=== PATIENT | male | born 1960 | race Caucasian/White ===

== ENCOUNTER 2016-12-04 15:23 | Inpatient (IN) | payer BC ==
[~2016-12-04] VITALS: Ht 190.5 cm; Wt 95.3 kg
[2016-12-04 16:00] VITALS: BP 120/96
[2016-12-04] MEDS ORDERED: ONDANSETRON PF 4 MG/2 ML VIAL. IV PRN (16:30)
[2016-12-04] MEDS ORDERED: HEPARIN 25,000UTS/500ML PREMIX 500 ML IV PRN (16:30)
[2016-12-04] MEDS ORDERED: HEPARIN for IV BOLUS 10,000 UNIT/10 ML VIAL. IV PRN (16:30)
[2016-12-04] MEDS ORDERED: ACETAMINOPHEN 325 MG TABLET. PO PRN (16:30)
[2016-12-04] MEDS ORDERED: ASPIRIN 81 MG TAB.CHEW PO ONE (16:30)
--- NOTE | 2016-12-04 16:44 | PDOC2 ---
IDRIS BILL WOODENWARE ASSEMBLER 12/04/16 1644: CARDIAC CONSULT DATE OF CONSULT Date of Consult DATE: 12/04/16 TIME: 16:31 REASON FOR CONSULT Reason for Consult: Chest Pain, elevated trop REFERRING PHYSICIAN Referring Physician: Dr. Faustin SOURCE Source: Chart review, Patient HISTORY OF PRESENT ILLNESS HISTORY OF PRESENT ILLNESS This is a 56 yo male who presented to his PCP office yesterday with complaints of right sided chest pain. CXR was obtain, which revealed possible mass. Patient was referred to process server, Dr. Anderson today, who ordered CT of chest. While at office visit, PCP contact patient to notify him of abnormal lab findings. Patient was directly admitted to hospital due to an elevated troponin level and cardiology consult was obtained. Patient reports chest pain began yesterday afternoon. Describes as mild heaviness/tightness. Associated with throat "burning" sensation and diaphoresis. No worsening or relieving factors. Pain seemed to go away after a couple hours without intervention. Denies any associated dizziness, palpitations, orthopnea, SOA, or n/v. No recent [place]. PAST MEDICAL HISTORY Cardiovascular: Hyperlipidemia Pulmonary: No pertinent hx GI: No pertinent hx Heme/Onc: No pertinent hx Hepatobiliary: No pertinent hx Psych: No pertinent hx Rheumatologic: No pertinent hx Infectious disease: No pertinent hx ENT: No pertinent hx Renal/: No pertinent hx Endocrine: No pertinent hx Dermatology: No pertinent hx PAST SURGICAL HISTORY Past Surgical History: Appendectomy, Other (cyst removal) FAMILY HISTORY Family History: Other (non-contributory ) SOCIAL HISTORY Smoke: 1 pack per day ALCOHOL: none Drugs: None Lives: Alone ALLERGIES ALLERGIES: Coded Allergies: No Known Drug Allergies (Unverified , 12/04/16) ROS Review of System 14 point ROS conducted with pertinent positives noted above in HPI. PHYSICAL EXAM General: Alert, Oriented X3, Cooperative, No acute distress HEENT: Mucous membr. moist/pink Lungs: Clear to auscultation, Normal air movement Heart: Regular rate, Normal S1, Normal S2, No murmurs Abdomen: Soft, No tenderness Extremities: No edema, Normal pulses Skin: No breakdown, No significant lesion Neuro: Normal speech, Sensation intact Psych/Mental Status: Mental status NL, Mood NL MUSCULOSKELETAL: Full range of motion without pain ASSESSMENT/PLAN ASSESSMENT/PLAN 1. Chest pain, with typical features troponin 1.4 per reports of PCP labs obtained 12/03 will obtain troponin series. EKG, check lipids- statin if indicated Start ASA, BB, and heparin gtt Given symptoms and elevated troponin level, will proceed with C in am. B/R/ A discuss with patient and is agreeable. 2. Tobaccoism cessation discussed and encouraged. Problems: CIERA MORLEY MD 12/05/16 1618: CARDIAC CONSULT ALLERGIES ALLERGIES: Coded Allergies: No Known Drug Allergies (Unverified , 12/04/16) ASSESSMENT/PLAN ASSESSMENT/PLAN Patient seen and examined 12/04/16. Agree with ASSESSOR's assessment and plan. Patient presently chest pain-free. Plan for cardiac catheterization and possible angioplasty for his non-STEMI. Risks and benefits were explained. Thank you for your consultation. Problems: IDRIS BILL APRN Dec 04, 2016 16:44 CIERA MORLEY MD Dec 05, 2016 16:18
--- NOTE | 2016-12-04 16:47 | PDOC1 ---
History and Physical Date of Admission Date of Admission 12/04/16 Identification/Chief Complaint Chief Complaint chest pain, high troponin Problems: Source Source: Patient History of Present Illness History of Present Illness 56yo M , smoker, was sent by dr. Maddox for high troponin. Pt had rt chest pain yesterday, cough for 3months , worse for 2 weeks, went to see PCP who did CXR found a right side lung Mass. also did troponin , which is high as 1. pt has no chest pain anymore. still cough, mild , and mild sob. no need o2. no fever, chills, N/V, weight loss. Past Medical History Past Medical History none Past Surgical History Past Surgical History: Hernia Repair Family History Family History: No Significant Social History Smoke: 1 pack per day ALCOHOL: social Drugs: None Current Problem List Problem List Problems Medical Problems: (1) Chest pain Status: Acute Current Medications Current Medications Current Medications Medications (Trade) Dose Ordered Sig/Lita Start Time Stop Time Status Last Admin Dose Admin Acetaminophen (Tylenol) 650 mg PRN Q6HRS PRN 12/04/16 16:30 UNV Acetaminophen/ Hydrocodone Bitart (Lortab 5/325) 1 tab PRN Q4HRS PRN 12/04/16 16:30 UNV Aspirin (Children'S Aspirin) 324 mg 1X ONCE 12/04/16 16:30 12/04/16 16:31 UNV Aspirin (Ecotrin) 81 mg DAILYWBKFT 12/05/16 08:00 UNV Heparin Sodium (Porcine) 2,500 unit PRN Q6HRS PRN 12/04/16 16:30 UNV Heparin Sodium/ Dextrose 500 ml @ 0 mls/hr CONT PRN 12/04/16 16:30 UNV Metoprolol Tartrate (Lopressor) 12.5 mg BID 12/04/16 21:00 UNV Ondansetron HCl (Zofran) 4 mg PRN Q6HRS PRN 12/04/16 16:30 UNV ROS Review of System CONSTITUTIONAL: No fever or chills EYES: No recent changes SKIN: No rash or itching CARDIOVASCULAR: No chest pain, syncope, palpitations, or edema RESPIRATORY: No SOB or cough GASTROINTESTINAL: No nausea, vomiting or abdominal pain NEUROLOGICAL: No headaches or weakness ENDOCRINE: No cold or heat intolerance GENITOURINARY: No urgency or frequency of urination MUSCULOSKELETAL: No back pain or joint pain LYMPHATICS: No enlarged lymph nodes PSYCHIATRIC: No anxiety or depression Physical Exam Physical Exam GEN.: No apparent distress. Alert and oriented. HEENT: Head is normocephalic, atraumatic NECK: Supple. LUNGS: bl coarse bs. no wheezing or rales. HEART: RRR, S1, S2 present. Peripheral pulses intact ABDOMEN: Soft, nontender. Positive bowel sounds. EXTREMITIES: Without any cyanosis. NEUROLOGIC: Normal speech, normal tone PSYCHIATRIC: Normal affect, normal mood. SKIN: No ulcerations Vitals Vitals Vital Signs Date Time Temp Pulse Resp B/P Pulse Ox O2 Delivery O2 Flow Rate FiO2 12/04/16 16:00 98.3 73 18 120/96 96 Room Air 98.3 VTE Prophylaxis Ordered VTE Prophylaxis Devices: Yes VTE Pharmacological Prophylaxi: No Assessment/Plan Assessment/Plan 1. high troponin with chest pain yesterday 2. new rt lung Mass 3. tobaccoism plan: 1. card consulted, EKG, CYCLE CE CHECK TSH, LIpid panel 2 Cath tmr 3. heparin drip labs now dr. maddox doesnot want to see pt since he is out of town, has a fu appt next week, no need pulm consult. RAS PINA MD Dec 04, 2016 16:47
--- NOTE | 2016-12-04 16:52 | EKG ---
[facility] [address] [place] [address] Test Date: 2016-12-04 Test Time: 16:44:13 Pat Name: ZURI LOCK Department: Room: 211 1 Gender: M Health Promotion Officer: : 1960 Requested By: IDRIS BILL Order Number: [id number] Reading MD: Measurements Intervals [place] Rate: 75 P: 68 VT: 164 QRS: -22 QRSD: 86 T: 33 QT: 398 QTc: 447 Interpretive Statements SINUS RHYTHM LEFTWARD AXIS QRS(T) CONTOUR ABNORMALITY CONSIDER ANTEROSEPTAL MYOCARDIAL DAMAGE POSSIBLY ABNORMAL ECG RI6.01 No previous ECG available for comparison
[2016-12-04] MEDS ORDERED: ASPIRIN ENTERIC COATED 325 MG TABLET.DR. PO ONE (18:00)
[2016-12-04 19:20] VITALS: BP 143/93
[2016-12-04] MEDS: METOPROLOL TART IMMED RELEASE 25 MG TABLET PO SCH (21:19)
[2016-12-04 23:04] VITALS: BP 140/96
[2016-12-05] VITALS (9 sets, daily range): BP systolic 132–170; BP diastolic 89–108
[2016-12-05 00:03] LABS: BASO # 0.3 x10^3/uL (0.0-0.2); BASO % 3 % (0-3); EOS % 1 % (0-3); HEMATOCRIT 46.3 % (39.0-53.0); HEMOGLOBIN 15.4 g/dL (13.0-17.5); LYMPH # 3.4 x10^3/uL (1.0-4.8); LYMPH % 33 % (24-48); MEAN CORPUSCULAR HEMOGLOBIN 29 pg (25-35); MEAN CORPUSCULAR HGB CONC 33 g/dL (31-37); MEAN CORPUSCULAR VOLUME 86 fL (79-100); MONO % 8 % (0-9); NEUT % 56 % (31-73); PLATELET COUNT 216 x10^3/uL (140-400); RED CELL DISTRIBUTION WIDTH 13.3 % (11.5-14.5); WHITE BLOOD COUNT 10.1 x10^3/uL (4.0-11.0)
[2016-12-05 00:43] LABS: CALCIUM 9.2 mg/dL (8.5-10.1); CREATININE 1.3 mg/dL (0.7-1.3); GFR 57.3; POTASSIUM 3.9 mmol/L (3.5-5.1)
[2016-12-05 06:53] LABS: HEMATOCRIT 48.2 % (39.0-53.0); RED BLOOD COUNT 5.58 x10^6/uL (4.30-5.70); RED CELL DISTRIBUTION WIDTH 13.3 % (11.5-14.5); WHITE BLOOD COUNT 8.6 x10^3/uL (4.0-11.0)
[2016-12-05 07:19] LABS: CHOLESTEROL/HDL RATIO 3.7
[2016-12-05] MEDS ORDERED: ANTI-COAG MONITOR BY PHARMACY. MC PRN (07:45)
[2016-12-05] MEDS ORDERED: ASPIRIN ENTERIC COATED 81 MG TABLET.DR. PO SCH (08:00)
[2016-12-05] MEDS: METOPROLOL TART IMMED RELEASE 25 MG TABLET PO SCH ×2 (08:34→20:53)
[2016-12-05] MEDS ORDERED: VARE0.5T PO (08:47)
[2016-12-05] MEDS ORDERED: SODIUM BICARBONATE VIAL 150 MEQ in IV STERILE WATER 1,000 ML IV ONE (09:00)
[2016-12-05] MEDS ORDERED: IV RINGERS,LACTATED 1000ML 1,000 ML IV SCH (09:00)
[2016-12-05] MEDS ORDERED: IV NORMAL SALINE 1000ML BAG 1,000 ML IV ONE (09:30)
--- NOTE | 2016-12-05 10:45 | PDOC ---
MODERATE SEDATION ASSESSMENT RISKS/ALTERNATIVES Risks/Alternatives Risks and alternatives of this type of sedation and procedure discussed with: RISK/ALTERNATIVES: Patient H & P ON CHART H & P H & P on chart and reviewed for co-morbid conditions and appropriate labs. H&P ON CHART: Yes STATUS PREG STATUS ASSESSED: N/A MEDS/ALLERGIES REVIEWED Meds/Allergies Reviewed Medications and Allergies including time and route of recently administered narcotics and sedatives. MEDS/ALLERGIES REVIEWED: Yes ASA RATING ASA RATING: II AIRWAY ASSESSMENT Airway Assessment Airway patency, oral function limitations, presence of caps, crowns, dentures, partials, and ability to extend neck assessed. AIRWAY ASSESSMENT: Yes MALLAMPATI SCORE MALLAMPATI SCORE: II PRE-SEDATION ASSESSMENT PRE-SEDATION ASSESSMENT: Yes CIERA MORLEY MD Dec 05, 2016 10:45
[2016-12-05] MEDS ORDERED: IODIXANOL 320 MG/ML 100 ML VIAL. ONE ×3 (10:49→12:37)
[2016-12-05] MEDS ORDERED: LIDOCAINE 2% 20 ML VIAL. ONE (10:49)
[2016-12-05] MEDS ORDERED: MIDAZOLAM HCL/PF 5 MG/5 ML VIAL ONE (11:19)
[2016-12-05] MEDS ORDERED: NITROGLYCERIN 200 MCG/2 ML SYRINGE FOR CATH/VASC LAB. ONE ×2 (11:19→14:34)
[2016-12-05] MEDS ORDERED: VERAPAMIL 5 MG/2 ML VIAL. ONE (11:19)
[2016-12-05] MEDS ORDERED: HEPARIN for IV BOLUS 10,000 UNIT/10 ML VIAL. ONE (11:19)
[2016-12-05] MEDS ORDERED: FENTANYL PF 100 MCG/2 ML VIAL. ONE ×2 (11:19→12:48)
[2016-12-05] MEDS ORDERED: IODIXANOL 320 MG/ML 100 ML VIAL. IART ONE (11:30)
[2016-12-05] MEDS ORDERED: MIDAZOLAM HCL/PF 5 MG/5 ML VIAL IV ONE (11:30)
[2016-12-05] MEDS ORDERED: LIDOCAINE 2% 20 ML VIAL. IJ ONE (11:30)
[2016-12-05] MEDS ORDERED: FENTANYL PF 100 MCG/2 ML VIAL. IV ONE (11:30)
[2016-12-05] MEDS ORDERED: BIVALIRUDIN 250 MG VIAL IV ONE ×4 (11:43→13:00)
[2016-12-05] MEDS ORDERED: CONTRAST GIVEN MC PRN (11:45)
[2016-12-05] MEDS ORDERED: NITROGLYCERIN 200 MCG/2 ML SYRINGE FOR CATH/VASC LAB. ICAR ONE (12:02)
[2016-12-05] MEDS ORDERED: ASPIRIN 81 MG TAB.CHEW PO ONE (13:30)
[2016-12-05] MEDS ORDERED: PRASUGREL 10 MG TABLET. PO ONE (13:30)
[2016-12-05] MEDS ORDERED: PRASUGREL 10 MG TABLET. ONE (13:31)
[2016-12-05] MEDS ORDERED: ACETAMINOPHEN 325 MG TABLET. PO PRN (13:45)
[2016-12-05] MEDS ORDERED: NITROGLYCERIN SUBLINGUAL 0.4 MG BOTTLE OF 25. SL PRN (13:45)
[2016-12-05] MEDS ORDERED: hydrALAZINE 20 MG/ML VIAL. IVP PRN (14:15)
--- NOTE | 2016-12-05 14:17 | PDOC ---
PROGRESS NOTES Chief Complaint Chief Complaint NSTEMI htn lipids new rt lung Mass tobaccoism History of Present Illness History of Present Illness cardiac cath today tobacco cessation, chantix cont current f/u with PUlm for lung mass maybe DC in AM Vitals Vitals Vital Signs Date Time Temp Pulse Resp B/P Pulse Ox O2 Delivery O2 Flow Rate FiO2 12/05/16 13:38 75 18 94 Room Air 12/05/16 08:34 156/105 12/05/16 07:59 97.8 97.8 Physical Exam General: Alert, Oriented X3, Cooperative, No acute distress Heart: Regular rate, Normal S1, Normal S2, No murmurs Lungs: Clear Abdomen: Soft, No tenderness Extremities: No clubbing, No edema, Normal pulses Skin: No breakdown, No significant lesion Labs LABS Laboratory Tests Test 12/04/16 23:45 12/05/16 06:35 White Blood Count 10.1x10^3/uL (4.0-11.0) 8.6x10^3/uL (4.0-11.0) Red Blood Count 5.40x10^6/uL (4.30-5.70) 5.58x10^6/uL (4.30-5.70) Hemoglobin 15.4g/dL (13.0-17.5) 16.0g/dL (13.0-17.5) Hematocrit 46.3% (39.0-53.0) 48.2% (39.0-53.0) Mean Corpuscular Volume 86fL (79-100) 86fL (79-100) Mean Corpuscular Hemoglobin 29pg (25-35) 29pg (25-35) Mean Corpuscular Hemoglobin Concent 33g/dL (31-37) 33g/dL (31-37) Red Cell Distribution Width 13.3% (11.5-14.5) 13.3% (11.5-14.5) Platelet Count 216x10^3/uL (140-400) 214x10^3/uL (140-400) Neutrophils (%) (Auto) 56% (31-73) Lymphocytes (%) (Auto) 33% (24-48) Monocytes (%) (Auto) 8% (0-9) Eosinophils (%) (Auto) 1% (0-3) Basophils (%) (Auto) 3% (0-3) Neutrophils # (Auto) 5.6x10^3uL (1.8-7.7) Lymphocytes # (Auto) 3.4x10^3/uL (1.0-4.8) Monocytes # (Auto) 0.8x10^3/uL (0.0-1.1) Eosinophils # (Auto) 0.1x10^3/uL (0.0-0.7) Basophils # (Auto) 0.3x10^3/uL (0.0-0.2) Heparin Anti-Xa Act, Unfractionated < 0.10IU/mL (0.30-0.70) 0.28IU/mL (0.30-0.70) Sodium Level 142mmol/L (136-145) Potassium Level 3.9mmol/L (3.5-5.1) Chloride Level 105mmol/L (98-107) Carbon Dioxide Level 31mmol/L (21-32) Anion Gap 6 (6-14) Blood Urea Nitrogen 17mg/dL (8-26) Creatinine 1.3mg/dL (0.7-1.3) Estimated GFR (Cockcroft-Gault) 57.3 Glucose Level 95mg/dL (70-99) Calcium Level 9.2mg/dL (8.5-10.1) Troponin I Quantitative 2.780ng/mL (0.000-0.055) 2.349ng/mL (0.000-0.055) Thyroid Stimulating Hormone (TSH) 0.967uIU/mL (0.358-3.74) Triglycerides Level 52mg/dL (0-150) Cholesterol Level 205mg/dL (0-200) LDL Cholesterol, Calculated 140mg/dL (0-100) VLDL Cholesterol, Calculated 10mg/dL (0-40) HDL Cholesterol 55mg/dL (40-60) Cholesterol/HDL Ratio 3.7 Review of Systems Review of Systems no n.v.d pain gone Assessment and Plan Assessmemt and Plan reports has quit tobacco worse at [facility] [place] Problems Medical Problems: (1) Chest pain Status: Acute Problems: Comment Review of Relevant I have reviewed the following items tess (where applicable) has been applied. Labs Laboratory Tests Test 12/04/16 23:45 12/05/16 06:35 White Blood Count 10.1x10^3/uL (4.0-11.0) 8.6x10^3/uL (4.0-11.0) Red Blood Count 5.40x10^6/uL (4.30-5.70) 5.58x10^6/uL (4.30-5.70) Hemoglobin 15.4g/dL (13.0-17.5) 16.0g/dL (13.0-17.5) Hematocrit 46.3% (39.0-53.0) 48.2% (39.0-53.0) Mean Corpuscular Volume 86fL (79-100) 86fL (79-100) Mean Corpuscular Hemoglobin 29pg (25-35) 29pg (25-35) Mean Corpuscular Hemoglobin Concent 33g/dL (31-37) 33g/dL (31-37) Red Cell Distribution Width 13.3% (11.5-14.5) 13.3% (11.5-14.5) Platelet Count 216x10^3/uL (140-400) 214x10^3/uL (140-400) Neutrophils (%) (Auto) 56% (31-73) Lymphocytes (%) (Auto) 33% (24-48) Monocytes (%) (Auto) 8% (0-9) Eosinophils (%) (Auto) 1% (0-3) Basophils (%) (Auto) 3% (0-3) Neutrophils # (Auto) 5.6x10^3uL (1.8-7.7) Lymphocytes # (Auto) 3.4x10^3/uL (1.0-4.8) Monocytes # (Auto) 0.8x10^3/uL (0.0-1.1) Eosinophils # (Auto) 0.1x10^3/uL (0.0-0.7) Basophils # (Auto) 0.3x10^3/uL (0.0-0.2) Heparin Anti-Xa Act, Unfractionated < 0.10IU/mL (0.30-0.70) 0.28IU/mL (0.30-0.70) Sodium Level 142mmol/L (136-145) Potassium Level 3.9mmol/L (3.5-5.1) Chloride Level 105mmol/L (98-107) Carbon Dioxide Level 31mmol/L (21-32) Anion Gap 6 (6-14) Blood Urea Nitrogen 17mg/dL (8-26) Creatinine 1.3mg/dL (0.7-1.3) Estimated GFR (Cockcroft-Gault) 57.3 Glucose Level 95mg/dL (70-99) Calcium Level 9.2mg/dL (8.5-10.1) Troponin I Quantitative 2.780ng/mL (0.000-0.055) 2.349ng/mL (0.000-0.055) Thyroid Stimulating Hormone (TSH) 0.967uIU/mL (0.358-3.74) Triglycerides Level 52mg/dL (0-150) Cholesterol Level 205mg/dL (0-200) LDL Cholesterol, Calculated 140mg/dL (0-100) VLDL Cholesterol, Calculated 10mg/dL (0-40) HDL Cholesterol 55mg/dL (40-60) Cholesterol/HDL Ratio 3.7 Laboratory Tests Test 12/04/16 23:45 12/05/16 06:35 White Blood Count 10.1x10^3/uL (4.0-11.0) 8.6x10^3/uL (4.0-11.0) Red Blood Count 5.40x10^6/uL (4.30-5.70) 5.58x10^6/uL (4.30-5.70) Hemoglobin 15.4g/dL (13.0-17.5) 16.0g/dL (13.0-17.5) Hematocrit 46.3% (39.0-53.0) 48.2% (39.0-53.0) Mean Corpuscular Volume 86fL (79-100) 86fL (79-100) Mean Corpuscular Hemoglobin 29pg (25-35) 29pg (25-35) Mean Corpuscular Hemoglobin Concent 33g/dL (31-37) 33g/dL (31-37) Red Cell Distribution Width 13.3% (11.5-14.5) 13.3% (11.5-14.5) Platelet Count 216x10^3/uL (140-400) 214x10^3/uL (140-400) Neutrophils (%) (Auto) 56% (31-73) Lymphocytes (%) (Auto) 33% (24-48) Monocytes (%) (Auto) 8% (0-9) Eosinophils (%) (Auto) 1% (0-3) Basophils (%) (Auto) 3% (0-3) Neutrophils # (Auto) 5.6x10^3uL (1.8-7.7) Lymphocytes # (Auto) 3.4x10^3/uL (1.0-4.8) Monocytes # (Auto) 0.8x10^3/uL (0.0-1.1) Eosinophils # (Auto) 0.1x10^3/uL (0.0-0.7) Basophils # (Auto) 0.3x10^3/uL (0.0-0.2) Heparin Anti-Xa Act, Unfractionated < 0.10IU/mL (0.30-0.70) 0.28IU/mL (0.30-0.70) Sodium Level 142mmol/L (136-145) Potassium Level 3.9mmol/L (3.5-5.1) Chloride Level 105mmol/L (98-107) Carbon Dioxide Level 31mmol/L (21-32) Anion Gap 6 (6-14) Blood Urea Nitrogen 17mg/dL (8-26) Creatinine 1.3mg/dL (0.7-1.3) Estimated GFR (Cockcroft-Gault) 57.3 Glucose Level 95mg/dL (70-99) Calcium Level 9.2mg/dL (8.5-10.1) Troponin I Quantitative 2.780ng/mL (0.000-0.055) 2.349ng/mL (0.000-0.055) Thyroid Stimulating Hormone (TSH) 0.967uIU/mL (0.358-3.74) Triglycerides Level 52mg/dL (0-150) Cholesterol Level 205mg/dL (0-200) LDL Cholesterol, Calculated 140mg/dL (0-100) VLDL Cholesterol, Calculated 10mg/dL (0-40) HDL Cholesterol 55mg/dL (40-60) Cholesterol/HDL Ratio 3.7 Medications Current Medications Heparin Sodium/ Dextrose 500 ml @ 20 mls/hr CONT PRN IV SEE I/O RECORD Last administered on 12/04/16 17:46; Start 12/04/16 at 16:30; Stop 12/05/16 at 13:42; Status DC Heparin Sodium (Porcine) 2,500 unit PRN Q6HRS PRN IV FOR UFH LEVEL LESS THAN 0.2 Last administered on 12/05/16 00:41; Start 12/04/16 at 16:30; Stop 12/05/16 at 13:42; Status DC Aspirin (Children'S Aspirin) 324 mg 1X ONCE PO ; Start 12/04/16 at 16:30; Stop 12/04/16 at 17:16; Status DC Aspirin (Ecotrin) 81 mg DAILYWBKFT PO Last administered on 12/05/16 08:31; Start 12/05/16 at 08:00; Stop 12/05/16 at 13:42; Status DC Metoprolol Tartrate (Lopressor) 12.5 mg BID PO Last administered on 12/05/16 08:34; Start 12/04/16 at 21:00 Ondansetron HCl (Zofran) 4 mg PRN Q6HRS PRN IV NAUSEA/VOMITING; Start 12/04/16 at 16:30 Acetaminophen/ Hydrocodone Bitart (Lortab 5/325) 1 tab PRN Q4HRS PRN PO MILD PAIN, 2ND CHOICE; Start 12/04/16 at 16:30 Acetaminophen (Tylenol) 650 mg PRN Q6HRS PRN PO MILD PAIN / TEMP; Start at 16:30; Stop 12/05/16 at 13:45; Status DC Aspirin (Ecotrin) 325 mg 1X ONCE PO Last administered on 12/04/16 18:07; Start 12/04/16 at 18:00; Stop 12/04/16 at 18:01; Status DC Info (Anti-Coagulation Monitoring By Pharmacy) 1 each PRN DAILY PRN MC SEE COMMENTS Last administered on 12/05/16 07:46; Start 12/05/16 at 07:45; Stop 07/14 at 13:45; Status DC Varenicline 0.5 mg 0.5 mg DAILY PO ; Start 12/05/16 at 09:00 Sodium Bicarbonate 150 meq/Sterile Water 1,150 ml @ 125 mls/hr 1X ONCE IV ; Start 12/05/16 at 09:00; Stop 12/05/16 at 09:00; Status DC Lactated Ringer's 1,000 ml @ 125 mls/hr Q8H IV ; Start 12/05/16 at 09:00; Stop 12/05/16 at 09:01; Status DC Sodium Chloride 1,000 ml @ 150 mls/hr 1X ONCE IV Last administered on 09:05; Start 12/05/16 at 09:30; Stop 12/05/16 at 16:09 Heparin Sodium/ Sodium Chloride 500 ml @ As Directed STK-MED ONCE .ROUTE ; Start 12/05/16 at 10:49; Stop 12/05/16 at 10:50; Status DC Lidocaine HCl 20 ml STK-MED ONCE .ROUTE ; Start 12/05/16 at 10:49; Stop at 10:50; Status DC Iodixanol (Visipaque 320) 100 ml STK-MED ONCE .ROUTE ; Start 12/05/16 at 10:49; Stop 12/05/16 at 10:50; Status DC Nitroglycerin (Nitroglycerin) 200 mcg STK-MED ONCE .ROUTE ; Start 12/05/16 at 11 :19; Stop 12/05/16 at 11:20; Status DC Verapamil HCl (Verapamil) 5 mg STK-MED ONCE .ROUTE ; Start 12/05/16 at 11:19; Stop 12/05/16 at 11:20; Status DC Fentanyl Citrate (Fentanyl 2ml Vial) 100 mcg STK-MED ONCE .ROUTE ; Start at 11:19; Stop 12/05/16 at 11:20; Status DC Midazolam HCl (Versed) 5 mg STK-MED ONCE .ROUTE ; Start 12/05/16 at 11:19; Stop 12/05/16 at 11:20; Status DC Heparin Sodium (Porcine) 10,000 unit STK-MED ONCE .ROUTE ; Start 12/05/16 at 11: 19; Stop 12/05/16 at 11:20; Status DC Heparin Sodium/ Sodium Chloride 1,000 unit 1X ONCE IART Last administered on 13:33; Start 12/05/16 at 11:30; Stop 12/05/16 at 11:33; Status DC Midazolam HCl (Versed) 3 mg 1X ONCE IV Last administered on 12/05/16 13:34; Start 12/05/16 at 11:30; Stop 12/05/16 at 11:33; Status DC Fentanyl Citrate (Fentanyl 2ml Vial) 100 mcg 1X ONCE IV Last administered on 13:35; Start 12/05/16 at 11:30; Stop 12/05/16 at 11:33; Status DC Iodixanol (Visipaque 320) 100 ml 1X ONCE IART Last administered on 12/05/16 13:33; Start 12/05/16 at 11:30; Stop 12/05/16 at 11:33; Status DC Lidocaine HCl 20 ml 1X ONCE IJ Last administered on 12/05/16 13:33; Start 07/14 at 11:30; Stop 12/05/16 at 11:33; Status DC Info (Do NOT chart on this entry -- for MONITORING) 1 each PRN DAILY PRN MC SEE COMMENTS; Start 12/05/16 at 11:45; Stop 12/07/16 at 11:44 Iodixanol (Visipaque 320) 100 ml STK-MED ONCE .ROUTE ; Start 12/05/16 at 11:43; Stop 12/05/16 at 11:44; Status DC Bivalirudin (Angiomax) 250 mg STK-MED ONCE IV ; Start 12/05/16 at 11:43; Stop at 11:44; Status DC Bivalirudin (Angiomax) 250 mg 1X ONCE IV Last administered on 12/05/16 13:35 ; Start 12/05/16 at 12:00; Stop 12/05/16 at 12:01; Status DC Nitroglycerin (Nitroglycerin) 200 mcg 1X ONCE ICAR Last administered on 13:36; Start 12/05/16 at 12:02; Stop 12/05/16 at 12:17; Status DC Iodixanol (Visipaque 320) 100 ml STK-MED ONCE .ROUTE ; Start 12/05/16 at 12:37; Stop 12/05/16 at 12:38; Status DC Bivalirudin (Angiomax) 250 mg STK-MED ONCE IV ; Start 12/05/16 at 12:48; Stop at 12:49; Status DC Fentanyl Citrate (Fentanyl 2ml Vial) 100 mcg STK-MED ONCE .ROUTE ; Start at 12:48; Stop 12/05/16 at 12:49; Status DC Bivalirudin (Angiomax) 250 mg 1X ONCE IV Last administered on 12/05/16 13:35 ; Start 12/05/16 at 13:00; Stop 12/05/16 at 13:02; Status DC Prasugrel (Effient) 60 mg 1X ONCE PO Last administered on 12/05/16 13:37; Start 12/05/16 at 13:30; Stop 12/05/16 at 13:33; Status DC Aspirin (Children'S Aspirin) 81 mg 1X ONCE PO Last administered on 12/05/16 13:37; Start 12/05/16 at 13:30; Stop 12/05/16 at 13:33; Status DC Prasugrel 10 mg 10 mg STK-MED ONCE .ROUTE ; Start 12/05/16 at 13:31; Stop at 13:32; Status DC Sodium Chloride (Iv Sodium Chloride 0.45%) 1,000 ml @ 125 mls/hr Q8H IV ; Start 12/05/16 at 13:38 Aspirin (Ecotrin) 325 mg DAILYWBKFT PO ; Start 12/06/16 at 08:00 Prasugrel (Effient) 10 mg DAILYWBKFT PO ; Start 12/06/16 at 08:00 Atorvastatin Calcium (Lipitor) 40 mg QHS PO ; Start 12/05/16 at 21:00 Acetaminophen (Tylenol) 650 mg PRN Q6HRS PRN PO MILD PAIN / TEMP; Start at 13:45 Nitroglycerin (Nitrostat) 0.4 mg PRN Q5MIN PRN SL CHEST PAIN; Start 12/05/16 at 13:45 Active Scripts Active Reported Chantix (Varenicline Tartrate) 0.5 Mg Tablet 0.5 Mg PO DIRECTED 0.5 MG PO DAILY X3 DAY, 0.5 MG PO BID X4 DAY, 1 MG PO BID UNTIL END OF TREATMENT Vitals/I & O Vital Sign - Last 24 Hours 12/04/16 12/04/16 12/04/16 12/04/16 16:00 16:42 19:20 20:00 Temp 98.3 98.3 98.3 98.3 Pulse 73 77 Resp 16 B/P 120/96 143/93 Pulse Ox 96 96 O2 Delivery Room Air Room Air Room Air Room Air 12/04/16 12/04/16 12/05/16 12/05/16 21:19 23:04 03:41 07:59 Temp 98.2 98.3 97.8 98.2 98.3 97.8 Pulse 83 70 68 Resp 18 18 B/P 140/90 140/96 132/91 Pulse Ox 95 95 95 O2 Delivery Room Air Room Air Room Air 12/05/16 12/05/16 12/05/16 12/05/16 08:00 08:34 13:35 13:38 Pulse 79 75 Resp 18 B/P 156/105 Pulse Ox 98 94 O2 Delivery Room Air Room Air Room Air Intake and Output 12/04/16 12/04/16 12/05/16 15:00 23:00 07:00 Intake Total 420 ml 918 ml Output Total 275 ml 250 ml Balance 145 ml 668 ml NADEGE OAKLEY MD Dec 05, 2016 14:17
[2016-12-05] MEDS: IV 1/2 NORMAL SALINE 1,000 ML IV SCH ×2 (14:27→21:00)
[2016-12-05] MEDS: VARENICLINE 0.5 MG TABLET. PO SCH (14:27)
[2016-12-05] MEDS: HYDROCODONE/APAP 5/325MG TABLET. PO PRN ×2 (14:27→19:40)
--- NOTE | 2016-12-05 14:33 | CARD ---
APPROVED REPORT Procedure(s) performed: 1. Left heart catheterization and selective coronary angiography 2. Successful complex PCI/drug eluting stents placement to chronic total occlusion involving the lef t circumflex artery and also the second obtuse marginal branch. INDICATION The indication(s) include : non-STEMI . PROCEDURE NARRATIVE After explaining the risks, benefits and alternative options, informed consent the patient patient wa s brought to the cardiac Administration Vice President and his right groin was prepped and draped in the usual fashion. 20 mL of 2% lidocaine was infiltrated into the skin and subcutaneous tissues for local anesthesia. Jackelyn rial access was obtained in the right common femoral artery and 6 Armenian sheath was inserted. 6 Frenc h JL4 and 6 Armenian JR4 catheters were used to perform selective angiography of the left and right cor onary arteries. Left ventriculography was not performed due to the high contrast load used during the procedure. The following findings were noted. FINDINGS 1. The left main coronary artery arose from the left sinus of Valsalva, gave rise to the left anteri or descending and left circumflex arteries and did not show any significant stenosis. 2. The left anterior descending artery did not show any significant stenosis. 3. The left circumflex artery showed 100% chronic total occlusion involving the proximal to mid segm ent. There is distal reconstitution of second obtuse marginal branch via collaterals. 4. The right coronary artery was a large and dominant vessel arising from the right sinus of Valsalv a that showed 40% stenosis in the mid to distal segment. INTERVENTION The left main coronary artery was engaged with a 6 Armenian XB 3.5 guide catheter and the stenosis in t he proximal to mid segment of the left circumflex artery extending into the proximal segment of the s econd obtuse marginal branch was crossed with a 0.014 inch [employer] guidewire. This was predila ilya with a 2.5 x 12 mm trek balloon following which this was successfully treated with a 2.75 x 18 mm Xience alpine drug-eluting stent. Follow-up angiography showed thrombus just distal to the stent ext ending into the second obtuse marginal branch. Initial attempt to advance balloon or stent into this lesion was unsuccessful secondary to calcification and tortuosity. The lesion was recrossed with a 0. 014 inch runthrough guidewire with support from Corsair microcatheter which was then exchanged to a 6 Armenian guideliner for backup support. The lesion was dilated again with 3.0 x 12 mm trek balloon fol lowing which this was successfully treated with a 3.0 x 12 mm Xience Alpine drug-eluting stent. Final angiography showed resolution of the stenosis to 0% with ANDRE-3 distal flow. Patient tolerated the p rocedure well. Hemostasis in the right groin was achieved using Angio-Seal. There were no immediate c omplications. Conclusion 1. Severe single-vessel coronary artery disease 2. Successful PCI/drug eluting stents placement to the left circumflex artery and also the second ob tuse marginal branch. Medications Administered 1. Aspirin 325 mg daily 2. Effient 10 mg daily for preferably one year 3. Cardiovascular risk factor modification
[2016-12-05] MEDS ORDERED: NON FORMULARY ITEM INH SCH (21:00)
[2016-12-05] MEDS ORDERED: ATORVASTATIN CALCIUM 40 MG TABLET. PO SCH (21:00)
[2016-12-06 02:30] VITALS: BP 139/99
[2016-12-06] MEDS: IV 1/2 NORMAL SALINE 1,000 ML IV SCH (05:38)
[2016-12-06 05:58] LABS: BASO % 0 % (0-3); EOS % 1 % (0-3); HEMATOCRIT 48.5 % (39.0-53.0); HEMOGLOBIN 16.4 g/dL (13.0-17.5); LYMPH # 2.3 x10^3/uL (1.0-4.8); LYMPH % 24 % (24-48); MEAN CORPUSCULAR HEMOGLOBIN 29 pg (25-35); MEAN CORPUSCULAR HGB CONC 34 g/dL (31-37); MEAN CORPUSCULAR VOLUME 84 fL (79-100); MONO % 8 % (0-9); NEUT % 67 % (31-73); PLATELET COUNT 217 x10^3/uL (140-400); RED BLOOD COUNT 5.75 x10^6/uL (4.30-5.70); RED CELL DISTRIBUTION WIDTH 13.5 % (11.5-14.5); WHITE BLOOD COUNT 9.8 x10^3/uL (4.0-11.0)
[2016-12-06 06:15] LABS: ALBUMIN 3.1 g/dL (3.4-5.0); ALBUMIN/GLOBULIN RATIO 0.9 (1.0-1.7); CALCIUM 8.9 mg/dL (8.5-10.1); CREATININE 1.1 mg/dL (0.7-1.3); GFR 69.5; POTASSIUM 3.8 mmol/L (3.5-5.1); TOTAL BILIRUBIN 0.7 mg/dL (0.2-1.0); TOTAL PROTEIN 6.7 g/dL (6.4-8.2)
[2016-12-06 07:55] VITALS: BP 155/97
[2016-12-06] MEDS ORDERED: ASPIRIN ENTERIC COATED 325 MG TABLET.DR. PO SCH (08:00)
[2016-12-06] MEDS ORDERED: PRASUGREL 10 MG TABLET. PO SCH (08:00)
[2016-12-06] MEDS: VARENICLINE 0.5 MG TABLET. PO SCH (08:58)
[2016-12-06 09:01] VITALS: BP 155/97
[2016-12-06] MEDS: METOPROLOL TART IMMED RELEASE 25 MG TABLET PO SCH (09:01)
[2016-12-06] MEDS ORDERED: PRAS10TA4 PO (09:20)
[2016-12-06] MEDS ORDERED: METO25TA4 PO (09:20)
[2016-12-06] MEDS ORDERED: ASPI325T11 PO (09:20)
[2016-12-06] MEDS ORDERED: ATOR40TA59 PO (09:20)
[2016-12-06] MEDS ORDERED: HYDR-2666 PO (09:21)
--- NOTE | 2016-12-06 09:36 | PDOC ---
CARDIO Progress Notes Date and Time Date of Service 12/06/2016 Time of Evaluation 09 Subjective Subjective: No Chest Pain, No shortness of breath, No Palpitations, No Dizziness Vitals Vitals Vital Signs Date Time Temp Pulse Resp B/P Pulse Ox O2 Delivery O2 Flow Rate FiO2 12/06/16 09:01 86 155/97 12/06/16 07:59 Room Air 12/06/16 07:55 98.5 22 94 98.5 Weight Weight [ ] Input and Output Intake and Output Intake and Output 12/06/16 07:00 Intake Total 2232 ml Output Total 1300 ml Balance 932 ml Intake Oral 120 ml IV Total 2112 ml Output Urine Total 1300 ml Laboratory Labs Laboratory Tests Test 12/06/16 05:00 White Blood Count 9.8x10^3/uL (4.0-11.0) Red Blood Count 5.75x10^6/uL (4.30-5.70) Hemoglobin 16.4g/dL (13.0-17.5) Hematocrit 48.5% (39.0-53.0) Mean Corpuscular Volume 84fL (79-100) Mean Corpuscular Hemoglobin 29pg (25-35) Mean Corpuscular Hemoglobin Concent 34g/dL (31-37) Red Cell Distribution Width 13.5% (11.5-14.5) Platelet Count 217x10^3/uL (140-400) Neutrophils (%) (Auto) 67% (31-73) Lymphocytes (%) (Auto) 24% (24-48) Monocytes (%) (Auto) 8% (0-9) Eosinophils (%) (Auto) 1% (0-3) Basophils (%) (Auto) 0% (0-3) Neutrophils # (Auto) 6.6x10^3uL (1.8-7.7) Lymphocytes # (Auto) 2.3x10^3/uL (1.0-4.8) Monocytes # (Auto) 0.8x10^3/uL (0.0-1.1) Eosinophils # (Auto) 0.1x10^3/uL (0.0-0.7) Basophils # (Auto) 0.0x10^3/uL (0.0-0.2) Sodium Level 143mmol/L (136-145) Potassium Level 3.8mmol/L (3.5-5.1) Chloride Level 107mmol/L (98-107) Carbon Dioxide Level 26mmol/L (21-32) Anion Gap 10 (6-14) Blood Urea Nitrogen 11mg/dL (8-26) Creatinine 1.1mg/dL (0.7-1.3) Estimated GFR (Cockcroft-Gault) 69.5 BUN/Creatinine Ratio 10 (6-20) Glucose Level 90mg/dL (70-99) Calcium Level 8.9mg/dL (8.5-10.1) Total Bilirubin 0.7mg/dL (0.2-1.0) Aspartate Amino Transf (AST/SGOT) 23U/L (15-37) Alanine Aminotransferase (ALT/SGPT) 9U/L (16-63) Alkaline Phosphatase 84U/L (46-116) Total Protein 6.7g/dL (6.4-8.2) Albumin 3.1g/dL (3.4-5.0) Albumin/Globulin Ratio 0.9 (1.0-1.7) Physical Exam HEENT: Neck Supple W Full Motion Chest: Symmetric LUNGS: Clear to Auscultation Heart: S1S2, RRR, no murmurs, other (tele: NSR; no dysrhythmias) Abdomen: Soft N/T Extremities: 2+ Dorsalis Pedis, 2+ Posterior Tibial, Other (right merchandise shopper arteriotomy C/D/I; site soft without ecchymosis, erythema or edema; no bruit auscultated at site) Neurology: alert, oriented, follow commands Assessment Assessment 1. CP/elevated troponin (peaked @ 2.7)/ACS SAT INSTRUCTOR circumflex with PCI/YAMIL to prox/midsegement PCI/YAMIL to OM2 DAPT preferably for 12 months; also BB, and statin therapy has been advised to cancel lung biopsy scheduled for coming - will likely need to defer this for at least 30 days will discuss with primary drug safety scientist and IR about possibility of FNA on aspirin only 2. HLD LDLs = 140 continue high dose statin therapy Agreeable with discharge f/u with Dr. Mendez in about 3 - 4 weeks RL BREAUX APRN Dec 06, 2016 09:36
--- NOTE | 2016-12-06 09:44 | PDOC3 ---
Discharge Summary Visit Information Date of Admission: Dec 04, 2016 Date of Discharge: Dec 06, 2016 Admitting Diagnosis: angina Final Diagnosis NSTEMI to circ htn lipids new rt lung Mass tobaccoism Problems Medical Problems: (1) Chest pain Status: Acute (2) Non-ST elevation (NSTEMI) myocardial infarction Status: Acute Brief Hospital Course Allergies Allergies Coded Allergies Type Severity Reaction Last Updated Verified No Known Drug Allergies 12/04/16 No Vital Signs Vital Signs Date Time Temp Pulse Resp B/P Pulse Ox O2 Delivery O2 Flow Rate FiO2 12/06/16 09:01 86 155/97 12/06/16 07:59 Room Air 12/06/16 07:55 98.5 22 94 98.5 Lab Results Laboratory Tests Test 12/04/16 23:45 12/05/16 06:35 12/06/16 05:00 White Blood Count 10.1x10^3/uL (4.0-11.0) 8.6x10^3/uL (4.0-11.0) 9.8x10^3/uL (4.0-11.0) Red Blood Count 5.40x10^6/uL (4.30-5.70) 5.58x10^6/uL (4.30-5.70) 5.75x10^6/uL (4.30-5.70) Hemoglobin 15.4g/dL (13.0-17.5) 16.0g/dL (13.0-17.5) 16.4g/dL (13.0-17.5) Hematocrit 46.3% (39.0-53.0) 48.2% (39.0-53.0) 48.5% (39.0-53.0) Mean Corpuscular Volume 86fL (79-100) 86fL (79-100) 84fL (79-100) Mean Corpuscular Hemoglobin 29pg (25-35) 29pg (25-35) 29pg (25-35) Mean Corpuscular Hemoglobin Concent 33g/dL (31-37) 33g/dL (31-37) 34g/dL (31-37) Red Cell Distribution Width 13.3% (11.5-14.5) 13.3% (11.5-14.5) 13.5% (11.5-14.5) Platelet Count 216x10^3/uL (140-400) 214x10^3/uL (140-400) 217x10^3/uL (140-400) Neutrophils (%) (Auto) 56% (31-73) 67% (31-73) Lymphocytes (%) (Auto) 33% (24-48) 24% (24-48) Monocytes (%) (Auto) 8% (0-9) 8% (0-9) Eosinophils (%) (Auto) 1% (0-3) 1% (0-3) Basophils (%) (Auto) 3% (0-3) 0% (0-3) Neutrophils # (Auto) 5.6x10^3uL (1.8-7.7) 6.6x10^3uL (1.8-7.7) Lymphocytes # (Auto) 3.4x10^3/uL (1.0-4.8) 2.3x10^3/uL (1.0-4.8) Monocytes # (Auto) 0.8x10^3/uL (0.0-1.1) 0.8x10^3/uL (0.0-1.1) Eosinophils # (Auto) 0.1x10^3/uL (0.0-0.7) 0.1x10^3/uL (0.0-0.7) Basophils # (Auto) 0.3x10^3/uL (0.0-0.2) 0.0x10^3/uL (0.0-0.2) Heparin Anti-Xa Act, Unfractionated < 0.10IU/mL (0.30-0.70) 0.28IU/mL (0.30-0.70) Sodium Level 142mmol/L (136-145) 143mmol/L (136-145) Potassium Level 3.9mmol/L (3.5-5.1) 3.8mmol/L (3.5-5.1) Chloride Level 105mmol/L (98-107) 107mmol/L (98-107) Carbon Dioxide Level 31mmol/L (21-32) 26mmol/L (21-32) Anion Gap 6 (6-14) 10 (6-14) Blood Urea Nitrogen 17mg/dL (8-26) 11mg/dL (8-26) Creatinine 1.3mg/dL (0.7-1.3) 1.1mg/dL (0.7-1.3) Estimated GFR (Cockcroft-Gault) 57.3 69.5 Glucose Level 95mg/dL (70-99) 90mg/dL (70-99) Calcium Level 9.2mg/dL (8.5-10.1) 8.9mg/dL (8.5-10.1) Troponin I Quantitative 2.780ng/mL (0.000-0.055) 2.349ng/mL (0.000-0.055) Thyroid Stimulating Hormone (TSH) 0.967uIU/mL (0.358-3.74) Triglycerides Level 52mg/dL (0-150) Cholesterol Level 205mg/dL (0-200) LDL Cholesterol, Calculated 140mg/dL (0-100) VLDL Cholesterol, Calculated 10mg/dL (0-40) HDL Cholesterol 55mg/dL (40-60) Cholesterol/HDL Ratio 3.7 BUN/Creatinine Ratio 10 (6-20) Total Bilirubin 0.7mg/dL (0.2-1.0) Aspartate Amino Transf (AST/SGOT) 23U/L (15-37) Alanine Aminotransferase (ALT/SGPT) 9U/L (16-63) Alkaline Phosphatase 84U/L (46-116) Total Protein 6.7g/dL (6.4-8.2) Albumin 3.1g/dL (3.4-5.0) Albumin/Globulin Ratio 0.9 (1.0-1.7) Laboratory Tests Test 12/06/16 05:00 White Blood Count 9.8x10^3/uL (4.0-11.0) Red Blood Count 5.75x10^6/uL (4.30-5.70) Hemoglobin 16.4g/dL (13.0-17.5) Hematocrit 48.5% (39.0-53.0) Mean Corpuscular Volume 84fL (79-100) Mean Corpuscular Hemoglobin 29pg (25-35) Mean Corpuscular Hemoglobin Concent 34g/dL (31-37) Red Cell Distribution Width 13.5% (11.5-14.5) Platelet Count 217x10^3/uL (140-400) Neutrophils (%) (Auto) 67% (31-73) Lymphocytes (%) (Auto) 24% (24-48) Monocytes (%) (Auto) 8% (0-9) Eosinophils (%) (Auto) 1% (0-3) Basophils (%) (Auto) 0% (0-3) Neutrophils # (Auto) 6.6x10^3uL (1.8-7.7) Lymphocytes # (Auto) 2.3x10^3/uL (1.0-4.8) Monocytes # (Auto) 0.8x10^3/uL (0.0-1.1) Eosinophils # (Auto) 0.1x10^3/uL (0.0-0.7) Basophils # (Auto) 0.0x10^3/uL (0.0-0.2) Sodium Level 143mmol/L (136-145) Potassium Level 3.8mmol/L (3.5-5.1) Chloride Level 107mmol/L (98-107) Carbon Dioxide Level 26mmol/L (21-32) Anion Gap 10 (6-14) Blood Urea Nitrogen 11mg/dL (8-26) Creatinine 1.1mg/dL (0.7-1.3) Estimated GFR (Cockcroft-Gault) 69.5 BUN/Creatinine Ratio 10 (6-20) Glucose Level 90mg/dL (70-99) Calcium Level 8.9mg/dL (8.5-10.1) Total Bilirubin 0.7mg/dL (0.2-1.0) Aspartate Amino Transf (AST/SGOT) 23U/L (15-37) Alanine Aminotransferase (ALT/SGPT) 9U/L (16-63) Alkaline Phosphatase 84U/L (46-116) Total Protein 6.7g/dL (6.4-8.2) Albumin 3.1g/dL (3.4-5.0) Albumin/Globulin Ratio 0.9 (1.0-1.7) Brief Hospital Course Mr. Meneses is a 56 old admit w/ f right sided chest pain. CXR showed a mass, Dr. Anderson today, who ordered CT of chest. Admit for elevated troponin level and cardiology consult was obtained. chest pain recently only Trop peak 2.7 pain better after stent, Conclusion CATH 1. Severe single-vessel coronary artery disease 2. Successful PCI/drug eluting stents placement to the left circumflex artery and also the second obtuse marginal branch. Discharge Information Condition at Discharge: Improved Follow Up: Weeks Disposition/Orders: D/C to Home Scheduled Aspirin (Aspirin Ec) 325 MG PO DAILYWBKFT Atorvastatin Calcium (Atorvastatin Calcium) 40 MG PO QHS Metoprolol Tartrate (Metoprolol Tartrate) 12.5 MG PO BID Prasugrel Hcl (Effient) 10 MG PO DAILYWBKFT Varenicline Tartrate (Chantix) 0.5 MG PO DIRECTED (Reported) Scheduled PRN Hydrocodone Bit/Acetaminophen (Hydrocodone-Apap 5-325 ) 1 TAB PO PRN Q4HRS PRN PRN MILD PAIN, 2ND CHOICE Patient Instructions Patient Instructions tobacco cessation, chantix cont current f/u with Pulm for lung mass long discussion with patient and CV team, Dual Anti plt therapy. Efient and aspirin pt needs lung biopsy by IR, and he does not want to wait a month if possible, CV team with discuss with IR and PULM, some risk of AR or stent occlusion may be warranted if Mortality risk from Lung mass is deemed high enough that more urgent treatment for that issue would increase life expectancy TIME > 35min NADEGE OAKLEY MD Dec 06, 2016 09:44
--- NOTE | 2016-12-06 10:26 | PDOC ---
CARDIOLOGY PROGRESS NOTE SUBJECTIVE: Pt seen and examined. Note from SENIOR QC TECHNICIAN Javan reviewed. Pt with no complaints. OBJECTIVE: Vital SIgns: Vital Signs Date Time Temp Pulse Resp B/P Pulse Ox O2 Delivery O2 Flow Rate FiO2 12/06/16 09:01 86 155/97 12/06/16 07:59 Room Air 12/06/16 07:55 98.5 22 94 98.5 I & O Intake and Output 12/06/16 07:00 Intake Total 2232 ml Output Total 1300 ml Balance 932 ml Intake Oral 120 ml IV Total 2112 ml Output Urine Total 1300 ml CURRENT MEDICATIONS: Current Medications Medications (Trade) Dose Ordered Sig/Lita Start Time Stop Time Status Last Admin Dose Admin Acetaminophen (Tylenol) 650 mg PRN Q6HRS PRN 12/05/16 13:45 Acetaminophen/ Hydrocodone Bitart (Lortab 5/325) 1 tab PRN Q4HRS PRN 12/04/16 16:30 12/05/16 19:40 1 TAB Aspirin (Children'S Aspirin) 81 mg 1X ONCE 12/05/16 13:30 12/05/16 13:33 DC 12/05/16 13:37 81 MG Aspirin (Ecotrin) 325 mg DAILYWBKFT 12/06/16 08:00 12/06/16 08:59 325 MG Atorvastatin Calcium (Lipitor) 40 mg QHS 12/05/16 21:00 12/05/16 20:53 40 MG Bivalirudin (Angiomax) 250 mg 1X ONCE 12/05/16 13:00 12/05/16 13:02 DC 12/05/16 13:35 250 MG Fentanyl Citrate (Fentanyl 2ml Vial) 100 mcg STK-MED ONCE 12/05/16 12:48 12/05/16 12:49 DC Heparin Sodium (Porcine) 10,000 unit STK-MED ONCE 12/05/16 11:19 12/05/16 11:20 DC Heparin Sodium/ Dextrose 500 ml @ 20 mls/hr CONT PRN 12/04/16 16:30 12/05/16 13:42 DC 12/04/16 17:46 20 MLS/HR Heparin Sodium/ Sodium Chloride 1,000 unit 1X ONCE 12/05/16 11:30 12/05/16 11:33 DC 12/05/16 13:33 1,000 UNIT Hydralazine HCl (Apresoline) 10 mg PRN Q4HRS PRN 12/05/16 14:15 12/05/16 19:41 10 MG Info (Anti-Coagulation Monitoring By Pharmacy) 1 each PRN DAILY PRN 12/05/16 07:45 12/05/16 13:45 DC 12/05/16 07:46 1 EACH Info (Do NOT chart on this entry -- for MONITORING) 1 each PRN DAILY PRN 12/05/16 11:45 12/07/16 11:44 Iodixanol (Visipaque 320) 100 ml STK-MED ONCE 12/05/16 12:37 12/05/16 12:38 DC Lactated Ringer's 1,000 ml @ 125 mls/hr Q8H 12/05/16 09:00 12/05/16 09:01 DC Lidocaine HCl 20 ml 1X ONCE 12/05/16 11:30 12/05/16 11:33 DC 12/05/16 13:33 20 ML Metoprolol Tartrate (Lopressor) 12.5 mg BID 12/04/16 21:00 12/06/16 09:01 12.5 MG Midazolam HCl (Versed) 3 mg 1X ONCE 12/05/16 11:30 12/05/16 11:33 DC 12/05/16 13:34 5 MG Nitroglycerin (Nitroglycerin) 200 mcg STK-MED ONCE 12/05/16 14:34 12/05/16 14:35 DC Nitroglycerin (Nitrostat) 0.4 mg PRN Q5MIN PRN 12/05/16 13:45 Non-Formulary Medication 1 ea BID 12/05/16 21:00 UNV Ondansetron HCl (Zofran) 4 mg PRN Q6HRS PRN 12/04/16 16:30 Prasugrel (Effient) 10 mg DAILYWBKFT 12/06/16 08:00 12/06/16 08:59 10 MG Prasugrel 10 mg 10 mg STK-MED ONCE 12/05/16 13:31 12/05/16 13:32 DC Sodium Bicarbonate 150 meq/Sterile Water 1,150 ml @ 125 mls/hr 1X ONCE 12/05/16 09:00 12/05/16 09:00 DC Sodium Chloride (Iv Sodium Chloride 0.45%) 1,000 ml @ 125 mls/hr Q8H 12/05/16 13:38 12/05/16 21:00 125 MLS/HR Sodium Chloride (Iv Sodium Chloride 0.9% 1000ml Bag) 1,000 ml @ 150 mls/hr 1X ONCE 12/05/16 09:30 12/05/16 16:09 DC 12/05/16 09:05 150 MLS/HR Varenicline 0.5 mg 0.5 mg DAILY 12/05/16 09:00 12/06/16 08:58 0.5 MG Verapamil HCl (Verapamil) 5 mg STK-MED ONCE 12/05/16 11:19 12/05/16 11:20 DC ASSESSMENT: Problems: (1) Non-ST elevation (NSTEMI) myocardial infarction (2) Lung mass (3) Stented coronary artery PLAN: Agree with VERNON Edouard's plan. Also d/w the patient that an Integrilin or Cangrelor bridge prior to lung biopsy is reasonable, and can be performed in 30 days. The patient would hold clopidogrel starting 5 days prior to the biopsy, and be admitted to start the bridge. The IV GTT would be turned off a few hours prior to the procedure, and then clopidogrel could be loaded again after the procedure. Exam Vital Signs Vital Signs Date Time Temp Pulse Resp B/P Pulse Ox O2 Delivery O2 Flow Rate FiO2 12/06/16 09:01 86 155/97 12/06/16 07:59 Room Air 12/06/16 07:55 98.5 22 94 98.5 General Appearance: Alert, Oriented X3 Heart: No murmurs Extremities: No edema, No tenderness/swelling (to cath access site) DONNELL SARGENT DO Dec 06, 2016 10:26
== END 2016-12-06 10:53 | disposition home or self-care (01) | DRG 247 ==
LOC: 2 NORTH 15:29
PROVIDERS: ADMIT Internal Medicine; ATTEND Internal Medicine
PROC: 4A023N7 Measurement of Cardiac Sampling and Pressure, Left Heart, Percutaneous Approach (ICD-10-PCS; principal; 2016-12-05)
PROC: 027135Z Dilation of Coronary Artery, Two Arteries with Two Drug-eluting Intraluminal Devices, Percutaneous Approach (ICD-10-PCS; 2016-12-05)
PROC: B2151ZZ Fluoroscopy of Left Heart using Low Osmolar Contrast (ICD-10-PCS; 2016-12-05)
PROC: B2111ZZ Fluoroscopy of Multiple Coronary Arteries using Low Osmolar Contrast (ICD-10-PCS; 2016-12-05)
DX: I21.4 Non-ST elevation (NSTEMI) myocardial infarction (principal); I25.119 Atherosclerotic heart disease of native coronary artery with unspecified angina pectoris; E78.5 Hyperlipidemia, unspecified; F17.210 Nicotine dependence, cigarettes, uncomplicated; R91.8 Other nonspecific abnormal finding of lung field; I10 Essential (primary) hypertension; Z95.5 Presence of coronary angioplasty implant and graft; Z79.82 Long term (current) use of aspirin; Z90.49 Acquired absence of other specified parts of digestive tract; Z79.899 Other long term (current) drug therapy
CPT/HCPCS: 36415; 80048; 80053; 80061; 84443; 84484; 85027; 85520; 92943; 92944; 93005; 93458; C1725; C1769; C1771; C1874; C1887; C1892; G0269; J0360; J0583; J2250; J3010; J3490; J7030

== ENCOUNTER 2016-12-20 01:10 | Inpatient (IN) | payer BC ==
[~2016-12-20] VITALS: Ht 190.5 cm; Wt 95.7 kg
[~2016-12-20 01:10] MED LIST: ASPI325T11 PO; ATOR40TA59 PO; HYDR-2666 PO; METO25TA4 PO; PRAS10TA4 PO; VARE0.5T PO
[2016-12-20 02:50] LABS: BASO % 0 % (0-3); EOS % 1 % (0-3); HEMATOCRIT 44.6 % (39.0-53.0); HEMOGLOBIN 14.7 g/dL (13.0-17.5); LYMPH % 31 % (24-48); MEAN CORPUSCULAR HEMOGLOBIN 28 pg (25-35); MEAN CORPUSCULAR HGB CONC 33 g/dL (31-37); MEAN CORPUSCULAR VOLUME 86 fL (79-100); MONO % 8 % (0-9); NEUT % 60 % (31-73); PLATELET COUNT 233 x10^3/uL (140-400); RED BLOOD COUNT 5.17 x10^6/uL (4.30-5.70); RED CELL DISTRIBUTION WIDTH 13.2 % (11.5-14.5); WHITE BLOOD COUNT 9.9 x10^3/uL (4.0-11.0)
--- NOTE | 2016-12-20 02:53 | RAD ---
CT head without contrast: Reason for examination: Left-sided facial twitching tonight. Axial images were obtained through the brain. No contrast was administered. Exposure: One or more of the following individualized dose reduction techniques were used for this examination: 1. Automated exposure control. 2. Adjustment of the mA and/or kV according to patient size. 3. Use of iterative reconstruction technique. The ventricular systems are symmetric and not dilated. No midline shift is seen. There is no evidence of intracranial hemorrhage. There does appear to be some encephalomalacia in the right frontal lobe consistent with infarct. No other sites of infarct, mass or edema are seen. No abnormalities are seen in the orbits. The paranasal sinuses and mastoid air cells are clear. No acute abnormalities seen in the skull. Impression: Decreased density suggestion encephalomalacia in the right frontal lobe. No other focal abnormalities evident in the brain. Electronically signed by: Ana Cristina Pineda MD (Dec 20, 2016 02:51:30)
[2016-12-20 03:02] LABS: CREATININE 1.1 mg/dL (0.7-1.3); GFR 69.5; POTASSIUM 3.7 mmol/L (3.5-5.1)
[2016-12-20 03:09] LABS: ALBUMIN 3.3 g/dL (3.4-5.0); ALBUMIN/GLOBULIN RATIO 0.9 (1.0-1.7); TOTAL BILIRUBIN 0.3 mg/dL (0.2-1.0)
[2016-12-20] MEDS ORDERED: IOHEXOL 300 MG/ML 75 ML VIAL IV ONE (03:15)
[2016-12-20] MEDS ORDERED: CONTRAST GIVEN MC PRN (03:15)
--- NOTE | 2016-12-20 04:15 | RAD ---
CT head pre and post contrast: Reason for examination: Abnormal noncontrast head CT. History of lung mass. Evaluate for mass versus infarct. Axial images were obtained through the brain pre and post intravenous administration of 70 cc Omnipaque 300. Reconstruction was performed in coronal plane. Exposure: One or more of the following individualized dose reduction techniques were used for this examination: 1. Automated exposure control. 2. Adjustment of the mA and/or kV according to patient size. 3. Use of iterative reconstruction technique. Ventricular systems are symmetric and not abnormally dilated. No midline shift is seen. There is no evidence of intracranial hemorrhage. There continues to be decreased density in the right frontal lobe which is predominantly in the deep white matter but also with areas of decreased density extending to the peripheral cortex. There is no enhancement in this area and this area may still reflect encephalomalacia from infarct. No definite mass effect is identified. No other focal enhancing lesions are seen within the brain. No abnormalities are seen in the orbits. Impression: Continued presence of a hypodense area involving the right frontal lobe without evidence of abnormal enhancement or definite mass effect. No other focal enhancing lesions are evident elsewhere in the brain. Electronically signed by: Ana Cristina Pineda MD (Dec 20, 2016 04:12:44)
[2016-12-20] MEDS ORDERED: ACETAMINOPHEN 325 MG TABLET. PO PRN ×2 (04:30→19:00)
[2016-12-20] MEDS ORDERED: ONDANSETRON PF 4 MG/2 ML VIAL. IV PRN ×2 (04:30→13:30)
--- NOTE | 2016-12-20 04:32 | PHYS DOC ---
Past Medical History Past Medical History: Hypertension, Other Additional Past Medical Histor: MASS ON LUNG Past Surgical History: Appendectomy, Other Additional Past Surgical Histo: CYST REMOVAL, STENT PLACEMENT Alcohol Use: Rarely Drug Use: Marijuana Adult General Chief Complaint Chief Complaint: OTHER COMPLAINTS [facility] HPI 86-year-old male who had an episode of facial twitching and stating that he had involuntary neck spasms that lasted approximately 25 seconds and then resolved. Upon my initial assessment, the patient states he feels at his normal baseline. Patient did recently have several cardiac stents placed and is on Effient therapy. He also states he is being evaluated for an ongoing lung mass and a set to have an appointment at the oncology center at [facility] on Thursday. She is currently without complaints. Review of Systems Review of Systems Constitutional: Denies fever or chills [] Eyes: Denies change in visual acuity, redness, or eye pain [] HENT: Denies nasal congestion or sore throat [] Respiratory: Denies cough or shortness of breath [] Cardiovascular: No additional information not addressed in HPI [] GI: Denies abdominal pain, nausea, vomiting, bloody stools or diarrhea [] : Denies dysuria or hematuria [] Musculoskeletal: Denies back pain or joint pain [] Integument: Denies rash or skin lesions [] Neurologic: Denies headache, focal weakness or sensory changes [] Endocrine: Denies polyuria or polydipsia [] Current Medications Current Medications Current Medications Medications (Trade) Dose Ordered Sig/Lita Start Time Stop Time Status Last Admin Dose Admin Info (Do NOT chart on this entry -- for MONITORING) 1 each PRN DAILY PRN 12/20/16 03:15 12/22/16 03:14 Iohexol (Omnipaque 300 Mg/ml) 70 ml 1X ONCE 12/20/16 03:15 12/20/16 03:16 DC 12/20/16 03:42 70 ML Allergies Allergies Allergies Coded Allergies Type Severity Reaction Last Updated Verified No Known Drug Allergies 12/04/16 No Physical Exam Physical Exam Constitutional: Well developed, well nourished, no acute distress, non-toxic appearance. [] HENT: Normocephalic, atraumatic, bilateral external ears normal, oropharynx moist, no oral exudates, nose normal. [] Eyes: PERRLA, EOMI, conjunctiva normal, no discharge. [] Neck: Normal range of motion, no tenderness, supple, no stridor. [] Cardiovascular:Heart rate regular rhythm, no murmur [] Lungs & Thorax: Bilateral breath sounds clear to auscultation [] Abdomen: Bowel sounds normal, soft, no tenderness, no masses, no pulsatile masses. [] Skin: Warm, dry, no erythema, no rash. [] Back: No tenderness, no CVA tenderness. [] Extremities: No tenderness, no cyanosis, no clubbing, ROM intact, no edema. [] Neurologic: Alert and oriented X 3, normal motor function, normal sensory function, no focal deficits noted. [] Psychologic: Affect normal, judgement normal, mood normal. [] Current Patient Data Vital Signs Vital Signs Date Time Temp Pulse Resp B/P Pulse Ox O2 Delivery O2 Flow Rate FiO2 12/20/16 01:47 98.0 81 20 98 Room Air 98.0 Lab Values Laboratory Tests Test 12/20/16 01:40 White Blood Count 9.9x10^3/uL (4.0-11.0) Red Blood Count 5.17x10^6/uL (4.30-5.70) Hemoglobin 14.7g/dL (13.0-17.5) Hematocrit 44.6% (39.0-53.0) Mean Corpuscular Volume 86fL (79-100) Mean Corpuscular Hemoglobin 28pg (25-35) Mean Corpuscular Hemoglobin Concent 33g/dL (31-37) Red Cell Distribution Width 13.2% (11.5-14.5) Platelet Count 233x10^3/uL (140-400) Neutrophils (%) (Auto) 60% (31-73) Lymphocytes (%) (Auto) 31% (24-48) Monocytes (%) (Auto) 8% (0-9) Eosinophils (%) (Auto) 1% (0-3) Basophils (%) (Auto) 0% (0-3) Neutrophils # (Auto) 5.9x10^3uL (1.8-7.7) Lymphocytes # (Auto) 3.0x10^3/uL (1.0-4.8) Monocytes # (Auto) 0.8x10^3/uL (0.0-1.1) Eosinophils # (Auto) 0.1x10^3/uL (0.0-0.7) Basophils # (Auto) 0.0x10^3/uL (0.0-0.2) Sodium Level 140mmol/L (136-145) Potassium Level 3.7mmol/L (3.5-5.1) Chloride Level 104mmol/L (98-107) Carbon Dioxide Level 26mmol/L (21-32) Anion Gap 10 (6-14) Blood Urea Nitrogen 18mg/dL (8-26) Creatinine 1.1mg/dL (0.7-1.3) Estimated GFR (Cockcroft-Gault) 69.5 BUN/Creatinine Ratio 16 (6-20) Glucose Level 89mg/dL (70-99) Calcium Level 9.0mg/dL (8.5-10.1) Total Bilirubin 0.3mg/dL (0.2-1.0) Aspartate Amino Transferase (AST) 27U/L (15-37) Alanine Aminotransferase (ALT) 59U/L (16-63) Alkaline Phosphatase 86U/L (46-116) Total Protein 7.0g/dL (6.4-8.2) Albumin 3.3g/dL (3.4-5.0) L Albumin/Globulin Ratio 0.9 (1.0-1.7) L Laboratory Tests 12/20/16 01:40 Laboratory Tests 12/20/16 01:40 EKG EKG [] Radiology/Procedures Radiology/Procedures Head CT without contrast demonstrates: CT head pre and post contrast: Reason for examination: Abnormal noncontrast head CT. History of lung mass. Evaluate for mass versus infarct. Axial images were obtained through the brain pre and post intravenous administration of 70 cc Omnipaque 300. Reconstruction was performed in coronal plane. Exposure: One or more of the following individualized dose reduction techniques were used for this examination: 1. Automated exposure control. 2. Adjustment of the mA and/or kV according to patient size. 3. Use of iterative reconstruction technique. Ventricular systems are symmetric and not abnormally dilated. No midline shift is seen. There is no evidence of intracranial hemorrhage. There continues to be decreased density in the right frontal lobe which is predominantly in the deep white matter but also with areas of decreased density extending to the peripheral cortex. There is no enhancement in this area and this area may still reflect encephalomalacia from infarct. No definite mass effect is identified. No other focal enhancing lesions are seen within the brain. No abnormalities are seen in the orbits. Impression: Continued presence of a hypodense area involving the right frontal lobe without evidence of abnormal enhancement or definite mass effect. No other focal enhancing lesions are evident elsewhere in the brain. Electronically signed by: Ana Cristina Pineda MD (Dec 20, 2016 04:12:44) Course & Med Decision Making Course & Med Decision Making Pertinent Labs and Imaging studies reviewed. (See chart for details) 56-year-old male who is having questionable facial twitching had a gradual head CT with contrast that had like to admit him for further evaluation. An MRI of his head was ordered. I discussed the need to admit the patient for further evaluation of his abnormal head CT with the hospitalist, Dr. Howard, who agreed with his assessment and plan. His laboratory workup was unrevealing. His exam was benign. He was admitted with neurology consult. Dragon Disclaimer Dragon Disclaimer This electronic medical record was generated, in whole or in part, using a voice recognition dictation system. Departure Departure Impression: Primary Impression: Right frontal lobe lesion Disposition: ADMITTED INPATIENT Admitting Physician: Sherrie Howard Condition: STABLE Referrals: NO PCP (PCP) NYA HUMPHRIES DO Dec 20, 2016 04:32
[2016-12-20] MEDS ORDERED: ASPIRIN 325 MG TABLET PO ONE (05:00)
[2016-12-20 05:30] VITALS: BP 155/99
[2016-12-20 07:43] VITALS: BP 163/92
[2016-12-20] MEDS ORDERED: CLOPIDOGREL BISULFATE 75 MG TABLET PO SCH (09:00)
[2016-12-20 11:19] VITALS: BP 138/90
[2016-12-20] MEDS ORDERED: GADOBUTROL 10 MMOL/10 ML VIAL IV ONE (12:30)
--- NOTE | 2016-12-20 12:43 | RAD ---
Indication signs and symptoms of a TIA. Possible infarct. Grayscale color Doppler and spectral imaging was performed. Examination was targeted to the carotid bifurcations. On the right there is intimal thickening and some mild plaque. The color Doppler images do not suggest significant turbulence. Common carotid waveform and velocities are normal. The internal carotid waveform and velocities are also normal. The external carotid has a normal appearance. The vertebral is patent and demonstrates normal directional flow. On the left there is also some intimal thickening. There is no significant plaquing. The color Doppler images do not suggest significant turbulence. The common carotid waveform and velocities are normal. The left internal carotid is tortuous. Only the proximal and midportion of the vessel were seen. Velocities and waveforms associated with these portions appeared normal. The external carotid has a normal appearance. The vertebral is patent. IMPRESSION: Minimal thickening bilaterally and some plaquing at the right carotid bifurcation. The most distal left internal carotid was not visualized. Definite evidence of hemodynamically significant stenosis at either carotid bifurcation was not seen. Stenosis 0-50%. Note: Stenosis calculations for CT, MR and conventional angiography are based upon determination of the distal ICA diameter in accordance with the NASCET methodology. Stenosis calculations for doppler studies are derived from validated velocity criteria which are known to correlate with NASCET methodology of determining stenosis.
--- NOTE | 2016-12-20 13:02 | RAD ---
Indication abnormal CT head imaging sequences which were obtained include axial DWI and ADC maps. Sagittal T1, axial T1,T2, FLAIR and gradient echo sequences were also obtained. 9 mm of gadolinium was administered and postcontrast images were obtained in all 3 planes. Preliminary results were communicated to Jatin, the nurse caring for the patient on the floor, at the time of dictation. No prior MRI imaging is available. On the ADC and DWI maps no recent or acute infarct is suggested. On the gradient echo sequence no parenchymal hemorrhage is seen. On the FLAIR sequence there are occasional areas of increased signal intensity in the white matter likely reflecting microvascular disease. Overall the ventricles and sulci are within normal limits given the patient's age. Occasional polyps or cysts are noted in the left maxillary sinus. In the right parietal lobe there is an enhancing intra-axial lesion measuring approximately 1.8 cm in greatest dimension. There is moderate surrounding edema. The mass and edema measure, in a target, approximately 4.7 cm. An additional parenchymal finding is not seen. IMPRESSION: 1.8 cm intra-axial enhancing mass in the right parietal lobe. Major consideration with center around neoplastic disease. Primary consideration would be a primary glioma. Metastatic disease is not excluded but is felt less likely given the solitary nature of the SOLUTION MIXER finding
--- NOTE | 2016-12-20 13:24 | PDOC1 ---
History and Physical Date of Admission Date of Admission 12/20/16 Identification/Chief Complaint Chief Complaint face twisting Problems: Source Source: Chart review, Patient History of Present Illness History of Present Illness 56yo M, who was found a lung MASS waiting for evaluation, recent NSTEMI with 2 stents 2 weeks ago, comes for left facial twisting and could not control his neck last night. now he feels ok. he also has some left lower ext numbness when sitting. no N/V, headache, chest pain. sob. CT showed right 1 lesion. Past Medical History Cardiovascular: Hyperlipidemia Pulmonary: No pertinent hx GI: No pertinent hx Heme/Onc: No pertinent hx Hepatobiliary: No pertinent hx Psych: No pertinent hx Rheumatologic: No pertinent hx Infectious disease: No pertinent hx Renal/: No pertinent hx Endocrine: No pertinent hx Past Surgical History Past Surgical History: Hernia Repair Family History Family History: No Significant Social History Smoke: No ALCOHOL: social Drugs: Marijuana Current Problem List Problem List Problems Medical Problems: (1) Right frontal lobe lesion Status: Acute Current Medications Current Medications Current Medications Medications (Trade) Dose Ordered Sig/Lita Start Time Stop Time Status Last Admin Dose Admin Acetaminophen (Tylenol) 650 mg PRN Q4HRS PRN 12/20/16 04:30 12/21/16 04:29 Aspirin (Carlene Aspirin) 325 mg 1X ONCE 12/20/16 05:00 12/20/16 05:01 DC 12/20/16 05:17 325 MG Clopidogrel Bisulfate (Plavix) 75 mg DAILYWBKFT 12/20/16 09:00 12/20/16 09:24 75 MG Gadobutrol (Gadavist) 9 mmol 1X ONCE 12/20/16 12:30 12/20/16 12:31 DC 12/20/16 12:32 9 MMOL Info (Do NOT chart on this entry -- for MONITORING) 1 each PRN DAILY PRN 12/20/16 03:15 12/22/16 03:14 Iohexol (Omnipaque 300 Mg/ml) 70 ml 1X ONCE 12/20/16 03:15 12/20/16 03:16 DC 12/20/16 03:42 70 ML Ondansetron HCl (Zofran) 4 mg PRN Q8HRS PRN 12/20/16 04:30 12/21/16 04:29 Allergies Allergies Allergies Coded Allergies Type Severity Reaction Last Updated Verified No Known Drug Allergies 12/04/16 No ROS Review of System CONSTITUTIONAL: No fever or chills EYES: No recent changes SKIN: No rash or itching CARDIOVASCULAR: No chest pain, syncope, palpitations, or edema RESPIRATORY: No SOB or cough GASTROINTESTINAL: No nausea, vomiting or abdominal pain NEUROLOGICAL: No headaches or weakness ENDOCRINE: No cold or heat intolerance GENITOURINARY: No urgency or frequency of urination MUSCULOSKELETAL: No back pain or joint pain LYMPHATICS: No enlarged lymph nodes PSYCHIATRIC: No anxiety or depression Physical Exam Physical Exam GEN.: No apparent distress. Alert and oriented. HEENT: Head is normocephalic, atraumatic NECK: Supple. LUNGS: Clear to auscultation. HEART: RRR, S1, S2 present. Peripheral pulses intact ABDOMEN: Soft, nontender. Positive bowel sounds. EXTREMITIES: Without any cyanosis. NEUROLOGIC: Normal speech, normal tone PSYCHIATRIC: Normal affect, normal mood. SKIN: No ulcerations Vitals Vitals Vital Signs Date Time Temp Pulse Resp B/P Pulse Ox O2 Delivery O2 Flow Rate FiO2 12/20/16 11:19 97.9 79 20 138/90 95 Room Air 97.9 Labs Labs Laboratory Tests Test 12/20/16 01:40 White Blood Count 9.9x10^3/uL (4.0-11.0) Red Blood Count 5.17x10^6/uL (4.30-5.70) Hemoglobin 14.7g/dL (13.0-17.5) Hematocrit 44.6% (39.0-53.0) Mean Corpuscular Volume 86fL (79-100) Mean Corpuscular Hemoglobin 28pg (25-35) Mean Corpuscular Hemoglobin Concent 33g/dL (31-37) Red Cell Distribution Width 13.2% (11.5-14.5) Platelet Count 233x10^3/uL (140-400) Neutrophils (%) (Auto) 60% (31-73) Lymphocytes (%) (Auto) 31% (24-48) Monocytes (%) (Auto) 8% (0-9) Eosinophils (%) (Auto) 1% (0-3) Basophils (%) (Auto) 0% (0-3) Neutrophils # (Auto) 5.9x10^3uL (1.8-7.7) Lymphocytes # (Auto) 3.0x10^3/uL (1.0-4.8) Monocytes # (Auto) 0.8x10^3/uL (0.0-1.1) Eosinophils # (Auto) 0.1x10^3/uL (0.0-0.7) Basophils # (Auto) 0.0x10^3/uL (0.0-0.2) Sodium Level 140mmol/L (136-145) Potassium Level 3.7mmol/L (3.5-5.1) Chloride Level 104mmol/L (98-107) Carbon Dioxide Level 26mmol/L (21-32) Anion Gap 10 (6-14) Blood Urea Nitrogen 18mg/dL (8-26) Creatinine 1.1mg/dL (0.7-1.3) Estimated GFR (Cockcroft-Gault) 69.5 BUN/Creatinine Ratio 16 (6-20) Glucose Level 89mg/dL (70-99) Calcium Level 9.0mg/dL (8.5-10.1) Total Bilirubin 0.3mg/dL (0.2-1.0) Aspartate Amino Transf (AST/SGOT) 27U/L (15-37) Alanine Aminotransferase (ALT/SGPT) 59U/L (16-63) Alkaline Phosphatase 86U/L (46-116) Total Protein 7.0g/dL (6.4-8.2) Albumin 3.3g/dL (3.4-5.0) Albumin/Globulin Ratio 0.9 (1.0-1.7) Laboratory Tests Test 12/20/16 01:40 White Blood Count 9.9x10^3/uL (4.0-11.0) Red Blood Count 5.17x10^6/uL (4.30-5.70) Hemoglobin 14.7g/dL (13.0-17.5) Hematocrit 44.6% (39.0-53.0) Mean Corpuscular Volume 86fL (79-100) Mean Corpuscular Hemoglobin 28pg (25-35) Mean Corpuscular Hemoglobin Concent 33g/dL (31-37) Red Cell Distribution Width 13.2% (11.5-14.5) Platelet Count 233x10^3/uL (140-400) Neutrophils (%) (Auto) 60% (31-73) Lymphocytes (%) (Auto) 31% (24-48) Monocytes (%) (Auto) 8% (0-9) Eosinophils (%) (Auto) 1% (0-3) Basophils (%) (Auto) 0% (0-3) Neutrophils # (Auto) 5.9x10^3uL (1.8-7.7) Lymphocytes # (Auto) 3.0x10^3/uL (1.0-4.8) Monocytes # (Auto) 0.8x10^3/uL (0.0-1.1) Eosinophils # (Auto) 0.1x10^3/uL (0.0-0.7) Basophils # (Auto) 0.0x10^3/uL (0.0-0.2) Sodium Level 140mmol/L (136-145) Potassium Level 3.7mmol/L (3.5-5.1) Chloride Level 104mmol/L (98-107) Carbon Dioxide Level 26mmol/L (21-32) Anion Gap 10 (6-14) Blood Urea Nitrogen 18mg/dL (8-26) Creatinine 1.1mg/dL (0.7-1.3) Estimated GFR (Cockcroft-Gault) 69.5 BUN/Creatinine Ratio 16 (6-20) Glucose Level 89mg/dL (70-99) Calcium Level 9.0mg/dL (8.5-10.1) Total Bilirubin 0.3mg/dL (0.2-1.0) Aspartate Amino Transf (AST/SGOT) 27U/L (15-37) Alanine Aminotransferase (ALT/SGPT) 59U/L (16-63) Alkaline Phosphatase 86U/L (46-116) Total Protein 7.0g/dL (6.4-8.2) Albumin 3.3g/dL (3.4-5.0) Albumin/Globulin Ratio 0.9 (1.0-1.7) VTE Prophylaxis Ordered VTE Prophylaxis Devices: Yes VTE Pharmacological Prophylaxi: No Assessment/Plan Assessment/Plan 1. facial twisting , 2/2 partial seizure 2/2 brain tumor likely 2. 1 right parietal lesion 2/2 mets likely 3. lung mass, likely malignancy, pending evaluation as outpt 4. recent NSTEMi post pci plan: 1. neuro consult 2. MRI brain done US neg 3. cont home meds pt will need CT ABD, CHEST, but requires to leave today. has an onco appt on Thursday. RAS PINA MD Dec 20, 2016 13:24
[2016-12-20] MEDS: ASPIRIN ENTERIC COATED 325 MG TABLET.DR. PO SCH (14:00)
[2016-12-20] MEDS: PANTOPRAZOLE 40 MG TABLET. PO SCH (14:00)
[2016-12-20] MEDS: PRASUGREL 10 MG TABLET. PO SCH (14:00)
[2016-12-20] MEDS: VARENICLINE 0.5 MG TABLET. PO SCH ×2 (14:39→20:17)
[2016-12-20] MEDS: METOPROLOL TART IMMED RELEASE 25 MG TABLET PO SCH ×2 (14:40→20:18)
[2016-12-20 14:41] VITALS: BP 141/90
--- NOTE | 2016-12-20 18:05 | PDOC2 ---
CONSULT Date of Consult Date of Consult DATE: 12/20/16 TIME: 18:04 Reason for Consult Reason for Consult: Brain tumor. History of Present Illness Reason for Visit: This patient is 56-year-old man who was found to have a lung mass and is being evaluated, history of an STEMI status post stent. Information obtained from patient and patient's family at bedside. They report he had an episode last night when his left face was having some side to side head movement lasted twitching for a few seconds. Patient does not have any generalized seizures, confusion, tingling numbness, weakness, fever, chest pain, shortness of breath. Patient did not have any loss of bladder or bowel incontinence. Patient did not have any new episodes. Patient denies any history of previous seizure episodes. Past Medical History Cardiovascular: Hyperlipidemia Pulmonary: No pertinent hx GI: No pertinent hx Heme/Onc: No pertinent hx Hepatobiliary: No pertinent hx Psych: No pertinent hx Rheumatologic: No pertinent hx Infectious disease: No pertinent hx Renal/: No pertinent hx Endocrine: No pertinent hx Past Surgical History Past Surgical History: Hernia Repair Family History Family History: No Significant Social History No ALCOHOL: social Drugs: Marijuana Lives: Alone Current Problem List Problem List Problems Medical Problems: (1) Right frontal lobe lesion Status: Acute Current Medications Current Medications Current Medications Iohexol (Omnipaque 300 Mg/ml) 70 ml 1X ONCE IV Last administered on 12/20/16 03:42; Start 12/20/16 at 03:15; Stop 12/20/16 at 03:16; Status DC Info (Do NOT chart on this entry -- for MONITORING) 1 each PRN DAILY PRN MC SEE COMMENTS; Start 12/20/16 at 03:15; Stop 12/22/16 at 03:14 Ondansetron HCl (Zofran) 4 mg PRN Q8HRS PRN IV NAUSEA/VOMITING; Start 12/20/16 at 04:30; Stop 12/20/16 at 13:26; Status DC Acetaminophen (Tylenol) 650 mg PRN Q4HRS PRN PO FEVER; Start 12/20/16 at 04:30 ; Stop 12/21/16 at 04:29 Aspirin (Carlene Aspirin) 325 mg 1X ONCE PO Last administered on 12/20/16 05:17 ; Start 12/20/16 at 05:00; Stop 12/20/16 at 05:01; Status DC Clopidogrel Bisulfate (Plavix) 75 mg DAILYWBKFT PO Last administered on 09:24; Start 12/20/16 at 09:00; Stop 12/20/16 at 13:22; Status DC Gadobutrol (Gadavist) 9 mmol 1X ONCE IV Last administered on 12/20/16 12:32; Start 12/20/16 at 12:30; Stop 12/20/16 at 12:31; Status DC Aspirin (Ecotrin) 325 mg DAILYWBKFT PO ; Start 12/20/16 at 14:00 Atorvastatin Calcium (Lipitor) 40 mg QHS PO ; Start 12/20/16 at 21:00 Acetaminophen/ Hydrocodone Bitart (Lortab 5/325) 1 tab PRN Q4HRS PRN PO MILD PAIN, 2ND CHOICE; Start 12/20/16 at 13:30 Metoprolol Tartrate (Lopressor) 12.5 mg BID PO Last administered on 12/20/16 14:40; Start 12/20/16 at 14:00 Prasugrel (Effient) 10 mg DAILYWBKFT PO ; Start 12/20/16 at 14:00 Varenicline (Chantix) 1 mg BID PO Last administered on 12/20/16 14:39; Start 12/20/16 at 14:00 Ondansetron HCl (Zofran) 4 mg PRN Q6HRS PRN IV NAUSEA/VOMITING; Start 12/20/16 at 13:30 Dexamethasone Sodium Phosphate (Decadron) 4 mg Q6HRS IV ; Start 12/20/16 at 18: 00 Pantoprazole Sodium (Protonix) 40 mg DAILYAC PO ; Start 12/20/16 at 14:00 Active Scripts Active Hydrocodone-Apap 5-325 (Hydrocodone Bit/Acetaminophen) 1 Each Tablet 1 Tab PO PRN Q4HRS PRN Effient (Prasugrel Hcl) 10 Mg Tablet 10 Mg PO DAILYWBKFT Metoprolol Tartrate 25 Mg Tablet 12.5 Mg PO BID Atorvastatin Calcium 40 Mg Tablet 40 Mg PO QHS Aspirin Ec (Aspirin) 325 Mg Tablet.dr 325 Mg PO DAILYWBKFT Reported Chantix (Varenicline Tartrate) 0.5 Mg Tablet 1 Mg PO BID 0.5 MG PO DAILY X3 DAY, 0.5 MG PO BID X4 DAY, 1 MG PO BID UNTIL END OF TREATMENT Allergies Allergies: Coded Allergies: No Known Drug Allergies (Unverified , 12/04/16) Physical Exam Physical Exam REVIEW OF SYSTEMS: not [id number] review of systems. PHYSICAL EXAMINATION: General appearance is in acute distress. HEENT: Normocephalic and nontraumatic. Eyes, nose, ears, and throat are unremarkable. Neck is supple. No lymphadenopathy. No crepitus. Cardiovascular: S1, S2, regular rate and rhythm. Pulmonary: Clear to auscultation bilaterally. Abdomen: Bowel sounds are positive. Abdomen is soft, nontender, and nondistended. NEUROLOGICAL EXAMINATION: Alert Oriented to time, place and person. PERRL. EOMI. CN: no focal findings. Muscle tone: within normal. Muscle strength: 5 DTR: 2 Plantar reflex: Flexor response bilaterally Gait: not examined in bed. Sensory exam: no abnormal findings. No obvious cerebellar signs elicited. Vitals VITALS Vital Signs Date Time Temp Pulse Resp B/P Pulse Ox O2 Delivery O2 Flow Rate FiO2 12/20/16 14:41 97.7 87 20 141/90 97 Room Air 97.7 Labs Labs Laboratory Tests Test 12/20/16 01:40 White Blood Count 9.9x10^3/uL (4.0-11.0) Red Blood Count 5.17x10^6/uL (4.30-5.70) Hemoglobin 14.7g/dL (13.0-17.5) Hematocrit 44.6% (39.0-53.0) Mean Corpuscular Volume 86fL (79-100) Mean Corpuscular Hemoglobin 28pg (25-35) Mean Corpuscular Hemoglobin Concent 33g/dL (31-37) Red Cell Distribution Width 13.2% (11.5-14.5) Platelet Count 233x10^3/uL (140-400) Neutrophils (%) (Auto) 60% (31-73) Lymphocytes (%) (Auto) 31% (24-48) Monocytes (%) (Auto) 8% (0-9) Eosinophils (%) (Auto) 1% (0-3) Basophils (%) (Auto) 0% (0-3) Neutrophils # (Auto) 5.9x10^3uL (1.8-7.7) Lymphocytes # (Auto) 3.0x10^3/uL (1.0-4.8) Monocytes # (Auto) 0.8x10^3/uL (0.0-1.1) Eosinophils # (Auto) 0.1x10^3/uL (0.0-0.7) Basophils # (Auto) 0.0x10^3/uL (0.0-0.2) Sodium Level 140mmol/L (136-145) Potassium Level 3.7mmol/L (3.5-5.1) Chloride Level 104mmol/L (98-107) Carbon Dioxide Level 26mmol/L (21-32) Anion Gap 10 (6-14) Blood Urea Nitrogen 18mg/dL (8-26) Creatinine 1.1mg/dL (0.7-1.3) Estimated GFR (Cockcroft-Gault) 69.5 BUN/Creatinine Ratio 16 (6-20) Glucose Level 89mg/dL (70-99) Calcium Level 9.0mg/dL (8.5-10.1) Total Bilirubin 0.3mg/dL (0.2-1.0) Aspartate Amino Transf (AST/SGOT) 27U/L (15-37) Alanine Aminotransferase (ALT/SGPT) 59U/L (16-63) Alkaline Phosphatase 86U/L (46-116) Total Protein 7.0g/dL (6.4-8.2) Albumin 3.3g/dL (3.4-5.0) Albumin/Globulin Ratio 0.9 (1.0-1.7) Laboratory Tests Test 12/20/16 01:40 White Blood Count 9.9x10^3/uL (4.0-11.0) Red Blood Count 5.17x10^6/uL (4.30-5.70) Hemoglobin 14.7g/dL (13.0-17.5) Hematocrit 44.6% (39.0-53.0) Mean Corpuscular Volume 86fL (79-100) Mean Corpuscular Hemoglobin 28pg (25-35) Mean Corpuscular Hemoglobin Concent 33g/dL (31-37) Red Cell Distribution Width 13.2% (11.5-14.5) Platelet Count 233x10^3/uL (140-400) Neutrophils (%) (Auto) 60% (31-73) Lymphocytes (%) (Auto) 31% (24-48) Monocytes (%) (Auto) 8% (0-9) Eosinophils (%) (Auto) 1% (0-3) Basophils (%) (Auto) 0% (0-3) Neutrophils # (Auto) 5.9x10^3uL (1.8-7.7) Lymphocytes # (Auto) 3.0x10^3/uL (1.0-4.8) Monocytes # (Auto) 0.8x10^3/uL (0.0-1.1) Eosinophils # (Auto) 0.1x10^3/uL (0.0-0.7) Basophils # (Auto) 0.0x10^3/uL (0.0-0.2) Sodium Level 140mmol/L (136-145) Potassium Level 3.7mmol/L (3.5-5.1) Chloride Level 104mmol/L (98-107) Carbon Dioxide Level 26mmol/L (21-32) Anion Gap 10 (6-14) Blood Urea Nitrogen 18mg/dL (8-26) Creatinine 1.1mg/dL (0.7-1.3) Estimated GFR (Cockcroft-Gault) 69.5 BUN/Creatinine Ratio 16 (6-20) Glucose Level 89mg/dL (70-99) Calcium Level 9.0mg/dL (8.5-10.1) Total Bilirubin 0.3mg/dL (0.2-1.0) Aspartate Amino Transf (AST/SGOT) 27U/L (15-37) Alanine Aminotransferase (ALT/SGPT) 59U/L (16-63) Alkaline Phosphatase 86U/L (46-116) Total Protein 7.0g/dL (6.4-8.2) Albumin 3.3g/dL (3.4-5.0) Albumin/Globulin Ratio 0.9 (1.0-1.7) Assessment/Plan Assessment/Plan This patient is 56-year-old man who was found to have a lung mass and is being evaluated, history of an STEMI status post stent. Information obtained from patient and patient's family at bedside. They report he had an episode last night when his left face was having some side to side head movement lasted twitching for a few seconds. Patient does not have any generalized seizures, confusion, tingling numbness, weakness, fever, chest pain, shortness of breath. Patient did not have any loss of bladder or bowel incontinence. Patient did not have any new episodes. Patient denies any history of previous seizure episodes. He had an MRI brain which showed a 1.8 cm mass in his right parietal lobe. Facial twitching. Questionable for seizure activity. Will hold off seizure medication. Patient was discussed in detail if patient has episodes concerning for seizure activity patient will be started on seizure medicine EEG can be done to further evaluate. No clinical seizure activity noted. Seizure precautions Check for CT abdomen chest, pelvis Neurosurgery consult heme/onc Continue medical management Discussed with patient in detail. Patient does not want to stay in the hospital for further workup he reports he will come back tomorrow to the hospital RHONDA MAYBERRY MD Dec 20, 2016 18:05
[2016-12-20] MEDS: DEXAMETHASONE SOD PHOS 4 MG/ML VIAL IV SCH ×2 (18:08→23:56)
[2016-12-20 19:00] VITALS: BP 183/127
[2016-12-20] MEDS ORDERED: ALPRAZOLAM 0.25 MG TABLET PO PRN ×2 (19:00→19:15)
[2016-12-20] MEDS: LORAZEPAM 2 MG/ML VIAL IV PRN (19:41)
[2016-12-20] MEDS: ATORVASTATIN CALCIUM 40 MG TABLET. PO SCH (20:17)
[2016-12-20 23:00] VITALS: BP 128/83
[2016-12-21 03:39] VITALS: BP 143/94
[2016-12-21] MEDS: DEXAMETHASONE SOD PHOS 4 MG/ML VIAL IV SCH ×4 (06:07→23:24)
[2016-12-21 07:25] VITALS: BP 135/94
[2016-12-21] MEDS: PANTOPRAZOLE 40 MG TABLET. PO SCH ×2 (07:30→22:11)
[2016-12-21] MEDS: VARENICLINE 0.5 MG TABLET. PO SCH ×2 (08:35→21:00)
[2016-12-21] MEDS: PRASUGREL 10 MG TABLET. PO SCH (08:36)
[2016-12-21] MEDS: ASPIRIN ENTERIC COATED 325 MG TABLET.DR. PO SCH (08:36)
[2016-12-21] MEDS: METOPROLOL TART IMMED RELEASE 25 MG TABLET PO SCH ×2 (08:37→21:10)
[2016-12-21 10:50] VITALS: BP 141/86
--- NOTE | 2016-12-21 11:15 | PDOC2 ---
CONSULT Date of Consult Date of Consult DATE: 12/21/16 TIME: 11:03 Reason for Consult Reason for Consult: lung mass, abnl MRI brain Referring Physician Referring Physician: hospitalist Identification/Chief Complaint Chief Complaint had left facial twitch - c/w parial seizure History of Present Illness Reason for Visit: 56 y/o aa male with recent CP - went to PCP( Scooter) and had eval including CXR which showed RUL mass - CT done at [facility] 12/04/16 showed 6.3 cm mass ad was also small subpleural nodules LLL only 2.5 mm and was 2.8 cm abnl in liver with diff of met or vascular lesion. Was in pulm office for eval when called that troponin were abnl and was advised to come to [facility] and was admitted earlier in month and had cath - had drug eluting stents in l circ and OM on 12/05/16 Was going to wait to do bx, but day of current admit developed eyes moving back and forth and twitch of left fact and neck. Lasted 30 sec and advised to come to ER. CT showed right frontoparietal abnl and MRI has shown solitary 1.8 cm right parietal lesion with edema. Currently on steroids and eval by neuro - holding on antiepileptics. Past Medical History Past Medical History reports had been healthy prior, no meds prior Cardiovascular: Hyperlipidemia Pulmonary: No pertinent hx GI: No pertinent hx Heme/Onc: No pertinent hx Hepatobiliary: No pertinent hx Psych: No pertinent hx Rheumatologic: No pertinent hx Infectious disease: No pertinent hx Renal/: No pertinent hx Endocrine: No pertinent hx Past Surgical History Past Surgical History: Hernia Repair Family History Family History: No Significant, Other (father had lung cancer - age 59 was a smoker) Social History Quit (was .5 to 1 ppd for 20 years, but stopped within last mo) ALCOHOL: social Drugs: Marijuana Lives: Alone Current Problem List Problem List Problems Medical Problems: (1) Right frontal lobe lesion Status: Acute Current Medications Current Medications Current Medications Iohexol (Omnipaque 300 Mg/ml) 70 ml 1X ONCE IV Last administered on 12/20/16t 03:42; Start 12/20/16 at 03:15; Stop 12/20/16 at 03:16; Status DC Info (Do NOT chart on this entry -- for MONITORING) 1 each PRN DAILY PRN MC SEE COMMENTS; Start 12/20/16 at 03:15; Stop 12/22/16 at 03:14 Ondansetron HCl (Zofran) 4 mg PRN Q8HRS PRN IV NAUSEA/VOMITING; Start 12/20/16 at 04:30; Stop 12/20/16 at 13:26; Status DC Acetaminophen (Tylenol) 650 mg PRN Q4HRS PRN PO FEVER; Start 12/20/16 at 04:30 ; Stop 12/21/16 at 04:30; Status DC Aspirin (Carlene Aspirin) 325 mg 1X ONCE PO Last administered on 12/20/16 05:17 ; Start 12/20/16 at 05:00; Stop 12/20/16 at 05:01; Status DC Clopidogrel Bisulfate (Plavix) 75 mg DAILYWBKFT PO Last administered on 09:24; Start 12/20/16 at 09:00; Stop 12/20/16 at 13:22; Status DC Gadobutrol (Gadavist) 9 mmol 1X ONCE IV Last administered on 12/20/16 12:32; Start 12/20/16 at 12:30; Stop 12/20/16 at 12:31; Status DC Aspirin (Ecotrin) 325 mg DAILYWBKFT PO Last administered on 12/21/16 08:36; Start 12/20/16 at 14:00 Atorvastatin Calcium (Lipitor) 40 mg QHS PO ; Start 12/20/16 at 21:00 Acetaminophen/ Hydrocodone Bitart (Lortab 5/325) 1 tab PRN Q4HRS PRN PO MILD PAIN, 2ND CHOICE; Start 12/20/16 at 13:30 Metoprolol Tartrate (Lopressor) 12.5 mg BID PO Last administered on 12/21/16 08:37; Start 12/20/16 at 14:00 Prasugrel (Effient) 10 mg DAILYWBKFT PO Last administered on 12/21/16 08:36; Start 12/20/16 at 14:00 Varenicline (Chantix) 1 mg BID PO Last administered on 12/20/16 14:39; Start 12/20/16 at 14:00 Ondansetron HCl (Zofran) 4 mg PRN Q6HRS PRN IV NAUSEA/VOMITING; Start 12/20/16 at 13:30 Dexamethasone Sodium Phosphate (Decadron) 4 mg Q6HRS IV Last administered on 06:07; Start 12/20/16 at 18:00 Pantoprazole Sodium (Protonix) 40 mg DAILYAC PO ; Start 12/20/16 at 14:00 Acetaminophen (Tylenol) 650 mg PRN Q6HRS PRN PO MILD PAIN / TEMP; Start at 19:00 Alprazolam (Xanax) 0.25 mg PRN Q8HRS PRN PO ANXIETY / AGITATION; Start at 19:00; Status Cancel Lorazepam (Ativan) 2 mg PRN Q4HRS PRN IV ANXIETY / AGITATION Last administered on 12/20/16 19:41; Start 12/20/16 at 19:00 Alprazolam (Xanax) 0.25 mg TID PRN PRN PO ANXIETY / AGITATION; Start 12/20/16 at 19:15 Active Scripts Active Hydrocodone-Apap 5-325 (Hydrocodone Bit/Acetaminophen) 1 Each Tablet 1 Tab PO PRN Q4HRS PRN Effient (Prasugrel Hcl) 10 Mg Tablet 10 Mg PO DAILYWBKFT Metoprolol Tartrate 25 Mg Tablet 12.5 Mg PO BID Atorvastatin Calcium 40 Mg Tablet 40 Mg PO QHS Aspirin Ec (Aspirin) 325 Mg Tablet.dr 325 Mg PO DAILYWBKPOOJA Reported Chantix (Varenicline Tartrate) 0.5 Mg Tablet 1 Mg PO BID 0.5 MG PO DAILY X3 DAY, 0.5 MG PO BID X4 DAY, 1 MG PO BID UNTIL END OF TREATMENT Allergies Allergies: Coded Allergies: No Known Drug Allergies (Unverified , 12/04/16) ROS Review of System no pulm sx recently. Did have some cough when would wake up was on lipitor but he stopped as caused cramps in hands Neurological: Yes Other (no further twitching, only mild whitaker before) Physical Exam General: Alert, Oriented X3, Cooperative HEENT: Atraumatic, PERRLA, EOMI, Mucous membr. moist/pink Lungs: Clear to auscultation Heart: Regular rate, Normal S1, Normal S2 Abdomen: Normal bowel sounds, Soft, No tenderness, No hepatosplenomegaly, No masses Extremities: No clubbing, No cyanosis, No edema, Normal pulses Skin: No rashes Neuro: Normal speech, Strength at 5/5 X4 ext, Normal tone, Sensation intact, Cranial nerves 3-12 NL Psych/Mental Status: Mental status NL, Mood NL MUSCULOSKELETAL: No joint tenderness, No deformity, No swelling Vitals VITALS Vital Signs Date Time Temp Pulse Resp B/P Pulse Ox O2 Delivery O2 Flow Rate FiO2 12/21/16 08:37 91 135/94 12/21/16 08:00 Room Air 12/21/16 07:25 97.9 20 94 97.9 Labs Labs Laboratory Tests Test 12/20/16 01:40 White Blood Count 9.9x10^3/uL (4.0-11.0) Red Blood Count 5.17x10^6/uL (4.30-5.70) Hemoglobin 14.7g/dL (13.0-17.5) Hematocrit 44.6% (39.0-53.0) Mean Corpuscular Volume 86fL (79-100) Mean Corpuscular Hemoglobin 28pg (25-35) Mean Corpuscular Hemoglobin Concent 33g/dL (31-37) Red Cell Distribution Width 13.2% (11.5-14.5) Platelet Count 233x10^3/uL (140-400) Neutrophils (%) (Auto) 60% (31-73) Lymphocytes (%) (Auto) 31% (24-48) Monocytes (%) (Auto) 8% (0-9) Eosinophils (%) (Auto) 1% (0-3) Basophils (%) (Auto) 0% (0-3) Neutrophils # (Auto) 5.9x10^3uL (1.8-7.7) Lymphocytes # (Auto) 3.0x10^3/uL (1.0-4.8) Monocytes # (Auto) 0.8x10^3/uL (0.0-1.1) Eosinophils # (Auto) 0.1x10^3/uL (0.0-0.7) Basophils # (Auto) 0.0x10^3/uL (0.0-0.2) Sodium Level 140mmol/L (136-145) Potassium Level 3.7mmol/L (3.5-5.1) Chloride Level 104mmol/L (98-107) Carbon Dioxide Level 26mmol/L (21-32) Anion Gap 10 (6-14) Blood Urea Nitrogen 18mg/dL (8-26) Creatinine 1.1mg/dL (0.7-1.3) Estimated GFR (Cockcroft-Gault) 69.5 BUN/Creatinine Ratio 16 (6-20) Glucose Level 89mg/dL (70-99) Calcium Level 9.0mg/dL (8.5-10.1) Total Bilirubin 0.3mg/dL (0.2-1.0) Aspartate Amino Transf (AST/SGOT) 27U/L (15-37) Alanine Aminotransferase (ALT/SGPT) 59U/L (16-63) Alkaline Phosphatase 86U/L (46-116) Total Protein 7.0g/dL (6.4-8.2) Albumin 3.3g/dL (3.4-5.0) Albumin/Globulin Ratio 0.9 (1.0-1.7) Images Images reviewed images of MRI and CT Assessment/Plan Assessment/Plan 1. RUL mass by recent CT, also solitary INTERIOR BLOCK WIRER lesion appears c/w bronchogenic ca do not have tissue which will be critical. First would repeat CT - chest abd and pelvis - if small cell which is in ddx, could be change in the last 2.5 weeks, and full staging to assess other sites of disease is important as it may have implications for how casino porter lesion is approached - ie resection or not I think cardiology needs to be involved to determine mgmt of anti plt agents - would prefer not to wait any longer than necessary to obtain tissue and will need a plan if his casino porter lesion is considered operable - nsg consult pending. agree with steroids and will defer anti epileptics to neuro - looks like they are observing for now. will let dr melvin know of events BARRY GREENE MD Dec 21, 2016 11:15
[2016-12-21] MEDS ORDERED: ANTI-COAG MONITOR BY PHARMACY. MC PRN (11:30)
--- NOTE | 2016-12-21 12:15 | PDOC2 ---
CARDIOLOGY CONSULT NOTE CHEIF COMPLAINT: Possible seizure, eyes moving everywhere Problems: HPI: Patient is a 56 y.o male who had an NSTEMI 2 weeks ago and underwent stenting of the OM and LCx with a drug eluting stent. He was found at that time to have had a lung mass and was advised to have it followed up on an outpt basis. Due to his drug eluting stent, he was discharged on asa, prasugrel. In this setting, he was at home two days ago and his family noticed irregular eye movements and being "out of it". Presented to [facility] where he was found to have a new brain lesion suspicious for metastatic lung ca. Cardiology asked to comment on his anti-platelet mgmt. I talked to the patient today extensively and discussed with him the risks/ benefits of anti-platelet therapy in his situation. He denies any chest pain. PMHX: As noted above. SOCHX: No alcohol, tobacco or illicits at this time. FAMHX: No early CAD or SCD CURRENT MEDS: Current Medications Medications (Trade) Dose Ordered Sig/Lita Start Time Stop Time Status Last Admin Dose Admin Acetaminophen (Tylenol) 650 mg PRN Q6HRS PRN 12/20/16 19:00 Acetaminophen/ Hydrocodone Bitart (Lortab 5/325) 1 tab PRN Q4HRS PRN 12/20/16 13:30 Alprazolam (Xanax) 0.25 mg TID PRN PRN 12/20/16 19:15 Aspirin (Carlene Aspirin) 325 mg 1X ONCE 12/20/16 05:00 12/20/16 05:01 DC 12/20/16 05:17 325 MG Aspirin (Ecotrin) 325 mg DAILYWBKFT 12/20/16 14:00 12/21/16 08:36 325 MG Atorvastatin Calcium (Lipitor) 40 mg QHS 12/20/16 21:00 Clopidogrel Bisulfate (Plavix) 75 mg DAILYWBKFT 12/20/16 09:00 12/20/16 13:22 DC 12/20/16 09:24 75 MG Dexamethasone Sodium Phosphate (Decadron) 4 mg Q6HRS 12/20/16 18:00 12/21/16 06:07 4 MG Enoxaparin Sodium (Lovenox 80mg Syringe) 80 mg Q12HR 12/21/16 21:00 Gadobutrol (Gadavist) 9 mmol 1X ONCE 12/20/16 12:30 12/20/16 12:31 DC 12/20/16 12:32 9 MMOL Info (Anti-Coagulation Monitoring By Pharmacy) 1 each PRN DAILY PRN 12/21/16 11:30 Info (Do NOT chart on this entry -- for MONITORING) 1 each PRN DAILY PRN 12/20/16 03:15 12/22/16 03:14 Iohexol (Omnipaque 300 Mg/ml) 70 ml 1X ONCE 12/20/16 03:15 12/20/16 03:16 DC 12/20/16 03:42 70 ML Lorazepam (Ativan) 2 mg PRN Q4HRS PRN 12/20/16 19:00 12/20/16 19:41 2 MG Metoprolol Tartrate (Lopressor) 12.5 mg BID 12/20/16 14:00 12/21/16 08:37 12.5 MG Ondansetron HCl (Zofran) 4 mg PRN Q6HRS PRN 12/20/16 13:30 Pantoprazole Sodium (Protonix) 40 mg DAILYAC 12/20/16 14:00 Prasugrel (Effient) 10 mg DAILYWBKFT 12/20/16 14:00 12/21/16 11:12 DC 12/21/16 08:36 10 MG Varenicline (Chantix) 1 mg BID 12/20/16 14:00 12/20/16 14:39 1 MG ALLERGIES: Allergies Coded Allergies Type Severity Reaction Last Updated Verified No Known Drug Allergies 12/04/16 No ROS: Negative for 07/11 systems reviewed unless otherwise noted above in HPI. PHYSICAL EXAM: Vital Signs: Vital Signs Date Time Temp Pulse Resp B/P Pulse Ox O2 Delivery O2 Flow Rate FiO2 12/21/16 10:50 98.1 96 22 141/86 94 Room Air 98.1 I & O Intake and Output 12/21/16 07:00 Intake Total 1000 ml Balance 1000 ml Intake Oral 1000 ml # Voids 8 Physical Exam: Gen: A/O x3. NAD, anxious given diagnosis CVS: RRR, no m/r/g PULM: CTAB ABD: Soft, NT/ND +BS EXT: No edema. NEURO:No focal deficits. MSK no trauma PSYCH: anxious, crying. DIAGNOSTIC TESTING: MRI with positive right parietal brain lesion Lab hgb, plts, cr wnl ASSESSMENT: 1. NSTEMI s/p YAMIL to the LCx and OM1 on 12/05/2016. 2. Possible metastatic lung CA with brain lesion PLAN: 1. Will stop Prasugrel 2. Prasugrel will have an antiplatelet affect for at least 4-5 days, making any neurosurgery high risk in the next few days. Would favor that if surgical plans are needed, wait till 12/25/2016 3. He does have a high risk of stent thrombosis compared to baseline but newer generation YAMIL have much lower risk of stent thrombosis, especially after 2 weeks of DAPT. . Given his current situation, patient wishes to have expedited w /u of cancer and understands the risks of stent thrombosis. Will stop prasugrel. Could bridge him with Integrillin or Cangrelor starting tomorrow after review of angiogram with primary implanting interventionalist. 4. No clear role for lovenox from a cardiac stand point, will defer to primary team. Thanks for consult. Will follow closely. LARS BRICENO MD Dec 21, 2016 12:15
--- NOTE | 2016-12-21 12:31 | PDOC ---
PROGRESS NOTES Chief Complaint Chief Complaint 1. facial twisting , 2/2 partial seizure 2/2 brain met likely 2. 1 right parietal lesion 2/2 mets likely 3.recently diagnosed RUL lung mass, likely malignancy, pending evaluation as outpt 4. recent NSTEMi post pci plan: 1. neuro consulted, onco, neurosx, card, pulm consult 2. MRI brain done US neg 3. cont home meds add steroid for brain met with edema chest , abd, pelvis CT Pt told me that production control scheduler told him that he need to be on AC when hold effient given recent NSTEMI, but card consulted and no need to AC bridging. pt wanted to leave yesterday, agree to stay now, wants to get bx ERON, HOWEVER, today is the 1st time seeing onco. dc tmr if no intervention will be done here. no anti seizure med as per neuro. History of Present Illness History of Present Illness feels ok feels sad with the cancer news Vitals Vitals Vital Signs Date Time Temp Pulse Resp B/P Pulse Ox O2 Delivery O2 Flow Rate FiO2 12/21/16 10:50 98.1 96 22 141/86 94 Room Air 98.1 Physical Exam General: Alert, Oriented X3, Cooperative Heart: Regular rate, Normal S1, Normal S2 Lungs: Clear Abdomen: Normal bowel sounds, Soft, No tenderness, No hepatosplenomegaly, No masses Extremities: No clubbing, No cyanosis, No edema, Normal pulses Skin: No rashes Review of Systems Review of Systems no fever, chills, sob or chest pain Assessment and Plan Assessmemt and Plan Problems Medical Problems: (1) Right frontal lobe lesion Status: Acute Problems: Comment Review of Relevant I have reviewed the following items tess (where applicable) has been applied. Labs Laboratory Tests Test 12/20/16 01:40 White Blood Count 9.9x10^3/uL (4.0-11.0) Red Blood Count 5.17x10^6/uL (4.30-5.70) Hemoglobin 14.7g/dL (13.0-17.5) Hematocrit 44.6% (39.0-53.0) Mean Corpuscular Volume 86fL (79-100) Mean Corpuscular Hemoglobin 28pg (25-35) Mean Corpuscular Hemoglobin Concent 33g/dL (31-37) Red Cell Distribution Width 13.2% (11.5-14.5) Platelet Count 233x10^3/uL (140-400) Neutrophils (%) (Auto) 60% (31-73) Lymphocytes (%) (Auto) 31% (24-48) Monocytes (%) (Auto) 8% (0-9) Eosinophils (%) (Auto) 1% (0-3) Basophils (%) (Auto) 0% (0-3) Neutrophils # (Auto) 5.9x10^3uL (1.8-7.7) Lymphocytes # (Auto) 3.0x10^3/uL (1.0-4.8) Monocytes # (Auto) 0.8x10^3/uL (0.0-1.1) Eosinophils # (Auto) 0.1x10^3/uL (0.0-0.7) Basophils # (Auto) 0.0x10^3/uL (0.0-0.2) Sodium Level 140mmol/L (136-145) Potassium Level 3.7mmol/L (3.5-5.1) Chloride Level 104mmol/L (98-107) Carbon Dioxide Level 26mmol/L (21-32) Anion Gap 10 (6-14) Blood Urea Nitrogen 18mg/dL (8-26) Creatinine 1.1mg/dL (0.7-1.3) Estimated GFR (Cockcroft-Gault) 69.5 BUN/Creatinine Ratio 16 (6-20) Glucose Level 89mg/dL (70-99) Calcium Level 9.0mg/dL (8.5-10.1) Total Bilirubin 0.3mg/dL (0.2-1.0) Aspartate Amino Transf (AST/SGOT) 27U/L (15-37) Alanine Aminotransferase (ALT/SGPT) 59U/L (16-63) Alkaline Phosphatase 86U/L (46-116) Total Protein 7.0g/dL (6.4-8.2) Albumin 3.3g/dL (3.4-5.0) Albumin/Globulin Ratio 0.9 (1.0-1.7) Medications Current Medications Iohexol (Omnipaque 300 Mg/ml) 70 ml 1X ONCE IV Last administered on 12/20/16t 03:42; Start 12/20/16 at 03:15; Stop 12/20/16 at 03:16; Status DC Info (Do NOT chart on this entry -- for MONITORING) 1 each PRN DAILY PRN MC SEE COMMENTS; Start 12/20/16 at 03:15; Stop 12/22/16 at 03:14 Ondansetron HCl (Zofran) 4 mg PRN Q8HRS PRN IV NAUSEA/VOMITING; Start 12/20/16 at 04:30; Stop 12/20/16 at 13:26; Status DC Acetaminophen (Tylenol) 650 mg PRN Q4HRS PRN PO FEVER; Start 12/20/16 at 04:30 ; Stop 12/21/16 at 04:30; Status DC Aspirin (Carlene Aspirin) 325 mg 1X ONCE PO Last administered on 12/20/16 05:17 ; Start 12/20/16 at 05:00; Stop 12/20/16 at 05:01; Status DC Clopidogrel Bisulfate (Plavix) 75 mg DAILYWBKFT PO Last administered on 09:24; Start 12/20/16 at 09:00; Stop 12/20/16 at 13:22; Status DC Gadobutrol (Gadavist) 9 mmol 1X ONCE IV Last administered on 12/20/16 12:32; Start 12/20/16 at 12:30; Stop 12/20/16 at 12:31; Status DC Aspirin (Ecotrin) 325 mg DAILYWBKFT PO Last administered on 12/21/16 08:36; Start 12/20/16 at 14:00 Atorvastatin Calcium (Lipitor) 40 mg QHS PO ; Start 12/20/16 at 21:00 Acetaminophen/ Hydrocodone Bitart (Lortab 5/325) 1 tab PRN Q4HRS PRN PO MILD PAIN, 2ND CHOICE; Start 12/20/16 at 13:30 Metoprolol Tartrate (Lopressor) 12.5 mg BID PO Last administered on 12/21/16 08:37; Start 12/20/16 at 14:00 Prasugrel (Effient) 10 mg DAILYWBKFT PO Last administered on 12/21/16 08:36; Start 12/20/16 at 14:00; Stop 12/21/16 at 11:12; Status DC Varenicline (Chantix) 1 mg BID PO Last administered on 12/20/16 14:39; Start 12/20/16 at 14:00 Ondansetron HCl (Zofran) 4 mg PRN Q6HRS PRN IV NAUSEA/VOMITING; Start 12/20/16 at 13:30 Dexamethasone Sodium Phosphate (Decadron) 4 mg Q6HRS IV Last administered on 06:07; Start 12/20/16 at 18:00 Pantoprazole Sodium (Protonix) 40 mg DAILYAC PO ; Start 12/20/16 at 14:00 Acetaminophen (Tylenol) 650 mg PRN Q6HRS PRN PO MILD PAIN / TEMP; Start at 19:00 Alprazolam (Xanax) 0.25 mg PRN Q8HRS PRN PO ANXIETY / AGITATION; Start at 19:00; Status Cancel Lorazepam (Ativan) 2 mg PRN Q4HRS PRN IV ANXIETY / AGITATION Last administered on 12/20/16 19:41; Start 12/20/16 at 19:00 Alprazolam (Xanax) 0.25 mg TID PRN PRN PO ANXIETY / AGITATION; Start 12/20/16 at 19:15 Enoxaparin Sodium (Lovenox 80mg Syringe) 80 mg Q12HR SQ ; Start 12/21/16 at 21: 00 Info (Anti-Coagulation Monitoring By Pharmacy) 1 each PRN DAILY PRN MC SEE COMMENTS; Start 12/21/16 at 11:30 Active Scripts Active Hydrocodone-Apap 5-325 (Hydrocodone Bit/Acetaminophen) 1 Each Tablet 1 Tab PO PRN Q4HRS PRN Effient (Prasugrel Hcl) 10 Mg Tablet 10 Mg PO DAILYWBKFT Metoprolol Tartrate 25 Mg Tablet 12.5 Mg PO BID Atorvastatin Calcium 40 Mg Tablet 40 Mg PO QHS Aspirin Ec (Aspirin) 325 Mg Tablet. 325 Mg PO DAILYWBKFT Reported Chantix (Varenicline Tartrate) 0.5 Mg Tablet 1 Mg PO BID 0.5 MG PO DAILY X3 DAY, 0.5 MG PO BID X4 DAY, 1 MG PO BID UNTIL END OF TREATMENT Vitals/I & O Vital Sign - Last 24 Hours 3/2512/20/16 12/20/16 12/20/16 14:40 14:41 19:00 20:00 Temp 97.7 98.9 97.7 98.9 Pulse 79 87 95 Resp 20 18 B/P 138/90 141/90 183/127 Pulse Ox 97 96 O2 Delivery Room Air Room Air 12/20/16 12/20/16 12/21/16 12/21/16 20:18 23:00 03:39 07:25 Temp 98.6 98.4 97.9 98.6 98.4 97.9 Pulse 95 87 83 91 Resp 18 18 20 B/P 183/127 128/83 143/94 135/94 Pulse Ox 97 95 94 O2 Delivery Room Air Room Air 12/21/16 12/21/16 12/21/16 08:00 08:37 10:50 Temp 98.1 98.1 Pulse 91 96 Resp 22 B/P 135/94 141/86 Pulse Ox 94 O2 Delivery Room Air Room Air Intake and Output 12/20/16 12/20/16 12/21/16 15:00 23:00 07:00 Intake Total 500 ml 500 ml Balance 500 ml 500 ml RAS PINA MD Dec 21, 2016 12:31
--- NOTE | 2016-12-21 12:40 | PDOC ---
Provider Note Provider Note [id number] lung mass brain mass exsmoker cough ? sz ct guided bx when ok w cardiology, IF neurosurgery wont proceed w brain surgery , will do ct of chest. discussed w cardiology, pt and rn. JONATHAN RODRÍGUEZ MD Dec 21, 2016 12:40
[2016-12-21] MEDS ORDERED: IOHEXOL 240 MG/ML 50ML VIAL. PO ONE (13:15)
[2016-12-21] MEDS ORDERED: CONTRAST GIVEN MC PRN (13:15)
[2016-12-21] MEDS ORDERED: IOHEXOL 300 MG/ML 75 ML VIAL IV ONE (13:15)
--- NOTE | 2016-12-21 13:16 | CONS ---
DATE OF CONSULTATION: 12/21/2016 I was asked to see this 56-year-old gentleman for a lung mass. HISTORY OF PRESENT ILLNESS: He has history of [id number] smoking, stopped smoking about 2 weeks ago. He was seen in Dr. Anderson's office on 12/04/2016 for evaluation of lung mass. He was called that his troponin has been elevated, so he was admitted and had a cardiac catheterization and stent placement. He has not had followup with Dr. Anderson, but the patient states that he recommended a CT-guided biopsy of lung mass. Since he had been on antiplatelet agent, the biopsy has not been done. Two days ago, he had twitching and possible seizure, and his MRI was done which did show 1.8-cm enhancing mass in the right parietal lobe. He has not had PFTs. He denies shortness of breath. He has had cough. He has a few episodes of hemoptysis a few weeks ago. He has had chest wall pain on the right side. PAST MEDICAL HISTORY: Lung mass as mentioned above, coronary artery disease, status post stent placement. ALLERGIES: No known drug allergies. MEDICATIONS: Currently, he is on Lovenox, Lipitor, Xanax, Ativan, Decadron, Protonix, Chantix, metoprolol, aspirin, and Zofran. SOCIAL HISTORY: History of [id number] smoking, stopped smoking 2 weeks ago. FAMILY HISTORY: Positive for hypertension. REVIEW OF SYSTEMS: As mentioned as above. Other systems are otherwise negative. PHYSICAL EXAMINATION: GENERAL: He is not in distress. VITAL SIGNS: His O2 saturation is 94%, respiratory rate 22, heart rate 96, blood pressure 140/80, and temperature 98.1. HEENT: Normocephalic, atraumatic. Pupils are equal, round, and reactive to light. Throat is clear. Nose is clear. NECK: There is no JVD, lymphadenopathy, or thyromegaly. CARDIOVASCULAR: Regular rate and rhythm. PMI is nondisplaced. CHEST: Inspection is normal. LUNGS: Diminished breath sounds. There is no wheezing. ABDOMEN: Soft. Bowel sounds are good. There is no mass. EXTREMITIES: There is no lower extremity edema. LYMPHATICS: There is no lymphadenopathy. NEUROLOGIC: Alert and oriented x 3. SKIN: Warm. I reviewed the following lab data: MRI as mentioned as above. Sodium 140, potassium 3.7, chloride 104, CO2 of 26, glucose 89, BUN 18, creatinine 1.1, total bilirubin 0.3, AST 27, ALT 59, and alkaline phosphatase 86. WBC 9.1, hemoglobin 14.7, and platelets 233. IMPRESSION: 1. Lung mass with brain mass, probably bronchogenic carcinoma with metastasis to the brain versus others. 2. Cough. 3. Ex-smoker, questionable chronic obstructive pulmonary disease. 4. Possible seizure. 5. Coronary artery disease, status post stents. PLAN AND RECOMMENDATION: 1. Cardiology stopped Prasugrel that has antiplatelet effect for 4 to 5 days. Cardiology is recommending bridging with Integrilin or Cangrelor. There is no clear role for Lovenox. 2. He would require a CT-guided biopsy of the chest if Neurosurgery will not proceed with brain biopsy. 3. At some point, he would require pulmonary function tests. 4. Titrate FiO2 to keep O2 saturation more than 92%. 5. Start bronchodilator. 6. Anti-seizure medication per Neurology. 7. I have discussed the findings and recommendations with the patient and RN. I have answered all of the patient's questions. Thank you very much for allowing me to participate in the care of this very nice gentleman. JONATHAN RODRÍGUEZ M.D. : ZIYAD/anastasiya JOB#: [id number] / [id number]
--- NOTE | 2016-12-21 13:43 | CARD ---
APPROVED REPORT EXAM: Two-dimensional and M-mode echocardiogram with Doppler and color Doppler. Other Information Quality : Good INDICATION Question Myocardial Infarction 2D DIMENSIONS RVDd3.6 (2.9-3.5cm)Left Atrium(2D)3.7 (1.6-4.0cm) IVSd1.1 (0.7-1.1cm)Aortic Root(2D)3.4 (2.0-3.7cm) LVDd5.1 (3.9-5.9cm)LVOT Diameter2.4 (1.8-2.4cm) PWd1.3 (0.7-1.1cm)LVDs3.9 (2.5-4.0cm) FS (%) 25.0 %SV57.8 ml LVEF(%)50.0 (>50%) Aortic Valve AoV Peak Jhonathan.143.7cm/sAoV VTI19.1cm AO Peak GR.8.3mmHgLVOT VTI 14.41cm AO Mean GR.5mmHgAVA (VTI)3.30cm2 Mitral Valve MV E Jvbabvph19.7cm/sMV DECEL [id number] MV A Gexzhjyv10.3cm/sE/A Ratio0.6 TDI Lateral E' P. V7.98cm/sMedial E' P. V6.11cm/s E/Lateral E'6.4E/Medial E'8.3 Tricuspid Valve TR P. Rmhamgof167sg/sRAP [id number] TR Peak Gr.59tnFqBWOT06ddRe Pulmonary Vein S1 Ebyoznie81.3cm/sS2 Noqxivfr37.80cm/s D2 Mnvlaymd19.8cm/s LEFT VENTRICLE The left ventricle is normal size. There is mild concentric left ventricular hypertrophy. Left ventri lisa systolic function is low normal. The Ejection Fraction is 50-55%. The basal to mid anterolateral wall is mild to moderately hypokinetic. Transmitral Doppler flow pattern is Grade I-abnormal relaxati on pattern. RIGHT VENTRICLE The right ventricle is normal size. The right ventricular systolic function is normal. ATRIA The left atrium size is normal. The right atrium is mildly dilated. The interatrial septum is intact with no evidence for an atrial septal defect or patent foramen ovale as noted on 2-D or Doppler imagi ng. AORTIC VALVE The aortic valve is calcified but opens well. Doppler and Color Flow revealed no significant aortic r egurgitation. There is no significant aortic valvular stenosis. MITRAL VALVE The mitral valve is normal in structure and function. There is no evidence of mitral valve prolapse. There is no mitral valve stenosis. Doppler and Color Flow revealed no mitral valve regurgitation note d. TRICUSPID VALVE The tricuspid valve is normal in structure and function. Doppler and Color Flow revealed trace tricus pid regurgitation. There is mild pulmonary hypertension. The PA pressure was estimated at 45 mmHg. Th ere is no tricuspid valve stenosis. PULMONIC VALVE Doppler and Color Flow revealed trace pulmonic valvular regurgitation. There is no pulmonic valvular stenosis. GREAT VESSELS The aortic root is normal in size. The ascending aorta is not well seen. The IVC is normal in size an d collapses >50% with inspiration. PERICARDIAL EFFUSION There is no evidence of significant pericardial effusion. Critical Notification Critical Value: No <Conclusion> Left ventricle systolic function is low normal. The Ejection Fraction is 50-55%. The basal to mid anterolateral wall is mild to moderately hypokinetic. Doppler and Color Flow revealed trace tricuspid regurgitation. There is mild pulmonary hypertension. The PA pressure was estimated at 45 mmHg.
[2016-12-21 15:30] VITALS: BP 150/94
[2016-12-21] MEDS: IPRATRPIUM/ALBUTEROL 0.5/2.5MG 3 ML NEBU. NEB SCH ×2 (15:50→20:10)
--- NOTE | 2016-12-21 16:47 | RAD ---
Indication stage presumed lung cancer. Multiphase imaging was performed. Initially non-IV imaging through the chest and abdomen was performed. This was followed by arterial phase imaging through the liver as well as portal venous phase imaging through the abdomen. Delayed images through the abdomen and pelvis were also obtained. The contrast images were obtained following the administration of approximately 75 cc of Omnipaque 300. Oral contrast was present on all the images obtained. CT chest: Findings There is a parenchymal mass in the right upper lobe measuring approximately 6.2 cm most compatible with a primary neoplastic process. There is coronary artery calcification. Significant hilar or mediastinal adenopathy is not seen. There are extensive underlying emphysematous changes. An additional dominant parenchymal mass is not seen and there is no suggested metastatic disease in the chest CT abdomen and pelvis: The initial noncontrast images through the liver appear unremarkable. A small low-density masses seen in the left lobe of the liver compatible with a cyst. Definite evidence of metastatic disease or significant pathology associated with the liver is not seen. The gallbladder appears grossly normal. The spleen appears unremarkable. No pancreatic pathology is seen. The adrenal glands are unremarkable. There is a parapelvic cyst associated with the right kidney and a small cortical cyst associated with the left. Significant central or retroperitoneal adenopathy is not seen. Occasional small periaortic lymph nodes are seen but again definite significant retroperitoneal adenopathy is not seen. There is a 4 cm infrarenal abdominal aortic aneurysm. There is mild dilatation of both common iliac arteries. An acute or significant finding in the pelvis is not seen. Definite evidence of metastatic disease is not seen. There is a small sclerotic focus seen associated with the left iliac bone and involving the right sacrum. These probably reflect bone islands. Bone scan could be performed if there is the suspicion of skeletal metastatic disease. Degenerative changes are noted in the lumbar spine IMPRESSION: 6.2 cm parenchymal mass in the right upper lobe most compatible with primary neoplastic disease. No evidence of metastatic disease in the chest, abdomen or pelvis. Renal cysts. 4 cm infrarenal abdominal aortic aneurysm. Underlying emphysematous changes. Probable small bone islands in the pelvis PQRS Compliance Statement: One or more of the following individualized dose reduction techniques were utilized for this examination: 1. Automated exposure control 2. Adjustment of the mA and/or kV according to patient size 3. Use of iterative reconstruction technique
--- NOTE | 2016-12-21 18:39 | PDOC ---
PROGRESS NOTES Assessment Problems Medical Problems: (1) Right frontal lobe lesion Status: Acute Problems: Plan This patient is 56-year-old man who was found to have a lung mass and is being evaluated, history of an STEMI status post stent. Information obtained from patient and patient's family at bedside. They report he had an episode last night when his left face was having some side to side head movement lasted twitching for a few seconds. Patient does not have any generalized seizures, confusion, tingling numbness, weakness, fever, chest pain, shortness of breath. Patient did not have any loss of bladder or bowel incontinence. Patient did not have any new episodes. Patient denies any history of previous seizure episodes. He had an MRI brain which showed a 1.8 cm mass in his right parietal lobe. Facial twitching. Questionable for seizure activity. No new clinical seizure activity Will hold off seizure medication. Patient was discussed in detail if patient has episodes concerning for seizure activity patient will be started on seizure medicine EEG can be done to further evaluate. No clinical seizure activity noted. Seizure precautions Check for CT abdomen chest, pelvis Neurosurgery consult heme/onc Continue medical management Discussed with patient in detail. Subjective no clinical seizure activity Objective Vital Signs Date Time Temp Pulse Resp B/P Pulse Ox O2 Delivery O2 Flow Rate FiO2 12/21/16 15:54 97 Room Air 12/21/16 15:30 97.9 91 18 150/94 97.9 Intake and Output 12/21/16 07:00 Intake Total 1000 ml Balance 1000 ml Intake Oral 1000 ml # Voids 8 PHYSICAL EXAM PHYSICAL EXAMINATION: General appearance is in acute distress. HEENT: Normocephalic and nontraumatic. Eyes, nose, ears, and throat are unremarkable. Neck is supple. No lymphadenopathy. No crepitus. Cardiovascular: S1, S2, regular rate and rhythm. Pulmonary: Clear to auscultation bilaterally. Abdomen: Bowel sounds are positive. Abdomen is soft, nontender, and nondistended. NEUROLOGICAL EXAMINATION: Alert Oriented to time, place and person. PERRL. EOMI. CN: no focal findings. Muscle tone: within normal. Muscle strength: 5 DTR: 2 Plantar reflex: Flexor response bilaterally Gait: not examined in bed. Sensory exam: no abnormal findings. No obvious cerebellar signs elicited. Review of Relevant I have reviewed the following items tess (where applicable) has been applied. Labs Laboratory Tests Test 12/20/16 01:40 White Blood Count 9.9x10^3/uL (4.0-11.0) Red Blood Count 5.17x10^6/uL (4.30-5.70) Hemoglobin 14.7g/dL (13.0-17.5) Hematocrit 44.6% (39.0-53.0) Mean Corpuscular Volume 86fL (79-100) Mean Corpuscular Hemoglobin 28pg (25-35) Mean Corpuscular Hemoglobin Concent 33g/dL (31-37) Red Cell Distribution Width 13.2% (11.5-14.5) Platelet Count 233x10^3/uL (140-400) Neutrophils (%) (Auto) 60% (31-73) Lymphocytes (%) (Auto) 31% (24-48) Monocytes (%) (Auto) 8% (0-9) Eosinophils (%) (Auto) 1% (0-3) Basophils (%) (Auto) 0% (0-3) Neutrophils # (Auto) 5.9x10^3uL (1.8-7.7) Lymphocytes # (Auto) 3.0x10^3/uL (1.0-4.8) Monocytes # (Auto) 0.8x10^3/uL (0.0-1.1) Eosinophils # (Auto) 0.1x10^3/uL (0.0-0.7) Basophils # (Auto) 0.0x10^3/uL (0.0-0.2) Sodium Level 140mmol/L (136-145) Potassium Level 3.7mmol/L (3.5-5.1) Chloride Level 104mmol/L (98-107) Carbon Dioxide Level 26mmol/L (21-32) Anion Gap 10 (6-14) Blood Urea Nitrogen 18mg/dL (8-26) Creatinine 1.1mg/dL (0.7-1.3) Estimated GFR (Cockcroft-Gault) 69.5 BUN/Creatinine Ratio 16 (6-20) Glucose Level 89mg/dL (70-99) Calcium Level 9.0mg/dL (8.5-10.1) Total Bilirubin 0.3mg/dL (0.2-1.0) Aspartate Amino Transf (AST/SGOT) 27U/L (15-37) Alanine Aminotransferase (ALT/SGPT) 59U/L (16-63) Alkaline Phosphatase 86U/L (46-116) Total Protein 7.0g/dL (6.4-8.2) Albumin 3.3g/dL (3.4-5.0) Albumin/Globulin Ratio 0.9 (1.0-1.7) Medications Current Medications Iohexol (Omnipaque 300 Mg/ml) 70 ml 1X ONCE IV Last administered on 12/20/16 03:42; Start 12/20/16 at 03:15; Stop 12/20/16 at 03:16; Status DC Info (Do NOT chart on this entry -- for MONITORING) 1 each PRN DAILY PRN MC SEE COMMENTS; Start 12/20/16 at 03:15; Stop 12/21/16 at 16:47; Status DC Ondansetron HCl (Zofran) 4 mg PRN Q8HRS PRN IV NAUSEA/VOMITING; Start 12/20/16 at 04:30; Stop 12/20/16 at 13:26; Status DC Acetaminophen (Tylenol) 650 mg PRN Q4HRS PRN PO FEVER; Start 12/20/16 at 04:30 ; Stop 12/21/16 at 04:30; Status DC Aspirin (Carlene Aspirin) 325 mg 1X ONCE PO Last administered on 12/20/16 05:17 ; Start 12/20/16 at 05:00; Stop 12/20/16 at 05:01; Status DC Clopidogrel Bisulfate (Plavix) 75 mg DAILYWBKFT PO Last administered on 09:24; Start 12/20/16 at 09:00; Stop 12/20/16 at 13:22; Status DC Gadobutrol (Gadavist) 9 mmol 1X ONCE IV Last administered on 12/20/16 12:32; Start 12/20/16 at 12:30; Stop 12/20/16 at 12:31; Status DC Aspirin (Ecotrin) 325 mg DAILYWBKFT PO Last administered on 12/21/16 08:36; Start 12/20/16 at 14:00 Atorvastatin Calcium (Lipitor) 40 mg QHS PO ; Start 12/20/16 at 21:00 Acetaminophen/ Hydrocodone Bitart (Lortab 5/325) 1 tab PRN Q4HRS PRN PO MILD PAIN, 2ND CHOICE; Start 12/20/16 at 13:30 Metoprolol Tartrate (Lopressor) 12.5 mg BID PO Last administered on 12/21/16 08:37; Start 12/20/16 at 14:00 Prasugrel (Effient) 10 mg DAILYWBKFT PO Last administered on 12/21/16 08:36; Start 12/20/16 at 14:00; Stop 12/21/16 at 11:12; Status DC Varenicline (Chantix) 1 mg BID PO Last administered on 12/20/16 14:39; Start 12/20/16 at 14:00 Ondansetron HCl (Zofran) 4 mg PRN Q6HRS PRN IV NAUSEA/VOMITING; Start 12/20/16 at 13:30 Dexamethasone Sodium Phosphate (Decadron) 4 mg Q6HRS IV Last administered on 17:54; Start 12/20/16 at 18:00 Pantoprazole Sodium (Protonix) 40 mg DAILYAC PO ; Start 12/20/16 at 14:00 Acetaminophen (Tylenol) 650 mg PRN Q6HRS PRN PO MILD PAIN / TEMP; Start at 19:00 Alprazolam (Xanax) 0.25 mg PRN Q8HRS PRN PO ANXIETY / AGITATION; Start at 19:00; Status Cancel Lorazepam (Ativan) 2 mg PRN Q4HRS PRN IV ANXIETY / AGITATION Last administered on 12/20/16 19:41; Start 12/20/16 at 19:00 Alprazolam (Xanax) 0.25 mg TID PRN PRN PO ANXIETY / AGITATION; Start 12/20/16 at 19:15 Enoxaparin Sodium (Lovenox 80mg Syringe) 80 mg Q12HR SQ ; Start 12/21/16 at 21: 00; Stop 12/21/16 at 21:00; Status DC Info (Anti-Coagulation Monitoring By Pharmacy) 1 each PRN DAILY PRN MC SEE COMMENTS; Start 12/21/16 at 11:30 Enoxaparin Sodium (Lovenox 40mg Syringe) 40 mg Q24H SQ ; Start 12/22/16 at 10:00 Albuterol/ Ipratropium (Duoneb) 3 ml RTQID NEB Last administered on 12/21/16t 15:50; Start 12/21/16 at 16:00 Iohexol (Omnipaque 300 Mg/ml) 75 ml 1X ONCE IV ; Start 12/21/16 at 13:15; Stop 12/21/16 at 13:16; Status DC Iohexol (Omnipaque 240 Mg/ml) 50 ml 1X ONCE PO ; Start 12/21/16 at 13:15; Stop 12/21/16 at 13:16; Status DC Info (Do NOT chart on this entry -- for MONITORING) 1 each PRN DAILY PRN MC SEE COMMENTS; Start 12/21/16 at 13:15; Stop 12/23/16 at 13:14 Active Scripts Active Hydrocodone-Apap 5-325 (Hydrocodone Bit/Acetaminophen) 1 Each Tablet 1 Tab PO PRN Q4HRS PRN Effient (Prasugrel Hcl) 10 Mg Tablet 10 Mg PO DAILYWBKFT Metoprolol Tartrate 25 Mg Tablet 12.5 Mg PO BID Atorvastatin Calcium 40 Mg Tablet 40 Mg PO QHS Aspirin Ec (Aspirin) 325 Mg Tablet.dr 325 Mg PO DAILYWBK Reported Chantix (Varenicline Tartrate) 0.5 Mg Tablet 1 Mg PO BID 0.5 MG PO DAILY X3 DAY, 0.5 MG PO BID X4 DAY, 1 MG PO BID UNTIL END OF TREATMENT Vitals/I & O Vital Sign - Last 24 Hours 12/20/16 12/20/16 12/20/16 12/20/16 19:00 20:00 20:18 23:00 Temp 98.9 98.6 98.9 98.6 Pulse 95 95 87 Resp 18 18 B/P 183/127 183/127 128/83 Pulse Ox 96 97 O2 Delivery Room Air 12/21/16 12/21/16 12/21/16 12/21/16 03:39 07:25 08:00 08:37 Temp 98.4 97.9 98.4 97.9 Pulse 83 91 91 Resp 18 20 B/P 143/94 135/94 135/94 Pulse Ox 95 94 O2 Delivery Room Air Room Air Room Air 3/26/17 3/26/17 3/26/17 10:50 15:30 15:54 Temp 98.1 97.9 98.1 97.9 Pulse 96 91 Resp 22 18 B/P 141/86 150/94 Pulse Ox 94 97 97 O2 Delivery Room Air Room Air Room Air Intake and Output 12/20/16 12/20/16 12/21/16 15:00 23:00 07:00 Intake Total 500 ml 500 ml Balance 500 ml 500 ml RHONDA MAYBERRY MD Dec 21, 2016 18:38
[2016-12-21 19:20] VITALS: BP 144/105
--- NOTE | 2016-12-21 20:33 | CONS ---
DATE OF CONSULTATION: 12/21/2016 REASON FOR CONSULTATION: Brain mass history. 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 He said he also noticed on occasion some aching in his legs and some numbness intermittently in the left lateral thigh. He had episodes of chest pain. He had evaluation including a chest x-ray in which a right upper lobe mass was seen. He was referred to Pulmonary Medicine, and also he was found to have a high troponin. He was in [facility]. He was stented, placed on Plavix. He then developed some left facial twitching, had a CT scan of the head performed in which a right parietal mass was seen and he was admitted for further evaluation and treatment. Currently, he feels well, complaining of mild right-sided chest pain intermittently. No headache. No other episodes which could be considered as seizures. PAST MEDICAL HISTORY: He reports that he was very healthy prior to this. He does have a history of hyperlipidemia. PAST SURGICAL HISTORY: Hernia repair. PERSONAL HISTORY: He was a smoker, but quit smoking in the last month. He is a social drinker. He lives alone. CURRENT MEDICATIONS: Up to this hospitalization include Plavix; otherwise were noncontributory. ALLERGIES: There are no known allergies to drugs. REVIEW OF SYSTEMS: Twelve points was performed, and other than outlined above was negative. PHYSICAL EXAMINATION: GENERAL: He is pleasant, alert and cooperative, seated at the bedside. HEENT: His pupils were equal and reactive, with normal extraocular motor function. Facial motor and facial sensory examination was normal. His lower cranial nerves were intact. NEUROLOGIC: On motor testing, his strength is 5/5 in upper and lower extremities bilaterally. On sensory examination, he was intact to light touch in the upper and lower extremities bilaterally, with 1+ reflexes, without pathologic reflexes. There was full range of motion of his upper and lower extremities bilaterally. IMAGING: I reviewed CT and MRI scans of the brain. On those studies, there is a solitary brain mass in the right anterior parietal region, which does abut the cortical surface and appears to me most likely to be ____ metastatic lesion. 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 Its location is suboptimal in that it is on or adjacent to the motor strip on the right side. However, the lesion does abut the surface and that technically I do not think it would entail excessive risk to remove this lesion if that is warranted based on the remainder of his workup. I did discuss this with the patient. I appreciate you asking me to see him. NEELA ABEBE MD DR: SENAIT/anastasiya JOB#: [id number] / [id number]
[2016-12-21] MEDS: ATORVASTATIN CALCIUM 40 MG TABLET. PO SCH (21:00)
[2016-12-21] MEDS ORDERED: ENOXAPARIN ** NOTE DOSE ** SYRINGE SQ SCH (21:00)
[2016-12-21 23:20] VITALS: BP 137/96
[2016-12-22 02:43] VITALS: BP 139/90
[2016-12-22 04:13] LABS: BASO % 0 % (0-3); EOS % 0 % (0-3); HEMATOCRIT 48.1 % (39.0-53.0); HEMOGLOBIN 16.1 g/dL (13.0-17.5); LYMPH # 1.6 x10^3/uL (1.0-4.8); LYMPH % 7 % (24-48); MEAN CORPUSCULAR HEMOGLOBIN 29 pg (25-35); MEAN CORPUSCULAR HGB CONC 33 g/dL (31-37); MEAN CORPUSCULAR VOLUME 86 fL (79-100); MONO % 2 % (0-9); NEUT % 90 % (31-73); PLATELET COUNT 259 x10^3/uL (140-400); RED BLOOD COUNT 5.62 x10^6/uL (4.30-5.70); RED CELL DISTRIBUTION WIDTH 13.5 % (11.5-14.5); WHITE BLOOD COUNT 21.2 x10^3/uL (4.0-11.0)
[2016-12-22 04:50] LABS: CALCIUM 9.5 mg/dL (8.5-10.1); CREATININE 1.1 mg/dL (0.7-1.3); GFR 69.5
[2016-12-22] MEDS: PANTOPRAZOLE 40 MG TABLET. PO SCH (06:31)
[2016-12-22] MEDS: DEXAMETHASONE SOD PHOS 4 MG/ML VIAL IV SCH ×2 (06:31→12:00)
[2016-12-22 06:53] LABS: PLT ESTIMATE ADEQUATE (ADEQUATE)
[2016-12-22] MEDS: IPRATRPIUM/ALBUTEROL 0.5/2.5MG 3 ML NEBU. NEB SCH ×4 (07:22→19:49)
[2016-12-22 07:36] VITALS: BP 142/91
[2016-12-22] MEDS: VARENICLINE 0.5 MG TABLET. PO SCH ×2 (09:00→21:00)
[2016-12-22] MEDS: ASPIRIN ENTERIC COATED 325 MG TABLET.DR. PO SCH (09:26)
[2016-12-22] MEDS: METOPROLOL TART IMMED RELEASE 25 MG TABLET PO SCH ×2 (09:26→21:09)
--- NOTE | 2016-12-22 09:41 | PDOC ---
PROGRESS NOTES Subjective Subjective c/c - RUL mass Objective Objective Vital Signs Date Time Temp Pulse Resp B/P Pulse Ox O2 Delivery O2 Flow Rate FiO2 12/22/16 09:26 91 142/91 12/22/16 07:36 97.5 18 92 Room Air 97.5 Intake and Output 12/22/16 07:00 Intake Total 3160 ml Balance 3160 ml Intake Oral 3160 ml # Voids 10 Physical Exam Heart: Normal S1, Normal S2 General: Alert, Oriented X3 Lungs: Clear to auscultation Psych/Mental Status: Mental status NL Assessment Assessment Problems Medical Problems: (1) Right frontal lobe lesion Status: Acute A/P: 1. RUL mass by CT, also solitary CAREER SERVICES DIRECTOR lesion appears c/w bronchogenic ca CT - chest abd and pelvis 12/22/15: 6.2 cm parenchymal mass in the right upper lobe most compatible with primary neoplastic disease. No evidence of metastatic disease in the chest, abdomen or pelvis. Plan CT guided bx when cleared by cardiology. - if small cell , then no resection. I would plan chemo.XRT - if NSCLC, then resection of both the primary and solitary met can be considered. 2. CAD s/p stents - Appreciate cardiology mgmt of anti plt agent. Prasurgrel was discontinued by cardiology 12/21/16. 3. Brain met - agree with steroids and will defer anti epileptics to neuro - looks like they are observing for now. 4. Plan bone scan. Comment Review of Relevant I have reviewed the following items tess (where applicable) has been applied. Labs Laboratory Tests Test 12/22/16 03:05 White Blood Count 21.2x10^3/uL (4.0-11.0) Red Blood Count 5.62x10^6/uL (4.30-5.70) Hemoglobin 16.1g/dL (13.0-17.5) Hematocrit 48.1% (39.0-53.0) Mean Corpuscular Volume 86fL (79-100) Mean Corpuscular Hemoglobin 29pg (25-35) Mean Corpuscular Hemoglobin Concent 33g/dL (31-37) Red Cell Distribution Width 13.5% (11.5-14.5) Platelet Count 259x10^3/uL (140-400) Neutrophils (%) (Auto) 90% (31-73) Lymphocytes (%) (Auto) 7% (24-48) Monocytes (%) (Auto) 2% (0-9) Eosinophils (%) (Auto) 0% (0-3) Basophils (%) (Auto) 0% (0-3) Neutrophils # (Auto) 19.2x10^3uL (1.8-7.7) Lymphocytes # (Auto) 1.6x10^3/uL (1.0-4.8) Monocytes # (Auto) 0.4x10^3/uL (0.0-1.1) Eosinophils # (Auto) 0.0x10^3/uL (0.0-0.7) Basophils # (Auto) 0.0x10^3/uL (0.0-0.2) Segmented Neutrophils % 90% (35-66) Band Neutrophils % 2% (0-9) Lymphocytes % 8% (24-48) Platelet Estimate Adequate (ADEQUATE) Sodium Level 142mmol/L (136-145) Potassium Level 4.0mmol/L (3.5-5.1) Chloride Level 105mmol/L (98-107) Carbon Dioxide Level 26mmol/L (21-32) Anion Gap 11 (6-14) Blood Urea Nitrogen 19mg/dL (8-26) Creatinine 1.1mg/dL (0.7-1.3) Estimated GFR (Cockcroft-Gault) 69.5 Glucose Level 134mg/dL (70-99) Calcium Level 9.5mg/dL (8.5-10.1) Laboratory Tests Test 12/22/16 03:05 White Blood Count 21.2x10^3/uL (4.0-11.0) Red Blood Count 5.62x10^6/uL (4.30-5.70) Hemoglobin 16.1g/dL (13.0-17.5) Hematocrit 48.1% (39.0-53.0) Mean Corpuscular Volume 86fL (79-100) Mean Corpuscular Hemoglobin 29pg (25-35) Mean Corpuscular Hemoglobin Concent 33g/dL (31-37) Red Cell Distribution Width 13.5% (11.5-14.5) Platelet Count 259x10^3/uL (140-400) Neutrophils (%) (Auto) 90% (31-73) Lymphocytes (%) (Auto) 7% (24-48) Monocytes (%) (Auto) 2% (0-9) Eosinophils (%) (Auto) 0% (0-3) Basophils (%) (Auto) 0% (0-3) Neutrophils # (Auto) 19.2x10^3uL (1.8-7.7) Lymphocytes # (Auto) 1.6x10^3/uL (1.0-4.8) Monocytes # (Auto) 0.4x10^3/uL (0.0-1.1) Eosinophils # (Auto) 0.0x10^3/uL (0.0-0.7) Basophils # (Auto) 0.0x10^3/uL (0.0-0.2) Segmented Neutrophils % 90% (35-66) Band Neutrophils % 2% (0-9) Lymphocytes % 8% (24-48) Platelet Estimate Adequate (ADEQUATE) Sodium Level 142mmol/L (136-145) Potassium Level 4.0mmol/L (3.5-5.1) Chloride Level 105mmol/L (98-107) Carbon Dioxide Level 26mmol/L (21-32) Anion Gap 11 (6-14) Blood Urea Nitrogen 19mg/dL (8-26) Creatinine 1.1mg/dL (0.7-1.3) Estimated GFR (Cockcroft-Gault) 69.5 Glucose Level 134mg/dL (70-99) Calcium Level 9.5mg/dL (8.5-10.1) Medications Current Medications Iohexol (Omnipaque 300 Mg/ml) 70 ml 1X ONCE IV Last administered on 12/20/16t 03:42; Start 12/20/16 at 03:15; Stop 12/20/16 at 03:16; Status DC Info (Do NOT chart on this entry -- for MONITORING) 1 each PRN DAILY PRN MC SEE COMMENTS; Start 12/20/16 at 03:15; Stop 12/21/16 at 16:47; Status DC Ondansetron HCl (Zofran) 4 mg PRN Q8HRS PRN IV NAUSEA/VOMITING; Start 12/20/16 at 04:30; Stop 12/20/16 at 13:26; Status DC Acetaminophen (Tylenol) 650 mg PRN Q4HRS PRN PO FEVER; Start 12/20/16 at 04:30 ; Stop 12/21/16 at 04:30; Status DC Aspirin (Carlene Aspirin) 325 mg 1X ONCE PO Last administered on 12/20/16 05:17 ; Start 12/20/16 at 05:00; Stop 12/20/16 at 05:01; Status DC Clopidogrel Bisulfate (Plavix) 75 mg DAILYWBKFT PO Last administered on 09:24; Start 12/20/16 at 09:00; Stop 12/20/16 at 13:22; Status DC Gadobutrol (Gadavist) 9 mmol 1X ONCE IV Last administered on 12/20/16 12:32; Start 12/20/16 at 12:30; Stop 12/20/16 at 12:31; Status DC Aspirin (Ecotrin) 325 mg DAILYWBKFT PO Last administered on 12/22/16 09:26; Start 12/20/16 at 14:00 Atorvastatin Calcium (Lipitor) 40 mg QHS PO ; Start 12/20/16 at 21:00 Acetaminophen/ Hydrocodone Bitart (Lortab 5/325) 1 tab PRN Q4HRS PRN PO MILD PAIN, 2ND CHOICE; Start 12/20/16 at 13:30 Metoprolol Tartrate (Lopressor) 12.5 mg BID PO Last administered on 12/22/16 09:26; Start 12/20/16 at 14:00 Prasugrel (Effient) 10 mg DAILYWBKFT PO Last administered on 12/21/16 08:36; Start 12/20/16 at 14:00; Stop 12/21/16 at 11:12; Status DC Varenicline (Chantix) 1 mg BID PO Last administered on 12/20/16 14:39; Start 12/20/16 at 14:00 Ondansetron HCl (Zofran) 4 mg PRN Q6HRS PRN IV NAUSEA/VOMITING; Start 12/20/16 at 13:30 Dexamethasone Sodium Phosphate (Decadron) 4 mg Q6HRS IV Last administered on 06:31; Start 12/20/16 at 18:00 Pantoprazole Sodium (Protonix) 40 mg DAILYAC PO Last administered on 12/22/16 06:31; Start 12/20/16 at 14:00 Acetaminophen (Tylenol) 650 mg PRN Q6HRS PRN PO MILD PAIN / TEMP; Start at 19:00 Alprazolam (Xanax) 0.25 mg PRN Q8HRS PRN PO ANXIETY / AGITATION; Start at 19:00; Status Cancel Lorazepam (Ativan) 2 mg PRN Q4HRS PRN IV ANXIETY / AGITATION Last administered on 12/20/16 19:41; Start 12/20/16 at 19:00 Alprazolam (Xanax) 0.25 mg TID PRN PRN PO ANXIETY / AGITATION; Start 12/20/16 at 19:15 Enoxaparin Sodium (Lovenox 80mg Syringe) 80 mg Q12HR SQ ; Start 12/21/16 at 21: 00; Stop 12/21/16 at 21:00; Status DC Info (Anti-Coagulation Monitoring By Pharmacy) 1 each PRN DAILY PRN MC SEE COMMENTS; Start 12/21/16 at 11:30 Enoxaparin Sodium (Lovenox 40mg Syringe) 40 mg Q24H SQ ; Start 12/22/16 at 10:00 ; Stop 12/22/16 at 10:00; Status DC Albuterol/ Ipratropium (Duoneb) 3 ml RTQID NEB Last administered on 12/22/16 07:22; Start 12/21/16 at 16:00 Iohexol (Omnipaque 300 Mg/ml) 75 ml 1X ONCE IV ; Start 12/21/16 at 13:15; Stop 12/21/16 at 13:16; Status DC Iohexol (Omnipaque 240 Mg/ml) 50 ml 1X ONCE PO ; Start 12/21/16 at 13:15; Stop 12/21/16 at 13:16; Status DC Info (Do NOT chart on this entry -- for MONITORING) 1 each PRN DAILY PRN MC SEE COMMENTS; Start 12/21/16 at 13:15; Stop 12/23/16 at 13:14 Active Scripts Active Hydrocodone-Apap 5-325 (Hydrocodone Bit/Acetaminophen) 1 Each Tablet 1 Tab PO PRN Q4HRS PRN Effient (Prasugrel Hcl) 10 Mg Tablet 10 Mg PO DAILYWBKFT Metoprolol Tartrate 25 Mg Tablet 12.5 Mg PO BID Atorvastatin Calcium 40 Mg Tablet 40 Mg PO QHS Aspirin Ec (Aspirin) 325 Mg Tablet. 325 Mg PO DAILYWBK Reported Chantix (Varenicline Tartrate) 0.5 Mg Tablet 1 Mg PO BID 0.5 MG PO DAILY X3 DAY, 0.5 MG PO BID X4 DAY, 1 MG PO BID UNTIL END OF TREATMENT Vitals/I & O Vital Sign - Last 24 Hours 12/21/16 12/21/16 12/21/16 12/21/16 10:50 15:30 15:54 19:20 Temp 98.1 97.9 98.7 98.1 97.9 98.7 Pulse 96 91 100 Resp 22 18 22 B/P 141/86 150/94 144/105 Pulse Ox 94 97 97 93 O2 Delivery Room Air Room Air Room Air Room Air 12/21/16 12/21/16 12/21/16 12/21/16 20:00 20:10 21:10 23:20 Temp 98.6 98.6 Pulse 100 84 Resp 20 B/P 144/105 137/96 Pulse Ox 97 93 O2 Delivery Room Air Room Air Room Air 12/22/16 12/22/16 12/22/16 12/22/16 02:43 07:23 07:36 09:26 Temp 98.3 97.5 98.3 97.5 Pulse 82 91 91 Resp 18 18 B/P 139/90 142/91 142/91 Pulse Ox 93 97 92 O2 Delivery Room Air Room Air Room Air Intake and Output 12/21/16 12/21/16 12/22/16 15:00 23:00 07:00 Intake Total 420 ml 940 ml 1800 ml Balance 420 ml 940 ml 1800 ml SUSY COTTO MD Dec 22, 2016 09:41
[2016-12-22] MEDS ORDERED: ENOXAPARIN 40 MG/0.4 ML SYRINGE. SQ SCH (10:00)
[2016-12-22 11:06] VITALS: BP 165/95
--- NOTE | 2016-12-22 11:54 | PDOC ---
PULMONARY PROGRESS NOTES Subjective no soa Vitals Vital Signs Date Time Temp Pulse Resp B/P Pulse Ox O2 Delivery O2 Flow Rate FiO2 12/22/16 11:20 Room Air 12/22/16 11:06 98.1 95 18 165/95 95 98.1 General: Alert, No acute distress Lungs: Clear Cardiovascular: S1 Abdomen: Soft Neuro Exam: Alert Extremities: No Edema Skin: Warm Labs Laboratory Tests Test 12/22/16 03:05 White Blood Count 21.2x10^3/uL (4.0-11.0) Red Blood Count 5.62x10^6/uL (4.30-5.70) Hemoglobin 16.1g/dL (13.0-17.5) Hematocrit 48.1% (39.0-53.0) Mean Corpuscular Volume 86fL (79-100) Mean Corpuscular Hemoglobin 29pg (25-35) Mean Corpuscular Hemoglobin Concent 33g/dL (31-37) Red Cell Distribution Width 13.5% (11.5-14.5) Platelet Count 259x10^3/uL (140-400) Neutrophils (%) (Auto) 90% (31-73) Lymphocytes (%) (Auto) 7% (24-48) Monocytes (%) (Auto) 2% (0-9) Eosinophils (%) (Auto) 0% (0-3) Basophils (%) (Auto) 0% (0-3) Neutrophils # (Auto) 19.2x10^3uL (1.8-7.7) Lymphocytes # (Auto) 1.6x10^3/uL (1.0-4.8) Monocytes # (Auto) 0.4x10^3/uL (0.0-1.1) Eosinophils # (Auto) 0.0x10^3/uL (0.0-0.7) Basophils # (Auto) 0.0x10^3/uL (0.0-0.2) Segmented Neutrophils % 90% (35-66) Band Neutrophils % 2% (0-9) Lymphocytes % 8% (24-48) Platelet Estimate Adequate (ADEQUATE) Sodium Level 142mmol/L (136-145) Potassium Level 4.0mmol/L (3.5-5.1) Chloride Level 105mmol/L (98-107) Carbon Dioxide Level 26mmol/L (21-32) Anion Gap 11 (6-14) Blood Urea Nitrogen 19mg/dL (8-26) Creatinine 1.1mg/dL (0.7-1.3) Estimated GFR (Cockcroft-Gault) 69.5 Glucose Level 134mg/dL (70-99) Calcium Level 9.5mg/dL (8.5-10.1) Laboratory Tests Test 12/22/16 03:05 White Blood Count 21.2x10^3/uL (4.0-11.0) Red Blood Count 5.62x10^6/uL (4.30-5.70) Hemoglobin 16.1g/dL (13.0-17.5) Hematocrit 48.1% (39.0-53.0) Mean Corpuscular Volume 86fL (79-100) Mean Corpuscular Hemoglobin 29pg (25-35) Mean Corpuscular Hemoglobin Concent 33g/dL (31-37) Red Cell Distribution Width 13.5% (11.5-14.5) Platelet Count 259x10^3/uL (140-400) Neutrophils (%) (Auto) 90% (31-73) Lymphocytes (%) (Auto) 7% (24-48) Monocytes (%) (Auto) 2% (0-9) Eosinophils (%) (Auto) 0% (0-3) Basophils (%) (Auto) 0% (0-3) Neutrophils # (Auto) 19.2x10^3uL (1.8-7.7) Lymphocytes # (Auto) 1.6x10^3/uL (1.0-4.8) Monocytes # (Auto) 0.4x10^3/uL (0.0-1.1) Eosinophils # (Auto) 0.0x10^3/uL (0.0-0.7) Basophils # (Auto) 0.0x10^3/uL (0.0-0.2) Segmented Neutrophils % 90% (35-66) Band Neutrophils % 2% (0-9) Lymphocytes % 8% (24-48) Platelet Estimate Adequate (ADEQUATE) Sodium Level 142mmol/L (136-145) Potassium Level 4.0mmol/L (3.5-5.1) Chloride Level 105mmol/L (98-107) Carbon Dioxide Level 26mmol/L (21-32) Anion Gap 11 (6-14) Blood Urea Nitrogen 19mg/dL (8-26) Creatinine 1.1mg/dL (0.7-1.3) Estimated GFR (Cockcroft-Gault) 69.5 Glucose Level 134mg/dL (70-99) Calcium Level 9.5mg/dL (8.5-10.1) Medications Active Scripts Medications Dose Route/Sig Days Date Category Dose Instructions Hydrocodone-Apap 5-325 (Hydrocodone Bit/Acetaminophen) 1 Each Tablet 1 Tab PO PRN Q4HRS PRN 12/06/16 Rx Effient (Prasugrel Hcl) 10 Mg Tablet 10 Mg PO DAILYWBKFT 12/06/16 Rx Metoprolol Tartrate 25 Mg Tablet 12.5 Mg PO BID 12/06/16 Rx Atorvastatin Calcium 40 Mg Tablet 40 Mg PO QHS 12/06/16 Rx Aspirin Ec (Aspirin) 325 Mg Tablet. 325 Mg PO DAILYWBKFT 12/06/16 Rx Chantix (Varenicline Tartrate) 0.5 Mg Tablet 1 Mg PO BID 12/05/16 Reported 0.5 MG PO DAILY X3 DAY, 0.5 MG PO BID X4 DAY, 1 MG PO BID UNTIL END OF TREATMENT Impression . 1. 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 severe emphysema surrounding lung mass 3. Ex-smoker, questionable chronic obstructive pulmonary disease. 4. 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 Coronary artery disease, recent NSTMI 2 weeks ago, status post stents, on anti-platelet therapy Plan . 1. Cardiology stopped Prasugrel that has antiplatelet effect for 4 to 5 days. Cardiology is recommending bridging with Integrilin or Cangrelor. await their recommendations 2. I have discussed at length with patient and sig. other that I would prefer brain biopsy/complete excision to make a diagnosis and possible cure for brain lesion. CT-guided biopsy of the chest is an option but I am concerned with emphysematous changes surrounding the lung lesion and at least 50% chance of PTX with need for chest tube and even VAT if lung does not expand. I spoke with NS MASTER CONTROL ENGINEER and await their rec for brain biopsy. pt also wants to know if he can go to for Gamma knife. will defer to NS 3. At some point, he would require pulmonary function tests. 4. Titrate FiO2 to keep O2 saturation more than 92%. 5. bronchodilator. 6. Anti-seizure medication per Neurology. 7. d/w PCP Addend: d/w Dr Yeboah.He prefers to avoid excision resection due to location. d/w patient and family. All risks/benefits of lung biopsy explained and risk for PTX.He agrees . will plan for thursday. D/W RHONDA Woods MD Dec 22, 2016 11:54
--- NOTE | 2016-12-22 12:14 | PDOC ---
PROGRESS NOTES Chief Complaint Chief Complaint Partial sz, new ASSESSMENT AND PLAN: 1. Brain lesion: suspected met from lung CA. planned bx/resection later this week. on decadron 2. Sz: no antiepileptics as per neuro. 3. RUL lung mass: c/w lung primary. d/w Dr Burrows: bx relatively contraindicated due to severe emphysema. staging CT and brain MRI with lung and solitary brain lesion only. bone scan pending. Dr Ta following 4. CAD: recent NSTEMI with PCI, requiring Plaxix - currently on hold for anticipated brain surgery. d/w cards: start aggrastat 5. HLD: on statin 6. COPD: nebs 7. Tobacco dependence: started on chantix 8. Dispo: could go home with planned surgery later this week ADDENDUM: eval by Dr Miranda: surgery deferrd until type of CA known. d/w Dr Burrows again : plan for IR transthoracic bx ERON. keep pt in house Vitals Vitals Vital Signs Date Time Temp Pulse Resp B/P Pulse Ox O2 Delivery O2 Flow Rate FiO2 12/22/16 11:20 Room Air 12/22/16 11:06 98.1 95 18 165/95 95 98.1 Physical Exam General: Alert, Oriented X3 Heart: Normal S1, Normal S2 Lungs: Clear Abdomen: Normal bowel sounds, Soft, No tenderness Extremities: No clubbing, No edema Skin: No rashes Labs LABS Laboratory Tests Test 12/22/16 03:05 White Blood Count 21.2x10^3/uL (4.0-11.0) Red Blood Count 5.62x10^6/uL (4.30-5.70) Hemoglobin 16.1g/dL (13.0-17.5) Hematocrit 48.1% (39.0-53.0) Mean Corpuscular Volume 86fL (79-100) Mean Corpuscular Hemoglobin 29pg (25-35) Mean Corpuscular Hemoglobin Concent 33g/dL (31-37) Red Cell Distribution Width 13.5% (11.5-14.5) Platelet Count 259x10^3/uL (140-400) Neutrophils (%) (Auto) 90% (31-73) Lymphocytes (%) (Auto) 7% (24-48) Monocytes (%) (Auto) 2% (0-9) Eosinophils (%) (Auto) 0% (0-3) Basophils (%) (Auto) 0% (0-3) Neutrophils # (Auto) 19.2x10^3uL (1.8-7.7) Lymphocytes # (Auto) 1.6x10^3/uL (1.0-4.8) Monocytes # (Auto) 0.4x10^3/uL (0.0-1.1) Eosinophils # (Auto) 0.0x10^3/uL (0.0-0.7) Basophils # (Auto) 0.0x10^3/uL (0.0-0.2) Segmented Neutrophils % 90% (35-66) Band Neutrophils % 2% (0-9) Lymphocytes % 8% (24-48) Platelet Estimate Adequate (ADEQUATE) Sodium Level 142mmol/L (136-145) Potassium Level 4.0mmol/L (3.5-5.1) Chloride Level 105mmol/L (98-107) Carbon Dioxide Level 26mmol/L (21-32) Anion Gap 11 (6-14) Blood Urea Nitrogen 19mg/dL (8-26) Creatinine 1.1mg/dL (0.7-1.3) Estimated GFR (Cockcroft-Gault) 69.5 Glucose Level 134mg/dL (70-99) Calcium Level 9.5mg/dL (8.5-10.1) Review of Systems Review of Systems very anxious about dx and planned bx/surgery. trying to eval options LORENZO JOSHUA MD Dec 22, 2016 12:14
--- NOTE | 2016-12-22 12:42 | PDOC ---
KAL BLACK MARKING MACHINE OPERATOR 12/22/16 1242: CARDIO Progress Notes Date and Time Date of Service 12/22/2016 Time of Evaluation 1200 Subjective Subjective: No Chest Pain, No shortness of breath, No Palpitations, No Dizziness Vitals Vitals Vital Signs Date Time Temp Pulse Resp B/P Pulse Ox O2 Delivery O2 Flow Rate FiO2 12/22/16 11:20 Room Air 12/22/16 11:06 98.1 95 18 165/95 95 98.1 Weight Weight [ ] Input and Output Intake and Output Intake and Output 12/22/16 07:00 Intake Total 3160 ml Balance 3160 ml Intake Oral 3160 ml # Voids 10 Laboratory Labs Laboratory Tests Test 12/22/16 03:05 White Blood Count 21.2x10^3/uL (4.0-11.0) Red Blood Count 5.62x10^6/uL (4.30-5.70) Hemoglobin 16.1g/dL (13.0-17.5) Hematocrit 48.1% (39.0-53.0) Mean Corpuscular Volume 86fL (79-100) Mean Corpuscular Hemoglobin 29pg (25-35) Mean Corpuscular Hemoglobin Concent 33g/dL (31-37) Red Cell Distribution Width 13.5% (11.5-14.5) Platelet Count 259x10^3/uL (140-400) Neutrophils (%) (Auto) 90% (31-73) Lymphocytes (%) (Auto) 7% (24-48) Monocytes (%) (Auto) 2% (0-9) Eosinophils (%) (Auto) 0% (0-3) Basophils (%) (Auto) 0% (0-3) Neutrophils # (Auto) 19.2x10^3uL (1.8-7.7) Lymphocytes # (Auto) 1.6x10^3/uL (1.0-4.8) Monocytes # (Auto) 0.4x10^3/uL (0.0-1.1) Eosinophils # (Auto) 0.0x10^3/uL (0.0-0.7) Basophils # (Auto) 0.0x10^3/uL (0.0-0.2) Segmented Neutrophils % 90% (35-66) Band Neutrophils % 2% (0-9) Lymphocytes % 8% (24-48) Platelet Estimate Adequate (ADEQUATE) Sodium Level 142mmol/L (136-145) Potassium Level 4.0mmol/L (3.5-5.1) Chloride Level 105mmol/L (98-107) Carbon Dioxide Level 26mmol/L (21-32) Anion Gap 11 (6-14) Blood Urea Nitrogen 19mg/dL (8-26) Creatinine 1.1mg/dL (0.7-1.3) Estimated GFR (Cockcroft-Gault) 69.5 Glucose Level 134mg/dL (70-99) Calcium Level 9.5mg/dL (8.5-10.1) Physical Exam HEENT: Neck Supple W Full Motion Chest: Symmetric LUNGS: Clear to Auscultation Heart: S1S2, RRR Abdomen: Soft N/T Extremities: No Edema, No Calf Tenderness Neurology: alert, oriented, follow commands Assessment Assessment 1. Metastatic CA: likely origin lungs (RUL) with likely mets to right parietal lobe (via brain MRI). Also in pelvis? 2. COPD: stable 3. Small infrarenal aneurysm: 4.0 cm incidental finding via CT. Stable. 4. Recent NSTEMI (12/05/2016) with PCI/YAMIL to LCx/OM1: stable. 5. HTN/HLP Recommendations 1. Follow hemonc recommendation 2. Awaiting neurosurgery for plans for possible excisional biopsy 3. In anticipation for #2 effient has been held (last dose 12/21/2016) and will need to hold for 4-5 days prior to any surgical proc. 4. With #4 will bridge with Aggrastat starting today and recommend stopping 4 hours prior to biopsy 5. Will transfer pt to [facility] in relation to #4 6. Continue with secondary prevention 7. Continue with BB and will add losartan for better BP control. CIERA MORLEY MD 12/22/16 1554: CARDIO Progress Notes Assessment Assessment Patient seen and examined. Agree with INFRASTRUCTURE DEVELOPER's assessment and plan. CAD status stable. Effient stopped yesterday. Start aggrastat for bridging DAPT and plan any surgical procedure/biopsy in 3-4 days. KAL BLACK APRN Dec 22, 2016 12:42 CIERA MORLEY MD Dec 22, 2016 15:54
[2016-12-22] MEDS ORDERED: LORAZEPAM 0.5 MG TABLET. PO PRN (13:15)
[2016-12-22] MEDS: DEXAMETHASONE 1 MG TABLET PO SCH ×2 (13:24→21:17)
[2016-12-22] MEDS: LORAZEPAM 2 MG/ML VIAL IV PRN (13:25)
[2016-12-22 15:25] VITALS: BP 164/106
[2016-12-22] MEDS: LOSARTAN POTASSIUM 25 MG TABLET. PO SCH (16:10)
--- NOTE | 2016-12-22 16:18 | PDOC ---
PROGRESS NOTES Assessment Assessment IMPRESSION: Right parietal 1.8 cm mass, neoplastic disease likely. Simple seizure x 1, left side facial twitching. 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 Recent Hx of STEMI s/p cardiac stents. Longstanding Hx of smoking. RECOMMENDATIONS/PLAN: Patient declined AED at the present time. EEG Oncology consulted. NS consulted. Smoking cessation. Discussed with his family at bedside. PAST MEDICAL HISTORY: Please see above. PAST SURGERY HISTORY: Cardiac stents. ALLERGY: Reviewed. MEDICATIONS: Refer to [facility] FAMILY HISTORY: His father had lung cancer. SOCIAL HISTORY: Lives at home. He smokes 15 to 20 cigarettes a day for 20 years. REVIEW OF SYSTEMS: Constitutional: No cachexia. Head: No traumatic brain or head injury. Skin: No edema, or rash. Ear: No infection. Eyes: No vision loss or color blindness. Nose: No bleeding or purulent discharges. Hearing: No hearing decrease. Neck: No injury. Cardiac: stents x 2. Pulmonary: Lung mass found this time. GI: No GI ulcer, GI bleeding. Urinary/genital: No dysuria, hematuria, incontinence, urinary retention. Endocrinologic: No cousin face, craniofacial dysmorphism, polydactyly. Skeletomuscular: No muscular atrophy, deformity. Neurological: see HP. Psychiatric: smoking. Otherwise, not [id number] review of systems. PHYSICAL EXAMINATION: General appearance is in subacute distress. HEENT: Normocephalic and nontraumatic. Eyes, nose, ears, and throat are unremarkable. Neck is supple. No lymphadenopathy. No crepitus. Cardiovascular: S1, S2, regular rate and rhythm. Pulmonary: Clear to auscultation bilaterally. Abdomen: Bowel sounds are positive. Abdomen is soft, nontender, and nondistended. Extremities: No rash, lesions, or edema. No restriction of range of motion NEUROLOGICAL EXAMINATION: Awake. Oriented to time, place and person. PERRL. EOMI. CN: no focal findings. Muscle tone: within normal. Muscle strength: 5 DTR: 2 Plantar reflex: Flexor response bilaterally Gait: not examined in bed. Sensory exam: no abnormal findings. No obvious cerebellar signs elicited. F-T-N test accurate. Objective Objective Vital Signs Date Time Temp Pulse Resp B/P Pulse Ox O2 Delivery O2 Flow Rate FiO2 12/22/16 15:25 97.9 94 18 164/106 94 Room Air 97.9 Intake and Output 3/27/17 07:00 Intake Total 3160 ml Balance 3160 ml Intake Oral 3160 ml # Voids 10 Vitals Signs Vitals VS - Last 72 Hours, by Label Date Time Temp Pulse Resp B/P Pulse Ox O2 Delivery O2 Flow Rate FiO2 12/22/16 15:25 97.9 94 18 164/106 94 Room Air 97.9 12/22/16 11:20 Room Air 12/22/16 11:06 98.1 95 18 165/95 95 Room Air 98.1 12/22/16 09:26 91 142/91 12/22/16 08:21 Room Air 12/22/16 07:36 97.5 91 18 142/91 92 Room Air 97.5 12/22/16 07:23 97 Room Air 12/22/16 02:43 98.3 82 18 139/90 93 Room Air 98.3 12/21/16 23:20 98.6 84 20 137/96 93 Room Air 98.6 12/21/16 21:10 100 144/105 12/21/16 20:10 97 Room Air 12/21/16 20:00 Room Air 12/21/16 19:20 98.7 100 22 144/105 93 Room Air 98.7 12/21/16 15:54 97 Room Air 12/21/16 15:30 97.9 91 18 150/94 97 Room Air 97.9 12/21/16 10:50 98.1 96 22 141/86 94 Room Air 98.1 12/21/16 08:37 91 135/94 12/21/16 08:00 Room Air 12/21/16 07:25 97.9 91 20 135/94 94 Room Air 97.9 Laboratory Laboratory Laboratory Tests Test 12/22/16 03:05 White Blood Count 21.2x10^3/uL (4.0-11.0) Red Blood Count 5.62x10^6/uL (4.30-5.70) Hemoglobin 16.1g/dL (13.0-17.5) Hematocrit 48.1% (39.0-53.0) Mean Corpuscular Volume 86fL (79-100) Mean Corpuscular Hemoglobin 29pg (25-35) Mean Corpuscular Hemoglobin Concent 33g/dL (31-37) Red Cell Distribution Width 13.5% (11.5-14.5) Platelet Count 259x10^3/uL (140-400) Neutrophils (%) (Auto) 90% (31-73) Lymphocytes (%) (Auto) 7% (24-48) Monocytes (%) (Auto) 2% (0-9) Eosinophils (%) (Auto) 0% (0-3) Basophils (%) (Auto) 0% (0-3) Neutrophils # (Auto) 19.2x10^3uL (1.8-7.7) Lymphocytes # (Auto) 1.6x10^3/uL (1.0-4.8) Monocytes # (Auto) 0.4x10^3/uL (0.0-1.1) Eosinophils # (Auto) 0.0x10^3/uL (0.0-0.7) Basophils # (Auto) 0.0x10^3/uL (0.0-0.2) Segmented Neutrophils % 90% (35-66) Band Neutrophils % 2% (0-9) Lymphocytes % 8% (24-48) Platelet Estimate Adequate (ADEQUATE) Sodium Level 142mmol/L (136-145) Potassium Level 4.0mmol/L (3.5-5.1) Chloride Level 105mmol/L (98-107) Carbon Dioxide Level 26mmol/L (21-32) Anion Gap 11 (6-14) Blood Urea Nitrogen 19mg/dL (8-26) Creatinine 1.1mg/dL (0.7-1.3) Estimated GFR (Cockcroft-Gault) 69.5 Glucose Level 134mg/dL (70-99) Calcium Level 9.5mg/dL (8.5-10.1) Medication Medications Current Medications Dexamethasone (Decadron) 2 mg BID PO Last administered on 12/22/16t 13:24; Start 12/22/16 at 13:00 Enoxaparin Sodium (Lovenox 40mg Syringe) 40 mg Q24H SQ ; Start 12/22/16 at 10:00 ; Stop 12/22/16 at 10:00; Status DC Enoxaparin Sodium (Lovenox 80mg Syringe) 80 mg Q12HR SQ ; Start 12/21/16 at 21: 00; Stop 12/21/16 at 21:00; Status DC Lorazepam 0.5 mg 0.5 mg PRN Q8HRS PRN PO ANXIETY / AGITATION; Start 12/22/16 at 13:15 Losartan Potassium (Cozaar) 25 mg DAILY PO ; Start 12/22/16 at 16:00 Tirofiban/Sodium Chloride (Aggrastat 12.5 Mg/250 ml Premix) 250 ml @ 0 mls/hr CONT PRN IV PER PROTOCOL; Start 12/22/16 at 14:15 Comment Review of Relevant I have reviewed the following items tess (where applicable) has been applied. KRISTY KAYE MD Dec 22, 2016 16:18
[2016-12-22] MEDS: TIROFIBAN 12.5MG -0.9% NS 250 ML IV PRN (17:18)
[2016-12-22 19:55] VITALS: BP 153/89
[2016-12-22] MEDS: ATORVASTATIN CALCIUM 40 MG TABLET. PO SCH (21:00)
[2016-12-22 23:15] VITALS: BP 139/106
[2016-12-23 03:00] VITALS: BP 119/82
--- NOTE | 2016-12-23 04:32 | ACF ---
Admission Forms Criteria NEUROLOGY GRG Clinical Indications for Admission to Inpatient Care (Place ' X' for any and all applicable criteria): Hospital admission is needed for appropriate care of the patient because of ANY ONE of the following: [ ]I. New-onset or worsening altered mental status remaining after emergency or observation level care (as appropriate) (9)(10)(11) [ ]II. Severe CERTIFIED REHABILITATION COUNSELOR infections or inflammatory conditions, including ANY ONE of the following(1)(2)(3): [ ]a) Intracranial abscess [ ]b) Spinal abscess or myelitis [ ]c) Tuberculous or other nonbacterial, nonviral CERTIFIED REHABILITATION COUNSELOR infection(8) [ ]III. Encephalitis(1)(2)(3) [ ]IV. Status epilepticus or repetitive seizures not controlled with emergent treatment [A] (7)(8) [ ]V. Transient alteration in consciousness with high-risk etiology; examples include (12)(13): [ ]a) Cardiovascular source [ ]b) Cataplexy [ ]. Cerebral aneurysm requiring ANY ONE of the following(14): [ ]a) IV antihypertensives or vasoactive agents [ ]b) Sedation and analgesia for suspected leak [ ]c) Need for external ventricular drainage and cerebral perfusion pressure monitoring [ ]d) Emergent evaluation to determine need for surgical clipping or endovascular coiling by interventional radiology. If surgery is required ( Also use Craniotomy, Supratentorial, for Surgery of Bleeding Intracranial Aneurysm (for bleeding aneurysm) or Craniotomy, Supratentorial (for nonbleeding aneurysm) as appropriate. [ ]VII. Altered mental status that is severe or persistent(16) [ ]VIII New-onset severe neurologic findings requiring inpatient care; examples include: [ ]a) Papilledema [ ]b) Cerebral edema [ ]c) Mass effect on imaging [X]IX. New-onset severe neurologic symptom requiring inpatient care indicated by ANY ONE of the following: [ ]a) Aphasia(15) [ ]b) Weakness (grade 3 or less) [ ]c) Paralysis (eg, hemiplegia) [ ]d) Spasticity(16) [ ]e) Ataxia(17) [ ]f) Amnesia(18) [X]g) Involuntary movements(19) [ ]h) Vertigo [ ]i) Other severe neurologic symptom not treatable at alternative level of care (eg, observation care) [ ]X. Guillain-Strasburg syndrome(20) [ ]XI. Myasthenia gravis crisis or inpatient monitoring need as indicated by ANY ONE of the following(21): [ ]a) Inadequate airway protection [ ]b) Respiratory insufficiency requiring intubation or inpatient. monitoring [ ]c) Progressive dysphagia with failure to thrive [ ]d) Intensive treatment (eg, course of plasmapheresis) with inadequate outpatient situation to monitor patients status [ ]XII. Multiple sclerosis or other acute demyelinating disease requiring inpatient care as indicated by ANY ONE of the following (22)(23): [ ]a) Acute severe deterioration requiring inpatient treatment (eg, IV steroids, plasmapheresis, close observation) [ ]b) Acute complication requiring inpatient care (eg, sepsis, severe decubitus, aspiration) [ ]XIII. Intracranial hypertension (eg, pseudotumor cerebri) requiring inpatient care (eg, acute visual loss, inadequate oral intake) (24) [ ]XIV.Parkinson disease requiring inpatient care (Also use Optimal Recovery Care Criteria or General Recovery Criteria as appropriate) indicated by ANY ONE of the following(25): [ ]a) Infection (eg, aspiration pneumonia) not treatable at alternative level of care [ ]b) Volume depletion not responsive to emergency and observation care treatment (as appropriate) [ ]c) Life-threatening agitation or psychotic behavior not treatable on emergency, observation care, or alternative level (eg, residential) basis [ ]d) Severe medication withdrawal effects (eg, freezing, neuroleptic malignant syndrome) not responsive to emergency and observation care treatment (as appropriate) [ ]e) Other severe manifestation not treatable at alternative level of care [ ]XV.Amyotrophic lateral sclerosis with inpatient care needs as indicated by ANY ONE of the following(26): [ ]a) Acute complications requiring inpatient care (Use Optimal Recovery Care Criteria or General Recovery Criteria as appropriate); examples include: [ ]i) Aspiration pneumonia [ ]ii) Sepsis [ ]b) Dehydration or hypovolemia (not responsive to emergency and observation care treatment as appropriate) AND artificial support desired [ ]c) Inadequate airway protection AND artificial support desired [ ]d) Severe ventilatory insufficiency AND artificial support desired [ ]XVI.Severe myopathy, neuropathy, or other neuromuscular disease as indicated by ANY ONE of the following: [ ]a) New-onset severe diffuse weakness (eg, strength 3/5 or less) [ ]b) Severe dysphagia [ ]c) Dyspnea at rest or with minimal exertion (new) [ ]d) Inadequate airway protection [ ]e) Inadequate ventilation as indicated by ANY ONE of the following : [ ]i) Partial pressure of carbon dioxide greater than 44 mm Hg (5.9 kPa) (new) [ ]ii) Reduced peak expiratory flow rate (new) [ ]iii) Vital capacity less than 50% of predicted ( less than 15 mL/kg) [ ]iv) Peak inspiratory force less negative than -30 cm H20 (-2942 Pa) [ ]XVII.Complications of congenital or degenerative disease (eg, infection, seizures, dehydration, injury) not responsive to emergency and observation care treatment (as appropriate ) [C](16)(29)(30) [ ]XVIII.Suspected or confirmed nerve or muscle toxic injury, including ANY ONE of the following: [ ]a) Rhabdomyolysis(31) [ ]b) Botulism(32) [ ]c) Other severe toxin-induced sign or symptom [ ]XIX. Neurologic trauma requiring inpatient treatment (medical) indicated by ANY ONE of the following(33)(34): [ ]a) Vital signs or neurologic signs more frequently than every 4 hours [ ]b) Hyperosmolar therapy [ ]c) Respiratory monitoring [ ]d) Intracranial pressure monitoring and treatment [ ]e) Stabilization and immobilization device placement (eg, braces, body jacket) [ ]f) Intubation & mechanical ventilation for airway protection or therapeutic hyperventilation [ ]g) Other treatment or monitoring needed that requires inpatient level of care [ ]XX.Complications of neurologic devices (eg, ventricular shunt, neurostimulator) requiring ANY ONE of the following(35)(36): [ ]a) IV antibiotics with monitoring while awaiting culture results [ ]b) Monitoring for hydrocephalus [ ]XXI Vasculitis with ANY ONE of the following(4)(5): [ ]a) Altered mental status [ ]b) Psychosis [ ]c) Seizures [ ]XXII. Neurology condition and ALL of the following: [ ]a) Symptom or finding for which emergency and observation care have failed or are not considered appropriate (Use General Criteria: Observation Care as appropriate) [ ]b) Presence of ANY ONE of the following: [ ]i) A General Admission Criteria [ ]ii A Pediatric General Admission Criteria The original [facility] content created by Alka Chiang has been revised. The portions of the content which have been revised are identified through the use of italic text or in bold, and [facility] has neither reviewed nor approved the modified material. All other unmodified content is copyright [facility] Please see references footnoted in the original [facility] edition 2016 Admission Criteria Met?: Yes EMILIANA MENDOZA Dec 23, 2016 04:32
[2016-12-23] MEDS: TIROFIBAN 12.5MG -0.9% NS 250 ML IV PRN ×2 (05:48→20:58)
[2016-12-23] MEDS: LORAZEPAM 2 MG/ML VIAL IV PRN ×2 (06:22→20:54)
[2016-12-23] MEDS: IPRATRPIUM/ALBUTEROL 0.5/2.5MG 3 ML NEBU. NEB SCH ×4 (07:30→20:21)
[2016-12-23] MEDS: PANTOPRAZOLE 40 MG TABLET. PO SCH (07:30)
[2016-12-23 07:53] VITALS: BP 137/84
--- NOTE | 2016-12-23 08:54 | PDOC ---
PULMONARY PROGRESS NOTES Subjective no soa Vitals Vital Signs Date Time Temp Pulse Resp B/P Pulse Ox O2 Delivery O2 Flow Rate FiO2 12/23/16 07:53 98.0 94 20 137/84 97 Room Air 98.0 ROS: No Nausea, No Chest Pain, No Abdominal Pain, No Increase Cough General: Alert, No acute distress Lungs: Clear Cardiovascular: S1 Abdomen: Soft Neuro Exam: Alert Extremities: No Edema Skin: Warm Labs Laboratory Tests Test 12/22/16 03:05 White Blood Count 21.2x10^3/uL (4.0-11.0) Red Blood Count 5.62x10^6/uL (4.30-5.70) Hemoglobin 16.1g/dL (13.0-17.5) Hematocrit 48.1% (39.0-53.0) Mean Corpuscular Volume 86fL (79-100) Mean Corpuscular Hemoglobin 29pg (25-35) Mean Corpuscular Hemoglobin Concent 33g/dL (31-37) Red Cell Distribution Width 13.5% (11.5-14.5) Platelet Count 259x10^3/uL (140-400) Neutrophils (%) (Auto) 90% (31-73) Lymphocytes (%) (Auto) 7% (24-48) Monocytes (%) (Auto) 2% (0-9) Eosinophils (%) (Auto) 0% (0-3) Basophils (%) (Auto) 0% (0-3) Neutrophils # (Auto) 19.2x10^3uL (1.8-7.7) Lymphocytes # (Auto) 1.6x10^3/uL (1.0-4.8) Monocytes # (Auto) 0.4x10^3/uL (0.0-1.1) Eosinophils # (Auto) 0.0x10^3/uL (0.0-0.7) Basophils # (Auto) 0.0x10^3/uL (0.0-0.2) Segmented Neutrophils % 90% (35-66) Band Neutrophils % 2% (0-9) Lymphocytes % 8% (24-48) Platelet Estimate Adequate (ADEQUATE) Sodium Level 142mmol/L (136-145) Potassium Level 4.0mmol/L (3.5-5.1) Chloride Level 105mmol/L (98-107) Carbon Dioxide Level 26mmol/L (21-32) Anion Gap 11 (6-14) Blood Urea Nitrogen 19mg/dL (8-26) Creatinine 1.1mg/dL (0.7-1.3) Estimated GFR (Cockcroft-Gault) 69.5 Glucose Level 134mg/dL (70-99) Calcium Level 9.5mg/dL (8.5-10.1) Medications Active Scripts Medications Dose Route/Sig Days Date Category Dose Instructions Hydrocodone-Apap 5-325 (Hydrocodone Bit/Acetaminophen) 1 Each Tablet 1 Tab PO PRN Q4HRS PRN 12/06/16 Rx Effient (Prasugrel Hcl) 10 Mg Tablet 10 Mg PO DAILYWBKFT 12/06/16 Rx Metoprolol Tartrate 25 Mg Tablet 12.5 Mg PO BID 12/06/16 Rx Atorvastatin Calcium 40 Mg Tablet 40 Mg PO QHS 12/06/16 Rx Aspirin Ec (Aspirin) 325 Mg Tablet. 325 Mg PO DAILYWBKFT 12/06/16 Rx Chantix (Varenicline Tartrate) 0.5 Mg Tablet 1 Mg PO BID 12/05/16 Reported 0.5 MG PO DAILY X3 DAY, 0.5 MG PO BID X4 DAY, 1 MG PO BID UNTIL END OF TREATMENT Impression . 1. 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 severe emphysema surrounding lung mass 3. Ex-smoker, questionable chronic obstructive pulmonary disease. 4. 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 Coronary artery disease, recent NSTMI 2 weeks ago, status post stents, on anti-platelet therapy Plan . PLan for lung biopsy bone scan report noted 1. Cardiology stopped Prasugrel that has antiplatelet effect for 4 to 5 days. Cardiology is recommending bridging with Integrilin or Cangrelor. await their recommendations 2. Dr Burrows, discussed at length with patient and sig. other that I would prefer brain biopsy/complete excision to make a diagnosis and possible cure for brain lesion. CT-guided biopsy of the chest is an option but I am concerned with emphysematous changes surrounding the lung lesion and at least 50% chance of PTX with need for chest tube and even VAT if lung does not expand. DR Yeboah would favor biopsy lung, schedule for later this week. I agree with above 3. At some point, he would require pulmonary function tests. 4. Titrate FiO2 to keep O2 saturation more than 92%. 5. bronchodilator. 6. Anti-seizure medication per Neurology. MONICA MENDIOLA MD Dec 23, 2016 08:54
[2016-12-23] MEDS: VARENICLINE 0.5 MG TABLET. PO SCH (09:00)
--- NOTE | 2016-12-23 09:44 | PDOC ---
PROGRESS NOTES Subjective Subjective patient seen 12/22/16 at 1700 awake, alert ambulating in almanza no complaints Objective Objective Vital Signs Date Time Temp Pulse Resp B/P Pulse Ox O2 Delivery O2 Flow Rate FiO2 12/23/16 07:53 98.0 94 20 137/84 97 Room Air 98.0 Intake and Output 12/23/16 07:00 Intake Total 900 ml Output Total 475 ml Balance 425 ml Intake Oral 900 ml Output Urine Total 475 ml # Voids 4 Physical Exam General: Alert, Oriented X3, Cooperative, No acute distress MUSCULOSKELETAL: Other (HERNDON) Neuro: Normal speech Psych/Mental Status: Mental status NL Assessment Assessment Problems Medical Problems: (1) Right frontal lobe lesion Status: Acute Plan Plan of Care plan for bx of lung mass, results will determine recommendations if craniotomy needed, he would like to have that at D/W DR. Burrows Comment Review of Relevant I have reviewed the following items tess (where applicable) has been applied. Labs Laboratory Tests Test 12/22/16 03:05 White Blood Count 21.2x10^3/uL (4.0-11.0) Red Blood Count 5.62x10^6/uL (4.30-5.70) Hemoglobin 16.1g/dL (13.0-17.5) Hematocrit 48.1% (39.0-53.0) Mean Corpuscular Volume 86fL (79-100) Mean Corpuscular Hemoglobin 29pg (25-35) Mean Corpuscular Hemoglobin Concent 33g/dL (31-37) Red Cell Distribution Width 13.5% (11.5-14.5) Platelet Count 259x10^3/uL (140-400) Neutrophils (%) (Auto) 90% (31-73) Lymphocytes (%) (Auto) 7% (24-48) Monocytes (%) (Auto) 2% (0-9) Eosinophils (%) (Auto) 0% (0-3) Basophils (%) (Auto) 0% (0-3) Neutrophils # (Auto) 19.2x10^3uL (1.8-7.7) Lymphocytes # (Auto) 1.6x10^3/uL (1.0-4.8) Monocytes # (Auto) 0.4x10^3/uL (0.0-1.1) Eosinophils # (Auto) 0.0x10^3/uL (0.0-0.7) Basophils # (Auto) 0.0x10^3/uL (0.0-0.2) Segmented Neutrophils % 90% (35-66) Band Neutrophils % 2% (0-9) Lymphocytes % 8% (24-48) Platelet Estimate Adequate (ADEQUATE) Sodium Level 142mmol/L (136-145) Potassium Level 4.0mmol/L (3.5-5.1) Chloride Level 105mmol/L (98-107) Carbon Dioxide Level 26mmol/L (21-32) Anion Gap 11 (6-14) Blood Urea Nitrogen 19mg/dL (8-26) Creatinine 1.1mg/dL (0.7-1.3) Estimated GFR (Cockcroft-Gault) 69.5 Glucose Level 134mg/dL (70-99) Calcium Level 9.5mg/dL (8.5-10.1) Medications Current Medications Iohexol (Omnipaque 300 Mg/ml) 70 ml 1X ONCE IV Last administered on 12/20/16 03:42; Start 12/20/16 at 03:15; Stop 12/20/16 at 03:16; Status DC Info (Do NOT chart on this entry -- for MONITORING) 1 each PRN DAILY PRN MC SEE COMMENTS; Start 12/20/16 at 03:15; Stop 12/21/16 at 16:47; Status DC Ondansetron HCl (Zofran) 4 mg PRN Q8HRS PRN IV NAUSEA/VOMITING; Start 12/20/16 at 04:30; Stop 12/20/16 at 13:26; Status DC Acetaminophen (Tylenol) 650 mg PRN Q4HRS PRN PO FEVER; Start 12/20/16 at 04:30 ; Stop 12/21/16 at 04:30; Status DC Aspirin (Carlene Aspirin) 325 mg 1X ONCE PO Last administered on 12/20/16 05:17 ; Start 12/20/16 at 05:00; Stop 12/20/16 at 05:01; Status DC Clopidogrel Bisulfate (Plavix) 75 mg DAILYWBKFT PO Last administered on 09:24; Start 12/20/16 at 09:00; Stop 12/20/16 at 13:22; Status DC Gadobutrol (Gadavist) 9 mmol 1X ONCE IV Last administered on 12/20/16 12:32; Start 12/20/16 at 12:30; Stop 12/20/16 at 12:31; Status DC Aspirin (Ecotrin) 325 mg DAILYWBKFT PO Last administered on 12/22/16 09:26; Start 12/20/16 at 14:00; Stop 12/22/16 at 16:13; Status DC Atorvastatin Calcium (Lipitor) 40 mg QHS PO ; Start 12/20/16 at 21:00 Acetaminophen/ Hydrocodone Bitart (Lortab 5/325) 1 tab PRN Q4HRS PRN PO MILD PAIN, 2ND CHOICE; Start 12/20/16 at 13:30 Metoprolol Tartrate (Lopressor) 12.5 mg BID PO Last administered on 12/22/16 21:09; Start 12/20/16 at 14:00 Prasugrel (Effient) 10 mg DAILYWBKFT PO Last administered on 12/21/16 08:36; Start 12/20/16 at 14:00; Stop 12/21/16 at 11:12; Status DC Varenicline (Chantix) 1 mg BID PO Last administered on 12/20/16 14:39; Start 12/20/16 at 14:00 Ondansetron HCl (Zofran) 4 mg PRN Q6HRS PRN IV NAUSEA/VOMITING; Start 12/20/16 at 13:30 Dexamethasone Sodium Phosphate (Decadron) 4 mg Q6HRS IV Last administered on 06:31; Start 12/20/16 at 18:00; Stop 12/22/16 at 12:20; Status DC Pantoprazole Sodium (Protonix) 40 mg DAILYAC PO Last administered on 12/22/16 06:31; Start 12/20/16 at 14:00 Acetaminophen (Tylenol) 650 mg PRN Q6HRS PRN PO MILD PAIN / TEMP; Start at 19:00 Alprazolam (Xanax) 0.25 mg PRN Q8HRS PRN PO ANXIETY / AGITATION; Start at 19:00; Status Cancel Lorazepam (Ativan) 2 mg PRN Q4HRS PRN IV ANXIETY / AGITATION Last administered on 12/23/16 06:22; Start 12/20/16 at 19:00 Alprazolam (Xanax) 0.25 mg TID PRN PRN PO ANXIETY / AGITATION; Start 12/20/16 at 19:15 Enoxaparin Sodium (Lovenox 80mg Syringe) 80 mg Q12HR SQ ; Start 12/21/16 at 21: 00; Stop 12/21/16 at 21:00; Status DC Info (Anti-Coagulation Monitoring By Pharmacy) 1 each PRN DAILY PRN MC SEE COMMENTS; Start 12/21/16 at 11:30; Stop 12/22/16 at 10:33; Status DC Enoxaparin Sodium (Lovenox 40mg Syringe) 40 mg Q24H SQ ; Start 12/22/16 at 10:00 ; Stop 12/22/16 at 10:00; Status DC Albuterol/ Ipratropium (Duoneb) 3 ml RTQID NEB Last administered on 12/23/16 07:30; Start 12/21/16 at 16:00 Iohexol (Omnipaque 300 Mg/ml) 75 ml 1X ONCE IV ; Start 12/21/16 at 13:15; Stop 12/21/16 at 13:16; Status DC Iohexol (Omnipaque 240 Mg/ml) 50 ml 1X ONCE PO ; Start 12/21/16 at 13:15; Stop 12/21/16 at 13:16; Status DC Info (Do NOT chart on this entry -- for MONITORING) 1 each PRN DAILY PRN MC SEE COMMENTS; Start 12/21/16 at 13:15; Stop 12/23/16 at 13:14 Dexamethasone (Decadron) 2 mg BID PO Last administered on 12/22/16 21:17; Start 12/22/16 at 13:00 Lorazepam 0.5 mg 0.5 mg PRN Q8HRS PRN PO ANXIETY / AGITATION; Start 12/22/16 at 13:15 Tirofiban/Sodium Chloride (Aggrastat 12.5 Mg/250 ml Premix) 250 ml @ 0 mls/hr CONT PRN IV PER PROTOCOL Last administered on 12/23/16 05:48; Start 12/22/16 at 14:15 Losartan Potassium (Cozaar) 25 mg DAILY PO Last administered on 12/22/16t 16:10 ; Start 12/22/16 at 16:00 Aspirin (Ecotrin) 81 mg DAILYWBKFT PO ; Start 12/23/16 at 08:00 Active Scripts Active Hydrocodone-Apap 5-325 (Hydrocodone Bit/Acetaminophen) 1 Each Tablet 1 Tab PO PRN Q4HRS PRN Effient (Prasugrel Hcl) 10 Mg Tablet 10 Mg PO DAILYWBKFT Metoprolol Tartrate 25 Mg Tablet 12.5 Mg PO BID Atorvastatin Calcium 40 Mg Tablet 40 Mg PO QHS Aspirin Ec (Aspirin) 325 Mg Tablet. 325 Mg PO DAILYWBK Reported Chantix (Varenicline Tartrate) 0.5 Mg Tablet 1 Mg PO BID 0.5 MG PO DAILY X3 DAY, 0.5 MG PO BID X4 DAY, 1 MG PO BID UNTIL END OF TREATMENT Vitals/I & O Vital Sign - Last 24 Hours 12/22/16 12/22/16 12/22/16 12/22/16 11:06 11:20 15:25 16:10 Temp 98.1 97.9 98.1 97.9 Pulse 95 94 94 Resp 18 18 B/P 165/95 164/106 164/106 Pulse Ox 95 94 O2 Delivery Room Air Room Air Room Air 12/22/16 12/22/16 12/22/16 12/22/16 18:00 19:50 19:55 20:00 Temp 97.8 97.8 Pulse 101 Resp 20 B/P 153/89 Pulse Ox 97 98 O2 Delivery Room Air Room Air Aerosol Mask Room Air 12/22/16 12/22/16 12/23/16 12/23/16 21:09 23:15 03:00 07:31 Temp 98.0 97.9 98.0 97.9 Pulse 101 100 73 Resp 20 18 B/P 153/89 139/106 119/82 Pulse Ox 95 95 98 O2 Delivery Room Air Room Air Room Air 12/23/16 07:53 Temp 98.0 98.0 Pulse 94 Resp 20 B/P 137/84 Pulse Ox 97 O2 Delivery Room Air Intake and Output 12/22/16 12/22/16 12/23/16 15:00 23:00 07:00 Intake Total 900 ml Output Total 475 ml Balance 425 ml NEELA ABEBE MD Dec 23, 2016 09:44
[2016-12-23] MEDS: LOSARTAN POTASSIUM 25 MG TABLET. PO SCH (09:45)
[2016-12-23] MEDS: ASPIRIN ENTERIC COATED 81 MG TABLET.DR. PO SCH (09:45)
[2016-12-23] MEDS: METOPROLOL TART IMMED RELEASE 25 MG TABLET PO SCH ×2 (09:46→20:53)
[2016-12-23] MEDS: DEXAMETHASONE 1 MG TABLET PO SCH ×2 (09:51→20:53)
--- NOTE | 2016-12-23 11:33 | PDOC ---
PROGRESS NOTES Subjective Subjective c/c - f/u of RUL mass Objective Objective Vital Signs Date Time Temp Pulse Resp B/P Pulse Ox O2 Delivery O2 Flow Rate FiO2 12/23/16 09:46 94 137/84 12/23/16 08:05 Room Air 12/23/16 07:53 98.0 20 97 98.0 Intake and Output 12/23/16 07:00 Intake Total 900 ml Output Total 475 ml Balance 425 ml Intake Oral 900 ml Output Urine Total 475 ml # Voids 4 Physical Exam Heart: Normal S1, Normal S2 General: Alert, Oriented X3 Lungs: Clear to auscultation Neuro: Normal speech Psych/Mental Status: Mental status NL Assessment Assessment Problems Medical Problems: (1) Right frontal lobe lesion Status: Acute A/P: 1. RUL mass by CT, also solitary [employer] lesion appears c/w bronchogenic ca CT - chest abd and pelvis 12/22/15: 6.2 cm parenchymal mass in the right upper lobe most compatible with primary neoplastic disease. No evidence of metastatic disease in the chest, abdomen or pelvis. Plan CT guided bx when cleared by cardiology. - if small cell , then no resection. I would plan chemo.XRT - if NSCLC, then resection of both the primary and solitary met can be considered. 2. CAD s/p stents - Appreciate cardiology mgmt of anti plt agent. Prasurgrel was discontinued by cardiology 12/21/16. 3. Brain met - agree with steroids and will defer anti epileptics to neuro - looks like they are observing for now. 4. Plan bone scan 12/23/16 Comment Review of Relevant I have reviewed the following items tess (where applicable) has been applied. Labs Laboratory Tests Test 12/22/16 03:05 White Blood Count 21.2x10^3/uL (4.0-11.0) Red Blood Count 5.62x10^6/uL (4.30-5.70) Hemoglobin 16.1g/dL (13.0-17.5) Hematocrit 48.1% (39.0-53.0) Mean Corpuscular Volume 86fL (79-100) Mean Corpuscular Hemoglobin 29pg (25-35) Mean Corpuscular Hemoglobin Concent 33g/dL (31-37) Red Cell Distribution Width 13.5% (11.5-14.5) Platelet Count 259x10^3/uL (140-400) Neutrophils (%) (Auto) 90% (31-73) Lymphocytes (%) (Auto) 7% (24-48) Monocytes (%) (Auto) 2% (0-9) Eosinophils (%) (Auto) 0% (0-3) Basophils (%) (Auto) 0% (0-3) Neutrophils # (Auto) 19.2x10^3uL (1.8-7.7) Lymphocytes # (Auto) 1.6x10^3/uL (1.0-4.8) Monocytes # (Auto) 0.4x10^3/uL (0.0-1.1) Eosinophils # (Auto) 0.0x10^3/uL (0.0-0.7) Basophils # (Auto) 0.0x10^3/uL (0.0-0.2) Segmented Neutrophils % 90% (35-66) Band Neutrophils % 2% (0-9) Lymphocytes % 8% (24-48) Platelet Estimate Adequate (ADEQUATE) Sodium Level 142mmol/L (136-145) Potassium Level 4.0mmol/L (3.5-5.1) Chloride Level 105mmol/L (98-107) Carbon Dioxide Level 26mmol/L (21-32) Anion Gap 11 (6-14) Blood Urea Nitrogen 19mg/dL (8-26) Creatinine 1.1mg/dL (0.7-1.3) Estimated GFR (Cockcroft-Gault) 69.5 Glucose Level 134mg/dL (70-99) Calcium Level 9.5mg/dL (8.5-10.1) Medications Current Medications Iohexol (Omnipaque 300 Mg/ml) 70 ml 1X ONCE IV Last administered on 12/20/16t 03:42; Start 12/20/16 at 03:15; Stop 12/20/16 at 03:16; Status DC Info (Do NOT chart on this entry -- for MONITORING) 1 each PRN DAILY PRN MC SEE COMMENTS; Start 12/20/16 at 03:15; Stop 12/21/16 at 16:47; Status DC Ondansetron HCl (Zofran) 4 mg PRN Q8HRS PRN IV NAUSEA/VOMITING; Start 12/20/16 at 04:30; Stop 12/20/16 at 13:26; Status DC Acetaminophen (Tylenol) 650 mg PRN Q4HRS PRN PO FEVER; Start 12/20/16 at 04:30 ; Stop 12/21/16 at 04:30; Status DC Aspirin (Carlene Aspirin) 325 mg 1X ONCE PO Last administered on 12/20/16 05:17 ; Start 12/20/16 at 05:00; Stop 12/20/16 at 05:01; Status DC Clopidogrel Bisulfate (Plavix) 75 mg DAILYWBKFT PO Last administered on 09:24; Start 12/20/16 at 09:00; Stop 12/20/16 at 13:22; Status DC Gadobutrol (Gadavist) 9 mmol 1X ONCE IV Last administered on 12/20/16 12:32; Start 12/20/16 at 12:30; Stop 12/20/16 at 12:31; Status DC Aspirin (Ecotrin) 325 mg DAILYWBKFT PO Last administered on 12/22/16 09:26; Start 12/20/16 at 14:00; Stop 12/22/16 at 16:13; Status DC Atorvastatin Calcium (Lipitor) 40 mg QHS PO ; Start 12/20/16 at 21:00 Acetaminophen/ Hydrocodone Bitart (Lortab 5/325) 1 tab PRN Q4HRS PRN PO MILD PAIN, 2ND CHOICE; Start 12/20/16 at 13:30 Metoprolol Tartrate (Lopressor) 12.5 mg BID PO Last administered on 12/23/16 09:46; Start 12/20/16 at 14:00 Prasugrel (Effient) 10 mg DAILYWBKFT PO Last administered on 12/21/16 08:36; Start 12/20/16 at 14:00; Stop 12/21/16 at 11:12; Status DC Varenicline (Chantix) 1 mg BID PO Last administered on 12/20/16 14:39; Start 12/20/16 at 14:00 Ondansetron HCl (Zofran) 4 mg PRN Q6HRS PRN IV NAUSEA/VOMITING; Start 12/20/16 at 13:30 Dexamethasone Sodium Phosphate (Decadron) 4 mg Q6HRS IV Last administered on 06:31; Start 12/20/16 at 18:00; Stop 12/22/16 at 12:20; Status DC Pantoprazole Sodium (Protonix) 40 mg DAILYAC PO Last administered on 12/22/16 06:31; Start 12/20/16 at 14:00 Acetaminophen (Tylenol) 650 mg PRN Q6HRS PRN PO MILD PAIN / TEMP; Start at 19:00 Alprazolam (Xanax) 0.25 mg PRN Q8HRS PRN PO ANXIETY / AGITATION; Start at 19:00; Status Cancel Lorazepam (Ativan) 2 mg PRN Q4HRS PRN IV ANXIETY / AGITATION Last administered on 12/23/16 06:22; Start 12/20/16 at 19:00 Alprazolam (Xanax) 0.25 mg TID PRN PRN PO ANXIETY / AGITATION; Start 12/20/16 at 19:15 Enoxaparin Sodium (Lovenox 80mg Syringe) 80 mg Q12HR SQ ; Start 12/21/16 at 21: 00; Stop 12/21/16 at 21:00; Status DC Info (Anti-Coagulation Monitoring By Pharmacy) 1 each PRN DAILY PRN MC SEE COMMENTS; Start 12/21/16 at 11:30; Stop 12/22/16 at 10:33; Status DC Enoxaparin Sodium (Lovenox 40mg Syringe) 40 mg Q24H SQ ; Start 12/22/16 at 10:00 ; Stop 12/22/16 at 10:00; Status DC Albuterol/ Ipratropium (Duoneb) 3 ml RTQID NEB Last administered on 12/23/16 07:30; Start 12/21/16 at 16:00 Iohexol (Omnipaque 300 Mg/ml) 75 ml 1X ONCE IV ; Start 12/21/16 at 13:15; Stop 12/21/16 at 13:16; Status DC Iohexol (Omnipaque 240 Mg/ml) 50 ml 1X ONCE PO ; Start 12/21/16 at 13:15; Stop 12/21/16 at 13:16; Status DC Info (Do NOT chart on this entry -- for MONITORING) 1 each PRN DAILY PRN MC SEE COMMENTS; Start 12/21/16 at 13:15; Stop 12/23/16 at 13:14 Dexamethasone (Decadron) 2 mg BID PO Last administered on 12/23/16 09:51; Start 12/22/16 at 13:00 Lorazepam 0.5 mg 0.5 mg PRN Q8HRS PRN PO ANXIETY / AGITATION; Start 12/22/16 at 13:15 Tirofiban/Sodium Chloride (Aggrastat 12.5 Mg/250 ml Premix) 250 ml @ 0 mls/hr CONT PRN IV PER PROTOCOL Last administered on 12/23/16 05:48; Start 12/22/16 at 14:15 Losartan Potassium (Cozaar) 25 mg DAILY PO Last administered on 12/23/16 09:45 ; Start 12/22/16 at 16:00 Aspirin (Ecotrin) 81 mg DAILYWBKFT PO Last administered on 12/23/16 09:45; Start 12/23/16 at 08:00 Active Scripts Active Hydrocodone-Apap 5-325 (Hydrocodone Bit/Acetaminophen) 1 Each Tablet 1 Tab PO PRN Q4HRS PRN Effient (Prasugrel Hcl) 10 Mg Tablet 10 Mg PO DAILYWBKFT Metoprolol Tartrate 25 Mg Tablet 12.5 Mg PO BID Atorvastatin Calcium 40 Mg Tablet 40 Mg PO QHS Aspirin Ec (Aspirin) 325 Mg Tablet.dr 325 Mg PO DAILYWBK Reported Chantix (Varenicline Tartrate) 0.5 Mg Tablet 1 Mg PO BID 0.5 MG PO DAILY X3 DAY, 0.5 MG PO BID X4 DAY, 1 MG PO BID UNTIL END OF TREATMENT Vitals/I & O Vital Sign - Last 24 Hours 12/22/16 12/22/16 12/22/16 12/22/16 15:25 16:10 18:00 19:50 Temp 97.9 97.9 Pulse 94 94 Resp 18 B/P 164/106 164/106 Pulse Ox 94 97 O2 Delivery Room Air Room Air Room Air 12/22/16 12/22/16 12/22/16 12/22/16 19:55 20:00 21:09 23:15 Temp 97.8 98.0 97.8 98.0 Pulse 101 101 100 Resp 20 20 B/P 153/89 153/89 139/106 Pulse Ox 98 95 O2 Delivery Aerosol Mask Room Air Room Air 12/23/16 12/23/16 12/23/16 12/23/16 03:00 07:31 07:53 08:05 Temp 97.9 98.0 97.9 98.0 Pulse 73 94 Resp 18 20 B/P 119/82 137/84 Pulse Ox 95 98 97 O2 Delivery Room Air Room Air Room Air Room Air 12/23/16 12/23/16 09:45 09:46 Pulse 94 94 B/P 137/84 137/84 Intake and Output 12/22/16 12/22/16 12/23/16 15:00 23:00 07:00 Intake Total 900 ml Output Total 475 ml Balance 425 ml SUSY COTTO MD Dec 23, 2016 11:33
--- NOTE | 2016-12-23 12:08 | PDOC ---
PROGRESS NOTES Chief Complaint Chief Complaint Partial sz, new ASSESSMENT AND PLAN: 1. Brain lesion: suspected met from lung CA. planned bx/resection later this week. on decadron 2. Sz: no antiepileptics as per neuro. 3. RUL lung mass: c/w lung primary. d/w Dr Burrows: bx relatively contraindicated due to severe emphysema. staging CT and brain MRI with lung and solitary brain lesion only. bone scan pending. Dr Ta following 4. CAD: recent NSTEMI with PCI, requiring Plaxix - currently on hold for anticipated brain surgery. d/w cards: start aggrastat 5. HLD: on statin 6. COPD: nebs 7. Tobacco dependence: started on chantix 8. Dispo: could go home with planned surgery later this week ADDENDUM: eval by Dr Miranda: surgery deferrd until type of CA known. d/w Dr Burrows again : plan for IR transthoracic bx ERON. keep pt in house History of Present Illness History of Present Illness PAtient was sitting in his bed at the time of evaluation, daughter was at side of bed. Pt. was tearful, emotional support provide. Had no acute event overnight. workup to find the type of tumor is going on. Plan of care discussed with pt. and family. Vitals Vitals Vital Signs Date Time Temp Pulse Resp B/P Pulse Ox O2 Delivery O2 Flow Rate FiO2 12/23/16 09:46 94 137/84 12/23/16 08:05 Room Air 12/23/16 07:53 98.0 20 97 98.0 Physical Exam General: Alert, Oriented X3, Cooperative, Other (was tearful ) Heart: Regular rate, Normal S1, Normal S2 Abdomen: Normal bowel sounds, Soft, No tenderness Extremities: No clubbing, No edema Skin: No rashes Review of Systems Review of Systems Denies fever, chills Denies SOB, CP Denies n/v/d Awake, alert, oriented was distressed and tearful because of his medical condition Assessment and Plan Assessmemt and Plan ASSESSMENT AND PLAN: 1. Brain lesion: suspected met from lung CA. on decadron 2. Sz: no antiepileptics as per neuro. 3. RUL lung mass: c/w lung primary. Dr Ta following 4. CAD: recent NSTEMI with PCI, 5. HLD: on statin 6. COPD: nebs 7. Tobacco dependence: started on chantix PLAN: Continue care per floor protocol Ordered Prozac 20mg PO daily for anxiety free text to recheck labs in AM Probable bone scan procedure today Appreciate subspecialities inputs and recommendations Problems Medical Problems: (1) Right frontal lobe lesion Status: Acute Problems: Comment Review of Relevant I have reviewed the following items tess (where applicable) has been applied. Labs Laboratory Tests Test 12/22/16 03:05 White Blood Count 21.2x10^3/uL (4.0-11.0) Red Blood Count 5.62x10^6/uL (4.30-5.70) Hemoglobin 16.1g/dL (13.0-17.5) Hematocrit 48.1% (39.0-53.0) Mean Corpuscular Volume 86fL (79-100) Mean Corpuscular Hemoglobin 29pg (25-35) Mean Corpuscular Hemoglobin Concent 33g/dL (31-37) Red Cell Distribution Width 13.5% (11.5-14.5) Platelet Count 259x10^3/uL (140-400) Neutrophils (%) (Auto) 90% (31-73) Lymphocytes (%) (Auto) 7% (24-48) Monocytes (%) (Auto) 2% (0-9) Eosinophils (%) (Auto) 0% (0-3) Basophils (%) (Auto) 0% (0-3) Neutrophils # (Auto) 19.2x10^3uL (1.8-7.7) Lymphocytes # (Auto) 1.6x10^3/uL (1.0-4.8) Monocytes # (Auto) 0.4x10^3/uL (0.0-1.1) Eosinophils # (Auto) 0.0x10^3/uL (0.0-0.7) Basophils # (Auto) 0.0x10^3/uL (0.0-0.2) Segmented Neutrophils % 90% (35-66) Band Neutrophils % 2% (0-9) Lymphocytes % 8% (24-48) Platelet Estimate Adequate (ADEQUATE) Sodium Level 142mmol/L (136-145) Potassium Level 4.0mmol/L (3.5-5.1) Chloride Level 105mmol/L (98-107) Carbon Dioxide Level 26mmol/L (21-32) Anion Gap 11 (6-14) Blood Urea Nitrogen 19mg/dL (8-26) Creatinine 1.1mg/dL (0.7-1.3) Estimated GFR (Cockcroft-Gault) 69.5 Glucose Level 134mg/dL (70-99) Calcium Level 9.5mg/dL (8.5-10.1) Medications Current Medications Iohexol (Omnipaque 300 Mg/ml) 70 ml 1X ONCE IV Last administered on 12/20/16 03:42; Start 12/20/16 at 03:15; Stop 12/20/16 at 03:16; Status DC Info (Do NOT chart on this entry -- for MONITORING) 1 each PRN DAILY PRN MC SEE COMMENTS; Start 12/20/16 at 03:15; Stop 12/21/16 at 16:47; Status DC Ondansetron HCl (Zofran) 4 mg PRN Q8HRS PRN IV NAUSEA/VOMITING; Start 12/20/16 at 04:30; Stop 12/20/16 at 13:26; Status DC Acetaminophen (Tylenol) 650 mg PRN Q4HRS PRN PO FEVER; Start 12/20/16 at 04:30 ; Stop 12/21/16 at 04:30; Status DC Aspirin (Carlene Aspirin) 325 mg 1X ONCE PO Last administered on 12/20/16 05:17 ; Start 12/20/16 at 05:00; Stop 12/20/16 at 05:01; Status DC Clopidogrel Bisulfate (Plavix) 75 mg DAILYWBKFT PO Last administered on 09:24; Start 12/20/16 at 09:00; Stop 12/20/16 at 13:22; Status DC Gadobutrol (Gadavist) 9 mmol 1X ONCE IV Last administered on 12/20/16 12:32; Start 12/20/16 at 12:30; Stop 12/20/16 at 12:31; Status DC Aspirin (Ecotrin) 325 mg DAILYWBKFT PO Last administered on 12/22/16 09:26; Start 12/20/16 at 14:00; Stop 12/22/16 at 16:13; Status DC Atorvastatin Calcium (Lipitor) 40 mg QHS PO ; Start 12/20/16 at 21:00 Acetaminophen/ Hydrocodone Bitart (Lortab 5/325) 1 tab PRN Q4HRS PRN PO MILD PAIN, 2ND CHOICE; Start 12/20/16 at 13:30 Metoprolol Tartrate (Lopressor) 12.5 mg BID PO Last administered on 12/23/16 09:46; Start 12/20/16 at 14:00 Prasugrel (Effient) 10 mg DAILYWBKFT PO Last administered on 12/21/16 08:36; Start 12/20/16 at 14:00; Stop 12/21/16 at 11:12; Status DC Varenicline (Chantix) 1 mg BID PO Last administered on 12/20/16 14:39; Start 12/20/16 at 14:00 Ondansetron HCl (Zofran) 4 mg PRN Q6HRS PRN IV NAUSEA/VOMITING; Start 12/20/16 at 13:30 Dexamethasone Sodium Phosphate (Decadron) 4 mg Q6HRS IV Last administered on 06:31; Start 12/20/16 at 18:00; Stop 12/22/16 at 12:20; Status DC Pantoprazole Sodium (Protonix) 40 mg DAILYAC PO Last administered on 12/22/16 06:31; Start 12/20/16 at 14:00 Acetaminophen (Tylenol) 650 mg PRN Q6HRS PRN PO MILD PAIN / TEMP; Start at 19:00 Alprazolam (Xanax) 0.25 mg PRN Q8HRS PRN PO ANXIETY / AGITATION; Start at 19:00; Status Cancel Lorazepam (Ativan) 2 mg PRN Q4HRS PRN IV ANXIETY / AGITATION Last administered on 12/23/16 06:22; Start 12/20/16 at 19:00 Alprazolam (Xanax) 0.25 mg TID PRN PRN PO ANXIETY / AGITATION; Start 12/20/16 at 19:15 Enoxaparin Sodium (Lovenox 80mg Syringe) 80 mg Q12HR SQ ; Start 12/21/16 at 21: 00; Stop 12/21/16 at 21:00; Status DC Info (Anti-Coagulation Monitoring By Pharmacy) 1 each PRN DAILY PRN MC SEE COMMENTS; Start 12/21/16 at 11:30; Stop 12/22/16 at 10:33; Status DC Enoxaparin Sodium (Lovenox 40mg Syringe) 40 mg Q24H SQ ; Start 12/22/16 at 10:00 ; Stop 12/22/16 at 10:00; Status DC Albuterol/ Ipratropium (Duoneb) 3 ml RTQID NEB Last administered on 12/23/16 07:30; Start 12/21/16 at 16:00 Iohexol (Omnipaque 300 Mg/ml) 75 ml 1X ONCE IV ; Start 12/21/16 at 13:15; Stop 12/21/16 at 13:16; Status DC Iohexol (Omnipaque 240 Mg/ml) 50 ml 1X ONCE PO ; Start 12/21/16 at 13:15; Stop 12/21/16 at 13:16; Status DC Info (Do NOT chart on this entry -- for MONITORING) 1 each PRN DAILY PRN MC SEE COMMENTS; Start 12/21/16 at 13:15; Stop 12/23/16 at 13:14 Dexamethasone (Decadron) 2 mg BID PO Last administered on 12/23/16 09:51; Start 12/22/16 at 13:00 Lorazepam 0.5 mg 0.5 mg PRN Q8HRS PRN PO ANXIETY / AGITATION; Start 12/22/16 at 13:15 Tirofiban/Sodium Chloride (Aggrastat 12.5 Mg/250 ml Premix) 250 ml @ 0 mls/hr CONT PRN IV PER PROTOCOL Last administered on 12/23/16 05:48; Start 12/22/16 at 14:15 Losartan Potassium (Cozaar) 25 mg DAILY PO Last administered on 12/23/16 09:45 ; Start 12/22/16 at 16:00 Aspirin (Ecotrin) 81 mg DAILYWBKFT PO Last administered on 12/23/16 09:45; Start 12/23/16 at 08:00 Active Scripts Active Hydrocodone-Apap 5-325 (Hydrocodone Bit/Acetaminophen) 1 Each Tablet 1 Tab PO PRN Q4HRS PRN Effient (Prasugrel Hcl) 10 Mg Tablet 10 Mg PO DAILYWBKFT Metoprolol Tartrate 25 Mg Tablet 12.5 Mg PO BID Atorvastatin Calcium 40 Mg Tablet 40 Mg PO QHS Aspirin Ec (Aspirin) 325 Mg Tablet. 325 Mg PO DAILYWBKFT Reported Chantix (Varenicline Tartrate) 0.5 Mg Tablet 1 Mg PO BID 0.5 MG PO DAILY X3 DAY, 0.5 MG PO BID X4 DAY, 1 MG PO BID UNTIL END OF TREATMENT Vitals/I & O Vital Sign - Last 24 Hours 12/22/16 12/22/16 12/22/16 12/22/16 15:25 16:10 18:00 19:50 Temp 97.9 97.9 Pulse 94 94 Resp 18 B/P 164/106 164/106 Pulse Ox 94 97 O2 Delivery Room Air Room Air Room Air 12/22/16 12/22/16 12/22/16 12/22/16 19:55 20:00 21:09 23:15 Temp 97.8 98.0 97.8 98.0 Pulse 101 101 100 Resp 20 20 B/P 153/89 153/89 139/106 Pulse Ox 98 95 O2 Delivery Aerosol Mask Room Air Room Air 12/23/16 12/23/16 12/23/16 12/23/16 03:00 07:31 07:53 08:05 Temp 97.9 98.0 97.9 98.0 Pulse 73 94 Resp 18 20 B/P 119/82 137/84 Pulse Ox 95 98 97 O2 Delivery Room Air Room Air Room Air Room Air 12/23/16 12/23/16 09:45 09:46 Pulse 94 94 B/P 137/84 137/84 Intake and Output 12/22/16 12/22/16 12/23/16 15:00 23:00 07:00 Intake Total 900 ml Output Total 475 ml Balance 425 ml YONAS NASSAR III DO Dec 23, 2016 12:08
[2016-12-23] MEDS: FLUOXETINE HCL 20 MG CAPSULE PO SCH (12:30)
--- NOTE | 2016-12-23 13:22 | RAD ---
Radionuclide bone scan, 12/23/2016: History: Lung cancer Whole body imaging was performed following IV injection of 25 mCi of technetium 99 M MDP. No previous bone scan is available for comparison purposes. The following findings are delineated: 1. Areas of mildly increased activity at the shoulders and to a lesser degree at the knees and ankles is likely arthritic. 2. Activity of the radionuclide about the skeleton and the major joints is otherwise symmetric. No other abnormal osseous abnormality is seen. 3. Normal activity is present in both kidneys and the bladder. IMPRESSION: No bone scan findings to suggest osseous metastatic disease.
[2016-12-23 14:45] VITALS: BP 124/86
--- NOTE | 2016-12-23 17:04 | PDOC ---
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 Simple partial seizure x 1, left side facial twitching. 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 Recent Hx of STEMI s/p cardiac stents. Longstanding Hx of smoking. RECOMMENDATIONS/PLAN: Patient declined AED at the present time. Oncology consulted. NS consulted. Smoking cessation. Discussed with his family at bedside. EEG on 12/23: Normal study. PAST MEDICAL HISTORY: Please see above. PAST SURGERY HISTORY: Cardiac stents. ALLERGY: Reviewed. MEDICATIONS: Refer to [facility] FAMILY HISTORY: His father had lung cancer. SOCIAL HISTORY: Lives at home. He smokes 15 to 20 cigarettes a day for 20 years. REVIEW OF SYSTEMS: Constitutional: No cachexia. Head: No traumatic brain or head injury. Skin: No edema, or rash. Ear: No infection. Eyes: No vision loss or color blindness. Nose: No bleeding or purulent discharges. Hearing: No hearing decrease. Neck: No injury. Cardiac: stents x 2. Pulmonary: Lung mass found this time. GI: No GI ulcer, GI bleeding. Urinary/genital: No dysuria, hematuria, incontinence, urinary retention. Endocrinologic: No cousin face, craniofacial dysmorphism, polydactyly. Skeletomuscular: No muscular atrophy, deformity. Neurological: see HP. Psychiatric: smoking. Otherwise, not [id number] review of systems. PHYSICAL EXAMINATION: General appearance is in subacute distress. HEENT: Normocephalic and nontraumatic. Eyes, nose, ears, and throat are unremarkable. Neck is supple. No lymphadenopathy. No crepitus. Cardiovascular: S1, S2, regular rate and rhythm. Pulmonary: Clear to auscultation bilaterally. Abdomen: Bowel sounds are positive. Abdomen is soft, nontender, and nondistended. Extremities: No rash, lesions, or edema. No restriction of range of motion NEUROLOGICAL EXAMINATION: Awake. Oriented to time, place and person. PERRL. EOMI. CN: no focal findings. Muscle tone: within normal. Muscle strength: 5 DTR: 2 Plantar reflex: Flexor response bilaterally Gait: not examined in bed. Sensory exam: no abnormal findings. No obvious cerebellar signs elicited. F-T-N test accurate. Objective Objective Vital Signs Date Time Temp Pulse Resp B/P Pulse Ox O2 Delivery O2 Flow Rate FiO2 12/23/16 14:45 98.4 101 18 124/86 94 Room Air 98.4 Intake and Output 12/23/16 07:00 Intake Total 900 ml Output Total 475 ml Balance 425 ml Intake Oral 900 ml Output Urine Total 475 ml # Voids 4 Vitals Signs Vitals VS - Last 72 Hours, by Label Date Time Temp Pulse Resp B/P Pulse Ox O2 Delivery O2 Flow Rate FiO2 12/23/16 14:45 98.4 101 18 124/86 94 Room Air 98.4 12/23/16 09:46 94 137/84 12/23/16 09:45 94 137/84 12/23/16 08:05 Room Air 12/23/16 07:53 98.0 94 20 137/84 97 Room Air 98.0 12/23/16 07:31 98 Room Air 12/23/16 03:00 97.9 73 18 119/82 95 Room Air 97.9 12/22/16 23:15 98.0 100 20 139/106 95 Room Air 98.0 12/22/16 21:09 101 153/89 12/22/16 20:00 Room Air 12/22/16 19:55 97.8 101 20 153/89 98 Aerosol Mask 97.8 12/22/16 19:50 97 Room Air 12/22/16 18:00 Room Air 12/22/16 16:10 94 164/106 12/22/16 15:25 97.9 94 18 164/106 94 Room Air 97.9 12/22/16 11:20 Room Air 12/22/16 11:06 98.1 95 18 165/95 95 Room Air 98.1 12/22/16 09:26 91 142/91 12/22/16 08:21 Room Air 12/22/16 07:36 97.5 91 18 142/91 92 Room Air 97.5 12/22/16 07:23 97 Room Air Medication Medications Current Medications Aspirin (Ecotrin) 81 mg DAILYWBKFT PO Last administered on 12/23/16t 09:45; Start 12/23/16 at 08:00 Fluoxetine HCl 20 mg 20 mg DAILY PO ; Start 12/23/16 at 12:30 Tirofiban/Sodium Chloride (Aggrastat 12.5 Mg/250 ml Premix) 250 ml @ 0 mls/hr CONT PRN IV PER PROTOCOL; Start 12/23/16 at 14:00 Comment Review of Relevant I have reviewed the following items tess (where applicable) has been applied. KRISTY KAYE MD Dec 23, 2016 17:03
[2016-12-23] MEDS ORDERED: ADENOSINE 6 MG/2 ML VIAL. IV ONE ×2 (18:14→18:15)
[2016-12-23 19:43] VITALS: BP 141/87
--- NOTE | 2016-12-23 20:22 | EEG ---
DATE OF SERVICE: 12/23/2016 EEG NUMBER: [id number]. OBJECTIVE: This is a 56-year-old male patient with history of lung mass and brain mass and a seizure. EEG was requested to evaluate seizure activity. METHOD: Sixteen electrodes were applied according to the international 10-20 electrode placement system. EKG monitoring, hyperventilation, intermittent photic stimulation, monopolar and bipolar montages are routinely utilized. The record was obtained on a digital system with video monitoring. MEDICATIONS: No anti-seizure medication. FINDINGS: 1. Background: The patient was recorded in the awake and drowsy states. No actual sleep state was recorded. The overall background amplitude is 10-20 microvolts. Posterior dominant rhythm of 8-10 Hz is observed. 2. Abnormalities: No specific epileptiform discharge or electrographic seizure is seen. No focal or diffuse slowing. 3. Activation: Hyperventilation was performed with good efforts and normal response. Intermittent photic stimulation was performed with photic driving. No specific epileptiform discharge or electrographic seizure induced by hyperventilation or intermittent photic stimulation. IMPRESSION: This EEG is a normal study for the awake and drowsy states. No actual sleep state was recorded. No focal, lateralizing, specific epileptiform discharge, or electrographic seizure is seen. However, a normal EEG does not rule out seizure. KRISTY KAYE MD DR: AVERY/anastasiya JOB#: [id number] / [id number] ADRIENNE
[2016-12-23] MEDS: ATORVASTATIN CALCIUM 40 MG TABLET. PO SCH (20:54)
[2016-12-23 23:15] VITALS: BP 122/77
[2016-12-24 03:51] VITALS: BP 131/88
[2016-12-24 05:25] LABS: BASO % 0 % (0-3); EOS % 0 % (0-3); HEMATOCRIT 45.5 % (39.0-53.0); HEMOGLOBIN 14.6 g/dL (13.0-17.5); LYMPH # 2.7 x10^3/uL (1.0-4.8); LYMPH % 20 % (24-48); MEAN CORPUSCULAR HEMOGLOBIN 28 pg (25-35); MEAN CORPUSCULAR HGB CONC 32 g/dL (31-37); MEAN CORPUSCULAR VOLUME 87 fL (79-100); MONO % 7 % (0-9); NEUT % 72 % (31-73); PLATELET COUNT 214 x10^3/uL (140-400); RED BLOOD COUNT 5.21 x10^6/uL (4.30-5.70); RED CELL DISTRIBUTION WIDTH 13.4 % (11.5-14.5); WHITE BLOOD COUNT 13.6 x10^3/uL (4.0-11.0)
[2016-12-24 05:26] LABS: CALCIUM 9.3 mg/dL (8.5-10.1); CREATININE 1.1 mg/dL (0.7-1.3); GFR 69.5; POTASSIUM 4.5 mmol/L (3.5-5.1)
[2016-12-24 07:00] VITALS: BP 120/88
[2016-12-24] MEDS: PANTOPRAZOLE 40 MG TABLET. PO SCH (07:30)
[2016-12-24] MEDS: IPRATRPIUM/ALBUTEROL 0.5/2.5MG 3 ML NEBU. NEB SCH ×4 (07:34→19:39)
[2016-12-24] MEDS: LOSARTAN POTASSIUM 25 MG TABLET. PO SCH (08:16)
[2016-12-24] MEDS: DEXAMETHASONE 1 MG TABLET PO SCH ×2 (08:17→21:44)
[2016-12-24] MEDS: METOPROLOL TART IMMED RELEASE 25 MG TABLET PO SCH ×2 (08:17→21:45)
[2016-12-24] MEDS: ASPIRIN ENTERIC COATED 81 MG TABLET.DR. PO SCH (08:17)
[2016-12-24] MEDS: FLUOXETINE HCL 20 MG CAPSULE PO SCH (08:18)
--- NOTE | 2016-12-24 08:44 | PDOC ---
PULMONARY PROGRESS NOTES Subjective no soa Vitals Vital Signs Date Time Temp Pulse Resp B/P Pulse Ox O2 Delivery O2 Flow Rate FiO2 12/24/16 08:17 92 120/88 12/24/16 07:34 97 Room Air 12/24/16 07:00 98.2 18 98.2 ROS: No Nausea, No Chest Pain, No Abdominal Pain, No Increase Cough General: Alert, No acute distress Cardiovascular: S1 Abdomen: Soft Neuro Exam: Alert Extremities: No Edema Skin: Warm Labs Laboratory Tests Test 12/24/16 04:40 White Blood Count 13.6x10^3/uL (4.0-11.0) Red Blood Count 5.21x10^6/uL (4.30-5.70) Hemoglobin 14.6g/dL (13.0-17.5) Hematocrit 45.5% (39.0-53.0) Mean Corpuscular Volume 87fL (79-100) Mean Corpuscular Hemoglobin 28pg (25-35) Mean Corpuscular Hemoglobin Concent 32g/dL (31-37) Red Cell Distribution Width 13.4% (11.5-14.5) Platelet Count 214x10^3/uL (140-400) Neutrophils (%) (Auto) 72% (31-73) Lymphocytes (%) (Auto) 20% (24-48) Monocytes (%) (Auto) 7% (0-9) Eosinophils (%) (Auto) 0% (0-3) Basophils (%) (Auto) 0% (0-3) Neutrophils # (Auto) 9.8x10^3uL (1.8-7.7) Lymphocytes # (Auto) 2.7x10^3/uL (1.0-4.8) Monocytes # (Auto) 0.9x10^3/uL (0.0-1.1) Eosinophils # (Auto) 0.0x10^3/uL (0.0-0.7) Basophils # (Auto) 0.0x10^3/uL (0.0-0.2) Sodium Level 142mmol/L (136-145) Potassium Level 4.5mmol/L (3.5-5.1) Chloride Level 106mmol/L (98-107) Carbon Dioxide Level 30mmol/L (21-32) Anion Gap 6 (6-14) Blood Urea Nitrogen 19mg/dL (8-26) Creatinine 1.1mg/dL (0.7-1.3) Estimated GFR (Cockcroft-Gault) 69.5 Glucose Level 95mg/dL (70-99) Calcium Level 9.3mg/dL (8.5-10.1) Laboratory Tests Test 12/24/16 04:40 White Blood Count 13.6x10^3/uL (4.0-11.0) Red Blood Count 5.21x10^6/uL (4.30-5.70) Hemoglobin 14.6g/dL (13.0-17.5) Hematocrit 45.5% (39.0-53.0) Mean Corpuscular Volume 87fL (79-100) Mean Corpuscular Hemoglobin 28pg (25-35) Mean Corpuscular Hemoglobin Concent 32g/dL (31-37) Red Cell Distribution Width 13.4% (11.5-14.5) Platelet Count 214x10^3/uL (140-400) Neutrophils (%) (Auto) 72% (31-73) Lymphocytes (%) (Auto) 20% (24-48) Monocytes (%) (Auto) 7% (0-9) Eosinophils (%) (Auto) 0% (0-3) Basophils (%) (Auto) 0% (0-3) Neutrophils # (Auto) 9.8x10^3uL (1.8-7.7) Lymphocytes # (Auto) 2.7x10^3/uL (1.0-4.8) Monocytes # (Auto) 0.9x10^3/uL (0.0-1.1) Eosinophils # (Auto) 0.0x10^3/uL (0.0-0.7) Basophils # (Auto) 0.0x10^3/uL (0.0-0.2) Sodium Level 142mmol/L (136-145) Potassium Level 4.5mmol/L (3.5-5.1) Chloride Level 106mmol/L (98-107) Carbon Dioxide Level 30mmol/L (21-32) Anion Gap 6 (6-14) Blood Urea Nitrogen 19mg/dL (8-26) Creatinine 1.1mg/dL (0.7-1.3) Estimated GFR (Cockcroft-Gault) 69.5 Glucose Level 95mg/dL (70-99) Calcium Level 9.3mg/dL (8.5-10.1) Medications Active Scripts Medications Dose Route/Sig Days Date Category Dose Instructions Hydrocodone-Apap 5-325 (Hydrocodone Bit/Acetaminophen) 1 Each Tablet 1 Tab PO PRN Q4HRS PRN 12/06/16 Rx Effient (Prasugrel Hcl) 10 Mg Tablet 10 Mg PO DAILYWBKFT 12/06/16 Rx Metoprolol Tartrate 25 Mg Tablet 12.5 Mg PO BID 12/06/16 Rx Atorvastatin Calcium 40 Mg Tablet 40 Mg PO QHS 12/06/16 Rx Aspirin Ec (Aspirin) 325 Mg Tablet. 325 Mg PO DAILYWBKFT 12/06/16 Rx Chantix (Varenicline Tartrate) 0.5 Mg Tablet 1 Mg PO BID 12/05/16 Reported 0.5 MG PO DAILY X3 DAY, 0.5 MG PO BID X4 DAY, 1 MG PO BID UNTIL END OF TREATMENT Impression . 1. 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 severe emphysema surrounding lung mass 3. Ex-smoker, questionable chronic obstructive pulmonary disease. 4. 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 Coronary artery disease, recent NSTMI 2 weeks ago, status post stents, on anti-platelet therapy Plan . PLan for lung biopsy bone scan report noted 1. Cardiology stopped Prasugrel that has antiplatelet effect for 4 to 5 days. Cardiology is recommending bridging with Integrilin or Cangrelor. await their recommendations 2. Dr Burrows, discussed at length with patient and sig. other that I would prefer brain biopsy/complete excision to make a diagnosis and possible cure for brain lesion. CT-guided biopsy of the chest is an option but I am concerned with emphysematous changes surrounding the lung lesion and at least 50% chance of PTX with need for chest tube and even VAT if lung does not expand. DR Yeboah would favor biopsy lung, schedule for later this week. I agree with above 3. At some point, he would require pulmonary function tests. 4. Titrate FiO2 to keep O2 saturation more than 92%. 5. bronchodilator. 6. Anti-seizure medication per Neurology. MONICA MENDIOLA MD Dec 24, 2016 08:44
[2016-12-24 11:14] VITALS: BP 111/87
--- NOTE | 2016-12-24 12:56 | PDOC ---
PROGRESS NOTES Chief Complaint Chief Complaint Partial sz, new ASSESSMENT AND PLAN: 1. Brain lesion: suspected met from lung CA. planned bx/resection later this week. on decadron 2. Sz: no antiepileptics as per neuro. 3. RUL lung mass: c/w lung primary. d/w Dr Burrows: bx relatively contraindicated due to severe emphysema. staging CT and brain MRI with lung and solitary brain lesion only. bone scan pending. Dr Ta following 4. CAD: recent NSTEMI with PCI, requiring Plaxix - currently on hold for anticipated brain surgery. d/w cards: start aggrastat 5. HLD: on statin 6. COPD: nebs 7. Tobacco dependence: started on chantix 8. Dispo: could go home with planned surgery later this week ADDENDUM: eval by Dr Miranda: surgery deferrd until type of CA known. d/w Dr Burrows again : plan for IR transthoracic bx ERON. keep pt in house History of Present Illness History of Present Illness Patient was walking in the hallway, was in no acute distress. Was pleasant today. His son was in the room. His EEG and Bone scan results discussed with him. Plan of care D/w pt., RN and Son. Vitals Vitals Vital Signs Date Time Temp Pulse Resp B/P Pulse Ox O2 Delivery O2 Flow Rate FiO2 12/24/16 11:14 97.9 103 18 111/87 95 Room Air 97.9 Physical Exam General: Alert, Oriented X3, Cooperative Heart: Regular rate, Normal S1, Normal S2 Lungs: Clear Abdomen: Normal bowel sounds, Soft, No tenderness Extremities: No clubbing, No edema Skin: No rashes Labs LABS Laboratory Tests Test 12/24/16 04:40 White Blood Count 13.6x10^3/uL (4.0-11.0) Red Blood Count 5.21x10^6/uL (4.30-5.70) Hemoglobin 14.6g/dL (13.0-17.5) Hematocrit 45.5% (39.0-53.0) Mean Corpuscular Volume 87fL (79-100) Mean Corpuscular Hemoglobin 28pg (25-35) Mean Corpuscular Hemoglobin Concent 32g/dL (31-37) Red Cell Distribution Width 13.4% (11.5-14.5) Platelet Count 214x10^3/uL (140-400) Neutrophils (%) (Auto) 72% (31-73) Lymphocytes (%) (Auto) 20% (24-48) Monocytes (%) (Auto) 7% (0-9) Eosinophils (%) (Auto) 0% (0-3) Basophils (%) (Auto) 0% (0-3) Neutrophils # (Auto) 9.8x10^3uL (1.8-7.7) Lymphocytes # (Auto) 2.7x10^3/uL (1.0-4.8) Monocytes # (Auto) 0.9x10^3/uL (0.0-1.1) Eosinophils # (Auto) 0.0x10^3/uL (0.0-0.7) Basophils # (Auto) 0.0x10^3/uL (0.0-0.2) Sodium Level 142mmol/L (136-145) Potassium Level 4.5mmol/L (3.5-5.1) Chloride Level 106mmol/L (98-107) Carbon Dioxide Level 30mmol/L (21-32) Anion Gap 6 (6-14) Blood Urea Nitrogen 19mg/dL (8-26) Creatinine 1.1mg/dL (0.7-1.3) Estimated GFR (Cockcroft-Gault) 69.5 Glucose Level 95mg/dL (70-99) Calcium Level 9.3mg/dL (8.5-10.1) Review of Systems Review of Systems Denies fever, chills Denies SOB, CP Awake, alert, oriented. Denies n/v/d able to walk comfortably Assessment and Plan Assessmemt and Plan ASSESSMENT AND PLAN: 1. Brain lesion: suspected met from lung CA. on decadron 2. Sz: no antiepileptics as per neuro. 3. RUL lung mass: c/w lung primary. Dr Ta following 4. CAD: recent NSTEMI with PCI, 5. HLD: on statin 6. COPD: nebs 7. Tobacco dependence: started on chantix PLAN: Continue care per floor protocol continue Aggrastat per cardio recommendation hope to change to oral anticoagulants after procedure scheduled Probable lung mass bx on thursday recheck labs in AM EEG and Bone scan has no acute findings Appreciate subspecialities inputs and recommendations Problems Medical Problems: (1) Right frontal lobe lesion Status: Acute Problems: Comment Review of Relevant I have reviewed the following items tess (where applicable) has been applied. Labs Laboratory Tests Test 12/24/16 04:40 White Blood Count 13.6x10^3/uL (4.0-11.0) Red Blood Count 5.21x10^6/uL (4.30-5.70) Hemoglobin 14.6g/dL (13.0-17.5) Hematocrit 45.5% (39.0-53.0) Mean Corpuscular Volume 87fL (79-100) Mean Corpuscular Hemoglobin 28pg (25-35) Mean Corpuscular Hemoglobin Concent 32g/dL (31-37) Red Cell Distribution Width 13.4% (11.5-14.5) Platelet Count 214x10^3/uL (140-400) Neutrophils (%) (Auto) 72% (31-73) Lymphocytes (%) (Auto) 20% (24-48) Monocytes (%) (Auto) 7% (0-9) Eosinophils (%) (Auto) 0% (0-3) Basophils (%) (Auto) 0% (0-3) Neutrophils # (Auto) 9.8x10^3uL (1.8-7.7) Lymphocytes # (Auto) 2.7x10^3/uL (1.0-4.8) Monocytes # (Auto) 0.9x10^3/uL (0.0-1.1) Eosinophils # (Auto) 0.0x10^3/uL (0.0-0.7) Basophils # (Auto) 0.0x10^3/uL (0.0-0.2) Sodium Level 142mmol/L (136-145) Potassium Level 4.5mmol/L (3.5-5.1) Chloride Level 106mmol/L (98-107) Carbon Dioxide Level 30mmol/L (21-32) Anion Gap 6 (6-14) Blood Urea Nitrogen 19mg/dL (8-26) Creatinine 1.1mg/dL (0.7-1.3) Estimated GFR (Cockcroft-Gault) 69.5 Glucose Level 95mg/dL (70-99) Calcium Level 9.3mg/dL (8.5-10.1) Laboratory Tests Test 12/24/16 04:40 White Blood Count 13.6x10^3/uL (4.0-11.0) Red Blood Count 5.21x10^6/uL (4.30-5.70) Hemoglobin 14.6g/dL (13.0-17.5) Hematocrit 45.5% (39.0-53.0) Mean Corpuscular Volume 87fL (79-100) Mean Corpuscular Hemoglobin 28pg (25-35) Mean Corpuscular Hemoglobin Concent 32g/dL (31-37) Red Cell Distribution Width 13.4% (11.5-14.5) Platelet Count 214x10^3/uL (140-400) Neutrophils (%) (Auto) 72% (31-73) Lymphocytes (%) (Auto) 20% (24-48) Monocytes (%) (Auto) 7% (0-9) Eosinophils (%) (Auto) 0% (0-3) Basophils (%) (Auto) 0% (0-3) Neutrophils # (Auto) 9.8x10^3uL (1.8-7.7) Lymphocytes # (Auto) 2.7x10^3/uL (1.0-4.8) Monocytes # (Auto) 0.9x10^3/uL (0.0-1.1) Eosinophils # (Auto) 0.0x10^3/uL (0.0-0.7) Basophils # (Auto) 0.0x10^3/uL (0.0-0.2) Sodium Level 142mmol/L (136-145) Potassium Level 4.5mmol/L (3.5-5.1) Chloride Level 106mmol/L (98-107) Carbon Dioxide Level 30mmol/L (21-32) Anion Gap 6 (6-14) Blood Urea Nitrogen 19mg/dL (8-26) Creatinine 1.1mg/dL (0.7-1.3) Estimated GFR (Cockcroft-Gault) 69.5 Glucose Level 95mg/dL (70-99) Calcium Level 9.3mg/dL (8.5-10.1) Medications Current Medications Iohexol (Omnipaque 300 Mg/ml) 70 ml 1X ONCE IV Last administered on 3/25/17at 03:42; Start 12/20/16 at 03:15; Stop 12/20/16 at 03:16; Status DC Info (Do NOT chart on this entry -- for MONITORING) 1 each PRN DAILY PRN MC SEE COMMENTS; Start 12/20/16 at 03:15; Stop 12/21/16 at 16:47; Status DC Ondansetron HCl (Zofran) 4 mg PRN Q8HRS PRN IV NAUSEA/VOMITING; Start 12/20/16 at 04:30; Stop 12/20/16 at 13:26; Status DC Acetaminophen (Tylenol) 650 mg PRN Q4HRS PRN PO FEVER; Start 12/20/16 at 04:30 ; Stop 12/21/16 at 04:30; Status DC Aspirin (Carlene Aspirin) 325 mg 1X ONCE PO Last administered on 12/20/16 05:17 ; Start 12/20/16 at 05:00; Stop 12/20/16 at 05:01; Status DC Clopidogrel Bisulfate (Plavix) 75 mg DAILYWBKFT PO Last administered on 09:24; Start 12/20/16 at 09:00; Stop 12/20/16 at 13:22; Status DC Gadobutrol (Gadavist) 9 mmol 1X ONCE IV Last administered on 12/20/16 12:32; Start 12/20/16 at 12:30; Stop 12/20/16 at 12:31; Status DC Aspirin (Ecotrin) 325 mg DAILYWBKFT PO Last administered on 12/22/16 09:26; Start 12/20/16 at 14:00; Stop 12/22/16 at 16:13; Status DC Atorvastatin Calcium (Lipitor) 40 mg QHS PO ; Start 12/20/16 at 21:00 Acetaminophen/ Hydrocodone Bitart (Lortab 5/325) 1 tab PRN Q4HRS PRN PO MILD PAIN, 2ND CHOICE; Start 12/20/16 at 13:30 Metoprolol Tartrate (Lopressor) 12.5 mg BID PO Last administered on 12/24/16 08:17; Start 12/20/16 at 14:00 Prasugrel (Effient) 10 mg DAILYWBKFT PO Last administered on 12/21/16 08:36; Start 12/20/16 at 14:00; Stop 12/21/16 at 11:12; Status DC Varenicline (Chantix) 1 mg BID PO Last administered on 12/20/16 14:39; Start 12/20/16 at 14:00; Stop 12/23/16 at 16:55; Status DC Ondansetron HCl (Zofran) 4 mg PRN Q6HRS PRN IV NAUSEA/VOMITING; Start 12/20/16 at 13:30 Dexamethasone Sodium Phosphate (Decadron) 4 mg Q6HRS IV Last administered on 06:31; Start 12/20/16 at 18:00; Stop 12/22/16 at 12:20; Status DC Pantoprazole Sodium (Protonix) 40 mg DAILYAC PO Last administered on 12/22/16 06:31; Start 12/20/16 at 14:00 Acetaminophen (Tylenol) 650 mg PRN Q6HRS PRN PO MILD PAIN / TEMP; Start at 19:00 Alprazolam (Xanax) 0.25 mg PRN Q8HRS PRN PO ANXIETY / AGITATION; Start at 19:00; Status Cancel Lorazepam (Ativan) 2 mg PRN Q4HRS PRN IV ANXIETY / AGITATION Last administered on 12/23/16 20:54; Start 12/20/16 at 19:00 Alprazolam (Xanax) 0.25 mg TID PRN PRN PO ANXIETY / AGITATION; Start 12/20/16 at 19:15 Enoxaparin Sodium (Lovenox 80mg Syringe) 80 mg Q12HR SQ ; Start 12/21/16 at 21: 00; Stop 12/21/16 at 21:00; Status DC Info (Anti-Coagulation Monitoring By Pharmacy) 1 each PRN DAILY PRN MC SEE COMMENTS; Start 12/21/16 at 11:30; Stop 12/22/16 at 10:33; Status DC Enoxaparin Sodium (Lovenox 40mg Syringe) 40 mg Q24H SQ ; Start 12/22/16 at 10:00 ; Stop 12/22/16 at 10:00; Status DC Albuterol/ Ipratropium (Duoneb) 3 ml RTQID NEB Last administered on 12/24/16 07:34; Start 12/21/16 at 16:00 Iohexol (Omnipaque 300 Mg/ml) 75 ml 1X ONCE IV ; Start 12/21/16 at 13:15; Stop 12/21/16 at 13:16; Status DC Iohexol (Omnipaque 240 Mg/ml) 50 ml 1X ONCE PO ; Start 12/21/16 at 13:15; Stop 12/21/16 at 13:16; Status DC Info (Do NOT chart on this entry -- for MONITORING) 1 each PRN DAILY PRN MC SEE COMMENTS; Start 12/21/16 at 13:15; Stop 12/23/16 at 13:14; Status DC Dexamethasone (Decadron) 2 mg BID PO Last administered on 12/24/16 08:17; Start 12/22/16 at 13:00 Lorazepam 0.5 mg 0.5 mg PRN Q8HRS PRN PO ANXIETY / AGITATION Last administered on 12/24/16 08:16; Start 12/22/16 at 13:15 Tirofiban/Sodium Chloride (Aggrastat 12.5 Mg/250 ml Premix) 250 ml @ 0 mls/hr CONT PRN IV PER PROTOCOL Last administered on 12/23/16 05:48; Start 12/22/16 at 14:15; Stop 12/23/16 at 13:46; Status DC Losartan Potassium (Cozaar) 25 mg DAILY PO Last administered on 12/24/16 08:16 ; Start 12/22/16 at 16:00 Aspirin (Ecotrin) 81 mg DAILYWBKFT PO Last administered on 12/24/16 08:17; Start 12/23/16 at 08:00 Fluoxetine HCl 20 mg 20 mg DAILY PO ; Start 12/23/16 at 12:30 Tirofiban/Sodium Chloride (Aggrastat 12.5 Mg/250 ml Premix) 250 ml @ 0 mls/hr CONT PRN IV PER PROTOCOL Last administered on 12/23/16 20:58; Start 12/23/16 at 14:00 Adenosine (Adenocard) 6 mg STK-MED ONCE IV ; Start 12/23/16 at 18:14; Stop 12/23 at 18:15; Status Cancel Adenosine (Adenocard) 6 mg STK-MED ONCE IV ; Start 12/23/16 at 18:15; Stop 12/23 at 18:16; Status Cancel Active Scripts Active Hydrocodone-Apap 5-325 (Hydrocodone Bit/Acetaminophen) 1 Each Tablet 1 Tab PO PRN Q4HRS PRN Effient (Prasugrel Hcl) 10 Mg Tablet 10 Mg PO DAILYWBKFT Metoprolol Tartrate 25 Mg Tablet 12.5 Mg PO BID Atorvastatin Calcium 40 Mg Tablet 40 Mg PO QHS Aspirin Ec (Aspirin) 325 Mg Tablet.dr 325 Mg PO DAILYWBKFT Reported Chantix (Varenicline Tartrate) 0.5 Mg Tablet 1 Mg PO BID 0.5 MG PO DAILY X3 DAY, 0.5 MG PO BID X4 DAY, 1 MG PO BID UNTIL END OF TREATMENT Vitals/I & O Vital Sign - Last 24 Hours 12/23/16 12/23/16 12/23/16 12/23/16 14:45 19:43 20:00 20:23 Temp 98.4 98.1 98.4 98.1 Pulse 101 90 Resp 18 16 B/P 124/86 141/87 Pulse Ox 94 94 98 O2 Delivery Room Air Room Air Room Air Room Air 12/23/16 12/23/16 12/24/16 12/24/16 20:53 23:15 03:51 07:00 Temp 97.8 97.3 98.2 97.8 97.3 98.2 Pulse 90 91 75 95 Resp 16 16 18 B/P 141/87 122/77 131/88 120/88 Pulse Ox 91 91 93 O2 Delivery Room Air Room Air Room Air 12/24/16 12/24/16 12/24/16 12/24/16 07:34 08:05 08:16 08:17 Pulse 92 92 B/P 120/88 120/88 Pulse Ox 97 O2 Delivery Room Air Room Air 12/24/16 11:14 Temp 97.9 97.9 Pulse 103 Resp 18 B/P 111/87 Pulse Ox 95 O2 Delivery Room Air Intake and Output 12/23/16 12/23/16 12/24/16 15:00 23:00 07:00 Intake Total 1400 ml 645 ml Balance 1400 ml 645 ml YONAS NASSAR III DO Dec 24, 2016 12:56
--- NOTE | 2016-12-24 13:55 | PDOC ---
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 Simple partial seizure x 1, left side facial twitching. 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 Recent Hx of STEMI s/p cardiac stents. Longstanding Hx of smoking. Left side LE numbness. Anxiety. RECOMMENDATIONS/PLAN: Suggested AED, patient agreed today. Starts Keppra 250 mg bid, then 500 mg bid. Oncology consulted. NS consulted. Lung mass biopsy planned by Pulmonary Medicine. Smoking cessation. Discussed with him and his son in great detail about brain mass and AEDs at bedside on 12/24/16. EEG on 12/23: Normal study. PAST MEDICAL HISTORY: Please see above. PAST SURGERY HISTORY: Cardiac stents. ALLERGY: Reviewed. MEDICATIONS: Refer to [facility] FAMILY HISTORY: His father had lung cancer. SOCIAL HISTORY: Lives at home. He smokes 15 to 20 cigarettes a day for 20 years. REVIEW OF SYSTEMS: Constitutional: No cachexia. Head: No traumatic brain or head injury. Skin: No edema, or rash. Ear: No infection. Eyes: No vision loss or color blindness. Nose: No bleeding or purulent discharges. Hearing: No hearing decrease. Neck: No injury. Cardiac: stents x 2. Pulmonary: Lung mass found this time. GI: No GI ulcer, GI bleeding. Urinary/genital: No dysuria, hematuria, incontinence, urinary retention. Endocrinologic: No cousin face, craniofacial dysmorphism, polydactyly. Skeletomuscular: No muscular atrophy, deformity. Neurological: see HP. Psychiatric: smoking. Otherwise, not [id number] review of systems. PHYSICAL EXAMINATION: General appearance is in subacute distress. HEENT: Normocephalic and nontraumatic. Eyes, nose, ears, and throat are unremarkable. Neck is supple. No lymphadenopathy. No crepitus. Cardiovascular: S1, S2, regular rate and rhythm. Pulmonary: Clear to auscultation bilaterally. Abdomen: Bowel sounds are positive. Abdomen is soft, nontender, and nondistended. Extremities: No rash, lesions, or edema. No restriction of range of motion NEUROLOGICAL EXAMINATION: Awake. Oriented to time, place and person. PERRL. EOMI. CN: no focal findings. Muscle tone: within normal. Muscle strength: 5 DTR: 2 Plantar reflex: Flexor response bilaterally Gait: Near his normal baseline. Sensory exam: no abnormal findings. No obvious cerebellar signs elicited. F-T-N test accurate. Objective Objective Vital Signs Date Time Temp Pulse Resp B/P Pulse Ox O2 Delivery O2 Flow Rate FiO2 12/24/16 11:14 97.9 103 18 111/87 95 Room Air 97.9 Intake and Output 12/24/16 07:00 Intake Total 2045 ml Balance 2045 ml Intake Oral 1850 ml IV Total 195 ml # Voids 4 Vitals Signs Vitals VS - Last 72 Hours, by Label Date Time Temp Pulse Resp B/P Pulse Ox O2 Delivery O2 Flow Rate FiO2 12/24/16 11:14 97.9 103 18 111/87 95 Room Air 97.9 12/24/16 08:17 92 120/88 12/24/16 08:16 92 120/88 12/24/16 08:05 Room Air 12/24/16 07:34 97 Room Air 12/24/16 07:00 98.2 95 18 120/88 93 Room Air 98.2 12/24/16 03:51 97.3 75 16 131/88 91 Room Air 97.3 12/23/16 23:15 97.8 91 16 122/77 91 Room Air 97.8 12/23/16 20:53 90 141/87 12/23/16 20:23 98 Room Air 12/23/16 20:00 Room Air 12/23/16 19:43 98.1 90 16 141/87 94 Room Air 98.1 12/23/16 14:45 98.4 101 18 124/86 94 Room Air 98.4 12/23/16 09:46 94 137/84 12/23/16 09:45 94 137/84 12/23/16 08:05 Room Air 12/23/16 07:53 98.0 94 20 137/84 97 Room Air 98.0 12/23/16 07:31 98 Room Air Laboratory Laboratory Laboratory Tests Test 12/24/16 04:40 White Blood Count 13.6x10^3/uL (4.0-11.0) Red Blood Count 5.21x10^6/uL (4.30-5.70) Hemoglobin 14.6g/dL (13.0-17.5) Hematocrit 45.5% (39.0-53.0) Mean Corpuscular Volume 87fL (79-100) Mean Corpuscular Hemoglobin 28pg (25-35) Mean Corpuscular Hemoglobin Concent 32g/dL (31-37) Red Cell Distribution Width 13.4% (11.5-14.5) Platelet Count 214x10^3/uL (140-400) Neutrophils (%) (Auto) 72% (31-73) Lymphocytes (%) (Auto) 20% (24-48) Monocytes (%) (Auto) 7% (0-9) Eosinophils (%) (Auto) 0% (0-3) Basophils (%) (Auto) 0% (0-3) Neutrophils # (Auto) 9.8x10^3uL (1.8-7.7) Lymphocytes # (Auto) 2.7x10^3/uL (1.0-4.8) Monocytes # (Auto) 0.9x10^3/uL (0.0-1.1) Eosinophils # (Auto) 0.0x10^3/uL (0.0-0.7) Basophils # (Auto) 0.0x10^3/uL (0.0-0.2) Sodium Level 142mmol/L (136-145) Potassium Level 4.5mmol/L (3.5-5.1) Chloride Level 106mmol/L (98-107) Carbon Dioxide Level 30mmol/L (21-32) Anion Gap 6 (6-14) Blood Urea Nitrogen 19mg/dL (8-26) Creatinine 1.1mg/dL (0.7-1.3) Estimated GFR (Cockcroft-Gault) 69.5 Glucose Level 95mg/dL (70-99) Calcium Level 9.3mg/dL (8.5-10.1) Medication Medications Current Medications Adenosine (Adenocard) 6 mg STK-MED ONCE IV ; Start 12/23/16 at 18:14; Stop 12/23 at 18:15; Status Cancel Adenosine (Adenocard) 6 mg STK-MED ONCE IV ; Start 12/23/16 at 18:15; Stop 12/23 at 18:16; Status Cancel Tirofiban/Sodium Chloride (Aggrastat 12.5 Mg/250 ml Premix) 250 ml @ 0 mls/hr CONT PRN IV PER PROTOCOL Last administered on 12/23/16t 20:58; Start 12/23/16 at 14:00 Comment Review of Relevant I have reviewed the following items tess (where applicable) has been applied. KRISTY KAYE MD Dec 24, 2016 13:55
[2016-12-24 14:44] VITALS: BP 125/84
[2016-12-24] MEDS ORDERED: ALPRAZOLAM 0.25 MG TABLET. ONE ×2 (14:46→21:27)
[2016-12-24] MEDS: LEVETIRACETAM 250 MG TABLET. PO SCH ×2 (14:51→21:45)
[2016-12-24] MEDS: TIROFIBAN 12.5MG -0.9% NS 250 ML IV PRN (14:57)
[2016-12-24 19:05] VITALS: BP 119/84
[2016-12-24] MEDS: ATORVASTATIN CALCIUM 40 MG TABLET. PO SCH (21:00)
[2016-12-24 23:05] VITALS: BP 116/71
[2016-12-25 03:05] VITALS: BP 129/84
[2016-12-25 03:49] LABS: BASO % 0 % (0-3); EOS % 0 % (0-3); HEMATOCRIT 45.3 % (39.0-53.0); HEMOGLOBIN 14.8 g/dL (13.0-17.5); LYMPH # 2.6 x10^3/uL (1.0-4.8); LYMPH % 19 % (24-48); MEAN CORPUSCULAR HEMOGLOBIN 28 pg (25-35); MEAN CORPUSCULAR HGB CONC 33 g/dL (31-37); MEAN CORPUSCULAR VOLUME 87 fL (79-100); MONO % 6 % (0-9); NEUT % 75 % (31-73); PLATELET COUNT 200 x10^3/uL (140-400); RED BLOOD COUNT 5.21 x10^6/uL (4.30-5.70); RED CELL DISTRIBUTION WIDTH 13.5 % (11.5-14.5)
[2016-12-25] MEDS: TIROFIBAN 12.5MG -0.9% NS 250 ML IV PRN ×2 (03:59→20:53)
[2016-12-25 04:06] LABS: GFR 77.6; POTASSIUM 4.3 mmol/L (3.5-5.1)
[2016-12-25] MEDS ORDERED: ACETAMINOPHEN 325 MG TABLET. PO PRN (04:49)
[2016-12-25] MEDS ORDERED: ONDANSETRON PF 4 MG/2 ML VIAL. IV PRN (04:49)
[2016-12-25 07:00] VITALS: BP 135/78
[2016-12-25] MEDS: ASPIRIN ENTERIC COATED 81 MG TABLET.DR. PO SCH (08:00)
[2016-12-25] MEDS: IPRATRPIUM/ALBUTEROL 0.5/2.5MG 3 ML NEBU. NEB SCH ×4 (08:00→20:49)
[2016-12-25] MEDS ORDERED: ASPIRIN ENTERIC COATED 81 MG TABLET.DR. PO ONE (08:37)
--- NOTE | 2016-12-25 09:01 | PDOC ---
PULMONARY PROGRESS NOTES Subjective no soa very anxious and not sleeping Vitals Vital Signs Date Time Temp Pulse Resp B/P Pulse Ox O2 Delivery O2 Flow Rate FiO2 12/25/16 07:00 98.2 82 17 135/78 96 Room Air 98.2 ROS: No Nausea, No Chest Pain, No Abdominal Pain, No Increase Cough General: Alert, No acute distress Lungs: Clear Cardiovascular: S1 Abdomen: Soft Neuro Exam: Alert Extremities: No Edema Skin: Warm Labs Laboratory Tests Test 12/24/16 04:40 12/25/16 03:12 White Blood Count 13.6x10^3/uL (4.0-11.0) 14.0x10^3/uL (4.0-11.0) Red Blood Count 5.21x10^6/uL (4.30-5.70) 5.21x10^6/uL (4.30-5.70) Hemoglobin 14.6g/dL (13.0-17.5) 14.8g/dL (13.0-17.5) Hematocrit 45.5% (39.0-53.0) 45.3% (39.0-53.0) Mean Corpuscular Volume 87fL (79-100) 87fL (79-100) Mean Corpuscular Hemoglobin 28pg (25-35) 28pg (25-35) Mean Corpuscular Hemoglobin Concent 32g/dL (31-37) 33g/dL (31-37) Red Cell Distribution Width 13.4% (11.5-14.5) 13.5% (11.5-14.5) Platelet Count 214x10^3/uL (140-400) 200x10^3/uL (140-400) Neutrophils (%) (Auto) 72% (31-73) 75% (31-73) Lymphocytes (%) (Auto) 20% (24-48) 19% (24-48) Monocytes (%) (Auto) 7% (0-9) 6% (0-9) Eosinophils (%) (Auto) 0% (0-3) 0% (0-3) Basophils (%) (Auto) 0% (0-3) 0% (0-3) Neutrophils # (Auto) 9.8x10^3uL (1.8-7.7) 10.5x10^3uL (1.8-7.7) Lymphocytes # (Auto) 2.7x10^3/uL (1.0-4.8) 2.6x10^3/uL (1.0-4.8) Monocytes # (Auto) 0.9x10^3/uL (0.0-1.1) 0.8x10^3/uL (0.0-1.1) Eosinophils # (Auto) 0.0x10^3/uL (0.0-0.7) 0.0x10^3/uL (0.0-0.7) Basophils # (Auto) 0.0x10^3/uL (0.0-0.2) 0.0x10^3/uL (0.0-0.2) Sodium Level 142mmol/L (136-145) 143mmol/L (136-145) Potassium Level 4.5mmol/L (3.5-5.1) 4.3mmol/L (3.5-5.1) Chloride Level 106mmol/L (98-107) 107mmol/L (98-107) Carbon Dioxide Level 30mmol/L (21-32) 29mmol/L (21-32) Anion Gap 6 (6-14) 7 (6-14) Blood Urea Nitrogen 19mg/dL (8-26) 18mg/dL (8-26) Creatinine 1.1mg/dL (0.7-1.3) 1.0mg/dL (0.7-1.3) Estimated GFR (Cockcroft-Gault) 69.5 77.6 Glucose Level 95mg/dL (70-99) 99mg/dL (70-99) Calcium Level 9.3mg/dL (8.5-10.1) 9.0mg/dL (8.5-10.1) Laboratory Tests Test 12/25/16 03:12 White Blood Count 14.0x10^3/uL (4.0-11.0) Red Blood Count 5.21x10^6/uL (4.30-5.70) Hemoglobin 14.8g/dL (13.0-17.5) Hematocrit 45.3% (39.0-53.0) Mean Corpuscular Volume 87fL (79-100) Mean Corpuscular Hemoglobin 28pg (25-35) Mean Corpuscular Hemoglobin Concent 33g/dL (31-37) Red Cell Distribution Width 13.5% (11.5-14.5) Platelet Count 200x10^3/uL (140-400) Neutrophils (%) (Auto) 75% (31-73) Lymphocytes (%) (Auto) 19% (24-48) Monocytes (%) (Auto) 6% (0-9) Eosinophils (%) (Auto) 0% (0-3) Basophils (%) (Auto) 0% (0-3) Neutrophils # (Auto) 10.5x10^3uL (1.8-7.7) Lymphocytes # (Auto) 2.6x10^3/uL (1.0-4.8) Monocytes # (Auto) 0.8x10^3/uL (0.0-1.1) Eosinophils # (Auto) 0.0x10^3/uL (0.0-0.7) Basophils # (Auto) 0.0x10^3/uL (0.0-0.2) Sodium Level 143mmol/L (136-145) Potassium Level 4.3mmol/L (3.5-5.1) Chloride Level 107mmol/L (98-107) Carbon Dioxide Level 29mmol/L (21-32) Anion Gap 7 (6-14) Blood Urea Nitrogen 18mg/dL (8-26) Creatinine 1.0mg/dL (0.7-1.3) Estimated GFR (Cockcroft-Gault) 77.6 Glucose Level 99mg/dL (70-99) Calcium Level 9.0mg/dL (8.5-10.1) Medications Active Scripts Medications Dose Route/Sig Days Date Category Dose Instructions Hydrocodone-Apap 5-325 (Hydrocodone Bit/Acetaminophen) 1 Each Tablet 1 Tab PO PRN Q4HRS PRN 12/06/16 Rx Effient (Prasugrel Hcl) 10 Mg Tablet 10 Mg PO DAILYWBKFT 12/06/16 Rx Metoprolol Tartrate 25 Mg Tablet 12.5 Mg PO BID 12/06/16 Rx Atorvastatin Calcium 40 Mg Tablet 40 Mg PO QHS 12/06/16 Rx Aspirin Ec (Aspirin) 325 Mg Tablet. 325 Mg PO DAILYWBKFT 12/06/16 Rx Chantix (Varenicline Tartrate) 0.5 Mg Tablet 1 Mg PO BID 12/05/16 Reported 0.5 MG PO DAILY X3 DAY, 0.5 MG PO BID X4 DAY, 1 MG PO BID UNTIL END OF TREATMENT Impression . 1. 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 severe emphysema surrounding lung mass 3. Ex-smoker, questionable chronic obstructive pulmonary disease. 4. 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 Coronary artery disease, recent NSTMI 2 weeks ago, status post stents, on anti-platelet therapy 6. [employer] Plan . PLan for lung biopsy in AM bone scan report noted no mets 1. Cardiology stopped Prasugrel that has antiplatelet effect for 4 to 5 days. Cardiology is recommending bridging with Integrilin or Cangrelor. await their recommendations 2. Dr Burrows, discussed at length with patient and sig. other that I would prefer brain biopsy/complete excision to make a diagnosis and possible cure for brain lesion. CT-guided biopsy of the chest is an option but I am concerned with emphysematous changes surrounding the lung lesion and at least 50% chance of PTX with need for chest tube and even VAT if lung does not expand. DR Yeboah would favor biopsy lung, schedule for later this week. I agree with above 3. At some point, he would require pulmonary function tests. 4. Titrate FiO2 to keep O2 saturation more than 92%. 5. bronchodilator. 6. Anti-seizure medication per Neurology. 7. Ativan BID MONICA MENDIOLA MD Dec 25, 2016 09:01
[2016-12-25] MEDS: PANTOPRAZOLE 40 MG TABLET. PO SCH (09:14)
[2016-12-25] MEDS: FLUOXETINE HCL 20 MG CAPSULE PO SCH (09:15)
[2016-12-25] MEDS: LOSARTAN POTASSIUM 25 MG TABLET. PO SCH (09:15)
[2016-12-25] MEDS: LEVETIRACETAM 250 MG TABLET. PO SCH (09:16)
[2016-12-25] MEDS: DEXAMETHASONE 1 MG TABLET PO SCH ×2 (09:16→21:21)
[2016-12-25] MEDS: METOPROLOL TART IMMED RELEASE 25 MG TABLET PO SCH ×2 (09:16→21:22)
--- NOTE | 2016-12-25 10:27 | PDOC ---
PROGRESS NOTES Chief Complaint Chief Complaint Partial seizure, new 1. Brain lesion: suspected met from lung CA. planned bx/resection later this week. on decadron 2. Sz: no antiepileptics as per neuro. 3. RUL lung mass: c/w lung primary. d/w Dr Burrows: bx relatively contraindicated due to severe emphysema. staging CT and brain MRI with lung and solitary brain lesion only. bone scan pending. Dr Ta following 4. CAD: recent NSTEMI with PCI, requiring Plaxix - currently on hold for anticipated brain surgery. d/w cards: start aggrastat 5. HLD: on statin 6. COPD: nebs 7. Tobacco dependence: started on chantix History of Present Illness History of Present Illness Patient with no acute events overnight. Reports that he feels relatively well. Pt's son present at bedside. Pt would like to go home following transthoracic lung biopsy performed by IR. Denies shortness of air, nausea, vomiting. Vitals Vitals Vital Signs Date Time Temp Pulse Resp B/P Pulse Ox O2 Delivery O2 Flow Rate FiO2 12/25/16 09:16 82 135/78 12/25/16 07:00 98.2 17 96 Room Air 98.2 Physical Exam General: Alert, Oriented X3, Cooperative Heart: Regular rate, Normal S1, Normal S2 Lungs: Clear (but diminished) Abdomen: Normal bowel sounds, Soft, No tenderness Extremities: No clubbing, No edema Skin: No rashes Labs LABS Laboratory Tests Test 12/25/16 03:12 White Blood Count 14.0x10^3/uL (4.0-11.0) Red Blood Count 5.21x10^6/uL (4.30-5.70) Hemoglobin 14.8g/dL (13.0-17.5) Hematocrit 45.3% (39.0-53.0) Mean Corpuscular Volume 87fL (79-100) Mean Corpuscular Hemoglobin 28pg (25-35) Mean Corpuscular Hemoglobin Concent 33g/dL (31-37) Red Cell Distribution Width 13.5% (11.5-14.5) Platelet Count 200x10^3/uL (140-400) Neutrophils (%) (Auto) 75% (31-73) Lymphocytes (%) (Auto) 19% (24-48) Monocytes (%) (Auto) 6% (0-9) Eosinophils (%) (Auto) 0% (0-3) Basophils (%) (Auto) 0% (0-3) Neutrophils # (Auto) 10.5x10^3uL (1.8-7.7) Lymphocytes # (Auto) 2.6x10^3/uL (1.0-4.8) Monocytes # (Auto) 0.8x10^3/uL (0.0-1.1) Eosinophils # (Auto) 0.0x10^3/uL (0.0-0.7) Basophils # (Auto) 0.0x10^3/uL (0.0-0.2) Sodium Level 143mmol/L (136-145) Potassium Level 4.3mmol/L (3.5-5.1) Chloride Level 107mmol/L (98-107) Carbon Dioxide Level 29mmol/L (21-32) Anion Gap 7 (6-14) Blood Urea Nitrogen 18mg/dL (8-26) Creatinine 1.0mg/dL (0.7-1.3) Estimated GFR (Cockcroft-Gault) 77.6 Glucose Level 99mg/dL (70-99) Calcium Level 9.0mg/dL (8.5-10.1) Review of Systems Review of Systems Denies fever, chills Denies chest pain, shortness of air Denies nausea, vomiting, bowel changes Assessment and Plan Assessmemt and Plan Problems Medical Problems: (1) Right frontal lobe lesion Status: Acute ASSESSMENT: 1. Brain lesion: suspected met from lung CA. on decadron 2. Sz: no antiepileptics as per neuro. 3. RUL lung mass: c/w lung primary. Dr Ta following 4. CAD: recent NSTEMI with PCI, 5. HLD: on statin 6. COPD: nebs 7. Tobacco dependence: started on chantix PLAN: - probable IR transthoracic lung biopsy on Thursday; hope to discharge after biopsy if ok with subspecialists - continue care per floor protocol - continue Aggrastat per cardio recommendation - hope to change to oral anticoagulants after procedure scheduled - recheck daily labs - appreciate subspecialities inputs and recommendations Problems: Comment Review of Relevant I have reviewed the following items tess (where applicable) has been applied. Labs Laboratory Tests Test 12/24/16 04:40 12/25/16 03:12 White Blood Count 13.6x10^3/uL (4.0-11.0) 14.0x10^3/uL (4.0-11.0) Red Blood Count 5.21x10^6/uL (4.30-5.70) 5.21x10^6/uL (4.30-5.70) Hemoglobin 14.6g/dL (13.0-17.5) 14.8g/dL (13.0-17.5) Hematocrit 45.5% (39.0-53.0) 45.3% (39.0-53.0) Mean Corpuscular Volume 87fL (79-100) 87fL (79-100) Mean Corpuscular Hemoglobin 28pg (25-35) 28pg (25-35) Mean Corpuscular Hemoglobin Concent 32g/dL (31-37) 33g/dL (31-37) Red Cell Distribution Width 13.4% (11.5-14.5) 13.5% (11.5-14.5) Platelet Count 214x10^3/uL (140-400) 200x10^3/uL (140-400) Neutrophils (%) (Auto) 72% (31-73) 75% (31-73) Lymphocytes (%) (Auto) 20% (24-48) 19% (24-48) Monocytes (%) (Auto) 7% (0-9) 6% (0-9) Eosinophils (%) (Auto) 0% (0-3) 0% (0-3) Basophils (%) (Auto) 0% (0-3) 0% (0-3) Neutrophils # (Auto) 9.8x10^3uL (1.8-7.7) 10.5x10^3uL (1.8-7.7) Lymphocytes # (Auto) 2.7x10^3/uL (1.0-4.8) 2.6x10^3/uL (1.0-4.8) Monocytes # (Auto) 0.9x10^3/uL (0.0-1.1) 0.8x10^3/uL (0.0-1.1) Eosinophils # (Auto) 0.0x10^3/uL (0.0-0.7) 0.0x10^3/uL (0.0-0.7) Basophils # (Auto) 0.0x10^3/uL (0.0-0.2) 0.0x10^3/uL (0.0-0.2) Sodium Level 142mmol/L (136-145) 143mmol/L (136-145) Potassium Level 4.5mmol/L (3.5-5.1) 4.3mmol/L (3.5-5.1) Chloride Level 106mmol/L (98-107) 107mmol/L (98-107) Carbon Dioxide Level 30mmol/L (21-32) 29mmol/L (21-32) Anion Gap 6 (6-14) 7 (6-14) Blood Urea Nitrogen 19mg/dL (8-26) 18mg/dL (8-26) Creatinine 1.1mg/dL (0.7-1.3) 1.0mg/dL (0.7-1.3) Estimated GFR (Cockcroft-Gault) 69.5 77.6 Glucose Level 95mg/dL (70-99) 99mg/dL (70-99) Calcium Level 9.3mg/dL (8.5-10.1) 9.0mg/dL (8.5-10.1) Laboratory Tests Test 12/25/16 03:12 White Blood Count 14.0x10^3/uL (4.0-11.0) Red Blood Count 5.21x10^6/uL (4.30-5.70) Hemoglobin 14.8g/dL (13.0-17.5) Hematocrit 45.3% (39.0-53.0) Mean Corpuscular Volume 87fL (79-100) Mean Corpuscular Hemoglobin 28pg (25-35) Mean Corpuscular Hemoglobin Concent 33g/dL (31-37) Red Cell Distribution Width 13.5% (11.5-14.5) Platelet Count 200x10^3/uL (140-400) Neutrophils (%) (Auto) 75% (31-73) Lymphocytes (%) (Auto) 19% (24-48) Monocytes (%) (Auto) 6% (0-9) Eosinophils (%) (Auto) 0% (0-3) Basophils (%) (Auto) 0% (0-3) Neutrophils # (Auto) 10.5x10^3uL (1.8-7.7) Lymphocytes # (Auto) 2.6x10^3/uL (1.0-4.8) Monocytes # (Auto) 0.8x10^3/uL (0.0-1.1) Eosinophils # (Auto) 0.0x10^3/uL (0.0-0.7) Basophils # (Auto) 0.0x10^3/uL (0.0-0.2) Sodium Level 143mmol/L (136-145) Potassium Level 4.3mmol/L (3.5-5.1) Chloride Level 107mmol/L (98-107) Carbon Dioxide Level 29mmol/L (21-32) Anion Gap 7 (6-14) Blood Urea Nitrogen 18mg/dL (8-26) Creatinine 1.0mg/dL (0.7-1.3) Estimated GFR (Cockcroft-Gault) 77.6 Glucose Level 99mg/dL (70-99) Calcium Level 9.0mg/dL (8.5-10.1) Medications Current Medications Iohexol (Omnipaque 300 Mg/ml) 70 ml 1X ONCE IV Last administered on 12/20/16 03:42; Start 12/20/16 at 03:15; Stop 12/20/16 at 03:16; Status DC Info (Do NOT chart on this entry -- for MONITORING) 1 each PRN DAILY PRN MC SEE COMMENTS; Start 12/20/16 at 03:15; Stop 12/21/16 at 16:47; Status DC Ondansetron HCl (Zofran) 4 mg PRN Q8HRS PRN IV NAUSEA/VOMITING; Start 12/20/16 at 04:30; Stop 12/20/16 at 13:26; Status DC Acetaminophen (Tylenol) 650 mg PRN Q4HRS PRN PO FEVER; Start 12/20/16 at 04:30 ; Stop 12/21/16 at 04:30; Status DC Aspirin (Carlene Aspirin) 325 mg 1X ONCE PO Last administered on 12/20/16 05:17 ; Start 12/20/16 at 05:00; Stop 12/20/16 at 05:01; Status DC Clopidogrel Bisulfate (Plavix) 75 mg DAILYWBKFT PO Last administered on 09:24; Start 12/20/16 at 09:00; Stop 12/20/16 at 13:22; Status DC Gadobutrol (Gadavist) 9 mmol 1X ONCE IV Last administered on 12/20/16 12:32; Start 12/20/16 at 12:30; Stop 12/20/16 at 12:31; Status DC Aspirin (Ecotrin) 325 mg DAILYWBKFT PO Last administered on 12/22/16 09:26; Start 12/20/16 at 14:00; Stop 12/22/16 at 16:13; Status DC Atorvastatin Calcium (Lipitor) 40 mg QHS PO ; Start 12/20/16 at 21:00 Acetaminophen/ Hydrocodone Bitart (Lortab 5/325) 1 tab PRN Q4HRS PRN PO MILD PAIN, 2ND CHOICE; Start 12/20/16 at 13:30 Metoprolol Tartrate (Lopressor) 12.5 mg BID PO Last administered on 12/25/16 09:16; Start 12/20/16 at 14:00 Prasugrel (Effient) 10 mg DAILYWBKFT PO Last administered on 12/21/16 08:36; Start 12/20/16 at 14:00; Stop 12/21/16 at 11:12; Status DC Varenicline (Chantix) 1 mg BID PO Last administered on 12/20/16 14:39; Start 12/20/16 at 14:00; Stop 12/23/16 at 16:55; Status DC Ondansetron HCl (Zofran) 4 mg PRN Q6HRS PRN IV NAUSEA/VOMITING; Start 12/20/16 at 13:30; Stop 12/25/16 at 04:49; Status DC Dexamethasone Sodium Phosphate (Decadron) 4 mg Q6HRS IV Last administered on 06:31; Start 12/20/16 at 18:00; Stop 12/22/16 at 12:20; Status DC Pantoprazole Sodium (Protonix) 40 mg DAILYAC PO Last administered on 12/25/16 09:14; Start 12/20/16 at 14:00 Acetaminophen (Tylenol) 650 mg PRN Q6HRS PRN PO MILD PAIN / TEMP; Start at 19:00; Stop 12/25/16 at 04:49; Status DC Alprazolam (Xanax) 0.25 mg PRN Q8HRS PRN PO ANXIETY / AGITATION; Start at 19:00; Status Cancel Lorazepam (Ativan) 2 mg PRN Q4HRS PRN IV ANXIETY / AGITATION Last administered on 12/23/16 20:54; Start 12/20/16 at 19:00 Alprazolam (Xanax) 0.25 mg TID PRN PRN PO ANXIETY / AGITATION; Start 12/20/16 at 19:15 Enoxaparin Sodium (Lovenox 80mg Syringe) 80 mg Q12HR SQ ; Start 12/21/16 at 21: 00; Stop 12/21/16 at 21:00; Status DC Info (Anti-Coagulation Monitoring By Pharmacy) 1 each PRN DAILY PRN MC SEE COMMENTS; Start 12/21/16 at 11:30; Stop 12/22/16 at 10:33; Status DC Enoxaparin Sodium (Lovenox 40mg Syringe) 40 mg Q24H SQ ; Start 12/22/16 at 10:00 ; Stop 12/22/16 at 10:00; Status DC Albuterol/ Ipratropium (Duoneb) 3 ml RTQID NEB Last administered on 12/24/16 19:39; Start 12/21/16 at 16:00 Iohexol (Omnipaque 300 Mg/ml) 75 ml 1X ONCE IV ; Start 12/21/16 at 13:15; Stop 12/21/16 at 13:16; Status DC Iohexol (Omnipaque 240 Mg/ml) 50 ml 1X ONCE PO ; Start 12/21/16 at 13:15; Stop 12/21/16 at 13:16; Status DC Info (Do NOT chart on this entry -- for MONITORING) 1 each PRN DAILY PRN MC SEE COMMENTS; Start 12/21/16 at 13:15; Stop 12/23/16 at 13:14; Status DC Dexamethasone (Decadron) 2 mg BID PO Last administered on 12/25/16 09:16; Start 12/22/16 at 13:00 Lorazepam 0.5 mg 0.5 mg PRN Q8HRS PRN PO ANXIETY / AGITATION Last administered on 12/24/16 08:16; Start 12/22/16 at 13:15 Tirofiban/Sodium Chloride (Aggrastat 12.5 Mg/250 ml Premix) 250 ml @ 0 mls/hr CONT PRN IV PER PROTOCOL Last administered on 12/23/16 05:48; Start 12/22/16 at 14:15; Stop 12/23/16 at 13:46; Status DC Losartan Potassium (Cozaar) 25 mg DAILY PO Last administered on 12/25/16 09:15 ; Start 12/22/16 at 16:00 Aspirin (Ecotrin) 81 mg DAILYWBKFT PO Last administered on 12/24/16 08:17; Start 12/23/16 at 08:00 Fluoxetine HCl 20 mg 20 mg DAILY PO Last administered on 12/25/16 09:15; Start 12/23/16 at 12:30 Tirofiban/Sodium Chloride (Aggrastat 12.5 Mg/250 ml Premix) 250 ml @ 0 mls/hr CONT PRN IV PER PROTOCOL Last administered on 12/25/16 03:59; Start 12/23/16 at 14:00 Adenosine (Adenocard) 6 mg STK-MED ONCE IV ; Start 12/23/16 at 18:14; Stop 12/23 at 18:15; Status Cancel Adenosine (Adenocard) 6 mg STK-MED ONCE IV ; Start 12/23/16 at 18:15; Stop 12/23 at 18:16; Status Cancel Levetiracetam (Keppra) 250 mg BID PO Last administered on 12/25/16 09:16; Start 12/24/16 at 14:00 Alprazolam (Xanax) 0.25 mg STK-MED ONCE .ROUTE ; Start 12/24/16 at 14:46; Stop 12/24/16 at 14:47; Status DC Alprazolam (Xanax) 0.25 mg STK-MED ONCE .ROUTE Last administered on 12/24/16 21:45; Start 12/24/16 at 21:27; Stop 12/24/16 at 21:28; Status DC Acetaminophen (Tylenol) 650 mg PRN Q6HRS PRN PO MILD PAIN / TEMP; Start at 04:49 Ondansetron HCl (Zofran) 4 mg PRN Q6HRS PRN IV NAUSEA/VOMITING; Start 12/25/16 at 04:49 Aspirin (Ecotrin) 81 mg STK-MED ONCE PO ; Start 12/25/16 at 08:37; Stop at 08:38; Status DC Active Scripts Active Hydrocodone-Apap 5-325 (Hydrocodone Bit/Acetaminophen) 1 Each Tablet 1 Tab PO PRN Q4HRS PRN Effient (Prasugrel Hcl) 10 Mg Tablet 10 Mg PO DAILYWBKFT Metoprolol Tartrate 25 Mg Tablet 12.5 Mg PO BID Atorvastatin Calcium 40 Mg Tablet 40 Mg PO QHS Aspirin Ec (Aspirin) 325 Mg Tablet.dr 325 Mg PO DAILYWBKFT Reported Chantix (Varenicline Tartrate) 0.5 Mg Tablet 1 Mg PO BID 0.5 MG PO DAILY X3 DAY, 0.5 MG PO BID X4 DAY, 1 MG PO BID UNTIL END OF TREATMENT Vitals/I & O Vital Sign - Last 24 Hours 12/24/16 12/24/16 12/24/16 12/24/16 11:14 14:44 19:05 19:40 Temp 97.9 98.0 97.8 97.9 98.0 97.8 Pulse 103 86 110 Resp 18 18 16 B/P 111/87 125/84 119/84 Pulse Ox 95 95 95 97 O2 Delivery Room Air Room Air Room Air Room Air 12/24/16 12/24/16 12/24/16 12/25/16 20:00 21:45 23:05 03:05 Temp 98.2 98.5 98.2 98.5 Pulse 110 86 83 Resp 16 14 B/P 119/84 116/71 129/84 Pulse Ox 95 96 O2 Delivery Room Air Room Air 12/25/16 12/25/16 12/25/16 07:00 09:15 09:16 Temp 98.2 98.2 Pulse 82 82 82 Resp 17 B/P 135/78 135/78 135/78 Pulse Ox 96 O2 Delivery Room Air Intake and Output 12/24/16 12/24/16 12/25/16 15:00 23:00 07:00 Intake Total 800 ml 300 ml Output Total 200 ml Balance 800 ml 100 ml YONAS NASSAR III DO Dec 25, 2016 10:27
[2016-12-25 10:35] LABS: PROTHROMBIN TIME PATIENT 12.8 SEC (11.7-14.0)
[2016-12-25 11:00] VITALS: BP 126/81
--- NOTE | 2016-12-25 12:58 | PDOC ---
PROGRESS NOTES Subjective Subjective c/c - f/u of RUL mass Objective Objective Vital Signs Date Time Temp Pulse Resp B/P Pulse Ox O2 Delivery O2 Flow Rate FiO2 12/25/16 12:40 98 Room Air 12/25/16 11:00 98.2 80 18 126/81 98.2 Intake and Output 12/25/16 07:00 Intake Total 1100 ml Output Total 200 ml Balance 900 ml Intake Oral 1100 ml Output Urine Total 200 ml Physical Exam Heart: Normal S1, Normal S2 General: Alert, Oriented X3 Lungs: Clear to auscultation Neuro: Normal speech Psych/Mental Status: Mental status NL Assessment Assessment Problems Medical Problems: (1) Right frontal lobe lesion Status: Acute A/P: 1. RUL mass by CT, also solitary [employer] lesion appears c/w bronchogenic ca CT - chest abd and pelvis 12/22/15: 6.2 cm parenchymal mass in the right upper lobe most compatible with primary neoplastic disease. No evidence of metastatic disease in the chest, abdomen or pelvis. Plan CT guided bx. - if small cell , then no resection. I would plan chemo.XRT - if NSCLC, then resection of both the primary and solitary met can be considered. 2. CAD s/p stents - Appreciate cardiology mgmt of anti plt agent. Prasurgrel was discontinued by cardiology 12/21/16. 3. Brain met - agree with steroids and will defer anti epileptics to neuro - looks like they are observing for now. 4. Bone scan 12/23/16 reveals no mets. Comment Review of Relevant I have reviewed the following items tess (where applicable) has been applied. Labs Laboratory Tests Test 12/24/16 04:40 12/25/16 03:12 12/25/16 09:48 White Blood Count 13.6x10^3/uL (4.0-11.0) 14.0x10^3/uL (4.0-11.0) Red Blood Count 5.21x10^6/uL (4.30-5.70) 5.21x10^6/uL (4.30-5.70) Hemoglobin 14.6g/dL (13.0-17.5) 14.8g/dL (13.0-17.5) Hematocrit 45.5% (39.0-53.0) 45.3% (39.0-53.0) Mean Corpuscular Volume 87fL (79-100) 87fL (79-100) Mean Corpuscular Hemoglobin 28pg (25-35) 28pg (25-35) Mean Corpuscular Hemoglobin Concent 32g/dL (31-37) 33g/dL (31-37) Red Cell Distribution Width 13.4% (11.5-14.5) 13.5% (11.5-14.5) Platelet Count 214x10^3/uL (140-400) 200x10^3/uL (140-400) Neutrophils (%) (Auto) 72% (31-73) 75% (31-73) Lymphocytes (%) (Auto) 20% (24-48) 19% (24-48) Monocytes (%) (Auto) 7% (0-9) 6% (0-9) Eosinophils (%) (Auto) 0% (0-3) 0% (0-3) Basophils (%) (Auto) 0% (0-3) 0% (0-3) Neutrophils # (Auto) 9.8x10^3uL (1.8-7.7) 10.5x10^3uL (1.8-7.7) Lymphocytes # (Auto) 2.7x10^3/uL (1.0-4.8) 2.6x10^3/uL (1.0-4.8) Monocytes # (Auto) 0.9x10^3/uL (0.0-1.1) 0.8x10^3/uL (0.0-1.1) Eosinophils # (Auto) 0.0x10^3/uL (0.0-0.7) 0.0x10^3/uL (0.0-0.7) Basophils # (Auto) 0.0x10^3/uL (0.0-0.2) 0.0x10^3/uL (0.0-0.2) Sodium Level 142mmol/L (136-145) 143mmol/L (136-145) Potassium Level 4.5mmol/L (3.5-5.1) 4.3mmol/L (3.5-5.1) Chloride Level 106mmol/L (98-107) 107mmol/L (98-107) Carbon Dioxide Level 30mmol/L (21-32) 29mmol/L (21-32) Anion Gap 6 (6-14) 7 (6-14) Blood Urea Nitrogen 19mg/dL (8-26) 18mg/dL (8-26) Creatinine 1.1mg/dL (0.7-1.3) 1.0mg/dL (0.7-1.3) Estimated GFR (Cockcroft-Gault) 69.5 77.6 Glucose Level 95mg/dL (70-99) 99mg/dL (70-99) Calcium Level 9.3mg/dL (8.5-10.1) 9.0mg/dL (8.5-10.1) Prothrombin Time 12.8SEC (11.7-14.0) Prothromb Time International Ratio 1.0 (0.8-1.1) Laboratory Tests Test 12/25/16 03:12 12/25/16 09:48 White Blood Count 14.0x10^3/uL (4.0-11.0) Red Blood Count 5.21x10^6/uL (4.30-5.70) Hemoglobin 14.8g/dL (13.0-17.5) Hematocrit 45.3% (39.0-53.0) Mean Corpuscular Volume 87fL (79-100) Mean Corpuscular Hemoglobin 28pg (25-35) Mean Corpuscular Hemoglobin Concent 33g/dL (31-37) Red Cell Distribution Width 13.5% (11.5-14.5) Platelet Count 200x10^3/uL (140-400) Neutrophils (%) (Auto) 75% (31-73) Lymphocytes (%) (Auto) 19% (24-48) Monocytes (%) (Auto) 6% (0-9) Eosinophils (%) (Auto) 0% (0-3) Basophils (%) (Auto) 0% (0-3) Neutrophils # (Auto) 10.5x10^3uL (1.8-7.7) Lymphocytes # (Auto) 2.6x10^3/uL (1.0-4.8) Monocytes # (Auto) 0.8x10^3/uL (0.0-1.1) Eosinophils # (Auto) 0.0x10^3/uL (0.0-0.7) Basophils # (Auto) 0.0x10^3/uL (0.0-0.2) Sodium Level 143mmol/L (136-145) Potassium Level 4.3mmol/L (3.5-5.1) Chloride Level 107mmol/L (98-107) Carbon Dioxide Level 29mmol/L (21-32) Anion Gap 7 (6-14) Blood Urea Nitrogen 18mg/dL (8-26) Creatinine 1.0mg/dL (0.7-1.3) Estimated GFR (Cockcroft-Gault) 77.6 Glucose Level 99mg/dL (70-99) Calcium Level 9.0mg/dL (8.5-10.1) Prothrombin Time 12.8SEC (11.7-14.0) Prothromb Time International Ratio 1.0 (0.8-1.1) Medications Current Medications Iohexol (Omnipaque 300 Mg/ml) 70 ml 1X ONCE IV Last administered on 12/20/16 03:42; Start 12/20/16 at 03:15; Stop 12/20/16 at 03:16; Status DC Info (Do NOT chart on this entry -- for MONITORING) 1 each PRN DAILY PRN MC SEE COMMENTS; Start 12/20/16 at 03:15; Stop 12/21/16 at 16:47; Status DC Ondansetron HCl (Zofran) 4 mg PRN Q8HRS PRN IV NAUSEA/VOMITING; Start 12/20/16 at 04:30; Stop 12/20/16 at 13:26; Status DC Acetaminophen (Tylenol) 650 mg PRN Q4HRS PRN PO FEVER; Start 12/20/16 at 04:30 ; Stop 12/21/16 at 04:30; Status DC Aspirin (Carlene Aspirin) 325 mg 1X ONCE PO Last administered on 12/20/16 05:17 ; Start 12/20/16 at 05:00; Stop 12/20/16 at 05:01; Status DC Clopidogrel Bisulfate (Plavix) 75 mg DAILYWBKFT PO Last administered on 09:24; Start 12/20/16 at 09:00; Stop 12/20/16 at 13:22; Status DC Gadobutrol (Gadavist) 9 mmol 1X ONCE IV Last administered on 12/20/16 12:32; Start 12/20/16 at 12:30; Stop 12/20/16 at 12:31; Status DC Aspirin (Ecotrin) 325 mg DAILYWBKFT PO Last administered on 12/22/16 09:26; Start 12/20/16 at 14:00; Stop 12/22/16 at 16:13; Status DC Atorvastatin Calcium (Lipitor) 40 mg QHS PO ; Start 12/20/16 at 21:00 Acetaminophen/ Hydrocodone Bitart (Lortab 5/325) 1 tab PRN Q4HRS PRN PO MILD PAIN, 2ND CHOICE; Start 12/20/16 at 13:30 Metoprolol Tartrate (Lopressor) 12.5 mg BID PO Last administered on 12/25/16 09:16; Start 12/20/16 at 14:00 Prasugrel (Effient) 10 mg DAILYWBKFT PO Last administered on 12/21/16 08:36; Start 12/20/16 at 14:00; Stop 12/21/16 at 11:12; Status DC Varenicline (Chantix) 1 mg BID PO Last administered on 12/20/16 14:39; Start 12/20/16 at 14:00; Stop 12/23/16 at 16:55; Status DC Ondansetron HCl (Zofran) 4 mg PRN Q6HRS PRN IV NAUSEA/VOMITING; Start 12/20/16 at 13:30; Stop 12/25/16 at 04:49; Status DC Dexamethasone Sodium Phosphate (Decadron) 4 mg Q6HRS IV Last administered on 06:31; Start 12/20/16 at 18:00; Stop 12/22/16 at 12:20; Status DC Pantoprazole Sodium (Protonix) 40 mg DAILYAC PO Last administered on 12/25/16 09:14; Start 12/20/16 at 14:00 Acetaminophen (Tylenol) 650 mg PRN Q6HRS PRN PO MILD PAIN / TEMP; Start at 19:00; Stop 12/25/16 at 04:49; Status DC Alprazolam (Xanax) 0.25 mg PRN Q8HRS PRN PO ANXIETY / AGITATION; Start at 19:00; Status Cancel Lorazepam (Ativan) 2 mg PRN Q4HRS PRN IV ANXIETY / AGITATION Last administered on 12/23/16 20:54; Start 12/20/16 at 19:00 Alprazolam (Xanax) 0.25 mg TID PRN PRN PO ANXIETY / AGITATION; Start 12/20/16 at 19:15 Enoxaparin Sodium (Lovenox 80mg Syringe) 80 mg Q12HR SQ ; Start 12/21/16 at 21: 00; Stop 12/21/16 at 21:00; Status DC Info (Anti-Coagulation Monitoring By Pharmacy) 1 each PRN DAILY PRN MC SEE COMMENTS; Start 12/21/16 at 11:30; Stop 12/22/16 at 10:33; Status DC Enoxaparin Sodium (Lovenox 40mg Syringe) 40 mg Q24H SQ ; Start 12/22/16 at 10:00 ; Stop 12/22/16 at 10:00; Status DC Albuterol/ Ipratropium (Duoneb) 3 ml RTQID NEB Last administered on 12/25/16 12:00; Start 12/21/16 at 16:00 Iohexol (Omnipaque 300 Mg/ml) 75 ml 1X ONCE IV ; Start 12/21/16 at 13:15; Stop 12/21/16 at 13:16; Status DC Iohexol (Omnipaque 240 Mg/ml) 50 ml 1X ONCE PO ; Start 12/21/16 at 13:15; Stop 12/21/16 at 13:16; Status DC Info (Do NOT chart on this entry -- for MONITORING) 1 each PRN DAILY PRN MC SEE COMMENTS; Start 12/21/16 at 13:15; Stop 12/23/16 at 13:14; Status DC Dexamethasone (Decadron) 2 mg BID PO Last administered on 12/25/16 09:16; Start 12/22/16 at 13:00 Lorazepam 0.5 mg 0.5 mg PRN Q8HRS PRN PO ANXIETY / AGITATION Last administered on 12/24/16 08:16; Start 12/22/16 at 13:15 Tirofiban/Sodium Chloride (Aggrastat 12.5 Mg/250 ml Premix) 250 ml @ 0 mls/hr CONT PRN IV PER PROTOCOL Last administered on 12/23/16 05:48; Start 12/22/16 at 14:15; Stop 12/23/16 at 13:46; Status DC Losartan Potassium (Cozaar) 25 mg DAILY PO Last administered on 12/25/16 09:15 ; Start 12/22/16 at 16:00 Aspirin (Ecotrin) 81 mg DAILYWBKFT PO Last administered on 12/24/16 08:17; Start 12/23/16 at 08:00 Fluoxetine HCl 20 mg 20 mg DAILY PO Last administered on 12/25/16 09:15; Start 12/23/16 at 12:30 Tirofiban/Sodium Chloride (Aggrastat 12.5 Mg/250 ml Premix) 250 ml @ 0 mls/hr CONT PRN IV PER PROTOCOL Last administered on 12/25/16 03:59; Start 12/23/16 at 14:00 Adenosine (Adenocard) 6 mg STK-MED ONCE IV ; Start 12/23/16 at 18:14; Stop 12/23 at 18:15; Status Cancel Adenosine (Adenocard) 6 mg STK-MED ONCE IV ; Start 12/23/16 at 18:15; Stop 12/23 at 18:16; Status Cancel Levetiracetam (Keppra) 250 mg BID PO Last administered on 12/25/16 09:16; Start 12/24/16 at 14:00 Alprazolam (Xanax) 0.25 mg STK-MED ONCE .ROUTE ; Start 12/24/16 at 14:46; Stop 12/24/16 at 14:47; Status DC Alprazolam (Xanax) 0.25 mg STK-MED ONCE .ROUTE Last administered on 12/24/16 21:45; Start 12/24/16 at 21:27; Stop 12/25/16 at 12:29; Status DC Acetaminophen (Tylenol) 650 mg PRN Q6HRS PRN PO MILD PAIN / TEMP; Start at 04:49 Ondansetron HCl (Zofran) 4 mg PRN Q6HRS PRN IV NAUSEA/VOMITING; Start 12/25/16 at 04:49 Aspirin (Ecotrin) 81 mg STK-MED ONCE PO ; Start 12/25/16 at 08:37; Stop at 08:38; Status DC Lorazepam (Ativan) 0.5 mg BID PO ; Start 12/25/16 at 13:00 Active Scripts Active Hydrocodone-Apap 5-325 (Hydrocodone Bit/Acetaminophen) 1 Each Tablet 1 Tab PO PRN Q4HRS PRN Effient (Prasugrel Hcl) 10 Mg Tablet 10 Mg PO DAILYWBKFT Metoprolol Tartrate 25 Mg Tablet 12.5 Mg PO BID Atorvastatin Calcium 40 Mg Tablet 40 Mg PO QHS Aspirin Ec (Aspirin) 325 Mg Tablet.dr 325 Mg PO DAILYWBK Reported Chantix (Varenicline Tartrate) 0.5 Mg Tablet 1 Mg PO BID 0.5 MG PO DAILY X3 DAY, 0.5 MG PO BID X4 DAY, 1 MG PO BID UNTIL END OF TREATMENT Vitals/I & O Vital Sign - Last 24 Hours 12/24/16 12/24/16 12/24/16 12/24/16 14:44 19:05 19:40 20:00 Temp 98.0 97.8 98.0 97.8 Pulse 86 110 Resp 18 16 B/P 125/84 119/84 Pulse Ox 95 95 97 O2 Delivery Room Air Room Air Room Air Room Air 12/24/16 12/24/16 12/25/16 12/25/16 21:45 23:05 03:05 07:00 Temp 98.2 98.5 98.2 98.2 98.5 98.2 Pulse 110 86 83 82 Resp 16 14 17 B/P 119/84 116/71 129/84 135/78 Pulse Ox 95 96 96 O2 Delivery Room Air Room Air 12/25/16 12/25/16 12/25/16 12/25/16 09:15 09:16 11:00 12:40 Temp 98.2 98.2 Pulse 82 82 80 Resp 18 B/P 135/78 135/78 126/81 Pulse Ox 97 98 O2 Delivery Room Air Room Air Intake and Output 12/24/16 12/24/16 12/25/16 15:00 23:00 07:00 Intake Total 800 ml 300 ml Output Total 200 ml Balance 800 ml 100 ml SUSY COTTO MD Dec 25, 2016 12:58
[2016-12-25] MEDS: LORAZEPAM 0.5 MG TABLET. PO SCH ×2 (13:00→21:23)
--- NOTE | 2016-12-25 13:44 | PDOC ---
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 Simple partial seizure x 1, left side facial twitching. 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 Recent Hx of STEMI s/p cardiac stents. Longstanding Hx of smoking. Left side LE numbness. Anxiety. RECOMMENDATIONS/PLAN: Continue Keppra, increase to 500 mg bid. Oncology consulted. NS consulted. Lung mass biopsy planned by Pulmonary Medicine. Smoking cessation. Discussed with him and his son again at bedside on 12/25/16. EEG on 12/23: Normal study. PAST MEDICAL HISTORY: Please see above. PAST SURGERY HISTORY: Cardiac stents. ALLERGY: Reviewed. MEDICATIONS: Refer to [facility] FAMILY HISTORY: His father had lung cancer. SOCIAL HISTORY: Lives at home. He smokes 15 to 20 cigarettes a day for 20 years. REVIEW OF SYSTEMS: Constitutional: No cachexia. Head: No traumatic brain or head injury. Skin: No edema, or rash. Ear: No infection. Eyes: No vision loss or color blindness. Nose: No bleeding or purulent discharges. Hearing: No hearing decrease. Neck: No injury. Cardiac: stents x 2. Pulmonary: Lung mass found this time. GI: No GI ulcer, GI bleeding. Urinary/genital: No dysuria, hematuria, incontinence, urinary retention. Endocrinologic: No cousin face, craniofacial dysmorphism, polydactyly. Skeletomuscular: No muscular atrophy, deformity. Neurological: see HP. Psychiatric: smoking. Otherwise, not [id number] review of systems. PHYSICAL EXAMINATION: General appearance is in subacute distress. HEENT: Normocephalic and nontraumatic. Eyes, nose, ears, and throat are unremarkable. Neck is supple. No lymphadenopathy. No crepitus. Cardiovascular: S1, S2, regular rate and rhythm. Pulmonary: Clear to auscultation bilaterally. Abdomen: Bowel sounds are positive. Abdomen is soft, nontender, and nondistended. Extremities: No rash, lesions, or edema. No restriction of range of motion NEUROLOGICAL EXAMINATION: Awake. Oriented to time, place and person. PERRL. EOMI. CN: no focal findings. Muscle tone: within normal. Muscle strength: 5 DTR: 2 Plantar reflex: Flexor response bilaterally Gait: Near his normal baseline. Sensory exam: no abnormal findings. No obvious cerebellar signs elicited. F-T-N test accurate. Objective Objective Vital Signs Date Time Temp Pulse Resp B/P Pulse Ox O2 Delivery O2 Flow Rate FiO2 12/25/16 12:40 98 Room Air 12/25/16 11:00 98.2 80 18 126/81 98.2 Intake and Output 12/25/16 07:00 Intake Total 1100 ml Output Total 200 ml Balance 900 ml Intake Oral 1100 ml Output Urine Total 200 ml Vitals Signs Vitals VS - Last 72 Hours, by Label Date Time Temp Pulse Resp B/P Pulse Ox O2 Delivery O2 Flow Rate FiO2 12/25/16 12:40 98 Room Air 12/25/16 11:00 98.2 80 18 126/81 97 Room Air 98.2 12/25/16 09:16 82 135/78 12/25/16 09:15 82 135/78 12/25/16 07:00 98.2 82 17 135/78 96 Room Air 98.2 12/25/16 03:05 98.5 83 14 129/84 96 Room Air 98.5 12/24/16 23:05 98.2 86 16 116/71 95 98.2 12/24/16 21:45 110 119/84 12/24/16 20:00 Room Air 12/24/16 19:40 97 Room Air 12/24/16 19:05 97.8 110 16 119/84 95 Room Air 97.8 12/24/16 14:44 98.0 86 18 125/84 95 Room Air 98.0 12/24/16 11:14 97.9 103 18 111/87 95 Room Air 97.9 12/24/16 08:17 92 120/88 12/24/16 08:16 92 120/88 12/24/16 08:05 Room Air 12/24/16 07:34 97 Room Air 12/24/16 07:00 98.2 95 18 120/88 93 Room Air 98.2 Laboratory Laboratory Laboratory Tests Test 12/25/16 03:12 12/25/16 09:48 White Blood Count 14.0x10^3/uL (4.0-11.0) Red Blood Count 5.21x10^6/uL (4.30-5.70) Hemoglobin 14.8g/dL (13.0-17.5) Hematocrit 45.3% (39.0-53.0) Mean Corpuscular Volume 87fL (79-100) Mean Corpuscular Hemoglobin 28pg (25-35) Mean Corpuscular Hemoglobin Concent 33g/dL (31-37) Red Cell Distribution Width 13.5% (11.5-14.5) Platelet Count 200x10^3/uL (140-400) Neutrophils (%) (Auto) 75% (31-73) Lymphocytes (%) (Auto) 19% (24-48) Monocytes (%) (Auto) 6% (0-9) Eosinophils (%) (Auto) 0% (0-3) Basophils (%) (Auto) 0% (0-3) Neutrophils # (Auto) 10.5x10^3uL (1.8-7.7) Lymphocytes # (Auto) 2.6x10^3/uL (1.0-4.8) Monocytes # (Auto) 0.8x10^3/uL (0.0-1.1) Eosinophils # (Auto) 0.0x10^3/uL (0.0-0.7) Basophils # (Auto) 0.0x10^3/uL (0.0-0.2) Sodium Level 143mmol/L (136-145) Potassium Level 4.3mmol/L (3.5-5.1) Chloride Level 107mmol/L (98-107) Carbon Dioxide Level 29mmol/L (21-32) Anion Gap 7 (6-14) Blood Urea Nitrogen 18mg/dL (8-26) Creatinine 1.0mg/dL (0.7-1.3) Estimated GFR (Cockcroft-Gault) 77.6 Glucose Level 99mg/dL (70-99) Calcium Level 9.0mg/dL (8.5-10.1) Prothrombin Time 12.8SEC (11.7-14.0) Prothromb Time International Ratio 1.0 (0.8-1.1) Medication Medications Current Medications Acetaminophen (Tylenol) 650 mg PRN Q6HRS PRN PO MILD PAIN / TEMP; Start at 04:49 Alprazolam (Xanax) 0.25 mg STK-MED ONCE .ROUTE ; Start 12/24/16 at 14:46; Stop 12/24/16 at 14:47; Status DC Alprazolam (Xanax) 0.25 mg STK-MED ONCE .ROUTE Last administered on 12/24/16 21:45; Start 12/24/16 at 21:27; Stop 12/25/16 at 12:29; Status DC Aspirin (Ecotrin) 81 mg STK-MED ONCE PO ; Start 12/25/16 at 08:37; Stop at 08:38; Status DC Levetiracetam (Keppra) 250 mg BID PO Last administered on 12/25/16 09:16; Start 12/24/16 at 14:00 Lorazepam (Ativan) 0.5 mg BID PO ; Start 12/25/16 at 13:00 Ondansetron HCl (Zofran) 4 mg PRN Q6HRS PRN IV NAUSEA/VOMITING; Start 12/25/16 at 04:49 Comment Review of Relevant I have reviewed the following items tess (where applicable) has been applied. KRISTY KAYE MD Dec 25, 2016 13:43
[2016-12-25 15:00] VITALS: BP 125/80
[2016-12-25] MEDS ORDERED: ALPRAZOLAM 0.25 MG TABLET. ONE (15:14)
[2016-12-25 19:20] VITALS: BP 126/79
[2016-12-25] MEDS ORDERED: ATORVASTATIN CALCIUM 40 MG TABLET. ONE (21:07)
[2016-12-25] MEDS: LEVETIRACETAM 500 MG TABLET PO SCH (21:22)
[2016-12-25] MEDS: ATORVASTATIN CALCIUM 40 MG TABLET. PO SCH (21:22)
[2016-12-25 22:12] VITALS: BP 122/73
[2016-12-26] VITALS (13 sets, daily range): BP systolic 114–155; BP diastolic 76–99
[2016-12-26 05:20] LABS: CALCIUM 9.2 mg/dL (8.5-10.1); GFR 77.6
[2016-12-26 06:14] LABS: BASO % 0 % (0-3); EOS % 1 % (0-3); HEMATOCRIT 43.8 % (39.0-53.0); HEMOGLOBIN 14.2 g/dL (13.0-17.5); LYMPH # 2.4 x10^3/uL (1.0-4.8); LYMPH % 20 % (24-48); MEAN CORPUSCULAR HEMOGLOBIN 28 pg (25-35); MEAN CORPUSCULAR HGB CONC 32 g/dL (31-37); MEAN CORPUSCULAR VOLUME 87 fL (79-100); MONO % 6 % (0-9); NEUT % 72 % (31-73); PLATELET COUNT 196 x10^3/uL (140-400); RED BLOOD COUNT 5.05 x10^6/uL (4.30-5.70); RED CELL DISTRIBUTION WIDTH 13.2 % (11.5-14.5); WHITE BLOOD COUNT 11.9 x10^3/uL (4.0-11.0)
[2016-12-26] MEDS: IPRATRPIUM/ALBUTEROL 0.5/2.5MG 3 ML NEBU. NEB SCH ×4 (07:10→19:57)
[2016-12-26] MEDS: ASPIRIN ENTERIC COATED 81 MG TABLET.DR. PO SCH ×2 (08:00→14:48)
--- NOTE | 2016-12-26 08:57 | PDOC ---
PULMONARY PROGRESS NOTES Subjective no soa very anxious and not sleeping Vitals Vital Signs Date Time Temp Pulse Resp B/P Pulse Ox O2 Delivery O2 Flow Rate FiO2 12/26/16 07:55 98.4 85 18 116/76 92 Room Air 98.4 ROS: No Nausea, No Chest Pain, No Abdominal Pain, No Increase Cough General: Alert, No acute distress Lungs: Clear (but diminished) Cardiovascular: S1 Abdomen: Soft Neuro Exam: Alert Extremities: No Edema Skin: Warm Labs Laboratory Tests Test 12/25/16 03:12 12/25/16 09:48 12/26/16 03:40 12/26/16 05:00 White Blood Count 14.0x10^3/uL (4.0-11.0) 11.9x10^3/uL (4.0-11.0) Red Blood Count 5.21x10^6/uL (4.30-5.70) 5.05x10^6/uL (4.30-5.70) Hemoglobin 14.8g/dL (13.0-17.5) 14.2g/dL (13.0-17.5) Hematocrit 45.3% (39.0-53.0) 43.8% (39.0-53.0) Mean Corpuscular Volume 87fL (79-100) 87fL (79-100) Mean Corpuscular Hemoglobin 28pg (25-35) 28pg (25-35) Mean Corpuscular Hemoglobin Concent 33g/dL (31-37) 32g/dL (31-37) Red Cell Distribution Width 13.5% (11.5-14.5) 13.2% (11.5-14.5) Platelet Count 200x10^3/uL (140-400) 196x10^3/uL (140-400) Neutrophils (%) (Auto) 75% (31-73) 72% (31-73) Lymphocytes (%) (Auto) 19% (24-48) 20% (24-48) Monocytes (%) (Auto) 6% (0-9) 6% (0-9) Eosinophils (%) (Auto) 0% (0-3) 1% (0-3) Basophils (%) (Auto) 0% (0-3) 0% (0-3) Neutrophils # (Auto) 10.5x10^3uL (1.8-7.7) 8.6x10^3uL (1.8-7.7) Lymphocytes # (Auto) 2.6x10^3/uL (1.0-4.8) 2.4x10^3/uL (1.0-4.8) Monocytes # (Auto) 0.8x10^3/uL (0.0-1.1) 0.8x10^3/uL (0.0-1.1) Eosinophils # (Auto) 0.0x10^3/uL (0.0-0.7) 0.1x10^3/uL (0.0-0.7) Basophils # (Auto) 0.0x10^3/uL (0.0-0.2) 0.0x10^3/uL (0.0-0.2) Sodium Level 143mmol/L (136-145) 143mmol/L (136-145) Potassium Level 4.3mmol/L (3.5-5.1) 4.0mmol/L (3.5-5.1) Chloride Level 107mmol/L (98-107) 107mmol/L (98-107) Carbon Dioxide Level 29mmol/L (21-32) 29mmol/L (21-32) Anion Gap 7 (6-14) 7 (6-14) Blood Urea Nitrogen 18mg/dL (8-26) 21mg/dL (8-26) Creatinine 1.0mg/dL (0.7-1.3) 1.0mg/dL (0.7-1.3) Estimated GFR (Cockcroft-Gault) 77.6 77.6 Glucose Level 99mg/dL (70-99) 110mg/dL (70-99) Calcium Level 9.0mg/dL (8.5-10.1) 9.2mg/dL (8.5-10.1) Prothrombin Time 12.8SEC (11.7-14.0) Prothromb Time International Ratio 1.0 (0.8-1.1) Laboratory Tests Test 12/25/16 09:48 12/26/16 03:40 12/26/16 05:00 Prothrombin Time 12.8SEC (11.7-14.0) Prothromb Time International Ratio 1.0 (0.8-1.1) Sodium Level 143mmol/L (136-145) Potassium Level 4.0mmol/L (3.5-5.1) Chloride Level 107mmol/L (98-107) Carbon Dioxide Level 29mmol/L (21-32) Anion Gap 7 (6-14) Blood Urea Nitrogen 21mg/dL (8-26) Creatinine 1.0mg/dL (0.7-1.3) Estimated GFR (Cockcroft-Gault) 77.6 Glucose Level 110mg/dL (70-99) Calcium Level 9.2mg/dL (8.5-10.1) White Blood Count 11.9x10^3/uL (4.0-11.0) Red Blood Count 5.05x10^6/uL (4.30-5.70) Hemoglobin 14.2g/dL (13.0-17.5) Hematocrit 43.8% (39.0-53.0) Mean Corpuscular Volume 87fL (79-100) Mean Corpuscular Hemoglobin 28pg (25-35) Mean Corpuscular Hemoglobin Concent 32g/dL (31-37) Red Cell Distribution Width 13.2% (11.5-14.5) Platelet Count 196x10^3/uL (140-400) Neutrophils (%) (Auto) 72% (31-73) Lymphocytes (%) (Auto) 20% (24-48) Monocytes (%) (Auto) 6% (0-9) Eosinophils (%) (Auto) 1% (0-3) Basophils (%) (Auto) 0% (0-3) Neutrophils # (Auto) 8.6x10^3uL (1.8-7.7) Lymphocytes # (Auto) 2.4x10^3/uL (1.0-4.8) Monocytes # (Auto) 0.8x10^3/uL (0.0-1.1) Eosinophils # (Auto) 0.1x10^3/uL (0.0-0.7) Basophils # (Auto) 0.0x10^3/uL (0.0-0.2) Medications Active Scripts Medications Dose Route/Sig Days Date Category Dose Instructions Hydrocodone-Apap 5-325 (Hydrocodone Bit/Acetaminophen) 1 Each Tablet 1 Tab PO PRN Q4HRS PRN 12/06/16 Rx Effient (Prasugrel Hcl) 10 Mg Tablet 10 Mg PO DAILYWBKFT 12/06/16 Rx Metoprolol Tartrate 25 Mg Tablet 12.5 Mg PO BID 12/06/16 Rx Atorvastatin Calcium 40 Mg Tablet 40 Mg PO QHS 12/06/16 Rx Aspirin Ec (Aspirin) 325 Mg Tablet. 325 Mg PO DAILYWBKFT 12/06/16 Rx Chantix (Varenicline Tartrate) 0.5 Mg Tablet 1 Mg PO BID 12/05/16 Reported 0.5 MG PO DAILY X3 DAY, 0.5 MG PO BID X4 DAY, 1 MG PO BID UNTIL END OF TREATMENT Impression . 1. 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 severe emphysema surrounding lung mass 3. Ex-smoker, questionable chronic obstructive pulmonary disease. 4. 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 Coronary artery disease, recent NSTMI 2 weeks ago, status post stents, on anti-platelet therapy 6. [employer] Plan . PLan for lung biopsy in AM bone scan report noted no mets 1. Cardiology stopped Prasugrel that has antiplatelet effect for 4 to 5 days. Cardiology is recommending bridging with Integrilin or Cangrelor. await their recommendations 2. Dr Burrows, discussed at length with patient and sig. other that I would prefer brain biopsy/complete excision to make a diagnosis and possible cure for brain lesion. CT-guided biopsy of the chest is an option but I am concerned with emphysematous changes surrounding the lung lesion and at least 50% chance of PTX with need for chest tube and even VAT if lung does not expand. DR Yeboah would favor biopsy lung, schedule for later this week. I agree with above 3. At some point, he would require pulmonary function tests. 4. Titrate FiO2 to keep O2 saturation more than 92%. 5. bronchodilator. 6. Anti-seizure medication per Neurology. 7. Ativan BID MONICA MENDIOLA MD Dec 26, 2016 08:57
[2016-12-26] MEDS ORDERED: ASPIRIN ENTERIC COATED 81 MG TABLET.DR. PO ONE (10:37)
[2016-12-26] MEDS ORDERED: FLUOXETINE HCL 20 MG CAPSULE. ONE (10:38)
--- NOTE | 2016-12-26 11:32 | PDOC ---
PROGRESS NOTES Chief Complaint Chief Complaint Partial seizure, new 1. Brain lesion: suspected met from lung CA. planned bx/resection later this week. on decadron 2. Sz: no antiepileptics as per neuro. 3. RUL lung mass: c/w lung primary. d/w Dr Burrows: bx relatively contraindicated due to severe emphysema. staging CT and brain MRI with lung and solitary brain lesion only. bone scan pending. Dr Ta following 4. CAD: recent NSTEMI with PCI, requiring Plaxix - currently on hold for anticipated brain surgery. d/w cards: start aggrastat 5. HLD: on statin 6. COPD: nebs 7. Tobacco dependence: started on chantix History of Present Illness History of Present Illness Patient with no acute events overnight. Pt's friend at bedside. Pt eager to get biopsy done today, and still hopes to go home soon after. Denies shortness of air, chest pain. Feels relatively well. Vitals Vitals Vital Signs Date Time Temp Pulse Resp B/P Pulse Ox O2 Delivery O2 Flow Rate FiO2 12/26/16 11:07 98.3 89 18 114/80 94 Room Air 98.3 Physical Exam General: Alert, Oriented X3 Heart: Normal S1, Normal S2 Lungs: Clear (but diminished) Abdomen: Normal bowel sounds, Soft, No tenderness Extremities: No clubbing, No edema Skin: No rashes Labs LABS Laboratory Tests Test 12/26/16 03:40 12/26/16 05:00 Sodium Level 143mmol/L (136-145) Potassium Level 4.0mmol/L (3.5-5.1) Chloride Level 107mmol/L (98-107) Carbon Dioxide Level 29mmol/L (21-32) Anion Gap 7 (6-14) Blood Urea Nitrogen 21mg/dL (8-26) Creatinine 1.0mg/dL (0.7-1.3) Estimated GFR (Cockcroft-Gault) 77.6 Glucose Level 110mg/dL (70-99) Calcium Level 9.2mg/dL (8.5-10.1) White Blood Count 11.9x10^3/uL (4.0-11.0) Red Blood Count 5.05x10^6/uL (4.30-5.70) Hemoglobin 14.2g/dL (13.0-17.5) Hematocrit 43.8% (39.0-53.0) Mean Corpuscular Volume 87fL (79-100) Mean Corpuscular Hemoglobin 28pg (25-35) Mean Corpuscular Hemoglobin Concent 32g/dL (31-37) Red Cell Distribution Width 13.2% (11.5-14.5) Platelet Count 196x10^3/uL (140-400) Neutrophils (%) (Auto) 72% (31-73) Lymphocytes (%) (Auto) 20% (24-48) Monocytes (%) (Auto) 6% (0-9) Eosinophils (%) (Auto) 1% (0-3) Basophils (%) (Auto) 0% (0-3) Neutrophils # (Auto) 8.6x10^3uL (1.8-7.7) Lymphocytes # (Auto) 2.4x10^3/uL (1.0-4.8) Monocytes # (Auto) 0.8x10^3/uL (0.0-1.1) Eosinophils # (Auto) 0.1x10^3/uL (0.0-0.7) Basophils # (Auto) 0.0x10^3/uL (0.0-0.2) Review of Systems Review of Systems Denies fever, chills Denies chest pain, shortness of air Assessment and Plan Assessmemt and Plan Problems Medical Problems: (1) Right frontal lobe lesion Status: Acute ASSESSMENT: 1. Brain lesion: suspected met from lung CA. on decadron 2. Sz: no antiepileptics as per neuro. 3. RUL lung mass: c/w lung primary. Dr Ta following 4. CAD: recent NSTEMI with PCI, 5. HLD: on statin 6. COPD: nebs 7. Tobacco dependence: started on chantix PLAN: - IR transthoracic lung biopsy sometime today; hope to discharge after biopsy if ok with subspecialists - continue care per floor protocol - continue Aggrastat per cardio recommendation - hope to change to oral anticoagulants after procedure - repeat daily labs - PTOT - appreciate subspecialities inputs and recommendations Problems: Comment Review of Relevant I have reviewed the following items tess (where applicable) has been applied. Labs Laboratory Tests Test 12/25/16 03:12 12/25/16 09:48 12/26/16 03:40 12/26/16 05:00 White Blood Count 14.0x10^3/uL (4.0-11.0) 11.9x10^3/uL (4.0-11.0) Red Blood Count 5.21x10^6/uL (4.30-5.70) 5.05x10^6/uL (4.30-5.70) Hemoglobin 14.8g/dL (13.0-17.5) 14.2g/dL (13.0-17.5) Hematocrit 45.3% (39.0-53.0) 43.8% (39.0-53.0) Mean Corpuscular Volume 87fL (79-100) 87fL (79-100) Mean Corpuscular Hemoglobin 28pg (25-35) 28pg (25-35) Mean Corpuscular Hemoglobin Concent 33g/dL (31-37) 32g/dL (31-37) Red Cell Distribution Width 13.5% (11.5-14.5) 13.2% (11.5-14.5) Platelet Count 200x10^3/uL (140-400) 196x10^3/uL (140-400) Neutrophils (%) (Auto) 75% (31-73) 72% (31-73) Lymphocytes (%) (Auto) 19% (24-48) 20% (24-48) Monocytes (%) (Auto) 6% (0-9) 6% (0-9) Eosinophils (%) (Auto) 0% (0-3) 1% (0-3) Basophils (%) (Auto) 0% (0-3) 0% (0-3) Neutrophils # (Auto) 10.5x10^3uL (1.8-7.7) 8.6x10^3uL (1.8-7.7) Lymphocytes # (Auto) 2.6x10^3/uL (1.0-4.8) 2.4x10^3/uL (1.0-4.8) Monocytes # (Auto) 0.8x10^3/uL (0.0-1.1) 0.8x10^3/uL (0.0-1.1) Eosinophils # (Auto) 0.0x10^3/uL (0.0-0.7) 0.1x10^3/uL (0.0-0.7) Basophils # (Auto) 0.0x10^3/uL (0.0-0.2) 0.0x10^3/uL (0.0-0.2) Sodium Level 143mmol/L (136-145) 143mmol/L (136-145) Potassium Level 4.3mmol/L (3.5-5.1) 4.0mmol/L (3.5-5.1) Chloride Level 107mmol/L (98-107) 107mmol/L (98-107) Carbon Dioxide Level 29mmol/L (21-32) 29mmol/L (21-32) Anion Gap 7 (6-14) 7 (6-14) Blood Urea Nitrogen 18mg/dL (8-26) 21mg/dL (8-26) Creatinine 1.0mg/dL (0.7-1.3) 1.0mg/dL (0.7-1.3) Estimated GFR (Cockcroft-Gault) 77.6 77.6 Glucose Level 99mg/dL (70-99) 110mg/dL (70-99) Calcium Level 9.0mg/dL (8.5-10.1) 9.2mg/dL (8.5-10.1) Prothrombin Time 12.8SEC (11.7-14.0) Prothromb Time International Ratio 1.0 (0.8-1.1) Laboratory Tests Test 12/26/16 03:40 12/26/16 05:00 Sodium Level 143mmol/L (136-145) Potassium Level 4.0mmol/L (3.5-5.1) Chloride Level 107mmol/L (98-107) Carbon Dioxide Level 29mmol/L (21-32) Anion Gap 7 (6-14) Blood Urea Nitrogen 21mg/dL (8-26) Creatinine 1.0mg/dL (0.7-1.3) Estimated GFR (Cockcroft-Gault) 77.6 Glucose Level 110mg/dL (70-99) Calcium Level 9.2mg/dL (8.5-10.1) White Blood Count 11.9x10^3/uL (4.0-11.0) Red Blood Count 5.05x10^6/uL (4.30-5.70) Hemoglobin 14.2g/dL (13.0-17.5) Hematocrit 43.8% (39.0-53.0) Mean Corpuscular Volume 87fL (79-100) Mean Corpuscular Hemoglobin 28pg (25-35) Mean Corpuscular Hemoglobin Concent 32g/dL (31-37) Red Cell Distribution Width 13.2% (11.5-14.5) Platelet Count 196x10^3/uL (140-400) Neutrophils (%) (Auto) 72% (31-73) Lymphocytes (%) (Auto) 20% (24-48) Monocytes (%) (Auto) 6% (0-9) Eosinophils (%) (Auto) 1% (0-3) Basophils (%) (Auto) 0% (0-3) Neutrophils # (Auto) 8.6x10^3uL (1.8-7.7) Lymphocytes # (Auto) 2.4x10^3/uL (1.0-4.8) Monocytes # (Auto) 0.8x10^3/uL (0.0-1.1) Eosinophils # (Auto) 0.1x10^3/uL (0.0-0.7) Basophils # (Auto) 0.0x10^3/uL (0.0-0.2) Medications Current Medications Iohexol (Omnipaque 300 Mg/ml) 70 ml 1X ONCE IV Last administered on 12/20/16t 03:42; Start 12/20/16 at 03:15; Stop 12/20/16 at 03:16; Status DC Info (Do NOT chart on this entry -- for MONITORING) 1 each PRN DAILY PRN MC SEE COMMENTS; Start 12/20/16 at 03:15; Stop 12/21/16 at 16:47; Status DC Ondansetron HCl (Zofran) 4 mg PRN Q8HRS PRN IV NAUSEA/VOMITING; Start 12/20/16 at 04:30; Stop 12/20/16 at 13:26; Status DC Acetaminophen (Tylenol) 650 mg PRN Q4HRS PRN PO FEVER; Start 12/20/16 at 04:30 ; Stop 12/21/16 at 04:30; Status DC Aspirin (Carlene Aspirin) 325 mg 1X ONCE PO Last administered on 12/20/16 05:17 ; Start 12/20/16 at 05:00; Stop 12/20/16 at 05:01; Status DC Clopidogrel Bisulfate (Plavix) 75 mg DAILYWBKFT PO Last administered on 09:24; Start 12/20/16 at 09:00; Stop 12/20/16 at 13:22; Status DC Gadobutrol (Gadavist) 9 mmol 1X ONCE IV Last administered on 12/20/16 12:32; Start 12/20/16 at 12:30; Stop 12/20/16 at 12:31; Status DC Aspirin (Ecotrin) 325 mg DAILYWBKFT PO Last administered on 12/22/16 09:26; Start 12/20/16 at 14:00; Stop 12/22/16 at 16:13; Status DC Atorvastatin Calcium (Lipitor) 40 mg QHS PO Last administered on 12/25/16 21: 22; Start 12/20/16 at 21:00 Acetaminophen/ Hydrocodone Bitart (Lortab 5/325) 1 tab PRN Q4HRS PRN PO MILD PAIN, 2ND CHOICE; Start 12/20/16 at 13:30 Metoprolol Tartrate (Lopressor) 12.5 mg BID PO Last administered on 12/25/16 21:22; Start 12/20/16 at 14:00; Stop 12/26/16 at 05:01; Status DC Prasugrel (Effient) 10 mg DAILYWBKFT PO Last administered on 12/21/16 08:36; Start 12/20/16 at 14:00; Stop 12/21/16 at 11:12; Status DC Varenicline (Chantix) 1 mg BID PO Last administered on 12/20/16 14:39; Start 12/20/16 at 14:00; Stop 12/23/16 at 16:55; Status DC Ondansetron HCl (Zofran) 4 mg PRN Q6HRS PRN IV NAUSEA/VOMITING; Start 12/20/16 at 13:30; Stop 12/25/16 at 04:49; Status DC Dexamethasone Sodium Phosphate (Decadron) 4 mg Q6HRS IV Last administered on 06:31; Start 12/20/16 at 18:00; Stop 12/22/16 at 12:20; Status DC Pantoprazole Sodium (Protonix) 40 mg DAILYAC PO Last administered on 12/25/16 09:14; Start 12/20/16 at 14:00; Stop 12/26/16 at 05:01; Status DC Acetaminophen (Tylenol) 650 mg PRN Q6HRS PRN PO MILD PAIN / TEMP; Start at 19:00; Stop 12/25/16 at 04:49; Status DC Alprazolam (Xanax) 0.25 mg PRN Q8HRS PRN PO ANXIETY / AGITATION; Start at 19:00; Status Cancel Lorazepam (Ativan) 2 mg PRN Q4HRS PRN IV ANXIETY / AGITATION Last administered on 12/23/16 20:54; Start 12/20/16 at 19:00 Alprazolam (Xanax) 0.25 mg TID PRN PRN PO ANXIETY / AGITATION Last administered on 12/25/16 15:21; Start 12/20/16 at 19:15 Enoxaparin Sodium (Lovenox 80mg Syringe) 80 mg Q12HR SQ ; Start 12/21/16 at 21: 00; Stop 12/21/16 at 21:00; Status DC Info (Anti-Coagulation Monitoring By Pharmacy) 1 each PRN DAILY PRN MC SEE COMMENTS; Start 12/21/16 at 11:30; Stop 12/22/16 at 10:33; Status DC Enoxaparin Sodium (Lovenox 40mg Syringe) 40 mg Q24H SQ ; Start 12/22/16 at 10:00 ; Stop 12/22/16 at 10:00; Status DC Albuterol/ Ipratropium (Duoneb) 3 ml RTQID NEB Last administered on 12/26/16 10:58; Start 12/21/16 at 16:00 Iohexol (Omnipaque 300 Mg/ml) 75 ml 1X ONCE IV ; Start 12/21/16 at 13:15; Stop 12/21/16 at 13:16; Status DC Iohexol (Omnipaque 240 Mg/ml) 50 ml 1X ONCE PO ; Start 12/21/16 at 13:15; Stop 12/21/16 at 13:16; Status DC Info (Do NOT chart on this entry -- for MONITORING) 1 each PRN DAILY PRN MC SEE COMMENTS; Start 12/21/16 at 13:15; Stop 12/23/16 at 13:14; Status DC Dexamethasone (Decadron) 2 mg BID PO Last administered on 12/25/16 21:21; Start 12/22/16 at 13:00 Lorazepam 0.5 mg 0.5 mg PRN Q8HRS PRN PO ANXIETY / AGITATION Last administered on 12/24/16 08:16; Start 12/22/16 at 13:15 Tirofiban/Sodium Chloride (Aggrastat 12.5 Mg/250 ml Premix) 250 ml @ 0 mls/hr CONT PRN IV PER PROTOCOL Last administered on 12/23/16 05:48; Start 12/22/16 at 14:15; Stop 12/23/16 at 13:46; Status DC Losartan Potassium (Cozaar) 25 mg DAILY PO Last administered on 12/25/16 09:15 ; Start 12/22/16 at 16:00 Aspirin (Ecotrin) 81 mg DAILYWBKFT PO Last administered on 12/24/16 08:17; Start 12/23/16 at 08:00 Fluoxetine HCl 20 mg 20 mg DAILY PO Last administered on 12/25/16 09:15; Start 12/23/16 at 12:30 Tirofiban/Sodium Chloride (Aggrastat 12.5 Mg/250 ml Premix) 250 ml @ 0 mls/hr CONT PRN IV PER PROTOCOL Last administered on 12/25/16 20:53; Start 12/23/16 at 14:00 Adenosine (Adenocard) 6 mg STK-MED ONCE IV ; Start 12/23/16 at 18:14; Stop 12/23 at 18:15; Status Cancel Adenosine (Adenocard) 6 mg STK-MED ONCE IV ; Start 12/23/16 at 18:15; Stop 12/23 at 18:16; Status Cancel Levetiracetam (Keppra) 250 mg BID PO Last administered on 12/25/16 09:16; Start 12/24/16 at 14:00; Stop 12/25/16 at 13:42; Status DC Alprazolam (Xanax) 0.25 mg STK-MED ONCE .ROUTE ; Start 12/24/16 at 14:46; Stop 12/24/16 at 14:47; Status DC Alprazolam (Xanax) 0.25 mg STK-MED ONCE .ROUTE Last administered on 12/24/16 21:45; Start 12/24/16 at 21:27; Stop 12/25/16 at 12:29; Status DC Acetaminophen (Tylenol) 650 mg PRN Q6HRS PRN PO MILD PAIN / TEMP; Start at 04:49 Ondansetron HCl (Zofran) 4 mg PRN Q6HRS PRN IV NAUSEA/VOMITING; Start 12/25/16 at 04:49 Aspirin (Ecotrin) 81 mg STK-MED ONCE PO ; Start 12/25/16 at 08:37; Stop at 08:38; Status DC Lorazepam (Ativan) 0.5 mg BID PO Last administered on 12/25/16 21:23; Start at 13:00 Levetiracetam (Keppra) 500 mg BID PO Last administered on 12/25/16 21:22; Start 12/25/16 at 21:00 Alprazolam (Xanax) 0.25 mg STK-MED ONCE .ROUTE ; Start 12/25/16 at 15:14; Stop 12/25/16 at 15:15; Status DC Atorvastatin Calcium (Lipitor) 40 mg STK-MED ONCE .ROUTE ; Start 12/25/16 at 21: 07; Stop 12/25/16 at 21:08; Status DC Metoprolol Tartrate (Lopressor) 12.5 mg BID PO ; Start 12/26/16 at 09:00 Pantoprazole Sodium (Protonix) 40 mg DAILYAC PO ; Start 12/26/16 at 05:01 Aspirin (Ecotrin) 81 mg STK-MED ONCE PO ; Start 12/26/16 at 10:37; Stop at 10:38; Status DC Fluoxetine HCl (Prozac) 20 mg STK-MED ONCE .ROUTE ; Start 12/26/16 at 10:38; Stop 12/26/16 at 10:39; Status DC Active Scripts Active Hydrocodone-Apap 5-325 (Hydrocodone Bit/Acetaminophen) 1 Each Tablet 1 Tab PO PRN Q4HRS PRN Effient (Prasugrel Hcl) 10 Mg Tablet 10 Mg PO DAILYWBKFT Metoprolol Tartrate 25 Mg Tablet 12.5 Mg PO BID Atorvastatin Calcium 40 Mg Tablet 40 Mg PO QHS Aspirin Ec (Aspirin) 325 Mg Tablet.dr 325 Mg PO DAILYWBKFT Reported Chantix (Varenicline Tartrate) 0.5 Mg Tablet 1 Mg PO BID 0.5 MG PO DAILY X3 DAY, 0.5 MG PO BID X4 DAY, 1 MG PO BID UNTIL END OF TREATMENT Vitals/I & O Vital Sign - Last 24 Hours 12/25/16 12/25/16 12/25/16 12/25/16 12:40 15:00 16:36 19:20 Temp 98.4 97.7 98.4 97.7 Pulse 85 91 Resp 18 16 B/P 125/80 126/79 Pulse Ox 98 94 98 96 O2 Delivery Room Air Room Air Room Air Room Air 12/25/16 12/25/16 12/25/16 12/25/16 20:00 20:48 21:22 22:12 Temp 98.6 98.6 Pulse 91 88 Resp 16 B/P 126/79 122/73 Pulse Ox 96 91 O2 Delivery Room Air Room Air Room Air 12/26/16 12/26/16 12/26/16 12/26/16 02:12 07:11 07:55 08:00 Temp 97.7 98.4 97.7 98.4 Pulse 80 85 Resp 16 18 B/P 117/82 116/76 Pulse Ox 92 98 92 O2 Delivery Room Air Room Air Room Air Room Air 12/26/16 12/26/16 10:58 11:07 Temp 98.3 98.3 Pulse 89 Resp 18 B/P 114/80 Pulse Ox 94 94 O2 Delivery Room Air Room Air Intake and Output 12/25/16 12/25/16 12/26/16 15:00 23:00 07:00 Intake Total 990 ml 686 ml Output Total 950 ml 625 ml Balance -950 ml 990 ml 61 ml JOSEPHINE NASSARL K III DO Dec 26, 2016 11:32
[2016-12-26] MEDS ORDERED: LIDOCAINE 1% / SOD BICARB 8.4% 20 ML VIAL. IJ ONE ×2 (11:54→12:30)
[2016-12-26] MEDS ORDERED: FENTANYL PF 100 MCG/2 ML VIAL. ONE (12:02)
[2016-12-26] MEDS ORDERED: MIDAZOLAM HCL/PF 2 MG/2 ML VIAL. ONE (12:02)
[2016-12-26] MEDS ORDERED: FENTANYL PF 100 MCG/2 ML VIAL. IV ONE ×2 (12:30→13:30)
[2016-12-26] MEDS ORDERED: MIDAZOLAM HCL/PF 2 MG/2 ML VIAL. IV ONE (12:30)
--- NOTE | 2016-12-26 13:28 | PDOC ---
MODERATE SEDATION ASSESSMENT RISKS/ALTERNATIVES Risks/Alternatives Risks and alternatives of this type of sedation and procedure discussed with: RISK/ALTERNATIVES: Patient H & P ON CHART H & P H & P on chart and reviewed for co-morbid conditions and appropriate labs. H&P ON CHART: Yes STATUS PREG STATUS ASSESSED: N/A MEDS/ALLERGIES REVIEWED Meds/Allergies Reviewed Medications and Allergies including time and route of recently administered narcotics and sedatives. MEDS/ALLERGIES REVIEWED: Yes ASA RATING ASA RATING: III AIRWAY ASSESSMENT Airway Assessment Airway patency, oral function limitations, presence of caps, crowns, dentures, partials, and ability to extend neck assessed. AIRWAY ASSESSMENT: Yes MALLAMPATI SCORE MALLAMPATI SCORE: I PRE-SEDATION ASSESSMENT PRE-SEDATION ASSESSMENT: Yes ROSE MARY CLIFTON MD Dec 26, 2016 13:27
--- NOTE | 2016-12-26 13:33 | PDOC ---
Exam Railroader Railroader Jenna Pre-Procedure Diagnosis Pre-Procedure Diagnosis Large rt lung mass, likely bronchogenic carcinoma, with brain met. Image guided lung bx requested Post-Procedure Diagnosis Post-Procedure Diagnosis Same. Post bx Ptx. Procedure Performed Procedure Performed Ct guided right lung mass bx Ct guided right chest tube insertion Type of Anesthesia Type of Anesthesia Local +Mod sedation Estimated Blood Loss EBL: Minimal Specimens Specimans Multiple tiny fragments of tissue from large right upper lobe lung mass----all submitted to path in formalin Drain/Tubes Drains/Tubes 10F locking pigtail right chest tube to PleurEvac Condition of Patient Condition of Patient Stable. Small bore right chest tube in place, due to post lung bx Ptx. Disposition Disposition From IR/CT return to 250. Right chest tube to wall suction at -20cm H2O. Chest tube management per Pulmonary. Full report to follow. ROSE MARY CLIFTON MD Dec 26, 2016 13:33
[2016-12-26] MEDS: LORAZEPAM 0.5 MG TABLET. PO SCH ×2 (14:11→21:06)
[2016-12-26] MEDS: HYDROCODONE/APAP 5/325MG TABLET. PO PRN ×2 (14:12→19:46)
[2016-12-26] MEDS: PANTOPRAZOLE 40 MG TABLET.DR. PO SCH (14:45)
[2016-12-26] MEDS: LEVETIRACETAM 500 MG TABLET PO SCH ×2 (14:47→21:07)
[2016-12-26] MEDS: METOPROLOL TART IMMED RELEASE 25 MG TABLET. PO SCH ×2 (14:47→21:07)
[2016-12-26] MEDS: FLUOXETINE HCL 20 MG CAPSULE PO SCH (14:47)
[2016-12-26] MEDS: LOSARTAN POTASSIUM 25 MG TABLET. PO SCH (14:48)
[2016-12-26] MEDS: DEXAMETHASONE 1 MG TABLET PO SCH ×2 (14:49→21:07)
--- NOTE | 2016-12-26 15:24 | PDOC ---
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 Simple partial seizure x 1, left side facial twitching. 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 Recent Hx of STEMI s/p cardiac stents. Longstanding Hx of smoking. Left side LE numbness. Anxiety. RECOMMENDATIONS/PLAN: Continue Keppra 500 mg bid. Oncology consulted. NS consulted. Lung mass biopsy on 12/26. Smoking cessation. Discussed with his family again at bedside on 12/26/16. EEG on 12/23: Normal study. PAST MEDICAL HISTORY: Please see above. PAST SURGERY HISTORY: Cardiac stents. ALLERGY: Reviewed. MEDICATIONS: Refer to [facility] FAMILY HISTORY: His father had lung cancer. SOCIAL HISTORY: Lives at home. He smokes 15 to 20 cigarettes a day for 20 years. REVIEW OF SYSTEMS: Constitutional: No cachexia. Head: No traumatic brain or head injury. Skin: No edema, or rash. Ear: No infection. Eyes: No vision loss or color blindness. Nose: No bleeding or purulent discharges. Hearing: No hearing decrease. Neck: No injury. Cardiac: stents x 2. Pulmonary: Lung mass found this time. GI: No GI ulcer, GI bleeding. Urinary/genital: No dysuria, hematuria, incontinence, urinary retention. Endocrinologic: No cousin face, craniofacial dysmorphism, polydactyly. Skeletomuscular: No muscular atrophy, deformity. Neurological: see HP. Psychiatric: smoking. Otherwise, not [id number] review of systems. PHYSICAL EXAMINATION: General appearance is in subacute distress. HEENT: Normocephalic and nontraumatic. Eyes, nose, ears, and throat are unremarkable. Neck is supple. No lymphadenopathy. No crepitus. Cardiovascular: S1, S2, regular rate and rhythm. Pulmonary: Clear to auscultation bilaterally. Abdomen: Bowel sounds are positive. Abdomen is soft, nontender, and nondistended. Extremities: No rash, lesions, or edema. No restriction of range of motion NEUROLOGICAL EXAMINATION: Awake. Oriented to time, place and person. PERRL. EOMI. CN: no focal findings. Muscle tone: within normal. Muscle strength: 5 DTR: 2 Plantar reflex: Flexor response bilaterally Gait: Near his normal baseline. Sensory exam: no abnormal findings. No obvious cerebellar signs elicited. F-T-N test accurate. Objective Objective Vital Signs Date Time Temp Pulse Resp B/P Pulse Ox O2 Delivery O2 Flow Rate FiO2 12/26/16 15:16 94 Room Air 2.0 12/26/16 15:07 87 20 154/91 12/26/16 11:07 98.3 98.3 Intake and Output 12/26/16 07:00 Intake Total 1676 ml Output Total 1575 ml Balance 101 ml Intake Oral 1290 ml IV Total 386 ml Output Urine Total 1575 ml # Voids 4 Vitals Signs Vitals VS - Last 72 Hours, by Label Date Time Temp Pulse Resp B/P Pulse Ox O2 Delivery O2 Flow Rate FiO2 12/26/16 15:16 94 Room Air 2.0 12/26/16 15:11 Room Air 12/26/16 15:07 87 20 154/91 94 Nasal Cannula 2.0 12/26/16 14:48 87 135/92 12/26/16 14:47 87 135/92 12/26/16 14:12 99 Room Air 2.0 12/26/16 13:22 19 12/26/16 13:01 87 18 99 Nasal Cannula 2.0 12/26/16 12:50 81 19 97 Nasal Cannula 2.0 12/26/16 12:46 86 12/26/16 12:45 85 24 96 Nasal Cannula 2.0 12/26/16 12:45 20 97 Nasal Cannula 2.0 12/26/16 12:40 79 12 96 Nasal Cannula 2.0 12/26/16 12:37 86 13 97 Nasal Cannula 2.0 12/26/16 12:32 84 16 97 Nasal Cannula 2.0 12/26/16 12:14 93 134/99 12/26/16 11:07 98.3 89 18 114/80 94 Room Air 98.3 12/26/16 10:58 94 Room Air 12/26/16 08:00 Room Air 12/26/16 07:55 98.4 85 18 116/76 92 Room Air 98.4 12/26/16 07:11 98 Room Air 12/26/16 02:12 97.7 80 16 117/82 92 Room Air 97.7 12/25/16 22:12 98.6 88 16 122/73 91 Room Air 98.6 12/25/16 21:22 91 126/79 12/25/16 20:48 96 Room Air 12/25/16 20:00 Room Air 12/25/16 19:20 97.7 91 16 126/79 96 Room Air 97.7 12/25/16 16:36 98 Room Air 12/25/16 15:00 98.4 85 18 125/80 94 Room Air 98.4 12/25/16 12:40 98 Room Air 12/25/16 11:00 98.2 80 18 126/81 97 Room Air 98.2 12/25/16 09:16 82 135/78 12/25/16 09:15 82 135/78 12/25/16 08:00 Room Air 12/25/16 07:00 98.2 82 17 135/78 96 Room Air 98.2 Laboratory Laboratory Laboratory Tests Test 12/26/16 03:40 12/26/16 05:00 Sodium Level 143mmol/L (136-145) Potassium Level 4.0mmol/L (3.5-5.1) Chloride Level 107mmol/L (98-107) Carbon Dioxide Level 29mmol/L (21-32) Anion Gap 7 (6-14) Blood Urea Nitrogen 21mg/dL (8-26) Creatinine 1.0mg/dL (0.7-1.3) Estimated GFR (Cockcroft-Gault) 77.6 Glucose Level 110mg/dL (70-99) Calcium Level 9.2mg/dL (8.5-10.1) White Blood Count 11.9x10^3/uL (4.0-11.0) Red Blood Count 5.05x10^6/uL (4.30-5.70) Hemoglobin 14.2g/dL (13.0-17.5) Hematocrit 43.8% (39.0-53.0) Mean Corpuscular Volume 87fL (79-100) Mean Corpuscular Hemoglobin 28pg (25-35) Mean Corpuscular Hemoglobin Concent 32g/dL (31-37) Red Cell Distribution Width 13.2% (11.5-14.5) Platelet Count 196x10^3/uL (140-400) Neutrophils (%) (Auto) 72% (31-73) Lymphocytes (%) (Auto) 20% (24-48) Monocytes (%) (Auto) 6% (0-9) Eosinophils (%) (Auto) 1% (0-3) Basophils (%) (Auto) 0% (0-3) Neutrophils # (Auto) 8.6x10^3uL (1.8-7.7) Lymphocytes # (Auto) 2.4x10^3/uL (1.0-4.8) Monocytes # (Auto) 0.8x10^3/uL (0.0-1.1) Eosinophils # (Auto) 0.1x10^3/uL (0.0-0.7) Basophils # (Auto) 0.0x10^3/uL (0.0-0.2) Medication Medications Current Medications Alprazolam (Xanax) 0.25 mg TID PRN PRN PO ANXIETY / AGITATION; Start 12/26/16 at 14:00 Aspirin (Ecotrin) 81 mg DAILYWBKFT PO Last administered on 12/26/16 14:48; Start 12/27/16 at 08:00 Aspirin (Ecotrin) 81 mg STK-MED ONCE PO ; Start 12/26/16 at 10:37; Stop at 10:38; Status DC Atorvastatin Calcium (Lipitor) 40 mg QHS PO ; Start 12/26/16 at 21:00 Atorvastatin Calcium (Lipitor) 40 mg STK-MED ONCE .ROUTE ; Start 12/25/16 at 21: 07; Stop 12/25/16 at 21:08; Status DC Fentanyl Citrate (Fentanyl 2ml Vial) 100 mcg 1X ONCE IV Last administered on 12:45; Start 12/26/16 at 12:30; Stop 12/26/16 at 12:36; Status DC Fentanyl Citrate (Fentanyl 2ml Vial) 100 mcg 1X ONCE IV Last administered on 13:22; Start 12/26/16 at 13:30; Stop 12/26/16 at 13:31; Status DC Fentanyl Citrate (Fentanyl 2ml Vial) 100 mcg STK-MED ONCE .ROUTE ; Start at 12:02; Stop 12/26/16 at 12:03; Status DC Fluoxetine HCl (Prozac) 20 mg STK-MED ONCE .ROUTE ; Start 12/26/16 at 10:38; Stop 12/26/16 at 10:39; Status DC Levetiracetam (Keppra) 500 mg BID PO Last administered on 12/26/16 14:47; Start 12/25/16 at 21:00 Lidocaine/Sodium Bicarbonate (Buffered Lidocaine 1%) 20 ml 1X ONCE IJ Last administered on 12/26/16 12:44; Start 12/26/16 at 12:30; Stop 12/26/16 at 12:36 ; Status DC Lidocaine/Sodium Bicarbonate (Buffered Lidocaine 1%) 20 ml STK-MED ONCE IJ ; Start 12/26/16 at 11:54; Stop 12/26/16 at 11:55; Status DC Metoprolol Tartrate (Lopressor) 12.5 mg BID PO Last administered on 12/26/16 14:47; Start 12/26/16 at 09:00 Midazolam HCl (Versed) 2 mg 1X ONCE IV Last administered on 12/26/16 12:45; Start 12/26/16 at 12:30; Stop 12/26/16 at 12:36; Status DC Midazolam HCl (Versed) 2 mg STK-MED ONCE .ROUTE ; Start 12/26/16 at 12:02; Stop 12/26/16 at 12:03; Status DC Pantoprazole Sodium (Protonix) 40 mg DAILYAC PO Last administered on 12/26/16 14:45; Start 12/26/16 at 05:01 Comment Review of Relevant I have reviewed the following items tess (where applicable) has been applied. KRISTY KAYE MD Dec 26, 2016 15:24
--- NOTE | 2016-12-26 16:14 | PDOC ---
Provider Note Provider Note 12/26/2016 1610 S/P right lung biopsy with chest tube placement Discussed with Dr. Chew and OK to restart on DAPT Discussed with Dr. Mendez and will proceed with ECASA 81 mg po daily and Plavix 75 mg po daily (instead of effient) KAL BLACK APRN Dec 26, 2016 16:14
--- NOTE | 2016-12-26 17:29 | PDOC ---
PROGRESS NOTES Subjective Subjective c/c - f/u of RUL mass Objective Objective Vital Signs Date Time Temp Pulse Resp B/P Pulse Ox O2 Delivery O2 Flow Rate FiO2 12/26/16 15:28 94 Room Air 2.0 12/26/16 15:07 87 20 154/91 12/26/16 11:07 98.3 98.3 Intake and Output 12/26/16 07:00 Intake Total 1676 ml Output Total 1575 ml Balance 101 ml Intake Oral 1290 ml IV Total 386 ml Output Urine Total 1575 ml # Voids 4 Physical Exam Heart: Normal S1, Normal S2 General: Alert, Oriented X3 Lungs: Clear to auscultation Neuro: Normal speech Psych/Mental Status: Mental status NL Assessment Assessment Problems Medical Problems: (1) Right frontal lobe lesion Status: Acute A/P: 1. RUL mass by CT, also solitary [employer] lesion appears c/w bronchogenic ca CT - chest abd and pelvis 12/22/15: 6.2 cm parenchymal mass in the right upper lobe most compatible with primary neoplastic disease. No evidence of metastatic disease in the chest, abdomen or pelvis. s/p CT guided bx lung 12/26/16. - if small cell , then no resection. I would plan chemo.XRT - if NSCLC, then resection of both the primary and solitary met can be considered. 2. CAD s/p stents - Appreciate cardiology mgmt of anti plt agent. Prasurgrel was discontinued by cardiology 12/21/16. 3. Brain met - agree with steroids and will defer anti epileptics to neuro - looks like they are observing for now. 4. Bone scan 12/23/16 reveals no mets. 5. Left groin/thigh pain/swelling - ordered venous doppler. Comment Review of Relevant I have reviewed the following items tess (where applicable) has been applied. Labs Laboratory Tests Test 12/25/16 03:12 12/25/16 09:48 12/26/16 03:40 12/26/16 05:00 White Blood Count 14.0x10^3/uL (4.0-11.0) 11.9x10^3/uL (4.0-11.0) Red Blood Count 5.21x10^6/uL (4.30-5.70) 5.05x10^6/uL (4.30-5.70) Hemoglobin 14.8g/dL (13.0-17.5) 14.2g/dL (13.0-17.5) Hematocrit 45.3% (39.0-53.0) 43.8% (39.0-53.0) Mean Corpuscular Volume 87fL (79-100) 87fL (79-100) Mean Corpuscular Hemoglobin 28pg (25-35) 28pg (25-35) Mean Corpuscular Hemoglobin Concent 33g/dL (31-37) 32g/dL (31-37) Red Cell Distribution Width 13.5% (11.5-14.5) 13.2% (11.5-14.5) Platelet Count 200x10^3/uL (140-400) 196x10^3/uL (140-400) Neutrophils (%) (Auto) 75% (31-73) 72% (31-73) Lymphocytes (%) (Auto) 19% (24-48) 20% (24-48) Monocytes (%) (Auto) 6% (0-9) 6% (0-9) Eosinophils (%) (Auto) 0% (0-3) 1% (0-3) Basophils (%) (Auto) 0% (0-3) 0% (0-3) Neutrophils # (Auto) 10.5x10^3uL (1.8-7.7) 8.6x10^3uL (1.8-7.7) Lymphocytes # (Auto) 2.6x10^3/uL (1.0-4.8) 2.4x10^3/uL (1.0-4.8) Monocytes # (Auto) 0.8x10^3/uL (0.0-1.1) 0.8x10^3/uL (0.0-1.1) Eosinophils # (Auto) 0.0x10^3/uL (0.0-0.7) 0.1x10^3/uL (0.0-0.7) Basophils # (Auto) 0.0x10^3/uL (0.0-0.2) 0.0x10^3/uL (0.0-0.2) Sodium Level 143mmol/L (136-145) 143mmol/L (136-145) Potassium Level 4.3mmol/L (3.5-5.1) 4.0mmol/L (3.5-5.1) Chloride Level 107mmol/L (98-107) 107mmol/L (98-107) Carbon Dioxide Level 29mmol/L (21-32) 29mmol/L (21-32) Anion Gap 7 (6-14) 7 (6-14) Blood Urea Nitrogen 18mg/dL (8-26) 21mg/dL (8-26) Creatinine 1.0mg/dL (0.7-1.3) 1.0mg/dL (0.7-1.3) Estimated GFR (Cockcroft-Gault) 77.6 77.6 Glucose Level 99mg/dL (70-99) 110mg/dL (70-99) Calcium Level 9.0mg/dL (8.5-10.1) 9.2mg/dL (8.5-10.1) Prothrombin Time 12.8SEC (11.7-14.0) Prothromb Time International Ratio 1.0 (0.8-1.1) Laboratory Tests Test 12/26/16 03:40 12/26/16 05:00 Sodium Level 143mmol/L (136-145) Potassium Level 4.0mmol/L (3.5-5.1) Chloride Level 107mmol/L (98-107) Carbon Dioxide Level 29mmol/L (21-32) Anion Gap 7 (6-14) Blood Urea Nitrogen 21mg/dL (8-26) Creatinine 1.0mg/dL (0.7-1.3) Estimated GFR (Cockcroft-Gault) 77.6 Glucose Level 110mg/dL (70-99) Calcium Level 9.2mg/dL (8.5-10.1) White Blood Count 11.9x10^3/uL (4.0-11.0) Red Blood Count 5.05x10^6/uL (4.30-5.70) Hemoglobin 14.2g/dL (13.0-17.5) Hematocrit 43.8% (39.0-53.0) Mean Corpuscular Volume 87fL (79-100) Mean Corpuscular Hemoglobin 28pg (25-35) Mean Corpuscular Hemoglobin Concent 32g/dL (31-37) Red Cell Distribution Width 13.2% (11.5-14.5) Platelet Count 196x10^3/uL (140-400) Neutrophils (%) (Auto) 72% (31-73) Lymphocytes (%) (Auto) 20% (24-48) Monocytes (%) (Auto) 6% (0-9) Eosinophils (%) (Auto) 1% (0-3) Basophils (%) (Auto) 0% (0-3) Neutrophils # (Auto) 8.6x10^3uL (1.8-7.7) Lymphocytes # (Auto) 2.4x10^3/uL (1.0-4.8) Monocytes # (Auto) 0.8x10^3/uL (0.0-1.1) Eosinophils # (Auto) 0.1x10^3/uL (0.0-0.7) Basophils # (Auto) 0.0x10^3/uL (0.0-0.2) Medications Current Medications Iohexol (Omnipaque 300 Mg/ml) 70 ml 1X ONCE IV Last administered on 12/20/16 03:42; Start 12/20/16 at 03:15; Stop 12/20/16 at 03:16; Status DC Info (Do NOT chart on this entry -- for MONITORING) 1 each PRN DAILY PRN MC SEE COMMENTS; Start 12/20/16 at 03:15; Stop 12/21/16 at 16:47; Status DC Ondansetron HCl (Zofran) 4 mg PRN Q8HRS PRN IV NAUSEA/VOMITING; Start 12/20/16 at 04:30; Stop 12/20/16 at 13:26; Status DC Acetaminophen (Tylenol) 650 mg PRN Q4HRS PRN PO FEVER; Start 12/20/16 at 04:30 ; Stop 12/21/16 at 04:30; Status DC Aspirin (Carlene Aspirin) 325 mg 1X ONCE PO Last administered on 12/20/16 05:17 ; Start 12/20/16 at 05:00; Stop 12/20/16 at 05:01; Status DC Clopidogrel Bisulfate (Plavix) 75 mg DAILYWBKFT PO Last administered on 09:24; Start 12/20/16 at 09:00; Stop 12/20/16 at 13:22; Status DC Gadobutrol (Gadavist) 9 mmol 1X ONCE IV Last administered on 12/20/16 12:32; Start 12/20/16 at 12:30; Stop 12/20/16 at 12:31; Status DC Aspirin (Ecotrin) 325 mg DAILYWBKFT PO Last administered on 12/22/16 09:26; Start 12/20/16 at 14:00; Stop 12/22/16 at 16:13; Status DC Atorvastatin Calcium (Lipitor) 40 mg QHS PO Last administered on 12/25/16 21: 22; Start 12/20/16 at 21:00; Stop 12/26/16 at 14:01; Status DC Acetaminophen/ Hydrocodone Bitart (Lortab 5/325) 1 tab PRN Q4HRS PRN PO MILD PAIN, 2ND CHOICE Last administered on 12/26/16 14:12; Start 12/20/16 at 13:30 Metoprolol Tartrate (Lopressor) 12.5 mg BID PO Last administered on 12/25/16 21:22; Start 12/20/16 at 14:00; Stop 12/26/16 at 05:01; Status DC Prasugrel (Effient) 10 mg DAILYWBKFT PO Last administered on 12/21/16 08:36; Start 12/20/16 at 14:00; Stop 12/21/16 at 11:12; Status DC Varenicline (Chantix) 1 mg BID PO Last administered on 12/20/16 14:39; Start 12/20/16 at 14:00; Stop 12/23/16 at 16:55; Status DC Ondansetron HCl (Zofran) 4 mg PRN Q6HRS PRN IV NAUSEA/VOMITING; Start 12/20/16 at 13:30; Stop 12/25/16 at 04:49; Status DC Dexamethasone Sodium Phosphate (Decadron) 4 mg Q6HRS IV Last administered on 06:31; Start 12/20/16 at 18:00; Stop 12/22/16 at 12:20; Status DC Pantoprazole Sodium (Protonix) 40 mg DAILYAC PO Last administered on 12/25/16 09:14; Start 12/20/16 at 14:00; Stop 12/26/16 at 05:01; Status DC Acetaminophen (Tylenol) 650 mg PRN Q6HRS PRN PO MILD PAIN / TEMP; Start at 19:00; Stop 12/25/16 at 04:49; Status DC Alprazolam (Xanax) 0.25 mg PRN Q8HRS PRN PO ANXIETY / AGITATION; Start at 19:00; Status Cancel Lorazepam (Ativan) 2 mg PRN Q4HRS PRN IV ANXIETY / AGITATION Last administered on 12/23/16 20:54; Start 12/20/16 at 19:00 Alprazolam (Xanax) 0.25 mg TID PRN PRN PO ANXIETY / AGITATION Last administered on 12/25/16 15:21; Start 12/20/16 at 19:15; Stop 12/26/16 at 14:00 ; Status DC Enoxaparin Sodium (Lovenox 80mg Syringe) 80 mg Q12HR SQ ; Start 12/21/16 at 21: 00; Stop 12/21/16 at 21:00; Status DC Info (Anti-Coagulation Monitoring By Pharmacy) 1 each PRN DAILY PRN MC SEE COMMENTS; Start 12/21/16 at 11:30; Stop 12/22/16 at 10:33; Status DC Enoxaparin Sodium (Lovenox 40mg Syringe) 40 mg Q24H SQ ; Start 12/22/16 at 10:00 ; Stop 12/22/16 at 10:00; Status DC Albuterol/ Ipratropium (Duoneb) 3 ml RTQID NEB Last administered on 12/26/16 15:09; Start 12/21/16 at 16:00 Iohexol (Omnipaque 300 Mg/ml) 75 ml 1X ONCE IV ; Start 12/21/16 at 13:15; Stop 12/21/16 at 13:16; Status DC Iohexol (Omnipaque 240 Mg/ml) 50 ml 1X ONCE PO ; Start 12/21/16 at 13:15; Stop 12/21/16 at 13:16; Status DC Info (Do NOT chart on this entry -- for MONITORING) 1 each PRN DAILY PRN MC SEE COMMENTS; Start 12/21/16 at 13:15; Stop 12/23/16 at 13:14; Status DC Dexamethasone (Decadron) 2 mg BID PO Last administered on 12/26/16 14:49; Start 12/22/16 at 13:00 Lorazepam 0.5 mg 0.5 mg PRN Q8HRS PRN PO ANXIETY / AGITATION Last administered on 12/24/16 08:16; Start 12/22/16 at 13:15 Tirofiban/Sodium Chloride (Aggrastat 12.5 Mg/250 ml Premix) 250 ml @ 0 mls/hr CONT PRN IV PER PROTOCOL Last administered on 12/23/16 05:48; Start 12/22/16 at 14:15; Stop 12/23/16 at 13:46; Status DC Losartan Potassium (Cozaar) 25 mg DAILY PO Last administered on 12/26/16 14:48 ; Start 12/22/16 at 16:00 Aspirin (Ecotrin) 81 mg DAILYWBKFT PO Last administered on 12/24/16 08:17; Start 12/23/16 at 08:00; Stop 12/26/16 at 14:01; Status DC Fluoxetine HCl 20 mg 20 mg DAILY PO Last administered on 12/26/16 14:47; Start 12/23/16 at 12:30 Tirofiban/Sodium Chloride (Aggrastat 12.5 Mg/250 ml Premix) 250 ml @ 0 mls/hr CONT PRN IV PER PROTOCOL Last administered on 12/25/16 20:53; Start 12/23/16 at 14:00; Stop 12/26/16 at 18:00 Adenosine (Adenocard) 6 mg STK-MED ONCE IV ; Start 12/23/16 at 18:14; Stop 12/23 at 18:15; Status Cancel Adenosine (Adenocard) 6 mg STK-MED ONCE IV ; Start 12/23/16 at 18:15; Stop 12/23 at 18:16; Status Cancel Levetiracetam (Keppra) 250 mg BID PO Last administered on 12/25/16 09:16; Start 12/24/16 at 14:00; Stop 12/25/16 at 13:42; Status DC Alprazolam (Xanax) 0.25 mg STK-MED ONCE .ROUTE ; Start 12/24/16 at 14:46; Stop 12/24/16 at 14:47; Status DC Alprazolam (Xanax) 0.25 mg STK-MED ONCE .ROUTE Last administered on 12/24/16 21:45; Start 12/24/16 at 21:27; Stop 12/25/16 at 12:29; Status DC Acetaminophen (Tylenol) 650 mg PRN Q6HRS PRN PO MILD PAIN / TEMP; Start at 04:49 Ondansetron HCl (Zofran) 4 mg PRN Q6HRS PRN IV NAUSEA/VOMITING; Start 12/25/16 at 04:49 Aspirin (Ecotrin) 81 mg STK-MED ONCE PO ; Start 12/25/16 at 08:37; Stop at 08:38; Status DC Lorazepam (Ativan) 0.5 mg BID PO Last administered on 12/26/16 14:11; Start at 13:00 Levetiracetam (Keppra) 500 mg BID PO Last administered on 12/26/16 14:47; Start 12/25/16 at 21:00 Alprazolam (Xanax) 0.25 mg STK-MED ONCE .ROUTE ; Start 12/25/16 at 15:14; Stop 12/25/16 at 15:15; Status DC Atorvastatin Calcium (Lipitor) 40 mg STK-MED ONCE .ROUTE ; Start 12/25/16 at 21: 07; Stop 12/25/16 at 21:08; Status DC Metoprolol Tartrate (Lopressor) 12.5 mg BID PO Last administered on 12/26/16 14:47; Start 12/26/16 at 09:00 Pantoprazole Sodium (Protonix) 40 mg DAILYAC PO Last administered on 12/26/16 14:45; Start 12/26/16 at 05:01 Aspirin (Ecotrin) 81 mg STK-MED ONCE PO ; Start 12/26/16 at 10:37; Stop at 10:38; Status DC Fluoxetine HCl (Prozac) 20 mg STK-MED ONCE .ROUTE ; Start 12/26/16 at 10:38; Stop 12/26/16 at 10:39; Status DC Lidocaine/Sodium Bicarbonate (Buffered Lidocaine 1%) 20 ml STK-MED ONCE IJ ; Start 12/26/16 at 11:54; Stop 12/26/16 at 11:55; Status DC Fentanyl Citrate (Fentanyl 2ml Vial) 100 mcg STK-MED ONCE .ROUTE ; Start at 12:02; Stop 12/26/16 at 12:03; Status DC Midazolam HCl (Versed) 2 mg STK-MED ONCE .ROUTE ; Start 12/26/16 at 12:02; Stop 12/26/16 at 12:03; Status DC Lidocaine/Sodium Bicarbonate (Buffered Lidocaine 1%) 20 ml 1X ONCE IJ Last administered on 12/26/16 12:44; Start 12/26/16 at 12:30; Stop 12/26/16 at 12:36 ; Status DC Midazolam HCl (Versed) 2 mg 1X ONCE IV Last administered on 12/26/16 12:45; Start 12/26/16 at 12:30; Stop 12/26/16 at 12:36; Status DC Fentanyl Citrate (Fentanyl 2ml Vial) 100 mcg 1X ONCE IV Last administered on 12:45; Start 12/26/16 at 12:30; Stop 12/26/16 at 12:36; Status DC Fentanyl Citrate (Fentanyl 2ml Vial) 100 mcg 1X ONCE IV Last administered on 13:22; Start 12/26/16 at 13:30; Stop 12/26/16 at 13:31; Status DC Alprazolam (Xanax) 0.25 mg TID PRN PRN PO ANXIETY / AGITATION; Start 12/26/16 at 14:00 Atorvastatin Calcium (Lipitor) 40 mg QHS PO ; Start 12/26/16 at 21:00 Aspirin (Ecotrin) 81 mg DAILYWBKFT PO Last administered on 12/26/16 14:48; Start 12/27/16 at 08:00 Clopidogrel Bisulfate (Plavix) 75 mg DAILYWBKFT PO ; Start 12/26/16 at 18:00 Active Scripts Active Hydrocodone-Apap 5-325 (Hydrocodone Bit/Acetaminophen) 1 Each Tablet 1 Tab PO PRN Q4HRS PRN Effient (Prasugrel Hcl) 10 Mg Tablet 10 Mg PO DAILYWBKFT Metoprolol Tartrate 25 Mg Tablet 12.5 Mg PO BID Atorvastatin Calcium 40 Mg Tablet 40 Mg PO QHS Aspirin Ec (Aspirin) 325 Mg Tablet. 325 Mg PO DAILYWBK Reported Chantix (Varenicline Tartrate) 0.5 Mg Tablet 1 Mg PO BID 0.5 MG PO DAILY X3 DAY, 0.5 MG PO BID X4 DAY, 1 MG PO BID UNTIL END OF TREATMENT Vitals/I & O Vital Sign - Last 24 Hours 12/25/16 12/25/16 12/25/16 12/25/16 19:20 20:00 20:48 21:22 Temp 97.7 97.7 Pulse 91 91 Resp 16 B/P 126/79 126/79 Pulse Ox 96 96 O2 Delivery Room Air Room Air Room Air 12/25/16 12/26/16 12/26/16 12/26/16 22:12 02:12 07:11 07:55 Temp 98.6 97.7 98.4 98.6 97.7 98.4 Pulse 88 80 85 Resp 18 B/P 122/73 117/82 116/76 Pulse Ox 91 92 98 92 O2 Delivery Room Air Room Air Room Air Room Air 12/26/16 12/26/16 12/26/16 12/26/16 08:00 10:58 11:07 12:14 Temp 98.3 98.3 Pulse 89 93 Resp 18 B/P 114/80 134/99 Pulse Ox 94 94 O2 Delivery Room Air Room Air Room Air 12/26/16 12/26/16 12/26/16 12/26/16 12:32 12:37 12:40 12:45 Pulse 84 86 79 Resp 16 13 12 20 Pulse Ox 97 97 96 97 O2 Delivery Nasal Cannula Nasal Cannula Nasal Cannula Nasal Cannula O2 Flow Rate 2.0 2.0 2.0 2.0 12/26/16 12/26/16 12/26/16 12/26/16 12:45 12:46 12:50 13:01 Pulse 85 86 81 87 Resp 24 19 18 Pulse Ox 96 97 99 O2 Delivery Nasal Cannula Nasal Cannula Nasal Cannula O2 Flow Rate 2.0 2.0 2.0 12/26/16 12/26/16 12/26/16 12/26/16 13:22 14:12 14:47 14:48 Pulse 87 87 Resp 19 B/P 135/92 135/92 Pulse Ox 99 O2 Delivery Room Air O2 Flow Rate 2.0 12/26/16 12/26/16 12/26/16 12/26/16 15:07 15:11 15:16 15:28 Pulse 87 Resp 20 B/P 154/91 Pulse Ox 94 94 94 O2 Delivery Nasal Cannula Room Air Room Air Room Air O2 Flow Rate 2.0 2.0 2.0 Intake and Output 12/25/16 12/25/16 12/26/16 15:00 23:00 07:00 Intake Total 990 ml 686 ml Output Total 950 ml 625 ml Balance -950 ml 990 ml 61 ml SUSY COTTO MD Dec 26, 2016 17:29
[2016-12-26] MEDS: CLOPIDOGREL BISULFATE 75 MG TABLET PO SCH (18:20)
[2016-12-26] MEDS: ATORVASTATIN CALCIUM 40 MG TABLET. PO SCH (21:00)
[2016-12-27] MEDS: HYDROCODONE/APAP 5/325MG TABLET. PO PRN ×4 (00:20→23:10)
[2016-12-27 03:21] VITALS: BP 137/88
[2016-12-27 05:29] LABS: CALCIUM 9.4 mg/dL (8.5-10.1); CREATININE 1.1 mg/dL (0.7-1.3); GFR 69.5; POTASSIUM 4.6 mmol/L (3.5-5.1)
[2016-12-27 05:54] LABS: BASO # 0.1 x10^3/uL (0.0-0.2); BASO % 0 % (0-3); EOS % 0 % (0-3); HEMATOCRIT 45.2 % (39.0-53.0); HEMOGLOBIN 14.8 g/dL (13.0-17.5); LYMPH # 1.9 x10^3/uL (1.0-4.8); LYMPH % 14 % (24-48); MEAN CORPUSCULAR HEMOGLOBIN 28 pg (25-35); MEAN CORPUSCULAR HGB CONC 33 g/dL (31-37); MEAN CORPUSCULAR VOLUME 86 fL (79-100); MONO % 4 % (0-9); NEUT % 82 % (31-73); PLATELET COUNT 210 x10^3/uL (140-400); RED BLOOD COUNT 5.23 x10^6/uL (4.30-5.70); RED CELL DISTRIBUTION WIDTH 13.6 % (11.5-14.5); WHITE BLOOD COUNT 13.8 x10^3/uL (4.0-11.0)
[2016-12-27 07:00] VITALS: BP 124/73
[2016-12-27] MEDS: IPRATRPIUM/ALBUTEROL 0.5/2.5MG 3 ML NEBU. NEB SCH ×4 (07:17→21:17)
[2016-12-27] MEDS ORDERED: LEVETIRACETAM 500 MG TABLET. PO ONE (07:41)
[2016-12-27] MEDS ORDERED: LORAZEPAM 0.5 MG TABLET. ONE (07:41)
[2016-12-27] MEDS ORDERED: FLUOXETINE HCL 20 MG CAPSULE. ONE (07:42)
[2016-12-27] MEDS: PANTOPRAZOLE 40 MG TABLET.DR. PO SCH (07:47)
[2016-12-27] MEDS: CLOPIDOGREL BISULFATE 75 MG TABLET PO SCH (07:48)
--- NOTE | 2016-12-27 08:00 | RAD ---
EXAM: Left lower extremity Doppler sonogram. HISTORY: Swelling. TECHNIQUE: Grayscale and color Doppler sonographic imaging of the left lower extremity veins with spectral waveform analysis was performed. COMPARISON: None. FINDINGS: There is normal color flow, normal compressibility and there are normal spectral waveforms within the lower extremity veins. IMPRESSION: No Doppler evidence of lower extremity venous thrombosis.
--- NOTE | 2016-12-27 08:37 | RAD ---
EXAM: Chest, single view. HISTORY: Chest tube. COMPARISON: 12/21/2016. FINDINGS: A frontal view of the chest is obtained. There is a 6.5 cm inferior right upper lobe mass. There is a pleural drainage catheter within the medial right mid thorax. There is lucency involving the right upper lung due to emphysema. No pneumothorax is clearly seen. The heart is normal in size. There is no effusion. IMPRESSION: 1. 6.5 cm right lung mass. Correlate with recent biopsy findings. 2. Right pleural drainage catheter. The recently demonstrated anterior pneumothorax is not clearly seen. There is upper lobe predominant right lung lucency due to severe emphysema.
[2016-12-27] MEDS: LOSARTAN POTASSIUM 25 MG TABLET. PO SCH (08:48)
[2016-12-27] MEDS: LORAZEPAM 0.5 MG TABLET. PO SCH ×2 (08:49→20:27)
[2016-12-27] MEDS: LEVETIRACETAM 500 MG TABLET PO SCH (08:49)
[2016-12-27] MEDS: METOPROLOL TART IMMED RELEASE 25 MG TABLET. PO SCH ×2 (08:49→20:28)
[2016-12-27] MEDS: DEXAMETHASONE 1 MG TABLET PO SCH ×2 (08:50→20:28)
[2016-12-27] MEDS: FLUOXETINE HCL 20 MG CAPSULE PO SCH (08:50)
[2016-12-27 11:00] VITALS: BP 135/91
--- NOTE | 2016-12-27 12:36 | PDOC ---
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 Simple partial seizure x 1, left side facial twitching. 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 Recent Hx of STEMI s/p cardiac stents. Longstanding Hx of smoking. Left side LE numbness. Anxiety. RECOMMENDATIONS/PLAN: Continue Keppra 500 mg bid. Oncology consulted. NS consulted. Lung mass biopsy performed on 12/26, wait for pathology reports. Smoking cessation. Discussed with his family again at bedside on 12/27/16. EEG on 12/23: Normal study. PAST MEDICAL HISTORY: Please see above. PAST SURGERY HISTORY: Cardiac stents. ALLERGY: Reviewed. MEDICATIONS: Refer to [facility] FAMILY HISTORY: His father had lung cancer. SOCIAL HISTORY: Lives at home. He smokes 15 to 20 cigarettes a day for 20 years. REVIEW OF SYSTEMS: Constitutional: No cachexia. Head: No traumatic brain or head injury. Skin: No edema, or rash. Ear: No infection. Eyes: No vision loss or color blindness. Nose: No bleeding or purulent discharges. Hearing: No hearing decrease. Neck: No injury. Cardiac: stents x 2. Pulmonary: Lung mass found this time. GI: No GI ulcer, GI bleeding. Urinary/genital: No dysuria, hematuria, incontinence, urinary retention. Endocrinologic: No cousin face, craniofacial dysmorphism, polydactyly. Skeletomuscular: No muscular atrophy, deformity. Neurological: see HP. Psychiatric: smoking. Otherwise, not [id number] review of systems. PHYSICAL EXAMINATION: General appearance is in subacute distress. HEENT: Normocephalic and nontraumatic. Eyes, nose, ears, and throat are unremarkable. Neck is supple. No lymphadenopathy. No crepitus. Cardiovascular: S1, S2, regular rate and rhythm. Pulmonary: Clear to auscultation bilaterally. Abdomen: Bowel sounds are positive. Abdomen is soft, nontender, and nondistended. Extremities: No rash, lesions, or edema. No restriction of range of motion NEUROLOGICAL EXAMINATION: Awake. Oriented to time, place and person. PERRL. EOMI. CN: no focal findings. Muscle tone: within normal. Muscle strength: 5 DTR: 2 Plantar reflex: Flexor response bilaterally Gait: Near his normal baseline. Sensory exam: no abnormal findings. No obvious cerebellar signs elicited. F-T-N test accurate. Objective Objective Vital Signs Date Time Temp Pulse Resp B/P Pulse Ox O2 Delivery O2 Flow Rate FiO2 12/27/16 12:28 16 Nasal Cannula 2.0 12/27/16 11:31 94 12/27/16 08:49 93 124/73 12/27/16 07:00 98.6 98.6 Intake and Output 12/27/16 07:00 Intake Total 500 ml Output Total 575 ml Balance -75 ml Intake Oral 500 ml Output Urine Total 575 ml # Voids 4 # Bowel Movements 1 Vitals Signs Vitals VS - Last 72 Hours, by Label Date Time Temp Pulse Resp B/P Pulse Ox O2 Delivery O2 Flow Rate FiO2 12/27/16 12:28 16 Nasal Cannula 2.0 12/27/16 11:31 94 Room Air 12/27/16 08:50 16 Nasal Cannula 2.0 12/27/16 08:49 93 124/73 12/27/16 08:48 86 124/73 12/27/16 08:00 Room Air 12/27/16 07:48 18 Nasal Cannula 2.0 12/27/16 07:18 94 Room Air 12/27/16 07:00 98.6 77 18 124/73 88 Nasal Cannula 98.6 12/27/16 03:21 98.6 77 16 137/88 93 Room Air 98.6 12/26/16 22:24 98.6 95 16 116/83 92 Room Air 98.6 12/26/16 21:07 90 134/84 12/26/16 20:00 Room Air 2.0 12/26/16 19:59 98.2 90 16 134/84 92 Room Air 98.2 12/26/16 19:57 Room Air 12/26/16 18:17 94 Room Air 2.0 12/26/16 15:28 94 Room Air 2.0 12/26/16 15:16 94 12/26/16 15:11 Room Air 12/26/16 15:07 87 20 154/91 94 Nasal Cannula 2.0 12/26/16 14:48 87 135/92 12/26/16 14:47 87 135/92 12/26/16 14:12 99 Room Air 2.0 12/26/16 13:22 19 12/26/16 13:01 87 18 99 Nasal Cannula 2.0 12/26/16 12:50 81 19 97 Nasal Cannula 2.0 12/26/16 12:46 86 12/26/16 12:45 85 24 96 Nasal Cannula 2.0 12/26/16 12:45 20 97 Nasal Cannula 2.0 12/26/16 12:40 79 12 96 Nasal Cannula 2.0 12/26/16 12:37 86 13 97 Nasal Cannula 2.0 12/26/16 12:32 84 16 97 Nasal Cannula 2.0 12/26/16 12:14 93 134/99 12/26/16 11:07 98.3 89 18 114/80 94 Room Air 98.3 12/26/16 10:58 94 Room Air 12/26/16 08:00 Room Air 12/26/16 07:55 98.4 85 18 116/76 92 Room Air 98.4 12/26/16 07:11 98 Room Air Laboratory Laboratory Laboratory Tests Test 12/27/16 03:30 12/27/16 05:00 Sodium Level 139mmol/L (136-145) Potassium Level 4.6mmol/L (3.5-5.1) Chloride Level 103mmol/L (98-107) Carbon Dioxide Level 29mmol/L (21-32) Anion Gap 7 (6-14) Blood Urea Nitrogen 19mg/dL (8-26) Creatinine 1.1mg/dL (0.7-1.3) Estimated GFR (Cockcroft-Gault) 69.5 Glucose Level 120mg/dL (70-99) Calcium Level 9.4mg/dL (8.5-10.1) White Blood Count 13.8x10^3/uL (4.0-11.0) Red Blood Count 5.23x10^6/uL (4.30-5.70) Hemoglobin 14.8g/dL (13.0-17.5) Hematocrit 45.2% (39.0-53.0) Mean Corpuscular Volume 86fL (79-100) Mean Corpuscular Hemoglobin 28pg (25-35) Mean Corpuscular Hemoglobin Concent 33g/dL (31-37) Red Cell Distribution Width 13.6% (11.5-14.5) Platelet Count 210x10^3/uL (140-400) Neutrophils (%) (Auto) 82% (31-73) Lymphocytes (%) (Auto) 14% (24-48) Monocytes (%) (Auto) 4% (0-9) Eosinophils (%) (Auto) 0% (0-3) Basophils (%) (Auto) 0% (0-3) Neutrophils # (Auto) 11.3x10^3uL (1.8-7.7) Lymphocytes # (Auto) 1.9x10^3/uL (1.0-4.8) Monocytes # (Auto) 0.6x10^3/uL (0.0-1.1) Eosinophils # (Auto) 0.0x10^3/uL (0.0-0.7) Basophils # (Auto) 0.1x10^3/uL (0.0-0.2) Medication Medications Current Medications Alprazolam (Xanax) 0.25 mg TID PRN PRN PO ANXIETY / AGITATION; Start 12/26/16 at 14:00 Aspirin (Ecotrin) 81 mg DAILYWBKFT PO Last administered on 12/26/16 14:48; Start 12/27/16 at 08:00 Atorvastatin Calcium (Lipitor) 40 mg QHS PO ; Start 12/26/16 at 21:00 Clopidogrel Bisulfate (Plavix) 75 mg DAILYWBKFT PO Last administered on 07:48; Start 12/26/16 at 18:00 Fentanyl Citrate (Fentanyl 2ml Vial) 100 mcg 1X ONCE IV Last administered on 13:22; Start 12/26/16 at 13:30; Stop 12/26/16 at 13:31; Status DC Fluoxetine HCl (Prozac) 20 mg STK-MED ONCE .ROUTE ; Start 12/27/16 at 07:42; Stop 12/27/16 at 07:43; Status DC Levetiracetam (Keppra) 500 mg STK-MED ONCE PO ; Start 12/27/16 at 07:41; Stop 12/27/16 at 07:42; Status DC Lorazepam (Ativan) 0.5 mg STK-MED ONCE .ROUTE ; Start 12/27/16 at 07:41; Stop 12/27/16 at 07:42; Status DC Comment Review of Relevant I have reviewed the following items tess (where applicable) has been applied. KRISTY KAYE MD Dec 27, 2016 12:35
--- NOTE | 2016-12-27 12:37 | RAD ---
CT-guided right lung biopsy CT-guided right chest tube insertion Indication: 56-year-old male with a large 6 cm pulmonary mass within posterior segment right upper lobe. CT guided lung biopsy was requested and was performed. CT-guided chest tube insertion was then necessary, due to slowly enlarging postbiopsy pneumothorax. Anesthesia: 40 minutes moderate sedation was provided utilizing a total of 2 mg Versed and 200 mcg fentanyl, IV. The patient was appropriately monitored by a qualified independent observer throughout the time of moderate sedation. Consent: The procedure was explained in its entirety to the patient and/or the patient's designated licensing representative by a member of the treatment team. This included a discussion of risks and benefits and acceptable alternatives to the procedure, as well as expected consequences of no treatment at all. Discussion of risks included, but was not limited to, those that are most frequent and those that are rare, but possibly severe or life-threatening, as well as the possibility of unforeseen complications. Specifically, the risk of postbiopsy pneumothorax, requiring chest tube insertion, was discussed with the patient. Procedure: Informed consent was obtained from the patient. He was placed supine on the CT scanner. Moderate sedation was provided with IV Versed and fentanyl. Right lung biopsy: Pulmonary noncontrast CT images confirmed the presence of a large, noncalcified lung mass within posterior segment right upper lobe. A right lateral skin site suitable for CT-guided biopsy was selected and marked. That area was prepped and draped in the usual sterile fashion. Using aseptic technique, local anesthesia, and CT guidance, a 17-gauge guide needle was successfully introduced into the right lung mass. A total of 8 18-gauge core biopsy samples were then performed from various regions of the lung mass, centrally and peripherally. Multiple biopsies were performed because each biopsy was productive of only small fragments of tissue. All biopsy material was submitted in formalin to pathology. The biopsy guide needle was removed and a sterile dressing was applied. Completion CT images revealed interval development of a small, but slowly enlarging, postbiopsy right pneumothorax. Chest tube insertion was considered indicated. Right chest tube insertion: Noncontrast CT images were repeated through right chest. A skin site suitable for CT-guided chest tube insertion was selected and marked along anterolateral aspect of lower right hemithorax. That area was prepped and draped in the usual sterile fashion. Using aseptic technique, local anesthesia, and CT guidance, a micropuncture needle was successfully introduced into low right anterolateral pleural space. The micropuncture needle was exchanged over a microguidewire for a micropuncture sheath, which was, internal, removed over a 0.035 inch guidewire. The percutaneous tract was then dilated and a 10 [place]i locking pigtail right chest tube was easily introduced. Completion CT images documented satisfactory position of the chest tube, which was connected to Pleur-evac, and was secured at the skin exit site utilizing suture and sterile dressing. Patient tolerated the procedure well without apparent complication. Impression: 1. Multiple CT-guided 18-gauge core biopsies of large posterior segment right upper lobe noncalcified lung mass were productive of only small fragments of tissue, all of which were submitted in formalin to pathology. The tissue fragments may or may not be diagnostic. 2. Post biopsy CT images revealed interval appearance of a slowly enlarging right pneumothorax, for which CT-guided 10 [place]i locking pigtail right chest tube was successfully and uneventfully inserted. PQRS Compliance Statement: One or more of the following individualized dose reduction techniques was utilized for this procedure: 1. Automated exposure control. 2. Adjustment of MA and/or KV according to patient size. 3. Iterative reconstruction technique.
[2016-12-27] MEDS ORDERED: LORAZEPAM 0.5 MG TABLET. PO PRN (13:30)
--- NOTE | 2016-12-27 14:03 | PDOC ---
PROGRESS NOTES Chief Complaint Chief Complaint Partial seizure, new 1. Brain lesion: suspected met from lung CA. planned bx/resection later this week. on decadron 2. Sz: no antiepileptics as per neuro. 3. RUL lung mass: c/w lung primary. d/w Dr Burrows: bx relatively contraindicated due to severe emphysema. staging CT and brain MRI with lung and solitary brain lesion only. bone scan pending. Dr Ta following 4. CAD: recent NSTEMI with PCI, requiring Plaxix - currently on hold for anticipated brain surgery. d/w cards: start aggrastat 5. HLD: on statin 6. COPD: nebs 7. Tobacco dependence: started on chantix History of Present Illness History of Present Illness Patient seen and evaluated at bedside. No acute events overnight. Patient tolerated the biopsy. Chest tube and drain in place. Patient saturating >90% currently on 2L O2 NC with no respiratory distress. Patient is eager to be discharged home. Discussed plan and care with family (brother and son) at bedside Vitals Vitals Vital Signs Date Time Temp Pulse Resp B/P Pulse Ox O2 Delivery O2 Flow Rate FiO2 12/27/16 12:28 16 Nasal Cannula 2.0 12/27/16 11:31 94 12/27/16 11:00 97.8 80 135/91 97.8 Physical Exam General: Alert, Oriented X3, No acute distress, Other (chest tube and drain in place. ) Heart: Normal S1, Normal S2 Lungs: Clear (but diminished), Other (O2 supplementation with 2L NC ) Abdomen: Normal bowel sounds, Soft, No tenderness Extremities: No clubbing, No edema Skin: No rashes Labs LABS Laboratory Tests Test 12/27/16 03:30 12/27/16 05:00 Sodium Level 139mmol/L (136-145) Potassium Level 4.6mmol/L (3.5-5.1) Chloride Level 103mmol/L (98-107) Carbon Dioxide Level 29mmol/L (21-32) Anion Gap 7 (6-14) Blood Urea Nitrogen 19mg/dL (8-26) Creatinine 1.1mg/dL (0.7-1.3) Estimated GFR (Cockcroft-Gault) 69.5 Glucose Level 120mg/dL (70-99) Calcium Level 9.4mg/dL (8.5-10.1) White Blood Count 13.8x10^3/uL (4.0-11.0) Red Blood Count 5.23x10^6/uL (4.30-5.70) Hemoglobin 14.8g/dL (13.0-17.5) Hematocrit 45.2% (39.0-53.0) Mean Corpuscular Volume 86fL (79-100) Mean Corpuscular Hemoglobin 28pg (25-35) Mean Corpuscular Hemoglobin Concent 33g/dL (31-37) Red Cell Distribution Width 13.6% (11.5-14.5) Platelet Count 210x10^3/uL (140-400) Neutrophils (%) (Auto) 82% (31-73) Lymphocytes (%) (Auto) 14% (24-48) Monocytes (%) (Auto) 4% (0-9) Eosinophils (%) (Auto) 0% (0-3) Basophils (%) (Auto) 0% (0-3) Neutrophils # (Auto) 11.3x10^3uL (1.8-7.7) Lymphocytes # (Auto) 1.9x10^3/uL (1.0-4.8) Monocytes # (Auto) 0.6x10^3/uL (0.0-1.1) Eosinophils # (Auto) 0.0x10^3/uL (0.0-0.7) Basophils # (Auto) 0.1x10^3/uL (0.0-0.2) Review of Systems Review of Systems Denies chest pain, shortness of breath, abdominal pain, n/v/d, Headaches, or fever/chills. Assessment and Plan Assessmemt and Plan Problems Medical Problems: (1) Right frontal lobe lesion Status: Acute Partial seizure, new Brain lesion: suspected met from lung CA. New onset partial seizure RUL lung mass: suspect lung as primary lesion. s/p lung biopsy. staging CT and brain MRI with lung and solitary brain lesion only. bone scan pending. Dr Ta following CAD Recent NSTEMI with PCI, requiring Plavix - currently on hold for anticipated brain surgery. HLD COPD Tobacco dependence Anxiety plan: continue duonebs; maintain O2 saturation >90% pending biopsy results pulmonology, cardiology, neurology, neurosurgery, oncology and IR consulted, recommendations appreciated. continue Keppra 500 mg bid, per neurology continue decadron continue aggrastat, per cardiology continue prozac; ativan PRN for anxiety. smoking cessation counseling; started on chantix. monitor AM labs PT/OT Problems: Comment Review of Relevant I have reviewed the following items tess (where applicable) has been applied. Labs Laboratory Tests Test 12/26/16 03:40 12/26/16 05:00 12/27/16 03:30 12/27/16 05:00 Sodium Level 143mmol/L (136-145) 139mmol/L (136-145) Potassium Level 4.0mmol/L (3.5-5.1) 4.6mmol/L (3.5-5.1) Chloride Level 107mmol/L (98-107) 103mmol/L (98-107) Carbon Dioxide Level 29mmol/L (21-32) 29mmol/L (21-32) Anion Gap 7 (6-14) 7 (6-14) Blood Urea Nitrogen 21mg/dL (8-26) 19mg/dL (8-26) Creatinine 1.0mg/dL (0.7-1.3) 1.1mg/dL (0.7-1.3) Estimated GFR (Cockcroft-Gault) 77.6 69.5 Glucose Level 110mg/dL (70-99) 120mg/dL (70-99) Calcium Level 9.2mg/dL (8.5-10.1) 9.4mg/dL (8.5-10.1) White Blood Count 11.9x10^3/uL (4.0-11.0) 13.8x10^3/uL (4.0-11.0) Red Blood Count 5.05x10^6/uL (4.30-5.70) 5.23x10^6/uL (4.30-5.70) Hemoglobin 14.2g/dL (13.0-17.5) 14.8g/dL (13.0-17.5) Hematocrit 43.8% (39.0-53.0) 45.2% (39.0-53.0) Mean Corpuscular Volume 87fL (79-100) 86fL (79-100) Mean Corpuscular Hemoglobin 28pg (25-35) 28pg (25-35) Mean Corpuscular Hemoglobin Concent 32g/dL (31-37) 33g/dL (31-37) Red Cell Distribution Width 13.2% (11.5-14.5) 13.6% (11.5-14.5) Platelet Count 196x10^3/uL (140-400) 210x10^3/uL (140-400) Neutrophils (%) (Auto) 72% (31-73) 82% (31-73) Lymphocytes (%) (Auto) 20% (24-48) 14% (24-48) Monocytes (%) (Auto) 6% (0-9) 4% (0-9) Eosinophils (%) (Auto) 1% (0-3) 0% (0-3) Basophils (%) (Auto) 0% (0-3) 0% (0-3) Neutrophils # (Auto) 8.6x10^3uL (1.8-7.7) 11.3x10^3uL (1.8-7.7) Lymphocytes # (Auto) 2.4x10^3/uL (1.0-4.8) 1.9x10^3/uL (1.0-4.8) Monocytes # (Auto) 0.8x10^3/uL (0.0-1.1) 0.6x10^3/uL (0.0-1.1) Eosinophils # (Auto) 0.1x10^3/uL (0.0-0.7) 0.0x10^3/uL (0.0-0.7) Basophils # (Auto) 0.0x10^3/uL (0.0-0.2) 0.1x10^3/uL (0.0-0.2) Laboratory Tests Test 12/27/16 03:30 12/27/16 05:00 Sodium Level 139mmol/L (136-145) Potassium Level 4.6mmol/L (3.5-5.1) Chloride Level 103mmol/L (98-107) Carbon Dioxide Level 29mmol/L (21-32) Anion Gap 7 (6-14) Blood Urea Nitrogen 19mg/dL (8-26) Creatinine 1.1mg/dL (0.7-1.3) Estimated GFR (Cockcroft-Gault) 69.5 Glucose Level 120mg/dL (70-99) Calcium Level 9.4mg/dL (8.5-10.1) White Blood Count 13.8x10^3/uL (4.0-11.0) Red Blood Count 5.23x10^6/uL (4.30-5.70) Hemoglobin 14.8g/dL (13.0-17.5) Hematocrit 45.2% (39.0-53.0) Mean Corpuscular Volume 86fL (79-100) Mean Corpuscular Hemoglobin 28pg (25-35) Mean Corpuscular Hemoglobin Concent 33g/dL (31-37) Red Cell Distribution Width 13.6% (11.5-14.5) Platelet Count 210x10^3/uL (140-400) Neutrophils (%) (Auto) 82% (31-73) Lymphocytes (%) (Auto) 14% (24-48) Monocytes (%) (Auto) 4% (0-9) Eosinophils (%) (Auto) 0% (0-3) Basophils (%) (Auto) 0% (0-3) Neutrophils # (Auto) 11.3x10^3uL (1.8-7.7) Lymphocytes # (Auto) 1.9x10^3/uL (1.0-4.8) Monocytes # (Auto) 0.6x10^3/uL (0.0-1.1) Eosinophils # (Auto) 0.0x10^3/uL (0.0-0.7) Basophils # (Auto) 0.1x10^3/uL (0.0-0.2) Medications Current Medications Iohexol (Omnipaque 300 Mg/ml) 70 ml 1X ONCE IV Last administered on 12/20/16t 03:42; Start 12/20/16 at 03:15; Stop 12/20/16 at 03:16; Status DC Info (Do NOT chart on this entry -- for MONITORING) 1 each PRN DAILY PRN MC SEE COMMENTS; Start 12/20/16 at 03:15; Stop 12/21/16 at 16:47; Status DC Ondansetron HCl (Zofran) 4 mg PRN Q8HRS PRN IV NAUSEA/VOMITING; Start 12/20/16 at 04:30; Stop 12/20/16 at 13:26; Status DC Acetaminophen (Tylenol) 650 mg PRN Q4HRS PRN PO FEVER; Start 12/20/16 at 04:30 ; Stop 12/21/16 at 04:30; Status DC Aspirin (Carlene Aspirin) 325 mg 1X ONCE PO Last administered on 12/20/16 05:17 ; Start 12/20/16 at 05:00; Stop 12/20/16 at 05:01; Status DC Clopidogrel Bisulfate (Plavix) 75 mg DAILYWBKFT PO Last administered on 09:24; Start 12/20/16 at 09:00; Stop 12/20/16 at 13:22; Status DC Gadobutrol (Gadavist) 9 mmol 1X ONCE IV Last administered on 12/20/16 12:32; Start 12/20/16 at 12:30; Stop 12/20/16 at 12:31; Status DC Aspirin (Ecotrin) 325 mg DAILYWBKFT PO Last administered on 12/22/16 09:26; Start 12/20/16 at 14:00; Stop 12/22/16 at 16:13; Status DC Atorvastatin Calcium (Lipitor) 40 mg QHS PO Last administered on 12/25/16 21: 22; Start 12/20/16 at 21:00; Stop 12/26/16 at 14:01; Status DC Acetaminophen/ Hydrocodone Bitart (Lortab 5/325) 1 tab PRN Q4HRS PRN PO MILD PAIN, 2ND CHOICE Last administered on 12/27/16 12:28; Start 12/20/16 at 13:30 Metoprolol Tartrate (Lopressor) 12.5 mg BID PO Last administered on 12/25/16 21:22; Start 12/20/16 at 14:00; Stop 12/26/16 at 05:01; Status DC Prasugrel (Effient) 10 mg DAILYWBKFT PO Last administered on 12/21/16 08:36; Start 12/20/16 at 14:00; Stop 12/21/16 at 11:12; Status DC Varenicline (Chantix) 1 mg BID PO Last administered on 12/20/16 14:39; Start 12/20/16 at 14:00; Stop 12/23/16 at 16:55; Status DC Ondansetron HCl (Zofran) 4 mg PRN Q6HRS PRN IV NAUSEA/VOMITING; Start 12/20/16 at 13:30; Stop 12/25/16 at 04:49; Status DC Dexamethasone Sodium Phosphate (Decadron) 4 mg Q6HRS IV Last administered on 06:31; Start 12/20/16 at 18:00; Stop 12/22/16 at 12:20; Status DC Pantoprazole Sodium (Protonix) 40 mg DAILYAC PO Last administered on 12/25/16 09:14; Start 12/20/16 at 14:00; Stop 12/26/16 at 05:01; Status DC Acetaminophen (Tylenol) 650 mg PRN Q6HRS PRN PO MILD PAIN / TEMP; Start at 19:00; Stop 12/25/16 at 04:49; Status DC Alprazolam (Xanax) 0.25 mg PRN Q8HRS PRN PO ANXIETY / AGITATION; Start at 19:00; Status Cancel Lorazepam (Ativan) 2 mg PRN Q4HRS PRN IV ANXIETY / AGITATION Last administered on 12/23/16 20:54; Start 12/20/16 at 19:00 Alprazolam (Xanax) 0.25 mg TID PRN PRN PO ANXIETY / AGITATION Last administered on 12/25/16 15:21; Start 12/20/16 at 19:15; Stop 12/26/16 at 14:00 ; Status DC Enoxaparin Sodium (Lovenox 80mg Syringe) 80 mg Q12HR SQ ; Start 12/21/16 at 21: 00; Stop 12/21/16 at 21:00; Status DC Info (Anti-Coagulation Monitoring By Pharmacy) 1 each PRN DAILY PRN MC SEE COMMENTS; Start 12/21/16 at 11:30; Stop 12/22/16 at 10:33; Status DC Enoxaparin Sodium (Lovenox 40mg Syringe) 40 mg Q24H SQ ; Start 12/22/16 at 10:00 ; Stop 12/22/16 at 10:00; Status DC Albuterol/ Ipratropium (Duoneb) 3 ml RTQID NEB Last administered on 12/27/16 11 :31; Start 12/21/16 at 16:00 Iohexol (Omnipaque 300 Mg/ml) 75 ml 1X ONCE IV ; Start 12/21/16 at 13:15; Stop 12/21/16 at 13:16; Status DC Iohexol (Omnipaque 240 Mg/ml) 50 ml 1X ONCE PO ; Start 12/21/16 at 13:15; Stop 12/21/16 at 13:16; Status DC Info (Do NOT chart on this entry -- for MONITORING) 1 each PRN DAILY PRN MC SEE COMMENTS; Start 12/21/16 at 13:15; Stop 12/23/16 at 13:14; Status DC Dexamethasone (Decadron) 2 mg BID PO Last administered on 12/27/16 08:50; Start 12/22/16 at 13:00 Lorazepam 0.5 mg 0.5 mg PRN Q8HRS PRN PO ANXIETY / AGITATION Last administered on 12/24/16 08:16; Start 12/22/16 at 13:15; Stop 12/27/16 at 13:19; Status DC Tirofiban/Sodium Chloride (Aggrastat 12.5 Mg/250 ml Premix) 250 ml @ 0 mls/hr CONT PRN IV PER PROTOCOL Last administered on 12/23/16 05:48; Start 12/22/16 at 14:15; Stop 12/23/16 at 13:46; Status DC Losartan Potassium (Cozaar) 25 mg DAILY PO Last administered on 12/27/16 08:48 ; Start 12/22/16 at 16:00 Aspirin (Ecotrin) 81 mg DAILYWBKFT PO Last administered on 12/24/16 08:17; Start 12/23/16 at 08:00; Stop 12/26/16 at 14:01; Status DC Fluoxetine HCl 20 mg 20 mg DAILY PO Last administered on 12/27/16 08:50; Start 12/23/16 at 12:30; Stop 12/27/16 at 13:19; Status DC Tirofiban/Sodium Chloride (Aggrastat 12.5 Mg/250 ml Premix) 250 ml @ 0 mls/hr CONT PRN IV PER PROTOCOL Last administered on 12/25/16 20:53; Start 12/23/16 at 14:00; Stop 12/26/16 at 18:00; Status DC Adenosine (Adenocard) 6 mg STK-MED ONCE IV ; Start 12/23/16 at 18:14; Stop 12/23 at 18:15; Status Cancel Adenosine (Adenocard) 6 mg STK-MED ONCE IV ; Start 12/23/16 at 18:15; Stop 12/23 at 18:16; Status Cancel Levetiracetam (Keppra) 250 mg BID PO Last administered on 12/25/16 09:16; Start 12/24/16 at 14:00; Stop 12/25/16 at 13:42; Status DC Alprazolam (Xanax) 0.25 mg STK-MED ONCE .ROUTE ; Start 12/24/16 at 14:46; Stop 12/24/16 at 14:47; Status DC Alprazolam (Xanax) 0.25 mg STK-MED ONCE .ROUTE Last administered on 12/24/16 21:45; Start 12/24/16 at 21:27; Stop 12/25/16 at 12:29; Status DC Acetaminophen (Tylenol) 650 mg PRN Q6HRS PRN PO MILD PAIN / TEMP; Start at 04:49 Ondansetron HCl (Zofran) 4 mg PRN Q6HRS PRN IV NAUSEA/VOMITING; Start 12/25/16 at 04:49 Aspirin (Ecotrin) 81 mg STK-MED ONCE PO ; Start 12/25/16 at 08:37; Stop at 08:38; Status DC Lorazepam (Ativan) 0.5 mg BID PO Last administered on 12/27/16 08:49; Start at 13:00; Stop 12/27/16 at 13:19; Status DC Levetiracetam (Keppra) 500 mg BID PO Last administered on 12/27/16 08:49; Start 12/25/16 at 21:00 Alprazolam (Xanax) 0.25 mg STK-MED ONCE .ROUTE ; Start 12/25/16 at 15:14; Stop 12/25/16 at 15:15; Status DC Atorvastatin Calcium (Lipitor) 40 mg STK-MED ONCE .ROUTE ; Start 12/25/16 at 21: 07; Stop 12/25/16 at 21:08; Status DC Metoprolol Tartrate (Lopressor) 12.5 mg BID PO Last administered on 12/27/16 08 :49; Start 12/26/16 at 09:00 Pantoprazole Sodium (Protonix) 40 mg DAILYAC PO Last administered on 12/27/16 07:47; Start 12/26/16 at 05:01 Aspirin (Ecotrin) 81 mg STK-MED ONCE PO ; Start 12/26/16 at 10:37; Stop at 10:38; Status DC Fluoxetine HCl (Prozac) 20 mg STK-MED ONCE .ROUTE ; Start 12/26/16 at 10:38; Stop 12/26/16 at 10:39; Status DC Lidocaine/Sodium Bicarbonate (Buffered Lidocaine 1%) 20 ml STK-MED ONCE IJ ; Start 12/26/16 at 11:54; Stop 12/26/16 at 11:55; Status DC Fentanyl Citrate (Fentanyl 2ml Vial) 100 mcg STK-MED ONCE .ROUTE ; Start at 12:02; Stop 12/26/16 at 12:03; Status DC Midazolam HCl (Versed) 2 mg STK-MED ONCE .ROUTE ; Start 12/26/16 at 12:02; Stop 12/26/16 at 12:03; Status DC Lidocaine/Sodium Bicarbonate (Buffered Lidocaine 1%) 20 ml 1X ONCE IJ Last administered on 12/26/16 12:44; Start 12/26/16 at 12:30; Stop 12/26/16 at 12:36 ; Status DC Midazolam HCl (Versed) 2 mg 1X ONCE IV Last administered on 12/26/16 12:45; Start 12/26/16 at 12:30; Stop 12/26/16 at 12:36; Status DC Fentanyl Citrate (Fentanyl 2ml Vial) 100 mcg 1X ONCE IV Last administered on 12:45; Start 12/26/16 at 12:30; Stop 12/26/16 at 12:36; Status DC Fentanyl Citrate (Fentanyl 2ml Vial) 100 mcg 1X ONCE IV Last administered on 13:22; Start 12/26/16 at 13:30; Stop 12/26/16 at 13:31; Status DC Alprazolam (Xanax) 0.25 mg TID PRN PRN PO ANXIETY / AGITATION; Start 12/26/16 at 14:00 Atorvastatin Calcium (Lipitor) 40 mg QHS PO ; Start 12/26/16 at 21:00 Aspirin (Ecotrin) 81 mg DAILYWBKFT PO Last administered on 12/26/16 14:48; Start 12/27/16 at 08:00 Clopidogrel Bisulfate (Plavix) 75 mg DAILYWBKFT PO Last administered on 07:48; Start 12/26/16 at 18:00 Lorazepam (Ativan) 0.5 mg STK-MED ONCE .ROUTE ; Start 12/27/16 at 07:41; Stop 12/27/16 at 07:42; Status DC Levetiracetam (Keppra) 500 mg STK-MED ONCE PO ; Start 12/27/16 at 07:41; Stop 12/27/16 at 07:42; Status DC Fluoxetine HCl (Prozac) 20 mg STK-MED ONCE .ROUTE ; Start 12/27/16 at 07:42; Stop 12/27/16 at 07:43; Status DC Levetiracetam (Keppra) 500 mg BID PO ; Start 12/27/16 at 21:00 Lorazepam (Ativan) 0.5 mg PRN Q8HRS PRN PO ANXIETY / AGITATION; Start 12/27/16 at 13:30 Lorazepam (Ativan) 0.5 mg BID PO ; Start 12/27/16 at 21:00 Fluoxetine HCl (Prozac) 20 mg DAILY PO ; Start 12/28/16 at 09:00 Active Scripts Active Hydrocodone-Apap 5-325 (Hydrocodone Bit/Acetaminophen) 1 Each Tablet 1 Tab PO PRN Q4HRS PRN Effient (Prasugrel Hcl) 10 Mg Tablet 10 Mg PO DAILYWBKFT Metoprolol Tartrate 25 Mg Tablet 12.5 Mg PO BID Atorvastatin Calcium 40 Mg Tablet 40 Mg PO QHS Aspirin Ec (Aspirin) 325 Mg Tablet.dr 325 Mg PO DAILYWBKFT Reported Chantix (Varenicline Tartrate) 0.5 Mg Tablet 1 Mg PO BID 0.5 MG PO DAILY X3 DAY, 0.5 MG PO BID X4 DAY, 1 MG PO BID UNTIL END OF TREATMENT Vitals/I & O Vital Sign - Last 24 Hours 12/26/16 12/26/16 12/26/16 12/26/16 14:12 14:47 14:48 15:07 Pulse 87 87 87 Resp 20 B/P 135/92 135/92 154/91 Pulse Ox 99 94 O2 Delivery Room Air Nasal Cannula O2 Flow Rate 2.0 2.0 12/26/16 12/26/16 12/26/16 12/26/16 15:11 15:16 15:28 18:17 Pulse Ox 94 94 94 O2 Delivery Room Air Room Air Room Air O2 Flow Rate 2.0 2.0 12/26/16 12/26/16 12/26/16 12/26/16 19:57 19:59 20:00 21:07 Temp 98.2 98.2 Pulse 90 90 Resp 16 B/P 134/84 134/84 Pulse Ox 92 O2 Delivery Room Air Room Air Room Air O2 Flow Rate 2.0 12/26/16 12/27/16 12/27/16 12/27/16 22:24 03:21 07:00 07:18 Temp 98.6 98.6 98.6 98.6 98.6 98.6 Pulse 95 77 77 Resp 16 16 18 B/P 116/83 137/88 124/73 Pulse Ox 92 93 88 94 O2 Delivery Room Air Room Air Nasal Cannula Room Air 12/27/16 12/27/16 12/27/16 12/27/16 07:48 08:00 08:48 08:49 Pulse 86 93 Resp 18 B/P 124/73 124/73 O2 Delivery Nasal Cannula Room Air O2 Flow Rate 2.0 12/27/16 12/27/16 12/27/16 12/27/16 08:50 11:00 11:31 12:28 Temp 97.8 97.8 Pulse 80 Resp 16 18 16 B/P 135/91 Pulse Ox 94 94 O2 Delivery Nasal Cannula Nasal Cannula Room Air Nasal Cannula O2 Flow Rate 2.0 2.0 2.0 Intake and Output 12/26/16 12/26/16 12/27/16 15:00 23:00 07:00 Intake Total 0 ml 500 ml Output Total 300 ml 275 ml Balance -300 ml 225 ml YONAS NASSAR III DO Dec 27, 2016 14:02
[2016-12-27 15:51] VITALS: BP 137/87
--- NOTE | 2016-12-27 16:07 | RAD ---
PROCEDURE Single-view chest dated 12/27/2016. HISTORY Chest tube placement. TECHNIQUE Single upright portable exam performed. COMPARISON 12/27/2016. FINDINGS Heart and mediastinal contours are stable. There is a pigtail catheter at the right chest, unchanged in position. Rounded masslike density at the right mid zone, unchanged. There is a subtle line along the right lateral chest wall that extends to the right apex that likely represents a small to moderate size pneumothorax. This was not definitely present on the prior exam. Minimal patchy density at the right base, unchanged. The left lung remains clear. IMPRESSION - Right-sided chest tube with suspected small to moderate size right-sided pneumothorax, new from prior exam. - Right-sided lung mass, unchanged. Electronically signed by: Diego Franz (Dec 27, 2016 16:06:14)
--- NOTE | 2016-12-27 18:16 | PDOC ---
PULMONARY PROGRESS NOTES Subjective PT SEEN THIS AM NO RESP DISTRESS Vitals Vital Signs Date Time Temp Pulse Resp B/P Pulse Ox O2 Delivery O2 Flow Rate FiO2 12/27/16 15:51 97.9 92 18 137/87 91 Nasal Cannula 2.0 97.9 ROS: No Nausea, No Chest Pain, No Abdominal Pain, No Increase Cough General: Alert, No acute distress Lungs: Clear (but diminished), Other (O2 supplementation with 2L NC ) Cardiovascular: S1 Abdomen: Soft Neuro Exam: Alert Extremities: No Edema Skin: Warm Labs Laboratory Tests Test 12/26/16 03:40 12/26/16 05:00 12/27/16 03:30 12/27/16 05:00 Sodium Level 143mmol/L (136-145) 139mmol/L (136-145) Potassium Level 4.0mmol/L (3.5-5.1) 4.6mmol/L (3.5-5.1) Chloride Level 107mmol/L (98-107) 103mmol/L (98-107) Carbon Dioxide Level 29mmol/L (21-32) 29mmol/L (21-32) Anion Gap 7 (6-14) 7 (6-14) Blood Urea Nitrogen 21mg/dL (8-26) 19mg/dL (8-26) Creatinine 1.0mg/dL (0.7-1.3) 1.1mg/dL (0.7-1.3) Estimated GFR (Cockcroft-Gault) 77.6 69.5 Glucose Level 110mg/dL (70-99) 120mg/dL (70-99) Calcium Level 9.2mg/dL (8.5-10.1) 9.4mg/dL (8.5-10.1) White Blood Count 11.9x10^3/uL (4.0-11.0) 13.8x10^3/uL (4.0-11.0) Red Blood Count 5.05x10^6/uL (4.30-5.70) 5.23x10^6/uL (4.30-5.70) Hemoglobin 14.2g/dL (13.0-17.5) 14.8g/dL (13.0-17.5) Hematocrit 43.8% (39.0-53.0) 45.2% (39.0-53.0) Mean Corpuscular Volume 87fL (79-100) 86fL (79-100) Mean Corpuscular Hemoglobin 28pg (25-35) 28pg (25-35) Mean Corpuscular Hemoglobin Concent 32g/dL (31-37) 33g/dL (31-37) Red Cell Distribution Width 13.2% (11.5-14.5) 13.6% (11.5-14.5) Platelet Count 196x10^3/uL (140-400) 210x10^3/uL (140-400) Neutrophils (%) (Auto) 72% (31-73) 82% (31-73) Lymphocytes (%) (Auto) 20% (24-48) 14% (24-48) Monocytes (%) (Auto) 6% (0-9) 4% (0-9) Eosinophils (%) (Auto) 1% (0-3) 0% (0-3) Basophils (%) (Auto) 0% (0-3) 0% (0-3) Neutrophils # (Auto) 8.6x10^3uL (1.8-7.7) 11.3x10^3uL (1.8-7.7) Lymphocytes # (Auto) 2.4x10^3/uL (1.0-4.8) 1.9x10^3/uL (1.0-4.8) Monocytes # (Auto) 0.8x10^3/uL (0.0-1.1) 0.6x10^3/uL (0.0-1.1) Eosinophils # (Auto) 0.1x10^3/uL (0.0-0.7) 0.0x10^3/uL (0.0-0.7) Basophils # (Auto) 0.0x10^3/uL (0.0-0.2) 0.1x10^3/uL (0.0-0.2) Laboratory Tests Test 12/27/16 03:30 12/27/16 05:00 Sodium Level 139mmol/L (136-145) Potassium Level 4.6mmol/L (3.5-5.1) Chloride Level 103mmol/L (98-107) Carbon Dioxide Level 29mmol/L (21-32) Anion Gap 7 (6-14) Blood Urea Nitrogen 19mg/dL (8-26) Creatinine 1.1mg/dL (0.7-1.3) Estimated GFR (Cockcroft-Gault) 69.5 Glucose Level 120mg/dL (70-99) Calcium Level 9.4mg/dL (8.5-10.1) White Blood Count 13.8x10^3/uL (4.0-11.0) Red Blood Count 5.23x10^6/uL (4.30-5.70) Hemoglobin 14.8g/dL (13.0-17.5) Hematocrit 45.2% (39.0-53.0) Mean Corpuscular Volume 86fL (79-100) Mean Corpuscular Hemoglobin 28pg (25-35) Mean Corpuscular Hemoglobin Concent 33g/dL (31-37) Red Cell Distribution Width 13.6% (11.5-14.5) Platelet Count 210x10^3/uL (140-400) Neutrophils (%) (Auto) 82% (31-73) Lymphocytes (%) (Auto) 14% (24-48) Monocytes (%) (Auto) 4% (0-9) Eosinophils (%) (Auto) 0% (0-3) Basophils (%) (Auto) 0% (0-3) Neutrophils # (Auto) 11.3x10^3uL (1.8-7.7) Lymphocytes # (Auto) 1.9x10^3/uL (1.0-4.8) Monocytes # (Auto) 0.6x10^3/uL (0.0-1.1) Eosinophils # (Auto) 0.0x10^3/uL (0.0-0.7) Basophils # (Auto) 0.1x10^3/uL (0.0-0.2) Medications Active Scripts Medications Dose Route/Sig Days Date Category Dose Instructions Hydrocodone-Apap 5-325 (Hydrocodone Bit/Acetaminophen) 1 Each Tablet 1 Tab PO PRN Q4HRS PRN 12/06/16 Rx Effient (Prasugrel Hcl) 10 Mg Tablet 10 Mg PO DAILYWBKFT 12/06/16 Rx Metoprolol Tartrate 25 Mg Tablet 12.5 Mg PO BID 12/06/16 Rx Atorvastatin Calcium 40 Mg Tablet 40 Mg PO QHS 12/06/16 Rx Aspirin Ec (Aspirin) 325 Mg Tablet. 325 Mg PO DAILYWBKFT 12/06/16 Rx Chantix (Varenicline Tartrate) 0.5 Mg Tablet 1 Mg PO BID 12/05/16 Reported 0.5 MG PO DAILY X3 DAY, 0.5 MG PO BID X4 DAY, 1 MG PO BID UNTIL END OF TREATMENT Comments CXR NO PTX Impression . 1. 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 severe emphysema surrounding lung mass 3. Ex-smoker, questionable chronic obstructive pulmonary disease. 4. 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 Coronary artery disease, recent NSTMI 2 weeks ago, status post stents, on anti-platelet therapy 6. ACCREDITATION COORDINATOR mets 7. S/P biopsy ptx Plan . no ptx on cxr, small airleak will, d/c wall suction and repeat cxr in 3 hours bone scan report noted no mets 1. Cardiology to restart anticoagulant 2. Follow up on biopsy results, Brother visiting from [facility] is thinking of getting pt treated at [facility] in [facility] 3. At some point, he would require pulmonary function tests. 4. Titrate FiO2 to keep O2 saturation more than 92%. 5. bronchodilator. 6. Anti-seizure medication per Neurology. 7. Ativan BID, seems to be working pt less anxious MONICA MENDIOLA MD Dec 27, 2016 18:16
[2016-12-27 18:52] VITALS: BP 134/89
[2016-12-27] MEDS: LEVETIRACETAM 500 MG TABLET. PO SCH (20:27)
[2016-12-27] MEDS: ATORVASTATIN CALCIUM 40 MG TABLET. PO SCH (20:29)
[2016-12-27 23:20] VITALS: BP 134/90
[2016-12-28 06:00] LABS: BASO % 0 % (0-3); EOS % 0 % (0-3); HEMATOCRIT 44.9 % (39.0-53.0); HEMOGLOBIN 14.7 g/dL (13.0-17.5); LYMPH % 14 % (24-48); MEAN CORPUSCULAR HEMOGLOBIN 28 pg (25-35); MEAN CORPUSCULAR HGB CONC 33 g/dL (31-37); MEAN CORPUSCULAR VOLUME 87 fL (79-100); MONO % 6 % (0-9); NEUT % 80 % (31-73); PLATELET COUNT 213 x10^3/uL (140-400); RED BLOOD COUNT 5.17 x10^6/uL (4.30-5.70); RED CELL DISTRIBUTION WIDTH 13.3 % (11.5-14.5); WHITE BLOOD COUNT 14.3 x10^3/uL (4.0-11.0)
[2016-12-28 06:29] LABS: CALCIUM 9.4 mg/dL (8.5-10.1); GFR 77.6; POTASSIUM 4.4 mmol/L (3.5-5.1)
[2016-12-28 07:25] VITALS: BP 114/78
--- NOTE | 2016-12-28 07:38 | PDOC ---
PROGRESS NOTES Chief Complaint Chief Complaint Partial seizure, new Brain lesion: suspected met from lung CA. RUL lung mass: suspect lung as primary lesion. s/p lung biopsy. staging CT and brain MRI with lung and solitary brain lesion only. bone scan pending. Dr Ta following CAD Recent NSTEMI with PCI, requiring Plavix - currently on hold for anticipated brain surgery. HLD COPD Tobacco dependence Anxiety History of Present Illness History of Present Illness Patient seen and evaluated at bedside. No acute events overnight. No complaints currently. Patient saturating >90% currently on 2L O2 NC with no respiratory distress. Discussed with RN. Discussed plan and care with family at bedside. Questions sought and answered. Vitals Vitals Vital Signs Date Time Temp Pulse Resp B/P Pulse Ox O2 Delivery O2 Flow Rate FiO2 12/28/16 07:25 97.9 77 18 114/78 98 Nasal Cannula 2.0 97.9 Physical Exam General: Alert, Oriented X3, No acute distress, Other (chest tube and drain in place. ) Heart: Normal S1, Normal S2 Lungs: Clear (but diminished), Other (O2 supplementation with 2L NC ) Abdomen: Normal bowel sounds, Soft, No tenderness Extremities: No clubbing, No edema Skin: No rashes Labs LABS Laboratory Tests Test 12/28/16 05:00 White Blood Count 14.3x10^3/uL (4.0-11.0) Red Blood Count 5.17x10^6/uL (4.30-5.70) Hemoglobin 14.7g/dL (13.0-17.5) Hematocrit 44.9% (39.0-53.0) Mean Corpuscular Volume 87fL (79-100) Mean Corpuscular Hemoglobin 28pg (25-35) Mean Corpuscular Hemoglobin Concent 33g/dL (31-37) Red Cell Distribution Width 13.3% (11.5-14.5) Platelet Count 213x10^3/uL (140-400) Neutrophils (%) (Auto) 80% (31-73) Lymphocytes (%) (Auto) 14% (24-48) Monocytes (%) (Auto) 6% (0-9) Eosinophils (%) (Auto) 0% (0-3) Basophils (%) (Auto) 0% (0-3) Neutrophils # (Auto) 11.5x10^3uL (1.8-7.7) Lymphocytes # (Auto) 2.0x10^3/uL (1.0-4.8) Monocytes # (Auto) 0.8x10^3/uL (0.0-1.1) Eosinophils # (Auto) 0.0x10^3/uL (0.0-0.7) Basophils # (Auto) 0.0x10^3/uL (0.0-0.2) Sodium Level 139mmol/L (136-145) Potassium Level 4.4mmol/L (3.5-5.1) Chloride Level 103mmol/L (98-107) Carbon Dioxide Level 28mmol/L (21-32) Anion Gap 8 (6-14) Blood Urea Nitrogen 19mg/dL (8-26) Creatinine 1.0mg/dL (0.7-1.3) Estimated GFR (Cockcroft-Gault) 77.6 Glucose Level 104mg/dL (70-99) Calcium Level 9.4mg/dL (8.5-10.1) Review of Systems Review of Systems Denies chest pain, shortness of breath, abdominal pain, n/v/d, Headaches, or fever/chills. Assessment and Plan Assessmemt and Plan Problems Medical Problems: (1) Right frontal lobe lesion Status: Acute Assessment: Partial seizure, new onset Brain lesion: suspected met from lung CA. RUL lung mass: suspect lung as primary lesion. s/p lung biopsy. staging CT and brain MRI with lung and solitary brain lesion only. bone scan pending. Dr Ta following CAD Recent NSTEMI with PCI, requiring Plavix - currently on hold for anticipated brain surgery. HLD COPD Tobacco dependence Anxiety leukocytosis ( currently on decadron) Plan: - Repeat AM chest xray -continue duonebs; maintain O2 saturation >90% - pending biopsy results - pulmonology, cardiology, neurology, neurosurgery, oncology and IR consulted, recommendations appreciated. - continue Keppra 500 mg bid, per neurology - continue decadron - continue aggrastat, per cardiology - continue prozac; ativan PRN for anxiety. - smoking cessation counseling; started on chantix. - monitor AM labs - PT/OT Problems: Comment Review of Relevant I have reviewed the following items tess (where applicable) has been applied. Labs Laboratory Tests Test 12/27/16 03:30 12/27/16 05:00 12/28/16 05:00 Sodium Level 139mmol/L (136-145) 139mmol/L (136-145) Potassium Level 4.6mmol/L (3.5-5.1) 4.4mmol/L (3.5-5.1) Chloride Level 103mmol/L (98-107) 103mmol/L (98-107) Carbon Dioxide Level 29mmol/L (21-32) 28mmol/L (21-32) Anion Gap 7 (6-14) 8 (6-14) Blood Urea Nitrogen 19mg/dL (8-26) 19mg/dL (8-26) Creatinine 1.1mg/dL (0.7-1.3) 1.0mg/dL (0.7-1.3) Estimated GFR (Cockcroft-Gault) 69.5 77.6 Glucose Level 120mg/dL (70-99) 104mg/dL (70-99) Calcium Level 9.4mg/dL (8.5-10.1) 9.4mg/dL (8.5-10.1) White Blood Count 13.8x10^3/uL (4.0-11.0) 14.3x10^3/uL (4.0-11.0) Red Blood Count 5.23x10^6/uL (4.30-5.70) 5.17x10^6/uL (4.30-5.70) Hemoglobin 14.8g/dL (13.0-17.5) 14.7g/dL (13.0-17.5) Hematocrit 45.2% (39.0-53.0) 44.9% (39.0-53.0) Mean Corpuscular Volume 86fL (79-100) 87fL (79-100) Mean Corpuscular Hemoglobin 28pg (25-35) 28pg (25-35) Mean Corpuscular Hemoglobin Concent 33g/dL (31-37) 33g/dL (31-37) Red Cell Distribution Width 13.6% (11.5-14.5) 13.3% (11.5-14.5) Platelet Count 210x10^3/uL (140-400) 213x10^3/uL (140-400) Neutrophils (%) (Auto) 82% (31-73) 80% (31-73) Lymphocytes (%) (Auto) 14% (24-48) 14% (24-48) Monocytes (%) (Auto) 4% (0-9) 6% (0-9) Eosinophils (%) (Auto) 0% (0-3) 0% (0-3) Basophils (%) (Auto) 0% (0-3) 0% (0-3) Neutrophils # (Auto) 11.3x10^3uL (1.8-7.7) 11.5x10^3uL (1.8-7.7) Lymphocytes # (Auto) 1.9x10^3/uL (1.0-4.8) 2.0x10^3/uL (1.0-4.8) Monocytes # (Auto) 0.6x10^3/uL (0.0-1.1) 0.8x10^3/uL (0.0-1.1) Eosinophils # (Auto) 0.0x10^3/uL (0.0-0.7) 0.0x10^3/uL (0.0-0.7) Basophils # (Auto) 0.1x10^3/uL (0.0-0.2) 0.0x10^3/uL (0.0-0.2) Laboratory Tests Test 12/28/16 05:00 White Blood Count 14.3x10^3/uL (4.0-11.0) Red Blood Count 5.17x10^6/uL (4.30-5.70) Hemoglobin 14.7g/dL (13.0-17.5) Hematocrit 44.9% (39.0-53.0) Mean Corpuscular Volume 87fL (79-100) Mean Corpuscular Hemoglobin 28pg (25-35) Mean Corpuscular Hemoglobin Concent 33g/dL (31-37) Red Cell Distribution Width 13.3% (11.5-14.5) Platelet Count 213x10^3/uL (140-400) Neutrophils (%) (Auto) 80% (31-73) Lymphocytes (%) (Auto) 14% (24-48) Monocytes (%) (Auto) 6% (0-9) Eosinophils (%) (Auto) 0% (0-3) Basophils (%) (Auto) 0% (0-3) Neutrophils # (Auto) 11.5x10^3uL (1.8-7.7) Lymphocytes # (Auto) 2.0x10^3/uL (1.0-4.8) Monocytes # (Auto) 0.8x10^3/uL (0.0-1.1) Eosinophils # (Auto) 0.0x10^3/uL (0.0-0.7) Basophils # (Auto) 0.0x10^3/uL (0.0-0.2) Sodium Level 139mmol/L (136-145) Potassium Level 4.4mmol/L (3.5-5.1) Chloride Level 103mmol/L (98-107) Carbon Dioxide Level 28mmol/L (21-32) Anion Gap 8 (6-14) Blood Urea Nitrogen 19mg/dL (8-26) Creatinine 1.0mg/dL (0.7-1.3) Estimated GFR (Cockcroft-Gault) 77.6 Glucose Level 104mg/dL (70-99) Calcium Level 9.4mg/dL (8.5-10.1) Medications Current Medications Iohexol (Omnipaque 300 Mg/ml) 70 ml 1X ONCE IV Last administered on 12/20/16 03:42; Start 12/20/16 at 03:15; Stop 12/20/16 at 03:16; Status DC Info (Do NOT chart on this entry -- for MONITORING) 1 each PRN DAILY PRN MC SEE COMMENTS; Start 12/20/16 at 03:15; Stop 12/21/16 at 16:47; Status DC Ondansetron HCl (Zofran) 4 mg PRN Q8HRS PRN IV NAUSEA/VOMITING; Start 12/20/16 at 04:30; Stop 12/20/16 at 13:26; Status DC Acetaminophen (Tylenol) 650 mg PRN Q4HRS PRN PO FEVER; Start 12/20/16 at 04:30 ; Stop 12/21/16 at 04:30; Status DC Aspirin (Carlene Aspirin) 325 mg 1X ONCE PO Last administered on 12/20/16 05:17 ; Start 12/20/16 at 05:00; Stop 12/20/16 at 05:01; Status DC Clopidogrel Bisulfate (Plavix) 75 mg DAILYWBKFT PO Last administered on 09:24; Start 12/20/16 at 09:00; Stop 12/20/16 at 13:22; Status DC Gadobutrol (Gadavist) 9 mmol 1X ONCE IV Last administered on 12/20/16 12:32; Start 12/20/16 at 12:30; Stop 12/20/16 at 12:31; Status DC Aspirin (Ecotrin) 325 mg DAILYWBKFT PO Last administered on 12/22/16 09:26; Start 12/20/16 at 14:00; Stop 12/22/16 at 16:13; Status DC Atorvastatin Calcium (Lipitor) 40 mg QHS PO Last administered on 12/25/16 21: 22; Start 12/20/16 at 21:00; Stop 12/26/16 at 14:01; Status DC Acetaminophen/ Hydrocodone Bitart (Lortab 5/325) 1 tab PRN Q4HRS PRN PO MILD PAIN, 2ND CHOICE Last administered on 12/27/16 23:10; Start 12/20/16 at 13:30 Metoprolol Tartrate (Lopressor) 12.5 mg BID PO Last administered on 12/25/16 21:22; Start 12/20/16 at 14:00; Stop 12/26/16 at 05:01; Status DC Prasugrel (Effient) 10 mg DAILYWBKFT PO Last administered on 12/21/16 08:36; Start 12/20/16 at 14:00; Stop 12/21/16 at 11:12; Status DC Varenicline (Chantix) 1 mg BID PO Last administered on 12/20/16 14:39; Start 12/20/16 at 14:00; Stop 12/23/16 at 16:55; Status DC Ondansetron HCl (Zofran) 4 mg PRN Q6HRS PRN IV NAUSEA/VOMITING; Start 12/20/16 at 13:30; Stop 12/25/16 at 04:49; Status DC Dexamethasone Sodium Phosphate (Decadron) 4 mg Q6HRS IV Last administered on 06:31; Start 12/20/16 at 18:00; Stop 12/22/16 at 12:20; Status DC Pantoprazole Sodium (Protonix) 40 mg DAILYAC PO Last administered on 12/25/16 09:14; Start 12/20/16 at 14:00; Stop 12/26/16 at 05:01; Status DC Acetaminophen (Tylenol) 650 mg PRN Q6HRS PRN PO MILD PAIN / TEMP; Start at 19:00; Stop 12/25/16 at 04:49; Status DC Alprazolam (Xanax) 0.25 mg PRN Q8HRS PRN PO ANXIETY / AGITATION; Start at 19:00; Status Cancel Lorazepam (Ativan) 2 mg PRN Q4HRS PRN IV ANXIETY / AGITATION Last administered on 12/23/16 20:54; Start 12/20/16 at 19:00 Alprazolam (Xanax) 0.25 mg TID PRN PRN PO ANXIETY / AGITATION Last administered on 12/25/16 15:21; Start 12/20/16 at 19:15; Stop 12/26/16 at 14:00 ; Status DC Enoxaparin Sodium (Lovenox 80mg Syringe) 80 mg Q12HR SQ ; Start 12/21/16 at 21: 00; Stop 12/21/16 at 21:00; Status DC Info (Anti-Coagulation Monitoring By Pharmacy) 1 each PRN DAILY PRN MC SEE COMMENTS; Start 12/21/16 at 11:30; Stop 12/22/16 at 10:33; Status DC Enoxaparin Sodium (Lovenox 40mg Syringe) 40 mg Q24H SQ ; Start 12/22/16 at 10:00 ; Stop 12/22/16 at 10:00; Status DC Albuterol/ Ipratropium (Duoneb) 3 ml RTQID NEB Last administered on 12/27/16 21 :17; Start 12/21/16 at 16:00 Iohexol (Omnipaque 300 Mg/ml) 75 ml 1X ONCE IV ; Start 12/21/16 at 13:15; Stop 12/21/16 at 13:16; Status DC Iohexol (Omnipaque 240 Mg/ml) 50 ml 1X ONCE PO ; Start 12/21/16 at 13:15; Stop 12/21/16 at 13:16; Status DC Info (Do NOT chart on this entry -- for MONITORING) 1 each PRN DAILY PRN MC SEE COMMENTS; Start 12/21/16 at 13:15; Stop 12/23/16 at 13:14; Status DC Dexamethasone (Decadron) 2 mg BID PO Last administered on 12/27/16 20:28; Start 12/22/16 at 13:00 Lorazepam 0.5 mg 0.5 mg PRN Q8HRS PRN PO ANXIETY / AGITATION Last administered on 12/24/16 08:16; Start 12/22/16 at 13:15; Stop 12/27/16 at 13:19; Status DC Tirofiban/Sodium Chloride (Aggrastat 12.5 Mg/250 ml Premix) 250 ml @ 0 mls/hr CONT PRN IV PER PROTOCOL Last administered on 12/23/16 05:48; Start 12/22/16 at 14:15; Stop 12/23/16 at 13:46; Status DC Losartan Potassium (Cozaar) 25 mg DAILY PO Last administered on 12/27/16 08:48 ; Start 12/22/16 at 16:00 Aspirin (Ecotrin) 81 mg DAILYWBKFT PO Last administered on 12/24/16 08:17; Start 12/23/16 at 08:00; Stop 12/26/16 at 14:01; Status DC Fluoxetine HCl 20 mg 20 mg DAILY PO Last administered on 12/27/16 08:50; Start 12/23/16 at 12:30; Stop 12/27/16 at 13:19; Status DC Tirofiban/Sodium Chloride (Aggrastat 12.5 Mg/250 ml Premix) 250 ml @ 0 mls/hr CONT PRN IV PER PROTOCOL Last administered on 12/25/16 20:53; Start 12/23/16 at 14:00; Stop 12/26/16 at 18:00; Status DC Adenosine (Adenocard) 6 mg STK-MED ONCE IV ; Start 12/23/16 at 18:14; Stop 12/23 at 18:15; Status Cancel Adenosine (Adenocard) 6 mg STK-MED ONCE IV ; Start 12/23/16 at 18:15; Stop 12/23 at 18:16; Status Cancel Levetiracetam (Keppra) 250 mg BID PO Last administered on 12/25/16 09:16; Start 12/24/16 at 14:00; Stop 12/25/16 at 13:42; Status DC Alprazolam (Xanax) 0.25 mg STK-MED ONCE .ROUTE ; Start 12/24/16 at 14:46; Stop 12/24/16 at 14:47; Status DC Alprazolam (Xanax) 0.25 mg STK-MED ONCE .ROUTE Last administered on 12/24/16 21:45; Start 12/24/16 at 21:27; Stop 12/25/16 at 12:29; Status DC Acetaminophen (Tylenol) 650 mg PRN Q6HRS PRN PO MILD PAIN / TEMP; Start at 04:49 Ondansetron HCl (Zofran) 4 mg PRN Q6HRS PRN IV NAUSEA/VOMITING; Start 12/25/16 at 04:49 Aspirin (Ecotrin) 81 mg STK-MED ONCE PO ; Start 12/25/16 at 08:37; Stop at 08:38; Status DC Lorazepam (Ativan) 0.5 mg BID PO Last administered on 12/27/16 08:49; Start at 13:00; Stop 12/27/16 at 13:19; Status DC Levetiracetam (Keppra) 500 mg BID PO Last administered on 12/27/16 08:49; Start 12/25/16 at 21:00; Stop 12/27/16 at 16:05; Status DC Alprazolam (Xanax) 0.25 mg STK-MED ONCE .ROUTE ; Start 12/25/16 at 15:14; Stop 12/25/16 at 15:15; Status DC Atorvastatin Calcium (Lipitor) 40 mg STK-MED ONCE .ROUTE ; Start 12/25/16 at 21: 07; Stop 12/25/16 at 21:08; Status DC Metoprolol Tartrate (Lopressor) 12.5 mg BID PO Last administered on 12/27/16 20 :28; Start 12/26/16 at 09:00 Pantoprazole Sodium (Protonix) 40 mg DAILYAC PO Last administered on 12/27/16 07:47; Start 12/26/16 at 05:01 Aspirin (Ecotrin) 81 mg STK-MED ONCE PO ; Start 12/26/16 at 10:37; Stop at 10:38; Status DC Fluoxetine HCl (Prozac) 20 mg STK-MED ONCE .ROUTE ; Start 12/26/16 at 10:38; Stop 12/26/16 at 10:39; Status DC Lidocaine/Sodium Bicarbonate (Buffered Lidocaine 1%) 20 ml STK-MED ONCE IJ ; Start 12/26/16 at 11:54; Stop 12/26/16 at 11:55; Status DC Fentanyl Citrate (Fentanyl 2ml Vial) 100 mcg STK-MED ONCE .ROUTE ; Start at 12:02; Stop 12/26/16 at 12:03; Status DC Midazolam HCl (Versed) 2 mg STK-MED ONCE .ROUTE ; Start 12/26/16 at 12:02; Stop 12/26/16 at 12:03; Status DC Lidocaine/Sodium Bicarbonate (Buffered Lidocaine 1%) 20 ml 1X ONCE IJ Last administered on 12/26/16 12:44; Start 12/26/16 at 12:30; Stop 12/26/16 at 12:36 ; Status DC Midazolam HCl (Versed) 2 mg 1X ONCE IV Last administered on 12/26/16 12:45; Start 12/26/16 at 12:30; Stop 12/26/16 at 12:36; Status DC Fentanyl Citrate (Fentanyl 2ml Vial) 100 mcg 1X ONCE IV Last administered on 12:45; Start 12/26/16 at 12:30; Stop 12/26/16 at 12:36; Status DC Fentanyl Citrate (Fentanyl 2ml Vial) 100 mcg 1X ONCE IV Last administered on 13:22; Start 12/26/16 at 13:30; Stop 12/26/16 at 13:31; Status DC Alprazolam (Xanax) 0.25 mg TID PRN PRN PO ANXIETY / AGITATION; Start 12/26/16 at 14:00 Atorvastatin Calcium (Lipitor) 40 mg QHS PO ; Start 12/26/16 at 21:00 Aspirin (Ecotrin) 81 mg DAILYWBKFT PO Last administered on 12/26/16 14:48; Start 12/27/16 at 08:00 Clopidogrel Bisulfate (Plavix) 75 mg DAILYWBKFT PO Last administered on 07:48; Start 12/26/16 at 18:00 Lorazepam (Ativan) 0.5 mg STK-MED ONCE .ROUTE ; Start 12/27/16 at 07:41; Stop 12/27/16 at 07:42; Status DC Levetiracetam (Keppra) 500 mg STK-MED ONCE PO ; Start 12/27/16 at 07:41; Stop 12/27/16 at 07:42; Status DC Fluoxetine HCl (Prozac) 20 mg STK-MED ONCE .ROUTE ; Start 12/27/16 at 07:42; Stop 12/27/16 at 07:43; Status DC Levetiracetam (Keppra) 500 mg BID PO Last administered on 12/27/16 20:27; Start 12/27/16 at 21:00 Lorazepam (Ativan) 0.5 mg PRN Q8HRS PRN PO ANXIETY / AGITATION; Start 12/27/16 at 13:30 Lorazepam (Ativan) 0.5 mg BID PO Last administered on 12/27/16 20:27; Start 12/27/16 at 21:00 Fluoxetine HCl (Prozac) 20 mg DAILY PO ; Start 12/28/16 at 09:00 Active Scripts Active Hydrocodone-Apap 5-325 (Hydrocodone Bit/Acetaminophen) 1 Each Tablet 1 Tab PO PRN Q4HRS PRN Effient (Prasugrel Hcl) 10 Mg Tablet 10 Mg PO DAILYWBKFT Metoprolol Tartrate 25 Mg Tablet 12.5 Mg PO BID Atorvastatin Calcium 40 Mg Tablet 40 Mg PO QHS Aspirin Ec (Aspirin) 325 Mg Tablet.dr 325 Mg PO DAILYWBK Reported Chantix (Varenicline Tartrate) 0.5 Mg Tablet 1 Mg PO BID 0.5 MG PO DAILY X3 DAY, 0.5 MG PO BID X4 DAY, 1 MG PO BID UNTIL END OF TREATMENT Vitals/I & O Vital Sign - Last 24 Hours 12/27/16 12/27/16 12/27/16 4/1/17 07:48 08:00 08:48 08:49 Pulse 86 93 Resp 18 B/P 124/73 124/73 O2 Delivery Nasal Cannula Room Air O2 Flow Rate 2.0 12/27/16 12/27/16 12/27/16 12/27/16 11:00 11:31 12:28 13:28 Temp 97.8 97.8 Pulse 80 Resp 18 16 16 B/P 135/91 Pulse Ox 94 94 O2 Delivery Nasal Cannula Room Air Nasal Cannula Nasal Cannula O2 Flow Rate 2.0 2.0 2.0 12/27/16 12/27/16 12/27/16 12/27/16 15:39 15:51 18:52 20:00 Temp 97.9 98.1 97.9 98.1 Pulse 92 88 Resp 18 18 B/P 137/87 134/89 Pulse Ox 94 91 95 O2 Delivery Room Air Nasal Cannula Nasal Cannula Room Air O2 Flow Rate 2.0 2.0 2.0 12/27/16 12/27/16 12/27/16 12/28/16 20:28 21:18 23:20 03:20 Temp 98.1 98.1 Pulse 88 88 75 Resp 20 B/P 134/89 134/90 Pulse Ox 95 93 O2 Delivery Room Air Nasal Cannula O2 Flow Rate 2.0 12/28/16 07:25 Temp 97.9 97.9 Pulse 77 Resp 18 B/P 114/78 Pulse Ox 98 O2 Delivery Nasal Cannula O2 Flow Rate 2.0 Intake and Output 12/27/16 12/27/16 12/28/16 15:00 23:00 07:00 Intake Total 1600 ml Output Total 0 ml 1 ml Balance 0 ml 1600 ml -1 ml MADAYNIAL K III DO Dec 28, 2016 07:38
[2016-12-28] MEDS: ASPIRIN ENTERIC COATED 81 MG TABLET.DR. PO SCH (07:43)
[2016-12-28] MEDS: HYDROCODONE/APAP 5/325MG TABLET. PO PRN ×2 (07:43→20:54)
[2016-12-28] MEDS: CLOPIDOGREL BISULFATE 75 MG TABLET PO SCH (07:43)
[2016-12-28] MEDS: PANTOPRAZOLE 40 MG TABLET.DR. PO SCH (07:43)
[2016-12-28] MEDS: IPRATRPIUM/ALBUTEROL 0.5/2.5MG 3 ML NEBU. NEB SCH ×4 (08:20→20:55)
[2016-12-28] MEDS: LOSARTAN POTASSIUM 25 MG TABLET. PO SCH (09:00)
[2016-12-28] MEDS: LEVETIRACETAM 500 MG TABLET. PO SCH ×2 (09:00→20:53)
[2016-12-28] MEDS: LORAZEPAM 0.5 MG TABLET. PO SCH ×2 (09:00→20:53)
[2016-12-28] MEDS: METOPROLOL TART IMMED RELEASE 25 MG TABLET. PO SCH ×2 (09:01→20:54)
[2016-12-28] MEDS: FLUOXETINE HCL 20 MG CAPSULE. PO SCH (09:01)
[2016-12-28] MEDS: DEXAMETHASONE 1 MG TABLET PO SCH ×2 (09:02→20:53)
[2016-12-28 10:53] VITALS: BP 124/83
--- NOTE | 2016-12-28 12:21 | PDOC ---
PULMONARY PROGRESS NOTES Subjective PT SEEN THIS AM NO RESP DISTRESS Vitals Vital Signs Date Time Temp Pulse Resp B/P Pulse Ox O2 Delivery O2 Flow Rate FiO2 12/28/16 12:07 97 Room Air 12/28/16 10:53 98.1 91 16 124/83 98.1 12/28/16 08:43 2.0 ROS: No Nausea, No Chest Pain, No Abdominal Pain, No Increase Cough General: Alert, No acute distress Lungs: Clear (but diminished), Other (O2 supplementation with 2L NC ) Cardiovascular: S1 Abdomen: Soft Neuro Exam: Alert Extremities: No Edema Skin: Warm Labs Laboratory Tests Test 12/27/16 03:30 12/27/16 05:00 12/28/16 05:00 Sodium Level 139mmol/L (136-145) 139mmol/L (136-145) Potassium Level 4.6mmol/L (3.5-5.1) 4.4mmol/L (3.5-5.1) Chloride Level 103mmol/L (98-107) 103mmol/L (98-107) Carbon Dioxide Level 29mmol/L (21-32) 28mmol/L (21-32) Anion Gap 7 (6-14) 8 (6-14) Blood Urea Nitrogen 19mg/dL (8-26) 19mg/dL (8-26) Creatinine 1.1mg/dL (0.7-1.3) 1.0mg/dL (0.7-1.3) Estimated GFR (Cockcroft-Gault) 69.5 77.6 Glucose Level 120mg/dL (70-99) 104mg/dL (70-99) Calcium Level 9.4mg/dL (8.5-10.1) 9.4mg/dL (8.5-10.1) White Blood Count 13.8x10^3/uL (4.0-11.0) 14.3x10^3/uL (4.0-11.0) Red Blood Count 5.23x10^6/uL (4.30-5.70) 5.17x10^6/uL (4.30-5.70) Hemoglobin 14.8g/dL (13.0-17.5) 14.7g/dL (13.0-17.5) Hematocrit 45.2% (39.0-53.0) 44.9% (39.0-53.0) Mean Corpuscular Volume 86fL (79-100) 87fL (79-100) Mean Corpuscular Hemoglobin 28pg (25-35) 28pg (25-35) Mean Corpuscular Hemoglobin Concent 33g/dL (31-37) 33g/dL (31-37) Red Cell Distribution Width 13.6% (11.5-14.5) 13.3% (11.5-14.5) Platelet Count 210x10^3/uL (140-400) 213x10^3/uL (140-400) Neutrophils (%) (Auto) 82% (31-73) 80% (31-73) Lymphocytes (%) (Auto) 14% (24-48) 14% (24-48) Monocytes (%) (Auto) 4% (0-9) 6% (0-9) Eosinophils (%) (Auto) 0% (0-3) 0% (0-3) Basophils (%) (Auto) 0% (0-3) 0% (0-3) Neutrophils # (Auto) 11.3x10^3uL (1.8-7.7) 11.5x10^3uL (1.8-7.7) Lymphocytes # (Auto) 1.9x10^3/uL (1.0-4.8) 2.0x10^3/uL (1.0-4.8) Monocytes # (Auto) 0.6x10^3/uL (0.0-1.1) 0.8x10^3/uL (0.0-1.1) Eosinophils # (Auto) 0.0x10^3/uL (0.0-0.7) 0.0x10^3/uL (0.0-0.7) Basophils # (Auto) 0.1x10^3/uL (0.0-0.2) 0.0x10^3/uL (0.0-0.2) Laboratory Tests Test 12/28/16 05:00 White Blood Count 14.3x10^3/uL (4.0-11.0) Red Blood Count 5.17x10^6/uL (4.30-5.70) Hemoglobin 14.7g/dL (13.0-17.5) Hematocrit 44.9% (39.0-53.0) Mean Corpuscular Volume 87fL (79-100) Mean Corpuscular Hemoglobin 28pg (25-35) Mean Corpuscular Hemoglobin Concent 33g/dL (31-37) Red Cell Distribution Width 13.3% (11.5-14.5) Platelet Count 213x10^3/uL (140-400) Neutrophils (%) (Auto) 80% (31-73) Lymphocytes (%) (Auto) 14% (24-48) Monocytes (%) (Auto) 6% (0-9) Eosinophils (%) (Auto) 0% (0-3) Basophils (%) (Auto) 0% (0-3) Neutrophils # (Auto) 11.5x10^3uL (1.8-7.7) Lymphocytes # (Auto) 2.0x10^3/uL (1.0-4.8) Monocytes # (Auto) 0.8x10^3/uL (0.0-1.1) Eosinophils # (Auto) 0.0x10^3/uL (0.0-0.7) Basophils # (Auto) 0.0x10^3/uL (0.0-0.2) Sodium Level 139mmol/L (136-145) Potassium Level 4.4mmol/L (3.5-5.1) Chloride Level 103mmol/L (98-107) Carbon Dioxide Level 28mmol/L (21-32) Anion Gap 8 (6-14) Blood Urea Nitrogen 19mg/dL (8-26) Creatinine 1.0mg/dL (0.7-1.3) Estimated GFR (Cockcroft-Gault) 77.6 Glucose Level 104mg/dL (70-99) Calcium Level 9.4mg/dL (8.5-10.1) Medications Active Scripts Medications Dose Route/Sig Days Date Category Dose Instructions Hydrocodone-Apap 5-325 (Hydrocodone Bit/Acetaminophen) 1 Each Tablet 1 Tab PO PRN Q4HRS PRN 12/06/16 Rx Effient (Prasugrel Hcl) 10 Mg Tablet 10 Mg PO DAILYWBKFT 12/06/16 Rx Metoprolol Tartrate 25 Mg Tablet 12.5 Mg PO BID 12/06/16 Rx Atorvastatin Calcium 40 Mg Tablet 40 Mg PO QHS 12/06/16 Rx Aspirin Ec (Aspirin) 325 Mg Tablet. 325 Mg PO DAILYWBKFT 12/06/16 Rx Chantix (Varenicline Tartrate) 0.5 Mg Tablet 1 Mg PO BID 12/05/16 Reported 0.5 MG PO DAILY X3 DAY, 0.5 MG PO BID X4 DAY, 1 MG PO BID UNTIL END OF TREATMENT Comments CXR NO PTX Impression . 1. 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 severe emphysema surrounding lung mass 3. Ex-smoker, questionable chronic obstructive pulmonary disease. 4. 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 Coronary artery disease, recent NSTMI 2 weeks ago, status post stents, on anti-platelet therapy 6. [employer]IST mets 7. S/P biopsy ptx Plan . no ptx on cxr, small air leak, difficult to interpret cxr will check ct of chest biopsy results pending bone scan report noted no mets 1. Cardiology to restart anticoagulant 2. Follow up on biopsy results, Brother visiting from [facility] is thinking of getting pt treated at [facility] in [facility] 3. At some point, he would require pulmonary function tests. 4. Titrate FiO2 to keep O2 saturation more than 92%. 5. bronchodilator. 6. Anti-seizure medication per Neurology. 7. Ativan BID, seems to be working pt less anxious MONICA MENDIOLA MD Dec 28, 2016 12:21
--- NOTE | 2016-12-28 14:36 | RAD ---
EXAM: Chest CT without intravenous contrast. HISTORY: Pneumothorax. TECHNIQUE: Computed tomographic images of the chest were obtained without contrast. Multiplanar reformatting was performed. COMPARISON: 12/21/2016. FINDINGS: There is a small anterior mid to inferior right pneumothorax. There is a pleural drainage catheter within the anterior mid right pleural space. The size of the pneumothorax is decreased compared to the postbiopsy CT dated 12/26/2016. There is severe right apical predominant emphysema with associated right apical lucency. There is a 6.5 cm right middle lobe mass containing foci of gas due to relative recent biopsy. There is right infrahilar, basilar and middle lobe atelectasis. There is also left infrahilar atelectasis. The heart is normal in size. There is coronary artery atherosclerosis. No pathologically enlarged mediastinal or hilar lymph node is seen. There is a 3 mm nodular opacity within the left upper lobe along the pleural fissure, stable in appearance. The stomach is distended with recently ingested food bolus. There is a suspected small right renal parapelvic cyst. The upper abdomen is otherwise unremarkable. No suspicious osseous lesion is seen. IMPRESSION: 1. Small anterior right pneumothorax, decreased compared to the recent immediate postbiopsy CT performed 12/26/2016. There is a pleural drainage catheter within the pneumothorax. This pneumothorax is seen on upright chest radiograph due to anterior location. 2. Severe right upper lobe predominant emphysema with associated right upper lobe lucency. 3. 6.5 cm right upper lobe mass. Correlate with recent biopsy findings. 4. Increased right greater than left infrahilar, middle lobe and right basilar atelectasis. 5. Stable 3 mm nodule within the left midlung along the pleural fissure, likely an interfissural lymph node. PQRS Compliance Statement: One or more of the following individualized dose reduction techniques were utilized for this examination: 1. Automated exposure control 2. Adjustment of the mA and/or kV according to patient size 3. Use of iterative reconstruction technique
--- NOTE | 2016-12-28 15:05 | PDOC ---
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 Simple partial seizure x 1, left side facial twitching. 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 Recent Hx of STEMI s/p cardiac stents. Longstanding Hx of smoking. Left side LE numbness. Anxiety. RECOMMENDATIONS/PLAN: Continue Keppra 500 mg bid. Oncology consulted. NS consulted. Lung mass biopsy performed on 12/26, still wait for pathology reports. Smoking cessation. Discussed with his family again at bedside on 12/28/16. EEG on 12/23: Normal study. PAST MEDICAL HISTORY: Please see above. PAST SURGERY HISTORY: Cardiac stents. ALLERGY: Reviewed. MEDICATIONS: Refer to [facility] FAMILY HISTORY: His father had lung cancer. SOCIAL HISTORY: Lives at home. He smokes 15 to 20 cigarettes a day for 20 years. REVIEW OF SYSTEMS: Constitutional: No cachexia. Head: No traumatic brain or head injury. Skin: No edema, or rash. Ear: No infection. Eyes: No vision loss or color blindness. Nose: No bleeding or purulent discharges. Hearing: No hearing decrease. Neck: No injury. Cardiac: stents x 2. Pulmonary: Lung mass found this time. GI: No GI ulcer, GI bleeding. Urinary/genital: No dysuria, hematuria, incontinence, urinary retention. Endocrinologic: No cousin face, craniofacial dysmorphism, polydactyly. Skeletomuscular: No muscular atrophy, deformity. Neurological: see HP. Psychiatric: smoking. Otherwise, not [id number] review of systems. PHYSICAL EXAMINATION: General appearance is in subacute distress. HEENT: Normocephalic and nontraumatic. Eyes, nose, ears, and throat are unremarkable. Neck is supple. No lymphadenopathy. No crepitus. Cardiovascular: S1, S2, regular rate and rhythm. Pulmonary: Clear to auscultation bilaterally. Abdomen: Bowel sounds are positive. Abdomen is soft, nontender, and nondistended. Extremities: No rash, lesions, or edema. No restriction of range of motion NEUROLOGICAL EXAMINATION: Awake. Oriented to time, place and person. PERRL. EOMI. CN: no focal findings. Muscle tone: within normal. Muscle strength: 5 DTR: 2 Plantar reflex: Flexor response bilaterally Gait: Near his normal baseline. Sensory exam: no abnormal findings. No obvious cerebellar signs elicited. F-T-N test accurate. Objective Objective Vital Signs Date Time Temp Pulse Resp B/P Pulse Ox O2 Delivery O2 Flow Rate FiO2 12/28/16 12:07 97 Room Air 12/28/16 10:53 98.1 91 16 124/83 98.1 12/28/16 08:43 2.0 Intake and Output 12/28/16 07:00 Intake Total 1600 ml Output Total 1 ml Balance 1599 ml Intake Oral 1600 ml Output Urine Total 1 ml Chest Tube Drainage Total 0 ml # Voids 4 # Bowel Movements 2 Vitals Signs Vitals VS - Last 72 Hours, by Label Date Time Temp Pulse Resp B/P Pulse Ox O2 Delivery O2 Flow Rate FiO2 12/28/16 12:07 97 Room Air 12/28/16 10:53 98.1 91 16 124/83 96 Room Air 98.1 12/28/16 09:01 98 114/78 12/28/16 09:00 98 114/78 12/28/16 08:43 16 Nasal Cannula 2.0 12/28/16 08:21 97 Nasal Cannula 2.0 12/28/16 07:53 Nasal Cannula 2.0 12/28/16 07:43 16 Nasal Cannula 2.0 12/28/16 07:25 97.9 77 18 114/78 98 Nasal Cannula 2.0 97.9 12/28/16 03:20 75 12/27/16 23:20 98.1 88 20 134/90 93 Nasal Cannula 2.0 98.1 12/27/16 21:18 95 Room Air 12/27/16 20:28 88 134/89 12/27/16 20:00 Room Air 2.0 12/27/16 18:52 98.1 88 18 134/89 95 Nasal Cannula 2.0 98.1 12/27/16 15:51 97.9 92 18 137/87 91 Nasal Cannula 2.0 97.9 12/27/16 15:39 94 Room Air 12/27/16 12:28 16 Nasal Cannula 2.0 12/27/16 11:31 94 Room Air 12/27/16 11:00 97.8 80 18 135/91 94 Nasal Cannula 2.0 97.8 12/27/16 08:49 93 124/73 12/27/16 08:48 86 124/73 12/27/16 08:00 Room Air 12/27/16 07:48 18 Nasal Cannula 2.0 12/27/16 07:18 94 Room Air 12/27/16 07:00 98.6 77 18 124/73 88 Nasal Cannula 98.6 Laboratory Laboratory Laboratory Tests Test 12/28/16 05:00 White Blood Count 14.3x10^3/uL (4.0-11.0) Red Blood Count 5.17x10^6/uL (4.30-5.70) Hemoglobin 14.7g/dL (13.0-17.5) Hematocrit 44.9% (39.0-53.0) Mean Corpuscular Volume 87fL (79-100) Mean Corpuscular Hemoglobin 28pg (25-35) Mean Corpuscular Hemoglobin Concent 33g/dL (31-37) Red Cell Distribution Width 13.3% (11.5-14.5) Platelet Count 213x10^3/uL (140-400) Neutrophils (%) (Auto) 80% (31-73) Lymphocytes (%) (Auto) 14% (24-48) Monocytes (%) (Auto) 6% (0-9) Eosinophils (%) (Auto) 0% (0-3) Basophils (%) (Auto) 0% (0-3) Neutrophils # (Auto) 11.5x10^3uL (1.8-7.7) Lymphocytes # (Auto) 2.0x10^3/uL (1.0-4.8) Monocytes # (Auto) 0.8x10^3/uL (0.0-1.1) Eosinophils # (Auto) 0.0x10^3/uL (0.0-0.7) Basophils # (Auto) 0.0x10^3/uL (0.0-0.2) Sodium Level 139mmol/L (136-145) Potassium Level 4.4mmol/L (3.5-5.1) Chloride Level 103mmol/L (98-107) Carbon Dioxide Level 28mmol/L (21-32) Anion Gap 8 (6-14) Blood Urea Nitrogen 19mg/dL (8-26) Creatinine 1.0mg/dL (0.7-1.3) Estimated GFR (Cockcroft-Gault) 77.6 Glucose Level 104mg/dL (70-99) Calcium Level 9.4mg/dL (8.5-10.1) Medication Medications Current Medications Fluoxetine HCl (Prozac) 20 mg DAILY PO Last administered on 12/28/16 09:01; Start 12/28/16 at 09:00 Levetiracetam (Keppra) 500 mg BID PO Last administered on 12/28/16 09:00; Start 12/27/16 at 21:00 Lorazepam (Ativan) 0.5 mg BID PO Last administered on 12/28/16 09:00; Start 12/27/16 at 21:00 Comment Review of Relevant I have reviewed the following items tess (where applicable) has been applied. KRISTY KAYE MD Dec 28, 2016 15:04
[2016-12-28 15:40] VITALS: BP 133/88
[2016-12-28] MEDS: ALPRAZOLAM 0.25 MG TABLET. PO PRN (16:50)
[2016-12-28] MEDS: ATORVASTATIN CALCIUM 40 MG TABLET. PO SCH (20:53)
[2016-12-28 23:00] VITALS: BP 127/84
[2016-12-29] VITALS (7 sets, daily range): BP systolic 126–155; BP diastolic 81–95
[2016-12-29] MEDS: PANTOPRAZOLE 40 MG TABLET.DR. PO SCH (04:16)
[2016-12-29] MEDS: HYDROCODONE/APAP 5/325MG TABLET. PO PRN ×2 (04:19→12:58)
[2016-12-29 07:04] LABS: CALCIUM 9.4 mg/dL (8.5-10.1); GFR 77.6; POTASSIUM 4.6 mmol/L (3.5-5.1)
[2016-12-29 07:26] LABS: BASO % 0 % (0-3); EOS % 1 % (0-3); HEMATOCRIT 45.2 % (39.0-53.0); HEMOGLOBIN 14.7 g/dL (13.0-17.5); LYMPH # 2.4 x10^3/uL (1.0-4.8); LYMPH % 17 % (24-48); MEAN CORPUSCULAR HEMOGLOBIN 28 pg (25-35); MEAN CORPUSCULAR HGB CONC 33 g/dL (31-37); MEAN CORPUSCULAR VOLUME 87 fL (79-100); MONO % 6 % (0-9); NEUT % 76 % (31-73); PLATELET COUNT 221 x10^3/uL (140-400); RED CELL DISTRIBUTION WIDTH 13.8 % (11.5-14.5); WHITE BLOOD COUNT 14.3 x10^3/uL (4.0-11.0)
[2016-12-29] MEDS: DEXAMETHASONE 1 MG TABLET PO SCH ×2 (08:24→21:02)
[2016-12-29] MEDS: LOSARTAN POTASSIUM 25 MG TABLET. PO SCH (08:25)
[2016-12-29] MEDS: LEVETIRACETAM 500 MG TABLET. PO SCH ×2 (08:25→21:02)
[2016-12-29] MEDS: ASPIRIN ENTERIC COATED 81 MG TABLET.DR. PO SCH (08:25)
[2016-12-29] MEDS: FLUOXETINE HCL 20 MG CAPSULE. PO SCH (08:25)
[2016-12-29] MEDS: LORAZEPAM 0.5 MG TABLET. PO SCH ×2 (08:25→21:02)
[2016-12-29] MEDS: CLOPIDOGREL BISULFATE 75 MG TABLET PO SCH (08:26)
[2016-12-29] MEDS: METOPROLOL TART IMMED RELEASE 25 MG TABLET. PO SCH ×2 (08:26→21:03)
[2016-12-29] MEDS: IPRATRPIUM/ALBUTEROL 0.5/2.5MG 3 ML NEBU. NEB SCH ×4 (09:26→19:07)
--- NOTE | 2016-12-29 09:29 | PDOC ---
PULMONARY PROGRESS NOTES Subjective pt in no distress Vitals Vital Signs Date Time Temp Pulse Resp B/P Pulse Ox O2 Delivery O2 Flow Rate FiO2 12/29/16 09:27 97 Room Air 12/29/16 08:26 80 136/90 12/29/16 07:50 97.6 18 97.6 12/28/16 08:43 2.0 ROS: No Nausea, No Chest Pain, No Abdominal Pain, No Increase Cough General: Alert, No acute distress Lungs: Clear (but diminished), Other (O2 supplementation with 2L NC ) Cardiovascular: S1 Abdomen: Soft Neuro Exam: Alert Extremities: No Edema Skin: Warm Labs Laboratory Tests Test 12/28/16 05:00 12/29/16 06:30 White Blood Count 14.3x10^3/uL (4.0-11.0) 14.3x10^3/uL (4.0-11.0) Red Blood Count 5.17x10^6/uL (4.30-5.70) 5.20x10^6/uL (4.30-5.70) Hemoglobin 14.7g/dL (13.0-17.5) 14.7g/dL (13.0-17.5) Hematocrit 44.9% (39.0-53.0) 45.2% (39.0-53.0) Mean Corpuscular Volume 87fL (79-100) 87fL (79-100) Mean Corpuscular Hemoglobin 28pg (25-35) 28pg (25-35) Mean Corpuscular Hemoglobin Concent 33g/dL (31-37) 33g/dL (31-37) Red Cell Distribution Width 13.3% (11.5-14.5) 13.8% (11.5-14.5) Platelet Count 213x10^3/uL (140-400) 221x10^3/uL (140-400) Neutrophils (%) (Auto) 80% (31-73) 76% (31-73) Lymphocytes (%) (Auto) 14% (24-48) 17% (24-48) Monocytes (%) (Auto) 6% (0-9) 6% (0-9) Eosinophils (%) (Auto) 0% (0-3) 1% (0-3) Basophils (%) (Auto) 0% (0-3) 0% (0-3) Neutrophils # (Auto) 11.5x10^3uL (1.8-7.7) 10.9x10^3uL (1.8-7.7) Lymphocytes # (Auto) 2.0x10^3/uL (1.0-4.8) 2.4x10^3/uL (1.0-4.8) Monocytes # (Auto) 0.8x10^3/uL (0.0-1.1) 0.9x10^3/uL (0.0-1.1) Eosinophils # (Auto) 0.0x10^3/uL (0.0-0.7) 0.1x10^3/uL (0.0-0.7) Basophils # (Auto) 0.0x10^3/uL (0.0-0.2) 0.0x10^3/uL (0.0-0.2) Sodium Level 139mmol/L (136-145) 139mmol/L (136-145) Potassium Level 4.4mmol/L (3.5-5.1) 4.6mmol/L (3.5-5.1) Chloride Level 103mmol/L (98-107) 102mmol/L (98-107) Carbon Dioxide Level 28mmol/L (21-32) 26mmol/L (21-32) Anion Gap 8 (6-14) 11 (6-14) Blood Urea Nitrogen 19mg/dL (8-26) 25mg/dL (8-26) Creatinine 1.0mg/dL (0.7-1.3) 1.0mg/dL (0.7-1.3) Estimated GFR (Cockcroft-Gault) 77.6 77.6 Glucose Level 104mg/dL (70-99) 103mg/dL (70-99) Calcium Level 9.4mg/dL (8.5-10.1) 9.4mg/dL (8.5-10.1) Laboratory Tests Test 12/29/16 06:30 White Blood Count 14.3x10^3/uL (4.0-11.0) Red Blood Count 5.20x10^6/uL (4.30-5.70) Hemoglobin 14.7g/dL (13.0-17.5) Hematocrit 45.2% (39.0-53.0) Mean Corpuscular Volume 87fL (79-100) Mean Corpuscular Hemoglobin 28pg (25-35) Mean Corpuscular Hemoglobin Concent 33g/dL (31-37) Red Cell Distribution Width 13.8% (11.5-14.5) Platelet Count 221x10^3/uL (140-400) Neutrophils (%) (Auto) 76% (31-73) Lymphocytes (%) (Auto) 17% (24-48) Monocytes (%) (Auto) 6% (0-9) Eosinophils (%) (Auto) 1% (0-3) Basophils (%) (Auto) 0% (0-3) Neutrophils # (Auto) 10.9x10^3uL (1.8-7.7) Lymphocytes # (Auto) 2.4x10^3/uL (1.0-4.8) Monocytes # (Auto) 0.9x10^3/uL (0.0-1.1) Eosinophils # (Auto) 0.1x10^3/uL (0.0-0.7) Basophils # (Auto) 0.0x10^3/uL (0.0-0.2) Sodium Level 139mmol/L (136-145) Potassium Level 4.6mmol/L (3.5-5.1) Chloride Level 102mmol/L (98-107) Carbon Dioxide Level 26mmol/L (21-32) Anion Gap 11 (6-14) Blood Urea Nitrogen 25mg/dL (8-26) Creatinine 1.0mg/dL (0.7-1.3) Estimated GFR (Cockcroft-Gault) 77.6 Glucose Level 103mg/dL (70-99) Calcium Level 9.4mg/dL (8.5-10.1) Medications Active Scripts Medications Dose Route/Sig Days Date Category Dose Instructions Hydrocodone-Apap 5-325 (Hydrocodone Bit/Acetaminophen) 1 Each Tablet 1 Tab PO PRN Q4HRS PRN 12/06/16 Rx Effient (Prasugrel Hcl) 10 Mg Tablet 10 Mg PO DAILYWBKFT 12/06/16 Rx Metoprolol Tartrate 25 Mg Tablet 12.5 Mg PO BID 3/11/17 Rx Atorvastatin Calcium 40 Mg Tablet 40 Mg PO QHS 12/06/16 Rx Aspirin Ec (Aspirin) 325 Mg Tablet. 325 Mg PO DAILYWBKFT 12/06/16 Rx Chantix (Varenicline Tartrate) 0.5 Mg Tablet 1 Mg PO BID 12/05/16 Reported 0.5 MG PO DAILY X3 DAY, 0.5 MG PO BID X4 DAY, 1 MG PO BID UNTIL END OF TREATMENT Comments ct reviewed ptx improved Impression . 1. 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 severe emphysema surrounding lung mass 3. Ex-smoker, questionable chronic obstructive pulmonary disease. 4. 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 Coronary artery disease, recent NSTMI 2 weeks ago, status post stents, on anti-platelet therapy 6. [employer] mets 7. S/P biopsy ptx no airleak will clamp tube, on water seal since yesterday CT better Plan . no ptx on cxr, no air leak, difficult to interpret cxr will check ct of chest biopsy results spoke with DR Woods adenocarcinoma, Case D/W Dr Ta bone scan report noted no mets spoke with Skylar FLOORING PROFESSIONAL for Dr Y[place], pt is a candidate for craniotomy 1. Cardiology to restart anticoagulant 2. consult thoracic surgery for possible lobectomy 3. pulmonary function tests. 4. Titrate FiO2 to keep O2 saturation more than 92%. 5. bronchodilator. 6. Anti-seizure medication per Neurology. 7. Ativan BID, seems to be working pt less anxious MONICA MENDIOLA MD Dec 29, 2016 09:29
[2016-12-29] MEDS ORDERED: DEXA1TAB PO (10:05)
[2016-12-29] MEDS ORDERED: LEVE500T56 PO (10:05)
--- NOTE | 2016-12-29 10:11 | PDOC ---
PROGRESS NOTES Chief Complaint Chief Complaint Partial seizure, new Brain lesion: suspected met from lung CA. vs primary glioma RUL lung mass: suspect lung as primary lesion. s/p lung biopsy. Neg osteoblastic dse by bone scan CAD Recent NSTEMI with PCI, requiring AC HLD - Cramps since on statin COPD Tobacco dependence, ex Anxiety NOS History of Present Illness History of Present Illness Called path - results maybe this afternoon Minor headaches no SOA Brain MRI reveiwed: IMPRESSION: 1.8 cm intra-axial enhancing mass in the right parietal lobe. Major consideration with center around neoplastic disease. Primary consideration would be a primary glioma. Metastatic disease is not excluded but is felt less likely given the solitary nature of the [employer] finding Neurosx note reviewed - technically challenging [facility] option is still up in the air per family at bedside Chest tube still in, no drainage - just had CT chest now PLAN: await CT chest\Possible dc chest tibe today Neuro to address how long the decadron - but I did write Rx PAth reuslts later PM Possibly home later after the above Vitals Vitals Vital Signs Date Time Temp Pulse Resp B/P Pulse Ox O2 Delivery O2 Flow Rate FiO2 12/29/16 09:27 97 Room Air 12/29/16 08:26 80 136/90 12/29/16 07:50 97.6 18 97.6 12/28/16 08:43 2.0 Physical Exam General: Alert, Oriented X3, No acute distress, Other (chest tube and drain in place. ) Heart: Normal S1, Normal S2 Lungs: Clear (but diminished), Other (O2 supplementation with 2L NC ) Abdomen: Normal bowel sounds, Soft, No tenderness Extremities: No clubbing, No edema Skin: No rashes Labs LABS Laboratory Tests Test 12/29/16 06:30 White Blood Count 14.3x10^3/uL (4.0-11.0) Red Blood Count 5.20x10^6/uL (4.30-5.70) Hemoglobin 14.7g/dL (13.0-17.5) Hematocrit 45.2% (39.0-53.0) Mean Corpuscular Volume 87fL (79-100) Mean Corpuscular Hemoglobin 28pg (25-35) Mean Corpuscular Hemoglobin Concent 33g/dL (31-37) Red Cell Distribution Width 13.8% (11.5-14.5) Platelet Count 221x10^3/uL (140-400) Neutrophils (%) (Auto) 76% (31-73) Lymphocytes (%) (Auto) 17% (24-48) Monocytes (%) (Auto) 6% (0-9) Eosinophils (%) (Auto) 1% (0-3) Basophils (%) (Auto) 0% (0-3) Neutrophils # (Auto) 10.9x10^3uL (1.8-7.7) Lymphocytes # (Auto) 2.4x10^3/uL (1.0-4.8) Monocytes # (Auto) 0.9x10^3/uL (0.0-1.1) Eosinophils # (Auto) 0.1x10^3/uL (0.0-0.7) Basophils # (Auto) 0.0x10^3/uL (0.0-0.2) Sodium Level 139mmol/L (136-145) Potassium Level 4.6mmol/L (3.5-5.1) Chloride Level 102mmol/L (98-107) Carbon Dioxide Level 26mmol/L (21-32) Anion Gap 11 (6-14) Blood Urea Nitrogen 25mg/dL (8-26) Creatinine 1.0mg/dL (0.7-1.3) Estimated GFR (Cockcroft-Gault) 77.6 Glucose Level 103mg/dL (70-99) Calcium Level 9.4mg/dL (8.5-10.1) Review of Systems Review of Systems minor headache, otherwise, all else is neg Assessment and Plan Assessmemt and Plan Problems Medical Problems: (1) Right frontal lobe lesion Status: Acute Problems: Comment Review of Relevant I have reviewed the following items tess (where applicable) has been applied. Labs Laboratory Tests Test 12/28/16 05:00 12/29/16 06:30 White Blood Count 14.3x10^3/uL (4.0-11.0) 14.3x10^3/uL (4.0-11.0) Red Blood Count 5.17x10^6/uL (4.30-5.70) 5.20x10^6/uL (4.30-5.70) Hemoglobin 14.7g/dL (13.0-17.5) 14.7g/dL (13.0-17.5) Hematocrit 44.9% (39.0-53.0) 45.2% (39.0-53.0) Mean Corpuscular Volume 87fL (79-100) 87fL (79-100) Mean Corpuscular Hemoglobin 28pg (25-35) 28pg (25-35) Mean Corpuscular Hemoglobin Concent 33g/dL (31-37) 33g/dL (31-37) Red Cell Distribution Width 13.3% (11.5-14.5) 13.8% (11.5-14.5) Platelet Count 213x10^3/uL (140-400) 221x10^3/uL (140-400) Neutrophils (%) (Auto) 80% (31-73) 76% (31-73) Lymphocytes (%) (Auto) 14% (24-48) 17% (24-48) Monocytes (%) (Auto) 6% (0-9) 6% (0-9) Eosinophils (%) (Auto) 0% (0-3) 1% (0-3) Basophils (%) (Auto) 0% (0-3) 0% (0-3) Neutrophils # (Auto) 11.5x10^3uL (1.8-7.7) 10.9x10^3uL (1.8-7.7) Lymphocytes # (Auto) 2.0x10^3/uL (1.0-4.8) 2.4x10^3/uL (1.0-4.8) Monocytes # (Auto) 0.8x10^3/uL (0.0-1.1) 0.9x10^3/uL (0.0-1.1) Eosinophils # (Auto) 0.0x10^3/uL (0.0-0.7) 0.1x10^3/uL (0.0-0.7) Basophils # (Auto) 0.0x10^3/uL (0.0-0.2) 0.0x10^3/uL (0.0-0.2) Sodium Level 139mmol/L (136-145) 139mmol/L (136-145) Potassium Level 4.4mmol/L (3.5-5.1) 4.6mmol/L (3.5-5.1) Chloride Level 103mmol/L (98-107) 102mmol/L (98-107) Carbon Dioxide Level 28mmol/L (21-32) 26mmol/L (21-32) Anion Gap 8 (6-14) 11 (6-14) Blood Urea Nitrogen 19mg/dL (8-26) 25mg/dL (8-26) Creatinine 1.0mg/dL (0.7-1.3) 1.0mg/dL (0.7-1.3) Estimated GFR (Cockcroft-Gault) 77.6 77.6 Glucose Level 104mg/dL (70-99) 103mg/dL (70-99) Calcium Level 9.4mg/dL (8.5-10.1) 9.4mg/dL (8.5-10.1) Laboratory Tests Test 12/29/16 06:30 White Blood Count 14.3x10^3/uL (4.0-11.0) Red Blood Count 5.20x10^6/uL (4.30-5.70) Hemoglobin 14.7g/dL (13.0-17.5) Hematocrit 45.2% (39.0-53.0) Mean Corpuscular Volume 87fL (79-100) Mean Corpuscular Hemoglobin 28pg (25-35) Mean Corpuscular Hemoglobin Concent 33g/dL (31-37) Red Cell Distribution Width 13.8% (11.5-14.5) Platelet Count 221x10^3/uL (140-400) Neutrophils (%) (Auto) 76% (31-73) Lymphocytes (%) (Auto) 17% (24-48) Monocytes (%) (Auto) 6% (0-9) Eosinophils (%) (Auto) 1% (0-3) Basophils (%) (Auto) 0% (0-3) Neutrophils # (Auto) 10.9x10^3uL (1.8-7.7) Lymphocytes # (Auto) 2.4x10^3/uL (1.0-4.8) Monocytes # (Auto) 0.9x10^3/uL (0.0-1.1) Eosinophils # (Auto) 0.1x10^3/uL (0.0-0.7) Basophils # (Auto) 0.0x10^3/uL (0.0-0.2) Sodium Level 139mmol/L (136-145) Potassium Level 4.6mmol/L (3.5-5.1) Chloride Level 102mmol/L (98-107) Carbon Dioxide Level 26mmol/L (21-32) Anion Gap 11 (6-14) Blood Urea Nitrogen 25mg/dL (8-26) Creatinine 1.0mg/dL (0.7-1.3) Estimated GFR (Cockcroft-Gault) 77.6 Glucose Level 103mg/dL (70-99) Calcium Level 9.4mg/dL (8.5-10.1) Medications Current Medications Iohexol (Omnipaque 300 Mg/ml) 70 ml 1X ONCE IV Last administered on 12/20/16 03:42; Start 12/20/16 at 03:15; Stop 12/20/16 at 03:16; Status DC Info (Do NOT chart on this entry -- for MONITORING) 1 each PRN DAILY PRN MC SEE COMMENTS; Start 12/20/16 at 03:15; Stop 12/21/16 at 16:47; Status DC Ondansetron HCl (Zofran) 4 mg PRN Q8HRS PRN IV NAUSEA/VOMITING; Start 12/20/16 at 04:30; Stop 12/20/16 at 13:26; Status DC Acetaminophen (Tylenol) 650 mg PRN Q4HRS PRN PO FEVER; Start 12/20/16 at 04:30 ; Stop 12/21/16 at 04:30; Status DC Aspirin (Carlene Aspirin) 325 mg 1X ONCE PO Last administered on 12/20/16 05:17 ; Start 12/20/16 at 05:00; Stop 12/20/16 at 05:01; Status DC Clopidogrel Bisulfate (Plavix) 75 mg DAILYWBKFT PO Last administered on 09:24; Start 12/20/16 at 09:00; Stop 12/20/16 at 13:22; Status DC Gadobutrol (Gadavist) 9 mmol 1X ONCE IV Last administered on 12/20/16 12:32; Start 12/20/16 at 12:30; Stop 12/20/16 at 12:31; Status DC Aspirin (Ecotrin) 325 mg DAILYWBKFT PO Last administered on 12/22/16 09:26; Start 12/20/16 at 14:00; Stop 12/22/16 at 16:13; Status DC Atorvastatin Calcium (Lipitor) 40 mg QHS PO Last administered on 12/25/16 21: 22; Start 12/20/16 at 21:00; Stop 12/26/16 at 14:01; Status DC Acetaminophen/ Hydrocodone Bitart (Lortab 5/325) 1 tab PRN Q4HRS PRN PO MILD PAIN, 2ND CHOICE Last administered on 12/29/16 04:19; Start 12/20/16 at 13:30 Metoprolol Tartrate (Lopressor) 12.5 mg BID PO Last administered on 12/25/16 21:22; Start 12/20/16 at 14:00; Stop 12/26/16 at 05:01; Status DC Prasugrel (Effient) 10 mg DAILYWBKFT PO Last administered on 12/21/16 08:36; Start 12/20/16 at 14:00; Stop 12/21/16 at 11:12; Status DC Varenicline (Chantix) 1 mg BID PO Last administered on 12/20/16 14:39; Start 12/20/16 at 14:00; Stop 12/23/16 at 16:55; Status DC Ondansetron HCl (Zofran) 4 mg PRN Q6HRS PRN IV NAUSEA/VOMITING; Start 12/20/16 at 13:30; Stop 12/25/16 at 04:49; Status DC Dexamethasone Sodium Phosphate (Decadron) 4 mg Q6HRS IV Last administered on 06:31; Start 12/20/16 at 18:00; Stop 12/22/16 at 12:20; Status DC Pantoprazole Sodium (Protonix) 40 mg DAILYAC PO Last administered on 12/25/16 09:14; Start 12/20/16 at 14:00; Stop 12/26/16 at 05:01; Status DC Acetaminophen (Tylenol) 650 mg PRN Q6HRS PRN PO MILD PAIN / TEMP; Start at 19:00; Stop 12/25/16 at 04:49; Status DC Alprazolam (Xanax) 0.25 mg PRN Q8HRS PRN PO ANXIETY / AGITATION; Start at 19:00; Status Cancel Lorazepam (Ativan) 2 mg PRN Q4HRS PRN IV ANXIETY / AGITATION Last administered on 12/23/16 20:54; Start 12/20/16 at 19:00 Alprazolam (Xanax) 0.25 mg TID PRN PRN PO ANXIETY / AGITATION Last administered on 12/25/16 15:21; Start 12/20/16 at 19:15; Stop 12/26/16 at 14:00 ; Status DC Enoxaparin Sodium (Lovenox 80mg Syringe) 80 mg Q12HR SQ ; Start 12/21/16 at 21: 00; Stop 12/21/16 at 21:00; Status DC Info (Anti-Coagulation Monitoring By Pharmacy) 1 each PRN DAILY PRN MC SEE COMMENTS; Start 12/21/16 at 11:30; Stop 12/22/16 at 10:33; Status DC Enoxaparin Sodium (Lovenox 40mg Syringe) 40 mg Q24H SQ ; Start 12/22/16 at 10:00 ; Stop 12/22/16 at 10:00; Status DC Albuterol/ Ipratropium (Duoneb) 3 ml RTQID NEB Last administered on 12/29/16 09 :26; Start 12/21/16 at 16:00 Iohexol (Omnipaque 300 Mg/ml) 75 ml 1X ONCE IV ; Start 12/21/16 at 13:15; Stop 12/21/16 at 13:16; Status DC Iohexol (Omnipaque 240 Mg/ml) 50 ml 1X ONCE PO ; Start 12/21/16 at 13:15; Stop 12/21/16 at 13:16; Status DC Info (Do NOT chart on this entry -- for MONITORING) 1 each PRN DAILY PRN MC SEE COMMENTS; Start 12/21/16 at 13:15; Stop 12/23/16 at 13:14; Status DC Dexamethasone (Decadron) 2 mg BID PO Last administered on 12/29/16 08:24; Start 12/22/16 at 13:00 Lorazepam 0.5 mg 0.5 mg PRN Q8HRS PRN PO ANXIETY / AGITATION Last administered on 12/24/16 08:16; Start 12/22/16 at 13:15; Stop 12/27/16 at 13:19; Status DC Tirofiban/Sodium Chloride (Aggrastat 12.5 Mg/250 ml Premix) 250 ml @ 0 mls/hr CONT PRN IV PER PROTOCOL Last administered on 12/23/16 05:48; Start 12/22/16 at 14:15; Stop 12/23/16 at 13:46; Status DC Losartan Potassium (Cozaar) 25 mg DAILY PO Last administered on 12/29/16 08:25 ; Start 12/22/16 at 16:00 Aspirin (Ecotrin) 81 mg DAILYWBKFT PO Last administered on 12/24/16 08:17; Start 12/23/16 at 08:00; Stop 12/26/16 at 14:01; Status DC Fluoxetine HCl 20 mg 20 mg DAILY PO Last administered on 12/27/16 08:50; Start 12/23/16 at 12:30; Stop 12/27/16 at 13:19; Status DC Tirofiban/Sodium Chloride (Aggrastat 12.5 Mg/250 ml Premix) 250 ml @ 0 mls/hr CONT PRN IV PER PROTOCOL Last administered on 12/25/16 20:53; Start 12/23/16 at 14:00; Stop 12/26/16 at 18:00; Status DC Adenosine (Adenocard) 6 mg STK-MED ONCE IV ; Start 12/23/16 at 18:14; Stop 12/23 at 18:15; Status Cancel Adenosine (Adenocard) 6 mg STK-MED ONCE IV ; Start 12/23/16 at 18:15; Stop 12/23 at 18:16; Status Cancel Levetiracetam (Keppra) 250 mg BID PO Last administered on 12/25/16 09:16; Start 12/24/16 at 14:00; Stop 12/25/16 at 13:42; Status DC Alprazolam (Xanax) 0.25 mg STK-MED ONCE .ROUTE ; Start 12/24/16 at 14:46; Stop 12/24/16 at 14:47; Status DC Alprazolam (Xanax) 0.25 mg STK-MED ONCE .ROUTE Last administered on 12/24/16 21:45; Start 12/24/16 at 21:27; Stop 12/25/16 at 12:29; Status DC Acetaminophen (Tylenol) 650 mg PRN Q6HRS PRN PO MILD PAIN / TEMP; Start at 04:49 Ondansetron HCl (Zofran) 4 mg PRN Q6HRS PRN IV NAUSEA/VOMITING; Start 12/25/16 at 04:49 Aspirin (Ecotrin) 81 mg STK-MED ONCE PO ; Start 12/25/16 at 08:37; Stop at 08:38; Status DC Lorazepam (Ativan) 0.5 mg BID PO Last administered on 12/27/16 08:49; Start at 13:00; Stop 12/27/16 at 13:19; Status DC Levetiracetam (Keppra) 500 mg BID PO Last administered on 12/27/16 08:49; Start 12/25/16 at 21:00; Stop 12/27/16 at 16:05; Status DC Alprazolam (Xanax) 0.25 mg STK-MED ONCE .ROUTE ; Start 12/25/16 at 15:14; Stop 12/25/16 at 15:15; Status DC Atorvastatin Calcium (Lipitor) 40 mg STK-MED ONCE .ROUTE ; Start 12/25/16 at 21: 07; Stop 12/25/16 at 21:08; Status DC Metoprolol Tartrate (Lopressor) 12.5 mg BID PO Last administered on 12/29/16 08 :26; Start 12/26/16 at 09:00 Pantoprazole Sodium (Protonix) 40 mg DAILYAC PO Last administered on 12/29/16 04:16; Start 12/26/16 at 05:01 Aspirin (Ecotrin) 81 mg STK-MED ONCE PO ; Start 12/26/16 at 10:37; Stop at 10:38; Status DC Fluoxetine HCl (Prozac) 20 mg STK-MED ONCE .ROUTE ; Start 12/26/16 at 10:38; Stop 12/26/16 at 10:39; Status DC Lidocaine/Sodium Bicarbonate (Buffered Lidocaine 1%) 20 ml STK-MED ONCE IJ ; Start 12/26/16 at 11:54; Stop 12/26/16 at 11:55; Status DC Fentanyl Citrate (Fentanyl 2ml Vial) 100 mcg STK-MED ONCE .ROUTE ; Start at 12:02; Stop 12/26/16 at 12:03; Status DC Midazolam HCl (Versed) 2 mg STK-MED ONCE .ROUTE ; Start 12/26/16 at 12:02; Stop 12/26/16 at 12:03; Status DC Lidocaine/Sodium Bicarbonate (Buffered Lidocaine 1%) 20 ml 1X ONCE IJ Last administered on 12/26/16 12:44; Start 12/26/16 at 12:30; Stop 12/26/16 at 12:36 ; Status DC Midazolam HCl (Versed) 2 mg 1X ONCE IV Last administered on 12/26/16 12:45; Start 12/26/16 at 12:30; Stop 12/26/16 at 12:36; Status DC Fentanyl Citrate (Fentanyl 2ml Vial) 100 mcg 1X ONCE IV Last administered on 12:45; Start 12/26/16 at 12:30; Stop 12/26/16 at 12:36; Status DC Fentanyl Citrate (Fentanyl 2ml Vial) 100 mcg 1X ONCE IV Last administered on 13:22; Start 12/26/16 at 13:30; Stop 12/26/16 at 13:31; Status DC Alprazolam (Xanax) 0.25 mg TID PRN PRN PO ANXIETY / AGITATION Last administered on 12/28/16 16:50; Start 12/26/16 at 14:00 Atorvastatin Calcium (Lipitor) 40 mg QHS PO Last administered on 12/28/16 20:53 ; Start 12/26/16 at 21:00; Stop 12/29/16 at 10:04; Status DC Aspirin (Ecotrin) 81 mg DAILYWBKFT PO Last administered on 12/29/16 08:25; Start 12/27/16 at 08:00 Clopidogrel Bisulfate (Plavix) 75 mg DAILYWBKFT PO Last administered on 08:26; Start 12/26/16 at 18:00 Lorazepam (Ativan) 0.5 mg STK-MED ONCE .ROUTE ; Start 12/27/16 at 07:41; Stop 12/27/16 at 07:42; Status DC Levetiracetam (Keppra) 500 mg STK-MED ONCE PO ; Start 12/27/16 at 07:41; Stop 12/27/16 at 07:42; Status DC Fluoxetine HCl (Prozac) 20 mg STK-MED ONCE .ROUTE ; Start 12/27/16 at 07:42; Stop 12/27/16 at 07:43; Status DC Levetiracetam (Keppra) 500 mg BID PO Last administered on 12/29/16 08:25; Start 12/27/16 at 21:00 Lorazepam (Ativan) 0.5 mg PRN Q8HRS PRN PO ANXIETY / AGITATION; Start 12/27/16 at 13:30 Lorazepam (Ativan) 0.5 mg BID PO Last administered on 12/29/16 08:25; Start 12/27/16 at 21:00 Fluoxetine HCl (Prozac) 20 mg DAILY PO Last administered on 12/29/16 08:25; Start 12/28/16 at 09:00 Active Scripts Active Hydrocodone-Apap 5-325 (Hydrocodone Bit/Acetaminophen) 1 Each Tablet 1 Tab PO PRN Q4HRS PRN Effient (Prasugrel Hcl) 10 Mg Tablet 10 Mg PO DAILYWBKFT Metoprolol Tartrate 25 Mg Tablet 12.5 Mg PO BID Atorvastatin Calcium 40 Mg Tablet 40 Mg PO QHS Aspirin Ec (Aspirin) 325 Mg Tablet.dr 325 Mg PO DAILYWBK Reported Chantix (Varenicline Tartrate) 0.5 Mg Tablet 1 Mg PO BID 0.5 MG PO DAILY X3 DAY, 0.5 MG PO BID X4 DAY, 1 MG PO BID UNTIL END OF TREATMENT Vitals/I & O Vital Sign - Last 24 Hours 12/28/16 12/28/16 12/28/16 12/28/16 10:53 12:07 15:40 16:22 Temp 98.1 98.3 98.1 98.3 Pulse 91 98 Resp 16 18 B/P 124/83 133/88 Pulse Ox 96 97 95 O2 Delivery Room Air Room Air Room Air Room Air 12/28/16 12/28/16 12/28/16 12/28/16 19:25 19:44 20:54 20:54 Temp 98.4 98.4 Pulse 103 90 Resp 20 20 B/P 140/93 Pulse Ox 95 95 O2 Delivery Room Air Room Air Room Air 12/28/16 12/28/16 12/29/16 12/29/16 20:55 23:00 03:00 04:19 Temp 98.4 98.1 98.4 98.1 Pulse 90 78 Resp 20 20 20 B/P 127/84 126/87 Pulse Ox 94 97 97 97 O2 Delivery Room Air Room Air Room Air Room Air 12/29/16 12/29/16 12/29/16 12/29/16 05:19 07:50 08:00 08:25 Temp 97.6 97.6 Pulse 80 80 Resp 20 18 B/P 136/90 136/90 Pulse Ox 97 95 O2 Delivery Room Air Room Air Room Air 12/29/16 12/29/16 08:26 09:27 Pulse 80 B/P 136/90 Pulse Ox 97 O2 Delivery Room Air Intake and Output 12/28/16 12/28/16 12/29/16 15:00 23:00 07:00 Intake Total 1750 ml 300 ml Output Total 5 ml 450 ml Balance 1745 ml -150 ml MEHREEN LAST MD Dec 29, 2016 10:11
--- NOTE | 2016-12-29 10:17 | PDOC3 ---
Discharge Summary Visit Information Date of Admission: Dec 20, 2016 Date of Discharge: Dec 29, 2016 Admitting Diagnosis Comment: Partial seizure, new Brain lesion: suspected met from lung CA. vs primary glioma RUL lung mass: suspect lung as primary lesion. s/p lung biopsy. Neg osteoblastic dse by bone scan CAD Recent NSTEMI with PCI, requiring AC HLD - Cramps since on statin COPD Tobacco dependence, ex Anxiety NOS Final Diagnosis Problems Medical Problems: (1) Right frontal lobe lesion Status: Acute Brief Hospital Course Allergies Allergies Coded Allergies Type Severity Reaction Last Updated Verified No Known Drug Allergies 12/04/16 No Vital Signs Vital Signs Date Time Temp Pulse Resp B/P Pulse Ox O2 Delivery O2 Flow Rate FiO2 12/29/16 09:27 97 Room Air 12/29/16 08:26 80 136/90 12/29/16 07:50 97.6 18 97.6 12/28/16 08:43 2.0 Lab Results Laboratory Tests Test 12/28/16 05:00 12/29/16 06:30 White Blood Count 14.3x10^3/uL (4.0-11.0) 14.3x10^3/uL (4.0-11.0) Red Blood Count 5.17x10^6/uL (4.30-5.70) 5.20x10^6/uL (4.30-5.70) Hemoglobin 14.7g/dL (13.0-17.5) 14.7g/dL (13.0-17.5) Hematocrit 44.9% (39.0-53.0) 45.2% (39.0-53.0) Mean Corpuscular Volume 87fL (79-100) 87fL (79-100) Mean Corpuscular Hemoglobin 28pg (25-35) 28pg (25-35) Mean Corpuscular Hemoglobin Concent 33g/dL (31-37) 33g/dL (31-37) Red Cell Distribution Width 13.3% (11.5-14.5) 13.8% (11.5-14.5) Platelet Count 213x10^3/uL (140-400) 221x10^3/uL (140-400) Neutrophils (%) (Auto) 80% (31-73) 76% (31-73) Lymphocytes (%) (Auto) 14% (24-48) 17% (24-48) Monocytes (%) (Auto) 6% (0-9) 6% (0-9) Eosinophils (%) (Auto) 0% (0-3) 1% (0-3) Basophils (%) (Auto) 0% (0-3) 0% (0-3) Neutrophils # (Auto) 11.5x10^3uL (1.8-7.7) 10.9x10^3uL (1.8-7.7) Lymphocytes # (Auto) 2.0x10^3/uL (1.0-4.8) 2.4x10^3/uL (1.0-4.8) Monocytes # (Auto) 0.8x10^3/uL (0.0-1.1) 0.9x10^3/uL (0.0-1.1) Eosinophils # (Auto) 0.0x10^3/uL (0.0-0.7) 0.1x10^3/uL (0.0-0.7) Basophils # (Auto) 0.0x10^3/uL (0.0-0.2) 0.0x10^3/uL (0.0-0.2) Sodium Level 139mmol/L (136-145) 139mmol/L (136-145) Potassium Level 4.4mmol/L (3.5-5.1) 4.6mmol/L (3.5-5.1) Chloride Level 103mmol/L (98-107) 102mmol/L (98-107) Carbon Dioxide Level 28mmol/L (21-32) 26mmol/L (21-32) Anion Gap 8 (6-14) 11 (6-14) Blood Urea Nitrogen 19mg/dL (8-26) 25mg/dL (8-26) Creatinine 1.0mg/dL (0.7-1.3) 1.0mg/dL (0.7-1.3) Estimated GFR (Cockcroft-Gault) 77.6 77.6 Glucose Level 104mg/dL (70-99) 103mg/dL (70-99) Calcium Level 9.4mg/dL (8.5-10.1) 9.4mg/dL (8.5-10.1) Laboratory Tests Test 12/29/16 06:30 White Blood Count 14.3x10^3/uL (4.0-11.0) Red Blood Count 5.20x10^6/uL (4.30-5.70) Hemoglobin 14.7g/dL (13.0-17.5) Hematocrit 45.2% (39.0-53.0) Mean Corpuscular Volume 87fL (79-100) Mean Corpuscular Hemoglobin 28pg (25-35) Mean Corpuscular Hemoglobin Concent 33g/dL (31-37) Red Cell Distribution Width 13.8% (11.5-14.5) Platelet Count 221x10^3/uL (140-400) Neutrophils (%) (Auto) 76% (31-73) Lymphocytes (%) (Auto) 17% (24-48) Monocytes (%) (Auto) 6% (0-9) Eosinophils (%) (Auto) 1% (0-3) Basophils (%) (Auto) 0% (0-3) Neutrophils # (Auto) 10.9x10^3uL (1.8-7.7) Lymphocytes # (Auto) 2.4x10^3/uL (1.0-4.8) Monocytes # (Auto) 0.9x10^3/uL (0.0-1.1) Eosinophils # (Auto) 0.1x10^3/uL (0.0-0.7) Basophils # (Auto) 0.0x10^3/uL (0.0-0.2) Sodium Level 139mmol/L (136-145) Potassium Level 4.6mmol/L (3.5-5.1) Chloride Level 102mmol/L (98-107) Carbon Dioxide Level 26mmol/L (21-32) Anion Gap 11 (6-14) Blood Urea Nitrogen 25mg/dL (8-26) Creatinine 1.0mg/dL (0.7-1.3) Estimated GFR (Cockcroft-Gault) 77.6 Glucose Level 103mg/dL (70-99) Calcium Level 9.4mg/dL (8.5-10.1) Brief Hospital Course Mr. Meneses is a 56 old AA male who recently had a PCI done by outside cards for NSTEMI, came in for partial sz, co managed with neuro, MRI showed solitary brain lesion, amenable to sx but technically difficult - co managed with neurosx , (did not have sx) HAd lung lesions, new dx possibly bronchogenic CA, co managed with pulmo, HAd CT guided pleural biopsy, needed indwelling chest Tube (fluid?), PAth results pending. Needing to start decadron and keppra PO. NO FNDs, mild headaches. Awaiting path and CT removal No PT needs, will ff up with heme onc of choice, Ex smoker, now on chantix pt seen and examined Dw RN and bros, 2 notes today Discharge Information Condition at Discharge: Improved, Stable Follow Up: Weeks (heme onc) Disposition/Orders: D/C to Home Scheduled Aspirin (Aspirin Ec) 325 MG PO DAILYWBKFT Atorvastatin Calcium (Atorvastatin Calcium) 40 MG PO QHS Metoprolol Tartrate (Metoprolol Tartrate) 12.5 MG PO BID Prasugrel Hcl (Effient) 10 MG PO DAILYWBKFT Varenicline Tartrate (Chantix) 1 MG PO BID (Reported) Scheduled PRN Hydrocodone Bit/Acetaminophen (Hydrocodone-Apap 5-325 ) 1 TAB PO PRN Q4HRS PRN PRN MILD PAIN, 2ND CHOICE MEHREEN LAST MD Dec 29, 2016 10:17
--- NOTE | 2016-12-29 10:21 | RAD ---
CT of the chest without contrast, 12/29/2016: History: Follow-up pneumothorax Noncontrast scans were obtained and compared to a study from 12/28/2016. The right pleural drain is unchanged in position along the anterior aspect of the right lung. There is a small underlying pneumothorax which has decreased in size. There is underlying emphysema, most severe in the upper lobes, right greater than left. There are scattered parenchymal scars. The patient's known 6.5 cm right upper lobe pulmonary mass is change. Its margins are irregular with a couple of small focal nodular bulges. There are unchanged streaky opacities posteriorly in both lower lobes, in the right middle lobe and to a lesser degree in the right upper lobe compatible with atelectasis and/or scarring. No significant pleural fluid is present. There is mild calcific plaquing of the aorta. Coronary artery radiopacities are present compatible with stents and calcifications. No mediastinal adenopathy is seen. IMPRESSION: 1. The small right sided pneumothorax has decreased in size since 12/28/2016. 2. Unchanged right upper lobe pulmonary mass. 3. Moderate bullous emphysema. 4. Unchanged mild discoid atelectasis and/or scarring in both lungs. 5. Coronary artery disease. PQRS Compliance Statement: One or more of the following individualized dose reduction techniques were utilized for this examination: 1. Automated exposure control 2. Adjustment of the mA and/or kV according to patient size 3. Use of iterative reconstruction technique
--- NOTE | 2016-12-29 11:18 | PDOC ---
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 Simple partial seizure x 1, left side facial twitching. 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 Plan Continue Keppra 500 mg bid. Awaiting pathology reports. Smoking cessation. Discussed with his family Subjective No complaints Objective Vital Signs Date Time Temp Pulse Resp B/P Pulse Ox O2 Delivery O2 Flow Rate FiO2 12/29/16 09:27 97 Room Air 12/29/16 08:26 80 136/90 12/29/16 07:50 97.6 18 97.6 12/28/16 08:43 2.0 Intake and Output 12/29/16 07:00 Intake Total 2050 ml Output Total 455 ml Balance 1595 ml Intake Oral 2050 ml Output Urine Total 450 ml Chest Tube Drainage Total 5 ml # Voids 4 # Bowel Movements 1 PHYSICAL EXAM Alert. Oriented to time, place and person. PERRL. EOMI. CN: no focal findings. Muscle tone: normal. Muscle strength:5/5 DTR: 2+ Plantar reflex: flexor Gait: not examined in bed. Sensory exam: no abnormal findings. No cerebellar signs elicited. Review of Relevant I have reviewed the following items tess (where applicable) has been applied. Labs Laboratory Tests Test 12/28/16 05:00 12/29/16 06:30 White Blood Count 14.3x10^3/uL (4.0-11.0) 14.3x10^3/uL (4.0-11.0) Red Blood Count 5.17x10^6/uL (4.30-5.70) 5.20x10^6/uL (4.30-5.70) Hemoglobin 14.7g/dL (13.0-17.5) 14.7g/dL (13.0-17.5) Hematocrit 44.9% (39.0-53.0) 45.2% (39.0-53.0) Mean Corpuscular Volume 87fL (79-100) 87fL (79-100) Mean Corpuscular Hemoglobin 28pg (25-35) 28pg (25-35) Mean Corpuscular Hemoglobin Concent 33g/dL (31-37) 33g/dL (31-37) Red Cell Distribution Width 13.3% (11.5-14.5) 13.8% (11.5-14.5) Platelet Count 213x10^3/uL (140-400) 221x10^3/uL (140-400) Neutrophils (%) (Auto) 80% (31-73) 76% (31-73) Lymphocytes (%) (Auto) 14% (24-48) 17% (24-48) Monocytes (%) (Auto) 6% (0-9) 6% (0-9) Eosinophils (%) (Auto) 0% (0-3) 1% (0-3) Basophils (%) (Auto) 0% (0-3) 0% (0-3) Neutrophils # (Auto) 11.5x10^3uL (1.8-7.7) 10.9x10^3uL (1.8-7.7) Lymphocytes # (Auto) 2.0x10^3/uL (1.0-4.8) 2.4x10^3/uL (1.0-4.8) Monocytes # (Auto) 0.8x10^3/uL (0.0-1.1) 0.9x10^3/uL (0.0-1.1) Eosinophils # (Auto) 0.0x10^3/uL (0.0-0.7) 0.1x10^3/uL (0.0-0.7) Basophils # (Auto) 0.0x10^3/uL (0.0-0.2) 0.0x10^3/uL (0.0-0.2) Sodium Level 139mmol/L (136-145) 139mmol/L (136-145) Potassium Level 4.4mmol/L (3.5-5.1) 4.6mmol/L (3.5-5.1) Chloride Level 103mmol/L (98-107) 102mmol/L (98-107) Carbon Dioxide Level 28mmol/L (21-32) 26mmol/L (21-32) Anion Gap 8 (6-14) 11 (6-14) Blood Urea Nitrogen 19mg/dL (8-26) 25mg/dL (8-26) Creatinine 1.0mg/dL (0.7-1.3) 1.0mg/dL (0.7-1.3) Estimated GFR (Cockcroft-Gault) 77.6 77.6 Glucose Level 104mg/dL (70-99) 103mg/dL (70-99) Calcium Level 9.4mg/dL (8.5-10.1) 9.4mg/dL (8.5-10.1) Laboratory Tests Test 12/29/16 06:30 White Blood Count 14.3x10^3/uL (4.0-11.0) Red Blood Count 5.20x10^6/uL (4.30-5.70) Hemoglobin 14.7g/dL (13.0-17.5) Hematocrit 45.2% (39.0-53.0) Mean Corpuscular Volume 87fL (79-100) Mean Corpuscular Hemoglobin 28pg (25-35) Mean Corpuscular Hemoglobin Concent 33g/dL (31-37) Red Cell Distribution Width 13.8% (11.5-14.5) Platelet Count 221x10^3/uL (140-400) Neutrophils (%) (Auto) 76% (31-73) Lymphocytes (%) (Auto) 17% (24-48) Monocytes (%) (Auto) 6% (0-9) Eosinophils (%) (Auto) 1% (0-3) Basophils (%) (Auto) 0% (0-3) Neutrophils # (Auto) 10.9x10^3uL (1.8-7.7) Lymphocytes # (Auto) 2.4x10^3/uL (1.0-4.8) Monocytes # (Auto) 0.9x10^3/uL (0.0-1.1) Eosinophils # (Auto) 0.1x10^3/uL (0.0-0.7) Basophils # (Auto) 0.0x10^3/uL (0.0-0.2) Sodium Level 139mmol/L (136-145) Potassium Level 4.6mmol/L (3.5-5.1) Chloride Level 102mmol/L (98-107) Carbon Dioxide Level 26mmol/L (21-32) Anion Gap 11 (6-14) Blood Urea Nitrogen 25mg/dL (8-26) Creatinine 1.0mg/dL (0.7-1.3) Estimated GFR (Cockcroft-Gault) 77.6 Glucose Level 103mg/dL (70-99) Calcium Level 9.4mg/dL (8.5-10.1) Medications Current Medications Iohexol (Omnipaque 300 Mg/ml) 70 ml 1X ONCE IV Last administered on 12/20/16 03:42; Start 12/20/16 at 03:15; Stop 12/20/16 at 03:16; Status DC Info (Do NOT chart on this entry -- for MONITORING) 1 each PRN DAILY PRN MC SEE COMMENTS; Start 12/20/16 at 03:15; Stop 12/21/16 at 16:47; Status DC Ondansetron HCl (Zofran) 4 mg PRN Q8HRS PRN IV NAUSEA/VOMITING; Start 12/20/16 at 04:30; Stop 12/20/16 at 13:26; Status DC Acetaminophen (Tylenol) 650 mg PRN Q4HRS PRN PO FEVER; Start 12/20/16 at 04:30 ; Stop 12/21/16 at 04:30; Status DC Aspirin (Carlene Aspirin) 325 mg 1X ONCE PO Last administered on 12/20/16 05:17 ; Start 12/20/16 at 05:00; Stop 12/20/16 at 05:01; Status DC Clopidogrel Bisulfate (Plavix) 75 mg DAILYWBKFT PO Last administered on 09:24; Start 12/20/16 at 09:00; Stop 12/20/16 at 13:22; Status DC Gadobutrol (Gadavist) 9 mmol 1X ONCE IV Last administered on 12/20/16 12:32; Start 12/20/16 at 12:30; Stop 12/20/16 at 12:31; Status DC Aspirin (Ecotrin) 325 mg DAILYWBKFT PO Last administered on 12/22/16 09:26; Start 12/20/16 at 14:00; Stop 12/22/16 at 16:13; Status DC Atorvastatin Calcium (Lipitor) 40 mg QHS PO Last administered on 12/25/16 21: 22; Start 12/20/16 at 21:00; Stop 12/26/16 at 14:01; Status DC Acetaminophen/ Hydrocodone Bitart (Lortab 5/325) 1 tab PRN Q4HRS PRN PO MILD PAIN, 2ND CHOICE Last administered on 12/29/16 04:19; Start 12/20/16 at 13:30 Metoprolol Tartrate (Lopressor) 12.5 mg BID PO Last administered on 12/25/16 21:22; Start 12/20/16 at 14:00; Stop 12/26/16 at 05:01; Status DC Prasugrel (Effient) 10 mg DAILYWBKFT PO Last administered on 12/21/16 08:36; Start 12/20/16 at 14:00; Stop 12/21/16 at 11:12; Status DC Varenicline (Chantix) 1 mg BID PO Last administered on 12/20/16 14:39; Start 12/20/16 at 14:00; Stop 12/23/16 at 16:55; Status DC Ondansetron HCl (Zofran) 4 mg PRN Q6HRS PRN IV NAUSEA/VOMITING; Start 12/20/16 at 13:30; Stop 12/25/16 at 04:49; Status DC Dexamethasone Sodium Phosphate (Decadron) 4 mg Q6HRS IV Last administered on 06:31; Start 12/20/16 at 18:00; Stop 12/22/16 at 12:20; Status DC Pantoprazole Sodium (Protonix) 40 mg DAILYAC PO Last administered on 12/25/16 09:14; Start 12/20/16 at 14:00; Stop 12/26/16 at 05:01; Status DC Acetaminophen (Tylenol) 650 mg PRN Q6HRS PRN PO MILD PAIN / TEMP; Start at 19:00; Stop 12/25/16 at 04:49; Status DC Alprazolam (Xanax) 0.25 mg PRN Q8HRS PRN PO ANXIETY / AGITATION; Start at 19:00; Status Cancel Lorazepam (Ativan) 2 mg PRN Q4HRS PRN IV ANXIETY / AGITATION Last administered on 12/23/16 20:54; Start 12/20/16 at 19:00 Alprazolam (Xanax) 0.25 mg TID PRN PRN PO ANXIETY / AGITATION Last administered on 12/25/16 15:21; Start 12/20/16 at 19:15; Stop 12/26/16 at 14:00 ; Status DC Enoxaparin Sodium (Lovenox 80mg Syringe) 80 mg Q12HR SQ ; Start 12/21/16 at 21: 00; Stop 12/21/16 at 21:00; Status DC Info (Anti-Coagulation Monitoring By Pharmacy) 1 each PRN DAILY PRN MC SEE COMMENTS; Start 12/21/16 at 11:30; Stop 12/22/16 at 10:33; Status DC Enoxaparin Sodium (Lovenox 40mg Syringe) 40 mg Q24H SQ ; Start 12/22/16 at 10:00 ; Stop 12/22/16 at 10:00; Status DC Albuterol/ Ipratropium (Duoneb) 3 ml RTQID NEB Last administered on 12/29/16 09 :26; Start 12/21/16 at 16:00 Iohexol (Omnipaque 300 Mg/ml) 75 ml 1X ONCE IV ; Start 12/21/16 at 13:15; Stop 12/21/16 at 13:16; Status DC Iohexol (Omnipaque 240 Mg/ml) 50 ml 1X ONCE PO ; Start 12/21/16 at 13:15; Stop 12/21/16 at 13:16; Status DC Info (Do NOT chart on this entry -- for MONITORING) 1 each PRN DAILY PRN MC SEE COMMENTS; Start 12/21/16 at 13:15; Stop 12/23/16 at 13:14; Status DC Dexamethasone (Decadron) 2 mg BID PO Last administered on 12/29/16 08:24; Start 12/22/16 at 13:00 Lorazepam 0.5 mg 0.5 mg PRN Q8HRS PRN PO ANXIETY / AGITATION Last administered on 12/24/16 08:16; Start 12/22/16 at 13:15; Stop 12/27/16 at 13:19; Status DC Tirofiban/Sodium Chloride (Aggrastat 12.5 Mg/250 ml Premix) 250 ml @ 0 mls/hr CONT PRN IV PER PROTOCOL Last administered on 12/23/16 05:48; Start 12/22/16 at 14:15; Stop 12/23/16 at 13:46; Status DC Losartan Potassium (Cozaar) 25 mg DAILY PO Last administered on 12/29/16 08:25 ; Start 12/22/16 at 16:00 Aspirin (Ecotrin) 81 mg DAILYWBKFT PO Last administered on 12/24/16 08:17; Start 12/23/16 at 08:00; Stop 12/26/16 at 14:01; Status DC Fluoxetine HCl 20 mg 20 mg DAILY PO Last administered on 12/27/16 08:50; Start 12/23/16 at 12:30; Stop 12/27/16 at 13:19; Status DC Tirofiban/Sodium Chloride (Aggrastat 12.5 Mg/250 ml Premix) 250 ml @ 0 mls/hr CONT PRN IV PER PROTOCOL Last administered on 12/25/16 20:53; Start 12/23/16 at 14:00; Stop 12/26/16 at 18:00; Status DC Adenosine (Adenocard) 6 mg STK-MED ONCE IV ; Start 12/23/16 at 18:14; Stop 12/23 at 18:15; Status Cancel Adenosine (Adenocard) 6 mg STK-MED ONCE IV ; Start 12/23/16 at 18:15; Stop 12/23 at 18:16; Status Cancel Levetiracetam (Keppra) 250 mg BID PO Last administered on 12/25/16 09:16; Start 12/24/16 at 14:00; Stop 12/25/16 at 13:42; Status DC Alprazolam (Xanax) 0.25 mg STK-MED ONCE .ROUTE ; Start 12/24/16 at 14:46; Stop 12/24/16 at 14:47; Status DC Alprazolam (Xanax) 0.25 mg STK-MED ONCE .ROUTE Last administered on 12/24/16 21:45; Start 12/24/16 at 21:27; Stop 12/25/16 at 12:29; Status DC Acetaminophen (Tylenol) 650 mg PRN Q6HRS PRN PO MILD PAIN / TEMP; Start at 04:49 Ondansetron HCl (Zofran) 4 mg PRN Q6HRS PRN IV NAUSEA/VOMITING; Start 12/25/16 at 04:49 Aspirin (Ecotrin) 81 mg STK-MED ONCE PO ; Start 12/25/16 at 08:37; Stop at 08:38; Status DC Lorazepam (Ativan) 0.5 mg BID PO Last administered on 12/27/16 08:49; Start at 13:00; Stop 12/27/16 at 13:19; Status DC Levetiracetam (Keppra) 500 mg BID PO Last administered on 12/27/16 08:49; Start 12/25/16 at 21:00; Stop 12/27/16 at 16:05; Status DC Alprazolam (Xanax) 0.25 mg STK-MED ONCE .ROUTE ; Start 12/25/16 at 15:14; Stop 12/25/16 at 15:15; Status DC Atorvastatin Calcium (Lipitor) 40 mg STK-MED ONCE .ROUTE ; Start 12/25/16 at 21: 07; Stop 12/25/16 at 21:08; Status DC Metoprolol Tartrate (Lopressor) 12.5 mg BID PO Last administered on 12/29/16 08 :26; Start 12/26/16 at 09:00 Pantoprazole Sodium (Protonix) 40 mg DAILYAC PO Last administered on 12/29/16 04:16; Start 12/26/16 at 05:01 Aspirin (Ecotrin) 81 mg STK-MED ONCE PO ; Start 12/26/16 at 10:37; Stop at 10:38; Status DC Fluoxetine HCl (Prozac) 20 mg STK-MED ONCE .ROUTE ; Start 12/26/16 at 10:38; Stop 12/26/16 at 10:39; Status DC Lidocaine/Sodium Bicarbonate (Buffered Lidocaine 1%) 20 ml STK-MED ONCE IJ ; Start 12/26/16 at 11:54; Stop 12/26/16 at 11:55; Status DC Fentanyl Citrate (Fentanyl 2ml Vial) 100 mcg STK-MED ONCE .ROUTE ; Start at 12:02; Stop 12/26/16 at 12:03; Status DC Midazolam HCl (Versed) 2 mg STK-MED ONCE .ROUTE ; Start 12/26/16 at 12:02; Stop 12/26/16 at 12:03; Status DC Lidocaine/Sodium Bicarbonate (Buffered Lidocaine 1%) 20 ml 1X ONCE IJ Last administered on 12/26/16 12:44; Start 12/26/16 at 12:30; Stop 12/26/16 at 12:36 ; Status DC Midazolam HCl (Versed) 2 mg 1X ONCE IV Last administered on 12/26/16 12:45; Start 12/26/16 at 12:30; Stop 12/26/16 at 12:36; Status DC Fentanyl Citrate (Fentanyl 2ml Vial) 100 mcg 1X ONCE IV Last administered on 12:45; Start 12/26/16 at 12:30; Stop 12/26/16 at 12:36; Status DC Fentanyl Citrate (Fentanyl 2ml Vial) 100 mcg 1X ONCE IV Last administered on 13:22; Start 12/26/16 at 13:30; Stop 12/26/16 at 13:31; Status DC Alprazolam (Xanax) 0.25 mg TID PRN PRN PO ANXIETY / AGITATION Last administered on 12/28/16 16:50; Start 12/26/16 at 14:00 Atorvastatin Calcium (Lipitor) 40 mg QHS PO Last administered on 12/28/16 20:53 ; Start 12/26/16 at 21:00; Stop 12/29/16 at 10:04; Status DC Aspirin (Ecotrin) 81 mg DAILYWBKFT PO Last administered on 12/29/16 08:25; Start 12/27/16 at 08:00 Clopidogrel Bisulfate (Plavix) 75 mg DAILYWBKFT PO Last administered on 08:26; Start 12/26/16 at 18:00 Lorazepam (Ativan) 0.5 mg STK-MED ONCE .ROUTE ; Start 12/27/16 at 07:41; Stop 12/27/16 at 07:42; Status DC Levetiracetam (Keppra) 500 mg STK-MED ONCE PO ; Start 12/27/16 at 07:41; Stop 12/27/16 at 07:42; Status DC Fluoxetine HCl (Prozac) 20 mg STK-MED ONCE .ROUTE ; Start 12/27/16 at 07:42; Stop 12/27/16 at 07:43; Status DC Levetiracetam (Keppra) 500 mg BID PO Last administered on 12/29/16 08:25; Start 12/27/16 at 21:00 Lorazepam (Ativan) 0.5 mg PRN Q8HRS PRN PO ANXIETY / AGITATION; Start 12/27/16 at 13:30 Lorazepam (Ativan) 0.5 mg BID PO Last administered on 12/29/16 08:25; Start 12/27/16 at 21:00 Fluoxetine HCl (Prozac) 20 mg DAILY PO Last administered on 12/29/16 08:25; Start 12/28/16 at 09:00 Active Scripts Active Hydrocodone-Apap 5-325 (Hydrocodone Bit/Acetaminophen) 1 Each Tablet 1 Tab PO PRN Q4HRS PRN Effient (Prasugrel Hcl) 10 Mg Tablet 10 Mg PO DAILYWBKFT Metoprolol Tartrate 25 Mg Tablet 12.5 Mg PO BID Atorvastatin Calcium 40 Mg Tablet 40 Mg PO QHS Aspirin Ec (Aspirin) 325 Mg Tablet.dr 325 Mg PO DAILYWBKFT Reported Chantix (Varenicline Tartrate) 0.5 Mg Tablet 1 Mg PO BID 0.5 MG PO DAILY X3 DAY, 0.5 MG PO BID X4 DAY, 1 MG PO BID UNTIL END OF TREATMENT Vitals/I & O Vital Sign - Last 24 Hours 12/28/16 12/28/16 12/28/16 12/28/16 12:07 15:40 16:22 19:25 Temp 98.3 98.4 98.3 98.4 Pulse 98 103 Resp 18 20 B/P 133/88 Pulse Ox 97 95 95 O2 Delivery Room Air Room Air Room Air Room Air 12/28/16 12/28/16 12/28/16 12/28/16 19:44 20:54 20:54 20:55 Pulse 90 Resp 20 B/P 140/93 Pulse Ox 95 94 O2 Delivery Room Air Room Air Room Air 12/28/16 12/29/16 12/29/16 12/29/16 23:00 03:00 04:19 05:19 Temp 98.4 98.1 98.4 98.1 Pulse 90 78 Resp 20 20 20 20 B/P 127/84 126/87 Pulse Ox 97 97 97 97 O2 Delivery Room Air Room Air Room Air Room Air 12/29/16 12/29/16 12/29/16 12/29/16 07:50 08:00 08:25 08:26 Temp 97.6 97.6 Pulse 80 80 80 Resp 18 B/P 136/90 136/90 136/90 Pulse Ox 95 O2 Delivery Room Air Room Air 12/29/16 09:27 Pulse Ox 97 O2 Delivery Room Air Intake and Output 12/28/16 12/28/16 12/29/16 15:00 23:00 07:00 Intake Total 1750 ml 300 ml Output Total 5 ml 450 ml Balance 1745 ml -150 ml FELIPE GAUTHIER MD Dec 29, 2016 11:17
--- NOTE | 2016-12-29 13:33 | PDOC ---
PROGRESS NOTES Subjective Subjective 8.45 am c/c - f/u of RUL lung mass Objective Objective Vital Signs Date Time Temp Pulse Resp B/P Pulse Ox O2 Delivery O2 Flow Rate FiO2 12/29/16 13:09 Room Air 12/29/16 11:18 98.4 87 16 131/89 94 98.4 12/28/16 08:43 2.0 Intake and Output 12/29/16 07:00 Intake Total 2050 ml Output Total 455 ml Balance 1595 ml Intake Oral 2050 ml Output Urine Total 450 ml Chest Tube Drainage Total 5 ml # Voids 4 # Bowel Movements 1 Physical Exam Heart: Normal S1, Normal S2 General: Alert, Oriented X3 Lungs: Clear to auscultation Psych/Mental Status: Mental status NL Assessment Assessment Problems Medical Problems: (1) Right frontal lobe lesion Status: Acute A/P: 1. RUL mass by CT, also solitary [employer] lesion appears c/w bronchogenic ca CT - chest abd and pelvis 12/22/15: 6.2 cm parenchymal mass in the right upper lobe most compatible with primary neoplastic disease. No evidence of metastatic disease in the chest, abdomen or pelvis. s/p CT guided bx lung 12/26/16. - if small cell , then no resection. I would plan chemo.XRT - if NSCLC, then resection of both the primary and solitary met can be considered. 2. CAD s/p stents - Appreciate cardiology mgmt of anti plt agent. Prasurgrel was discontinued by cardiology 12/21/16. 3. Brain met - agree with steroids and will defer anti epileptics to neuro - looks like they are observing for now. 4. Bone scan 12/23/16 reveals no mets. 5. Left groin/thigh pain/swelling - ordered venous doppler. 6. Chest tube management per DR Anderson. Comment Review of Relevant I have reviewed the following items tess (where applicable) has been applied. Labs Laboratory Tests Test 12/28/16 05:00 12/29/16 06:30 White Blood Count 14.3x10^3/uL (4.0-11.0) 14.3x10^3/uL (4.0-11.0) Red Blood Count 5.17x10^6/uL (4.30-5.70) 5.20x10^6/uL (4.30-5.70) Hemoglobin 14.7g/dL (13.0-17.5) 14.7g/dL (13.0-17.5) Hematocrit 44.9% (39.0-53.0) 45.2% (39.0-53.0) Mean Corpuscular Volume 87fL (79-100) 87fL (79-100) Mean Corpuscular Hemoglobin 28pg (25-35) 28pg (25-35) Mean Corpuscular Hemoglobin Concent 33g/dL (31-37) 33g/dL (31-37) Red Cell Distribution Width 13.3% (11.5-14.5) 13.8% (11.5-14.5) Platelet Count 213x10^3/uL (140-400) 221x10^3/uL (140-400) Neutrophils (%) (Auto) 80% (31-73) 76% (31-73) Lymphocytes (%) (Auto) 14% (24-48) 17% (24-48) Monocytes (%) (Auto) 6% (0-9) 6% (0-9) Eosinophils (%) (Auto) 0% (0-3) 1% (0-3) Basophils (%) (Auto) 0% (0-3) 0% (0-3) Neutrophils # (Auto) 11.5x10^3uL (1.8-7.7) 10.9x10^3uL (1.8-7.7) Lymphocytes # (Auto) 2.0x10^3/uL (1.0-4.8) 2.4x10^3/uL (1.0-4.8) Monocytes # (Auto) 0.8x10^3/uL (0.0-1.1) 0.9x10^3/uL (0.0-1.1) Eosinophils # (Auto) 0.0x10^3/uL (0.0-0.7) 0.1x10^3/uL (0.0-0.7) Basophils # (Auto) 0.0x10^3/uL (0.0-0.2) 0.0x10^3/uL (0.0-0.2) Sodium Level 139mmol/L (136-145) 139mmol/L (136-145) Potassium Level 4.4mmol/L (3.5-5.1) 4.6mmol/L (3.5-5.1) Chloride Level 103mmol/L (98-107) 102mmol/L (98-107) Carbon Dioxide Level 28mmol/L (21-32) 26mmol/L (21-32) Anion Gap 8 (6-14) 11 (6-14) Blood Urea Nitrogen 19mg/dL (8-26) 25mg/dL (8-26) Creatinine 1.0mg/dL (0.7-1.3) 1.0mg/dL (0.7-1.3) Estimated GFR (Cockcroft-Gault) 77.6 77.6 Glucose Level 104mg/dL (70-99) 103mg/dL (70-99) Calcium Level 9.4mg/dL (8.5-10.1) 9.4mg/dL (8.5-10.1) Laboratory Tests Test 12/29/16 06:30 White Blood Count 14.3x10^3/uL (4.0-11.0) Red Blood Count 5.20x10^6/uL (4.30-5.70) Hemoglobin 14.7g/dL (13.0-17.5) Hematocrit 45.2% (39.0-53.0) Mean Corpuscular Volume 87fL (79-100) Mean Corpuscular Hemoglobin 28pg (25-35) Mean Corpuscular Hemoglobin Concent 33g/dL (31-37) Red Cell Distribution Width 13.8% (11.5-14.5) Platelet Count 221x10^3/uL (140-400) Neutrophils (%) (Auto) 76% (31-73) Lymphocytes (%) (Auto) 17% (24-48) Monocytes (%) (Auto) 6% (0-9) Eosinophils (%) (Auto) 1% (0-3) Basophils (%) (Auto) 0% (0-3) Neutrophils # (Auto) 10.9x10^3uL (1.8-7.7) Lymphocytes # (Auto) 2.4x10^3/uL (1.0-4.8) Monocytes # (Auto) 0.9x10^3/uL (0.0-1.1) Eosinophils # (Auto) 0.1x10^3/uL (0.0-0.7) Basophils # (Auto) 0.0x10^3/uL (0.0-0.2) Sodium Level 139mmol/L (136-145) Potassium Level 4.6mmol/L (3.5-5.1) Chloride Level 102mmol/L (98-107) Carbon Dioxide Level 26mmol/L (21-32) Anion Gap 11 (6-14) Blood Urea Nitrogen 25mg/dL (8-26) Creatinine 1.0mg/dL (0.7-1.3) Estimated GFR (Cockcroft-Gault) 77.6 Glucose Level 103mg/dL (70-99) Calcium Level 9.4mg/dL (8.5-10.1) Medications Current Medications Iohexol (Omnipaque 300 Mg/ml) 70 ml 1X ONCE IV Last administered on 12/20/16 03:42; Start 12/20/16 at 03:15; Stop 12/20/16 at 03:16; Status DC Info (Do NOT chart on this entry -- for MONITORING) 1 each PRN DAILY PRN MC SEE COMMENTS; Start 12/20/16 at 03:15; Stop 12/21/16 at 16:47; Status DC Ondansetron HCl (Zofran) 4 mg PRN Q8HRS PRN IV NAUSEA/VOMITING; Start 12/20/16 at 04:30; Stop 12/20/16 at 13:26; Status DC Acetaminophen (Tylenol) 650 mg PRN Q4HRS PRN PO FEVER; Start 12/20/16 at 04:30 ; Stop 12/21/16 at 04:30; Status DC Aspirin (Carlene Aspirin) 325 mg 1X ONCE PO Last administered on 12/20/16 05:17 ; Start 12/20/16 at 05:00; Stop 12/20/16 at 05:01; Status DC Clopidogrel Bisulfate (Plavix) 75 mg DAILYWBKFT PO Last administered on 09:24; Start 12/20/16 at 09:00; Stop 12/20/16 at 13:22; Status DC Gadobutrol (Gadavist) 9 mmol 1X ONCE IV Last administered on 12/20/16 12:32; Start 12/20/16 at 12:30; Stop 12/20/16 at 12:31; Status DC Aspirin (Ecotrin) 325 mg DAILYWBKFT PO Last administered on 12/22/16 09:26; Start 12/20/16 at 14:00; Stop 12/22/16 at 16:13; Status DC Atorvastatin Calcium (Lipitor) 40 mg QHS PO Last administered on 12/25/16 21: 22; Start 12/20/16 at 21:00; Stop 12/26/16 at 14:01; Status DC Acetaminophen/ Hydrocodone Bitart (Lortab 5/325) 1 tab PRN Q4HRS PRN PO MILD PAIN, 2ND CHOICE Last administered on 12/29/16 12:58; Start 12/20/16 at 13:30 Metoprolol Tartrate (Lopressor) 12.5 mg BID PO Last administered on 12/25/16 21:22; Start 12/20/16 at 14:00; Stop 12/26/16 at 05:01; Status DC Prasugrel (Effient) 10 mg DAILYWBKFT PO Last administered on 12/21/16 08:36; Start 12/20/16 at 14:00; Stop 12/21/16 at 11:12; Status DC Varenicline (Chantix) 1 mg BID PO Last administered on 12/20/16 14:39; Start 12/20/16 at 14:00; Stop 12/23/16 at 16:55; Status DC Ondansetron HCl (Zofran) 4 mg PRN Q6HRS PRN IV NAUSEA/VOMITING; Start 12/20/16 at 13:30; Stop 12/25/16 at 04:49; Status DC Dexamethasone Sodium Phosphate (Decadron) 4 mg Q6HRS IV Last administered on 06:31; Start 12/20/16 at 18:00; Stop 12/22/16 at 12:20; Status DC Pantoprazole Sodium (Protonix) 40 mg DAILYAC PO Last administered on 12/25/16 09:14; Start 12/20/16 at 14:00; Stop 12/26/16 at 05:01; Status DC Acetaminophen (Tylenol) 650 mg PRN Q6HRS PRN PO MILD PAIN / TEMP; Start at 19:00; Stop 12/25/16 at 04:49; Status DC Alprazolam (Xanax) 0.25 mg PRN Q8HRS PRN PO ANXIETY / AGITATION; Start at 19:00; Status Cancel Lorazepam (Ativan) 2 mg PRN Q4HRS PRN IV ANXIETY / AGITATION Last administered on 12/23/16 20:54; Start 12/20/16 at 19:00 Alprazolam (Xanax) 0.25 mg TID PRN PRN PO ANXIETY / AGITATION Last administered on 12/25/16 15:21; Start 12/20/16 at 19:15; Stop 12/26/16 at 14:00 ; Status DC Enoxaparin Sodium (Lovenox 80mg Syringe) 80 mg Q12HR SQ ; Start 12/21/16 at 21: 00; Stop 12/21/16 at 21:00; Status DC Info (Anti-Coagulation Monitoring By Pharmacy) 1 each PRN DAILY PRN MC SEE COMMENTS; Start 12/21/16 at 11:30; Stop 12/22/16 at 10:33; Status DC Enoxaparin Sodium (Lovenox 40mg Syringe) 40 mg Q24H SQ ; Start 12/22/16 at 10:00 ; Stop 12/22/16 at 10:00; Status DC Albuterol/ Ipratropium (Duoneb) 3 ml RTQID NEB Last administered on 12/29/16 13 :09; Start 12/21/16 at 16:00 Iohexol (Omnipaque 300 Mg/ml) 75 ml 1X ONCE IV ; Start 12/21/16 at 13:15; Stop 12/21/16 at 13:16; Status DC Iohexol (Omnipaque 240 Mg/ml) 50 ml 1X ONCE PO ; Start 12/21/16 at 13:15; Stop 12/21/16 at 13:16; Status DC Info (Do NOT chart on this entry -- for MONITORING) 1 each PRN DAILY PRN MC SEE COMMENTS; Start 12/21/16 at 13:15; Stop 12/23/16 at 13:14; Status DC Dexamethasone (Decadron) 2 mg BID PO Last administered on 12/29/16 08:24; Start 12/22/16 at 13:00 Lorazepam 0.5 mg 0.5 mg PRN Q8HRS PRN PO ANXIETY / AGITATION Last administered on 12/24/16 08:16; Start 12/22/16 at 13:15; Stop 12/27/16 at 13:19; Status DC Tirofiban/Sodium Chloride (Aggrastat 12.5 Mg/250 ml Premix) 250 ml @ 0 mls/hr CONT PRN IV PER PROTOCOL Last administered on 12/23/16 05:48; Start 12/22/16 at 14:15; Stop 12/23/16 at 13:46; Status DC Losartan Potassium (Cozaar) 25 mg DAILY PO Last administered on 12/29/16 08:25 ; Start 12/22/16 at 16:00 Aspirin (Ecotrin) 81 mg DAILYWBKFT PO Last administered on 12/24/16 08:17; Start 12/23/16 at 08:00; Stop 12/26/16 at 14:01; Status DC Fluoxetine HCl 20 mg 20 mg DAILY PO Last administered on 12/27/16 08:50; Start 12/23/16 at 12:30; Stop 12/27/16 at 13:19; Status DC Tirofiban/Sodium Chloride (Aggrastat 12.5 Mg/250 ml Premix) 250 ml @ 0 mls/hr CONT PRN IV PER PROTOCOL Last administered on 12/25/16 20:53; Start 12/23/16 at 14:00; Stop 12/26/16 at 18:00; Status DC Adenosine (Adenocard) 6 mg STK-MED ONCE IV ; Start 12/23/16 at 18:14; Stop 12/23 at 18:15; Status Cancel Adenosine (Adenocard) 6 mg STK-MED ONCE IV ; Start 12/23/16 at 18:15; Stop 12/23 at 18:16; Status Cancel Levetiracetam (Keppra) 250 mg BID PO Last administered on 12/25/16 09:16; Start 12/24/16 at 14:00; Stop 12/25/16 at 13:42; Status DC Alprazolam (Xanax) 0.25 mg STK-MED ONCE .ROUTE ; Start 12/24/16 at 14:46; Stop 12/24/16 at 14:47; Status DC Alprazolam (Xanax) 0.25 mg STK-MED ONCE .ROUTE Last administered on 12/24/16 21:45; Start 12/24/16 at 21:27; Stop 12/25/16 at 12:29; Status DC Acetaminophen (Tylenol) 650 mg PRN Q6HRS PRN PO MILD PAIN / TEMP; Start at 04:49 Ondansetron HCl (Zofran) 4 mg PRN Q6HRS PRN IV NAUSEA/VOMITING; Start 12/25/16 at 04:49 Aspirin (Ecotrin) 81 mg STK-MED ONCE PO ; Start 12/25/16 at 08:37; Stop at 08:38; Status DC Lorazepam (Ativan) 0.5 mg BID PO Last administered on 12/27/16 08:49; Start at 13:00; Stop 12/27/16 at 13:19; Status DC Levetiracetam (Keppra) 500 mg BID PO Last administered on 12/27/16 08:49; Start 12/25/16 at 21:00; Stop 12/27/16 at 16:05; Status DC Alprazolam (Xanax) 0.25 mg STK-MED ONCE .ROUTE ; Start 12/25/16 at 15:14; Stop 12/25/16 at 15:15; Status DC Atorvastatin Calcium (Lipitor) 40 mg STK-MED ONCE .ROUTE ; Start 12/25/16 at 21: 07; Stop 12/25/16 at 21:08; Status DC Metoprolol Tartrate (Lopressor) 12.5 mg BID PO Last administered on 12/29/16 08 :26; Start 12/26/16 at 09:00 Pantoprazole Sodium (Protonix) 40 mg DAILYAC PO Last administered on 12/29/16 04:16; Start 12/26/16 at 05:01 Aspirin (Ecotrin) 81 mg STK-MED ONCE PO ; Start 12/26/16 at 10:37; Stop at 10:38; Status DC Fluoxetine HCl (Prozac) 20 mg STK-MED ONCE .ROUTE ; Start 12/26/16 at 10:38; Stop 12/26/16 at 10:39; Status DC Lidocaine/Sodium Bicarbonate (Buffered Lidocaine 1%) 20 ml STK-MED ONCE IJ ; Start 12/26/16 at 11:54; Stop 12/26/16 at 11:55; Status DC Fentanyl Citrate (Fentanyl 2ml Vial) 100 mcg STK-MED ONCE .ROUTE ; Start at 12:02; Stop 12/26/16 at 12:03; Status DC Midazolam HCl (Versed) 2 mg STK-MED ONCE .ROUTE ; Start 12/26/16 at 12:02; Stop 12/26/16 at 12:03; Status DC Lidocaine/Sodium Bicarbonate (Buffered Lidocaine 1%) 20 ml 1X ONCE IJ Last administered on 12/26/16 12:44; Start 12/26/16 at 12:30; Stop 12/26/16 at 12:36 ; Status DC Midazolam HCl (Versed) 2 mg 1X ONCE IV Last administered on 12/26/16 12:45; Start 12/26/16 at 12:30; Stop 12/26/16 at 12:36; Status DC Fentanyl Citrate (Fentanyl 2ml Vial) 100 mcg 1X ONCE IV Last administered on 12:45; Start 12/26/16 at 12:30; Stop 12/26/16 at 12:36; Status DC Fentanyl Citrate (Fentanyl 2ml Vial) 100 mcg 1X ONCE IV Last administered on 13:22; Start 12/26/16 at 13:30; Stop 12/26/16 at 13:31; Status DC Alprazolam (Xanax) 0.25 mg TID PRN PRN PO ANXIETY / AGITATION Last administered on 12/28/16 16:50; Start 12/26/16 at 14:00 Atorvastatin Calcium (Lipitor) 40 mg QHS PO Last administered on 12/28/16 20:53 ; Start 12/26/16 at 21:00; Stop 12/29/16 at 10:04; Status DC Aspirin (Ecotrin) 81 mg DAILYWBKFT PO Last administered on 12/29/16 08:25; Start 12/27/16 at 08:00 Clopidogrel Bisulfate (Plavix) 75 mg DAILYWBKFT PO Last administered on 08:26; Start 12/26/16 at 18:00 Lorazepam (Ativan) 0.5 mg STK-MED ONCE .ROUTE ; Start 12/27/16 at 07:41; Stop 12/27/16 at 07:42; Status DC Levetiracetam (Keppra) 500 mg STK-MED ONCE PO ; Start 12/27/16 at 07:41; Stop 12/27/16 at 07:42; Status DC Fluoxetine HCl (Prozac) 20 mg STK-MED ONCE .ROUTE ; Start 12/27/16 at 07:42; Stop 12/27/16 at 07:43; Status DC Levetiracetam (Keppra) 500 mg BID PO Last administered on 12/29/16 08:25; Start 12/27/16 at 21:00 Lorazepam (Ativan) 0.5 mg PRN Q8HRS PRN PO ANXIETY / AGITATION; Start 12/27/16 at 13:30 Lorazepam (Ativan) 0.5 mg BID PO Last administered on 12/29/16 08:25; Start 12/27/16 at 21:00 Fluoxetine HCl (Prozac) 20 mg DAILY PO Last administered on 12/29/16 08:25; Start 12/28/16 at 09:00 Active Scripts Active Hydrocodone-Apap 5-325 (Hydrocodone Bit/Acetaminophen) 1 Each Tablet 1 Tab PO PRN Q4HRS PRN Effient (Prasugrel Hcl) 10 Mg Tablet 10 Mg PO DAILYWBKFT Metoprolol Tartrate 25 Mg Tablet 12.5 Mg PO BID Atorvastatin Calcium 40 Mg Tablet 40 Mg PO QHS Aspirin Ec (Aspirin) 325 Mg Tablet.dr 325 Mg PO DAILYWBKFT Reported Chantix (Varenicline Tartrate) 0.5 Mg Tablet 1 Mg PO BID 0.5 MG PO DAILY X3 DAY, 0.5 MG PO BID X4 DAY, 1 MG PO BID UNTIL END OF TREATMENT Vitals/I & O Vital Sign - Last 24 Hours 12/28/16 12/28/16 12/28/16 12/28/16 15:40 16:22 19:25 19:44 Temp 98.3 98.4 98.3 98.4 Pulse 98 103 Resp 18 20 B/P 133/88 Pulse Ox 95 95 O2 Delivery Room Air Room Air Room Air Room Air 12/28/16 12/28/16 12/28/16 12/28/16 20:54 20:54 20:55 23:00 Temp 98.4 98.4 Pulse 90 90 Resp 20 20 B/P 140/93 127/84 Pulse Ox 95 94 97 O2 Delivery Room Air Room Air Room Air 12/29/16 12/29/16 12/29/16 12/29/16 03:00 04:19 05:19 07:50 Temp 98.1 97.6 98.1 97.6 Pulse 78 80 Resp 20 20 20 18 B/P 126/87 136/90 Pulse Ox 97 97 97 95 O2 Delivery Room Air Room Air Room Air Room Air 12/29/16 12/29/16 12/29/16 12/29/16 08:00 08:25 08:26 09:27 Pulse 80 80 B/P 136/90 136/90 Pulse Ox 97 O2 Delivery Room Air Room Air 12/29/16 12/29/16 12/29/16 11:18 12:58 13:09 Temp 98.4 98.4 Pulse 87 Resp 16 B/P 131/89 Pulse Ox 94 O2 Delivery Room Air Room Air Room Air Intake and Output 12/28/16 12/28/16 12/29/16 15:00 23:00 07:00 Intake Total 1750 ml 300 ml Output Total 5 ml 450 ml Balance 1745 ml -150 ml SUSY COTTO MD Dec 29, 2016 13:33
--- NOTE | 2016-12-29 15:36 | PATHOLOGY ---
PATHOLOGY REPORT * * * * * * * * FINAL DIAGNOSIS: Lung tissue, right lung mass CT-guided biopsy: - ADENOCARCINOMA, MODERATELY DIFFERENTIATED, WITH EXTENSIVE NECROSIS. SEE COMMENT. COMMENT: Sections of the right lung mass CT-guided biopsy reveal lung tissue. There are focal malignant glands associated with an inflamed, reactive desmoplastic stroma. The malignant glands are lined by columnar cells having enlarged, moderately pleomorphic nuclei containing prominent nucleoli. There is extensive tumor necrosis. In fact, most of the biopsy is comprised of necrotic tissue. There is a small amount of preserved lung parenchyma with presence of pigmented histiocytes within alveolar spaces. The morphology of the neoplasm is consistent with a primary pulmonary adenocarcinoma. The case is also examined by Dr. Barber Tony, who concurs with the diagnosis. (JPM:; d/t: 12/29/16) REPORT ELECTRONICALLY SIGNED BY: Jonh Lamb M.D. DATE/TIME: 12/29/2016 15:35 * * * * * * * * GROSS PATHOLOGY: The specimen is received in formalin labeled "Zuri Lock right lung mass biopsy". Received are multiple fragments of pale louie soft tissue measuring 0.6 x 0.5 x 0.1 cm in aggregate dimensions. The specimen is filtered and entirely submitted in cassette A1. (CAA; 12/26/2016) INITIAL CPT CODE(S): A; 56594 Professional services performed by [facility] [address] Technical services performed by [facility] at [address] [place] [address], [place] [address]. SPECIMEN(S) RECEIVED: A.Right lung mass biopsy CLINICAL HISTORY: Large right lung mass - ? bronchial cancer, smoker PATIENT: ZURI LOCK /AGE: 5 1960 (Age: 56) PATIENT #: [id number] ALT CASE #: SPECIMEN COLLECTION DATE: 12/26/2016 SPECIMEN RECEIVED DATE: 12/26/2016 [facility] - [id number] [place] [address] - PHONE: [phone] * * * END OF REPORT * * *
[2016-12-30 03:19] VITALS: BP 130/82
[2016-12-30 04:28] LABS: BASO # 0.1 x10^3/uL (0.0-0.2); BASO % 0 % (0-3); EOS % 0 % (0-3); HEMATOCRIT 45.3 % (39.0-53.0); LYMPH # 2.9 x10^3/uL (1.0-4.8); LYMPH % 21 % (24-48); MEAN CORPUSCULAR HEMOGLOBIN 28 pg (25-35); MEAN CORPUSCULAR HGB CONC 33 g/dL (31-37); MEAN CORPUSCULAR VOLUME 86 fL (79-100); MONO % 6 % (0-9); NEUT % 73 % (31-73); PLATELET COUNT 234 x10^3/uL (140-400); RED BLOOD COUNT 5.28 x10^6/uL (4.30-5.70); RED CELL DISTRIBUTION WIDTH 13.2 % (11.5-14.5); WHITE BLOOD COUNT 14.1 x10^3/uL (4.0-11.0)
[2016-12-30 04:44] LABS: CALCIUM 9.2 mg/dL (8.5-10.1); GFR 77.6
[2016-12-30 07:00] VITALS: BP 122/89
[2016-12-30] MEDS: IPRATRPIUM/ALBUTEROL 0.5/2.5MG 3 ML NEBU. NEB SCH ×4 (07:55→19:37)
[2016-12-30] MEDS: DEXAMETHASONE 1 MG TABLET PO SCH ×2 (08:11→21:44)
[2016-12-30] MEDS: CLOPIDOGREL BISULFATE 75 MG TABLET PO SCH (08:11)
[2016-12-30] MEDS: LORAZEPAM 0.5 MG TABLET. PO SCH ×2 (08:12→21:44)
[2016-12-30] MEDS: LEVETIRACETAM 500 MG TABLET. PO SCH ×2 (08:12→21:44)
[2016-12-30] MEDS: LOSARTAN POTASSIUM 25 MG TABLET. PO SCH (08:13)
[2016-12-30] MEDS: METOPROLOL TART IMMED RELEASE 25 MG TABLET. PO SCH ×2 (08:14→21:45)
[2016-12-30] MEDS: PANTOPRAZOLE 40 MG TABLET.DR. PO SCH (08:14)
[2016-12-30] MEDS: HYDROCODONE/APAP 5/325MG TABLET. PO PRN ×2 (08:14→19:17)
[2016-12-30] MEDS: ASPIRIN ENTERIC COATED 81 MG TABLET.DR. PO SCH (08:14)
[2016-12-30] MEDS: FLUOXETINE HCL 20 MG CAPSULE. PO SCH (08:14)
--- NOTE | 2016-12-30 10:00 | PDOC ---
PROGRESS NOTES Subjective Subjective spoke with patient regarding craniotomy and resection of mass. He would like his surgery to be performed at . Will refer him to see Dr. English. He could see him as an OP if medically stable. Films on the cloud for . Objective Objective Vital Signs Date Time Temp Pulse Resp B/P Pulse Ox O2 Delivery O2 Flow Rate FiO2 12/30/16 08:14 90 122/89 12/30/16 08:14 Room Air 12/30/16 07:56 98 12/30/16 07:00 97.7 18 97.7 12/29/16 20:00 2.0 Intake and Output 12/30/16 07:00 Intake Total 340 ml Output Total 550 ml Balance -210 ml Intake Oral 340 ml Output Urine Total 550 ml # Voids 5 Assessment Assessment Problems Medical Problems: (1) Right frontal lobe lesion Status: Acute Comment Review of Relevant I have reviewed the following items tess (where applicable) has been applied. Labs Laboratory Tests Test 12/29/16 06:30 12/30/16 03:30 White Blood Count 14.3x10^3/uL (4.0-11.0) 14.1x10^3/uL (4.0-11.0) Red Blood Count 5.20x10^6/uL (4.30-5.70) 5.28x10^6/uL (4.30-5.70) Hemoglobin 14.7g/dL (13.0-17.5) 15.0g/dL (13.0-17.5) Hematocrit 45.2% (39.0-53.0) 45.3% (39.0-53.0) Mean Corpuscular Volume 87fL (79-100) 86fL (79-100) Mean Corpuscular Hemoglobin 28pg (25-35) 28pg (25-35) Mean Corpuscular Hemoglobin Concent 33g/dL (31-37) 33g/dL (31-37) Red Cell Distribution Width 13.8% (11.5-14.5) 13.2% (11.5-14.5) Platelet Count 221x10^3/uL (140-400) 234x10^3/uL (140-400) Neutrophils (%) (Auto) 76% (31-73) 73% (31-73) Lymphocytes (%) (Auto) 17% (24-48) 21% (24-48) Monocytes (%) (Auto) 6% (0-9) 6% (0-9) Eosinophils (%) (Auto) 1% (0-3) 0% (0-3) Basophils (%) (Auto) 0% (0-3) 0% (0-3) Neutrophils # (Auto) 10.9x10^3uL (1.8-7.7) 10.3x10^3uL (1.8-7.7) Lymphocytes # (Auto) 2.4x10^3/uL (1.0-4.8) 2.9x10^3/uL (1.0-4.8) Monocytes # (Auto) 0.9x10^3/uL (0.0-1.1) 0.9x10^3/uL (0.0-1.1) Eosinophils # (Auto) 0.1x10^3/uL (0.0-0.7) 0.0x10^3/uL (0.0-0.7) Basophils # (Auto) 0.0x10^3/uL (0.0-0.2) 0.1x10^3/uL (0.0-0.2) Sodium Level 139mmol/L (136-145) 138mmol/L (136-145) Potassium Level 4.6mmol/L (3.5-5.1) 4.0mmol/L (3.5-5.1) Chloride Level 102mmol/L (98-107) 102mmol/L (98-107) Carbon Dioxide Level 26mmol/L (21-32) 27mmol/L (21-32) Anion Gap 11 (6-14) 9 (6-14) Blood Urea Nitrogen 25mg/dL (8-26) 23mg/dL (8-26) Creatinine 1.0mg/dL (0.7-1.3) 1.0mg/dL (0.7-1.3) Estimated GFR (Cockcroft-Gault) 77.6 77.6 Glucose Level 103mg/dL (70-99) 103mg/dL (70-99) Calcium Level 9.4mg/dL (8.5-10.1) 9.2mg/dL (8.5-10.1) Laboratory Tests Test 12/30/16 03:30 White Blood Count 14.1x10^3/uL (4.0-11.0) Red Blood Count 5.28x10^6/uL (4.30-5.70) Hemoglobin 15.0g/dL (13.0-17.5) Hematocrit 45.3% (39.0-53.0) Mean Corpuscular Volume 86fL (79-100) Mean Corpuscular Hemoglobin 28pg (25-35) Mean Corpuscular Hemoglobin Concent 33g/dL (31-37) Red Cell Distribution Width 13.2% (11.5-14.5) Platelet Count 234x10^3/uL (140-400) Neutrophils (%) (Auto) 73% (31-73) Lymphocytes (%) (Auto) 21% (24-48) Monocytes (%) (Auto) 6% (0-9) Eosinophils (%) (Auto) 0% (0-3) Basophils (%) (Auto) 0% (0-3) Neutrophils # (Auto) 10.3x10^3uL (1.8-7.7) Lymphocytes # (Auto) 2.9x10^3/uL (1.0-4.8) Monocytes # (Auto) 0.9x10^3/uL (0.0-1.1) Eosinophils # (Auto) 0.0x10^3/uL (0.0-0.7) Basophils # (Auto) 0.1x10^3/uL (0.0-0.2) Sodium Level 138mmol/L (136-145) Potassium Level 4.0mmol/L (3.5-5.1) Chloride Level 102mmol/L (98-107) Carbon Dioxide Level 27mmol/L (21-32) Anion Gap 9 (6-14) Blood Urea Nitrogen 23mg/dL (8-26) Creatinine 1.0mg/dL (0.7-1.3) Estimated GFR (Cockcroft-Gault) 77.6 Glucose Level 103mg/dL (70-99) Calcium Level 9.2mg/dL (8.5-10.1) Medications Current Medications Iohexol (Omnipaque 300 Mg/ml) 70 ml 1X ONCE IV Last administered on 12/20/16 03:42; Start 12/20/16 at 03:15; Stop 12/20/16 at 03:16; Status DC Info (Do NOT chart on this entry -- for MONITORING) 1 each PRN DAILY PRN MC SEE COMMENTS; Start 12/20/16 at 03:15; Stop 12/21/16 at 16:47; Status DC Ondansetron HCl (Zofran) 4 mg PRN Q8HRS PRN IV NAUSEA/VOMITING; Start 12/20/16 at 04:30; Stop 12/20/16 at 13:26; Status DC Acetaminophen (Tylenol) 650 mg PRN Q4HRS PRN PO FEVER; Start 12/20/16 at 04:30 ; Stop 12/21/16 at 04:30; Status DC Aspirin (Carlene Aspirin) 325 mg 1X ONCE PO Last administered on 12/20/16 05:17 ; Start 12/20/16 at 05:00; Stop 12/20/16 at 05:01; Status DC Clopidogrel Bisulfate (Plavix) 75 mg DAILYWBKFT PO Last administered on 09:24; Start 12/20/16 at 09:00; Stop 12/20/16 at 13:22; Status DC Gadobutrol (Gadavist) 9 mmol 1X ONCE IV Last administered on 12/20/16 12:32; Start 12/20/16 at 12:30; Stop 12/20/16 at 12:31; Status DC Aspirin (Ecotrin) 325 mg DAILYWBKFT PO Last administered on 12/22/16 09:26; Start 12/20/16 at 14:00; Stop 12/22/16 at 16:13; Status DC Atorvastatin Calcium (Lipitor) 40 mg QHS PO Last administered on 12/25/16 21: 22; Start 12/20/16 at 21:00; Stop 12/26/16 at 14:01; Status DC Acetaminophen/ Hydrocodone Bitart (Lortab 5/325) 1 tab PRN Q4HRS PRN PO MILD PAIN, 2ND CHOICE Last administered on 12/30/16 08:14; Start 12/20/16 at 13:30 Metoprolol Tartrate (Lopressor) 12.5 mg BID PO Last administered on 12/25/16 21:22; Start 12/20/16 at 14:00; Stop 12/26/16 at 05:01; Status DC Prasugrel (Effient) 10 mg DAILYWBKFT PO Last administered on 12/21/16 08:36; Start 12/20/16 at 14:00; Stop 12/21/16 at 11:12; Status DC Varenicline (Chantix) 1 mg BID PO Last administered on 12/20/16 14:39; Start 12/20/16 at 14:00; Stop 12/23/16 at 16:55; Status DC Ondansetron HCl (Zofran) 4 mg PRN Q6HRS PRN IV NAUSEA/VOMITING; Start 12/20/16 at 13:30; Stop 12/25/16 at 04:49; Status DC Dexamethasone Sodium Phosphate (Decadron) 4 mg Q6HRS IV Last administered on 06:31; Start 12/20/16 at 18:00; Stop 12/22/16 at 12:20; Status DC Pantoprazole Sodium (Protonix) 40 mg DAILYAC PO Last administered on 12/25/16 09:14; Start 12/20/16 at 14:00; Stop 12/26/16 at 05:01; Status DC Acetaminophen (Tylenol) 650 mg PRN Q6HRS PRN PO MILD PAIN / TEMP; Start at 19:00; Stop 12/25/16 at 04:49; Status DC Alprazolam (Xanax) 0.25 mg PRN Q8HRS PRN PO ANXIETY / AGITATION; Start at 19:00; Status Cancel Lorazepam (Ativan) 2 mg PRN Q4HRS PRN IV ANXIETY / AGITATION Last administered on 12/23/16 20:54; Start 12/20/16 at 19:00 Alprazolam (Xanax) 0.25 mg TID PRN PRN PO ANXIETY / AGITATION Last administered on 12/25/16 15:21; Start 12/20/16 at 19:15; Stop 12/26/16 at 14:00 ; Status DC Enoxaparin Sodium (Lovenox 80mg Syringe) 80 mg Q12HR SQ ; Start 12/21/16 at 21: 00; Stop 12/21/16 at 21:00; Status DC Info (Anti-Coagulation Monitoring By Pharmacy) 1 each PRN DAILY PRN MC SEE COMMENTS; Start 12/21/16 at 11:30; Stop 12/22/16 at 10:33; Status DC Enoxaparin Sodium (Lovenox 40mg Syringe) 40 mg Q24H SQ ; Start 12/22/16 at 10:00 ; Stop 12/22/16 at 10:00; Status DC Albuterol/ Ipratropium (Duoneb) 3 ml RTQID NEB Last administered on 12/30/16 07 :55; Start 12/21/16 at 16:00 Iohexol (Omnipaque 300 Mg/ml) 75 ml 1X ONCE IV ; Start 12/21/16 at 13:15; Stop 12/21/16 at 13:16; Status DC Iohexol (Omnipaque 240 Mg/ml) 50 ml 1X ONCE PO ; Start 12/21/16 at 13:15; Stop 12/21/16 at 13:16; Status DC Info (Do NOT chart on this entry -- for MONITORING) 1 each PRN DAILY PRN MC SEE COMMENTS; Start 12/21/16 at 13:15; Stop 12/23/16 at 13:14; Status DC Dexamethasone (Decadron) 2 mg BID PO Last administered on 12/30/16 08:11; Start 12/22/16 at 13:00 Lorazepam 0.5 mg 0.5 mg PRN Q8HRS PRN PO ANXIETY / AGITATION Last administered on 12/24/16 08:16; Start 12/22/16 at 13:15; Stop 12/27/16 at 13:19; Status DC Tirofiban/Sodium Chloride (Aggrastat 12.5 Mg/250 ml Premix) 250 ml @ 0 mls/hr CONT PRN IV PER PROTOCOL Last administered on 12/23/16 05:48; Start 12/22/16 at 14:15; Stop 12/23/16 at 13:46; Status DC Losartan Potassium (Cozaar) 25 mg DAILY PO Last administered on 12/30/16 08:13 ; Start 12/22/16 at 16:00 Aspirin (Ecotrin) 81 mg DAILYWBKFT PO Last administered on 12/24/16 08:17; Start 12/23/16 at 08:00; Stop 12/26/16 at 14:01; Status DC Fluoxetine HCl 20 mg 20 mg DAILY PO Last administered on 12/27/16 08:50; Start 12/23/16 at 12:30; Stop 12/27/16 at 13:19; Status DC Tirofiban/Sodium Chloride (Aggrastat 12.5 Mg/250 ml Premix) 250 ml @ 0 mls/hr CONT PRN IV PER PROTOCOL Last administered on 12/25/16 20:53; Start 12/23/16 at 14:00; Stop 12/26/16 at 18:00; Status DC Adenosine (Adenocard) 6 mg STK-MED ONCE IV ; Start 12/23/16 at 18:14; Stop 12/23 at 18:15; Status Cancel Adenosine (Adenocard) 6 mg STK-MED ONCE IV ; Start 12/23/16 at 18:15; Stop 12/23 at 18:16; Status Cancel Levetiracetam (Keppra) 250 mg BID PO Last administered on 12/25/16 09:16; Start 12/24/16 at 14:00; Stop 12/25/16 at 13:42; Status DC Alprazolam (Xanax) 0.25 mg STK-MED ONCE .ROUTE ; Start 12/24/16 at 14:46; Stop 12/24/16 at 14:47; Status DC Alprazolam (Xanax) 0.25 mg STK-MED ONCE .ROUTE Last administered on 12/24/16 21:45; Start 12/24/16 at 21:27; Stop 12/25/16 at 12:29; Status DC Acetaminophen (Tylenol) 650 mg PRN Q6HRS PRN PO MILD PAIN / TEMP Last administered on 12/29/16 23:20; Start 12/25/16 at 04:49 Ondansetron HCl (Zofran) 4 mg PRN Q6HRS PRN IV NAUSEA/VOMITING; Start 12/25/16 at 04:49 Aspirin (Ecotrin) 81 mg STK-MED ONCE PO ; Start 12/25/16 at 08:37; Stop at 08:38; Status DC Lorazepam (Ativan) 0.5 mg BID PO Last administered on 12/27/16 08:49; Start at 13:00; Stop 12/27/16 at 13:19; Status DC Levetiracetam (Keppra) 500 mg BID PO Last administered on 12/27/16 08:49; Start 12/25/16 at 21:00; Stop 12/27/16 at 16:05; Status DC Alprazolam (Xanax) 0.25 mg STK-MED ONCE .ROUTE ; Start 12/25/16 at 15:14; Stop 12/25/16 at 15:15; Status DC Atorvastatin Calcium (Lipitor) 40 mg STK-MED ONCE .ROUTE ; Start 12/25/16 at 21: 07; Stop 12/25/16 at 21:08; Status DC Metoprolol Tartrate (Lopressor) 12.5 mg BID PO Last administered on 12/30/16 08 :14; Start 12/26/16 at 09:00 Pantoprazole Sodium (Protonix) 40 mg DAILYAC PO Last administered on 12/30/16 08:14; Start 12/26/16 at 05:01 Aspirin (Ecotrin) 81 mg STK-MED ONCE PO ; Start 12/26/16 at 10:37; Stop at 10:38; Status DC Fluoxetine HCl (Prozac) 20 mg STK-MED ONCE .ROUTE ; Start 12/26/16 at 10:38; Stop 12/26/16 at 10:39; Status DC Lidocaine/Sodium Bicarbonate (Buffered Lidocaine 1%) 20 ml STK-MED ONCE IJ ; Start 12/26/16 at 11:54; Stop 12/26/16 at 11:55; Status DC Fentanyl Citrate (Fentanyl 2ml Vial) 100 mcg STK-MED ONCE .ROUTE ; Start at 12:02; Stop 12/26/16 at 12:03; Status DC Midazolam HCl (Versed) 2 mg STK-MED ONCE .ROUTE ; Start 12/26/16 at 12:02; Stop 12/26/16 at 12:03; Status DC Lidocaine/Sodium Bicarbonate (Buffered Lidocaine 1%) 20 ml 1X ONCE IJ Last administered on 12/26/16 12:44; Start 12/26/16 at 12:30; Stop 12/26/16 at 12:36 ; Status DC Midazolam HCl (Versed) 2 mg 1X ONCE IV Last administered on 12/26/16 12:45; Start 12/26/16 at 12:30; Stop 12/26/16 at 12:36; Status DC Fentanyl Citrate (Fentanyl 2ml Vial) 100 mcg 1X ONCE IV Last administered on 12:45; Start 12/26/16 at 12:30; Stop 12/26/16 at 12:36; Status DC Fentanyl Citrate (Fentanyl 2ml Vial) 100 mcg 1X ONCE IV Last administered on 13:22; Start 12/26/16 at 13:30; Stop 12/26/16 at 13:31; Status DC Alprazolam (Xanax) 0.25 mg TID PRN PRN PO ANXIETY / AGITATION Last administered on 12/28/16 16:50; Start 12/26/16 at 14:00 Atorvastatin Calcium (Lipitor) 40 mg QHS PO Last administered on 12/28/16 20:53 ; Start 12/26/16 at 21:00; Stop 12/29/16 at 10:04; Status DC Aspirin (Ecotrin) 81 mg DAILYWBKFT PO Last administered on 12/30/16 08:14; Start 12/27/16 at 08:00 Clopidogrel Bisulfate (Plavix) 75 mg DAILYWBKFT PO Last administered on 08:11; Start 12/26/16 at 18:00 Lorazepam (Ativan) 0.5 mg STK-MED ONCE .ROUTE ; Start 12/27/16 at 07:41; Stop 12/27/16 at 07:42; Status DC Levetiracetam (Keppra) 500 mg STK-MED ONCE PO ; Start 12/27/16 at 07:41; Stop 12/27/16 at 07:42; Status DC Fluoxetine HCl (Prozac) 20 mg STK-MED ONCE .ROUTE ; Start 12/27/16 at 07:42; Stop 12/27/16 at 07:43; Status DC Levetiracetam (Keppra) 500 mg BID PO Last administered on 12/30/16 08:12; Start 12/27/16 at 21:00 Lorazepam (Ativan) 0.5 mg PRN Q8HRS PRN PO ANXIETY / AGITATION; Start 12/27/16 at 13:30 Lorazepam (Ativan) 0.5 mg BID PO Last administered on 12/30/16 08:12; Start 12/27/16 at 21:00 Fluoxetine HCl (Prozac) 20 mg DAILY PO Last administered on 12/30/16 08:14; Start 12/28/16 at 09:00 Active Scripts Active Hydrocodone-Apap 5-325 (Hydrocodone Bit/Acetaminophen) 1 Each Tablet 1 Tab PO PRN Q4HRS PRN Effient (Prasugrel Hcl) 10 Mg Tablet 10 Mg PO DAILYWBKFT Metoprolol Tartrate 25 Mg Tablet 12.5 Mg PO BID Atorvastatin Calcium 40 Mg Tablet 40 Mg PO QHS Aspirin Ec (Aspirin) 325 Mg Tablet.dr 325 Mg PO DAILYWBK Reported Chantix (Varenicline Tartrate) 0.5 Mg Tablet 1 Mg PO BID 0.5 MG PO DAILY X3 DAY, 0.5 MG PO BID X4 DAY, 1 MG PO BID UNTIL END OF TREATMENT Vitals/I & O Vital Sign - Last 24 Hours 12/29/16 12/29/16 12/29/16 12/29/16 11:18 12:58 13:09 13:55 Temp 98.4 98.4 Pulse 87 Resp 16 B/P 131/89 Pulse Ox 94 O2 Delivery Room Air Room Air Room Air Room Air 12/29/16 12/29/16 12/29/16 12/29/16 15:02 16:34 19:00 19:07 Temp 98.4 98.8 98.4 98.8 Pulse 95 101 Resp 18 18 B/P 126/81 149/89 Pulse Ox 93 93 96 O2 Delivery Room Air Room Air Room Air Room Air 12/29/16 12/29/16 12/29/16 12/30/16 20:00 21:03 23:03 03:19 Temp 97.7 98.0 97.7 98.0 Pulse 101 99 86 Resp 20 16 B/P 149/89 142/95 130/82 Pulse Ox 96 93 O2 Delivery Room Air Room Air Room Air O2 Flow Rate 2.0 12/30/16 12/30/16 12/30/16 12/30/16 07:00 07:56 08:00 08:13 Temp 97.7 97.7 Pulse 92 90 Resp 18 B/P 122/89 122/89 Pulse Ox 93 98 O2 Delivery Room Air Room Air Room Air 12/30/16 12/30/16 08:14 08:14 Pulse 90 B/P 122/89 O2 Delivery Room Air Intake and Output 12/29/16 12/29/16 12/30/16 15:00 23:00 07:00 Intake Total 220 ml 120 ml Output Total 550 ml Balance 220 ml -430 ml NEELA ABEBE MD Dec 30, 2016 10:00
[2016-12-30 10:28] VITALS: BP 138/91
--- NOTE | 2016-12-30 11:15 | PDOC ---
PROGRESS NOTES Assessment Problems Medical Problems: (1) Right frontal lobe lesion Status: Acute Right parietal 1.8 cm mass, Non-small cell lung cancer. Simple partial seizure x 1, left side facial twitching. Plan Continue Keppra 500 mg bid. Smoking cessation. Discussed with his family Taper steroids, craniotomy, further management per neurosurgery Subjective No complaints, wants to go home. Objective Vital Signs Date Time Temp Pulse Resp B/P Pulse Ox O2 Delivery O2 Flow Rate FiO2 12/30/16 10:28 98.3 89 18 138/91 94 Room Air 98.3 12/29/16 20:00 2.0 Intake and Output 12/30/16 06:59 Intake Total 340 ml Output Total 550 ml Balance -210 ml Intake Oral 340 ml Output Urine Total 550 ml # Voids 5 PHYSICAL EXAM Alert. Oriented to time, place and person. PERRL. EOMI. CN: no focal findings. Muscle tone: normal. Muscle strength:5/5 DTR: 2+ Plantar reflex: flexor Gait: not examined in bed. Sensory exam: no abnormal findings. No cerebellar signs elicited. Review of Relevant I have reviewed the following items tess (where applicable) has been applied. Labs Laboratory Tests Test 12/29/16 06:30 12/30/16 03:30 White Blood Count 14.3x10^3/uL (4.0-11.0) 14.1x10^3/uL (4.0-11.0) Red Blood Count 5.20x10^6/uL (4.30-5.70) 5.28x10^6/uL (4.30-5.70) Hemoglobin 14.7g/dL (13.0-17.5) 15.0g/dL (13.0-17.5) Hematocrit 45.2% (39.0-53.0) 45.3% (39.0-53.0) Mean Corpuscular Volume 87fL (79-100) 86fL (79-100) Mean Corpuscular Hemoglobin 28pg (25-35) 28pg (25-35) Mean Corpuscular Hemoglobin Concent 33g/dL (31-37) 33g/dL (31-37) Red Cell Distribution Width 13.8% (11.5-14.5) 13.2% (11.5-14.5) Platelet Count 221x10^3/uL (140-400) 234x10^3/uL (140-400) Neutrophils (%) (Auto) 76% (31-73) 73% (31-73) Lymphocytes (%) (Auto) 17% (24-48) 21% (24-48) Monocytes (%) (Auto) 6% (0-9) 6% (0-9) Eosinophils (%) (Auto) 1% (0-3) 0% (0-3) Basophils (%) (Auto) 0% (0-3) 0% (0-3) Neutrophils # (Auto) 10.9x10^3uL (1.8-7.7) 10.3x10^3uL (1.8-7.7) Lymphocytes # (Auto) 2.4x10^3/uL (1.0-4.8) 2.9x10^3/uL (1.0-4.8) Monocytes # (Auto) 0.9x10^3/uL (0.0-1.1) 0.9x10^3/uL (0.0-1.1) Eosinophils # (Auto) 0.1x10^3/uL (0.0-0.7) 0.0x10^3/uL (0.0-0.7) Basophils # (Auto) 0.0x10^3/uL (0.0-0.2) 0.1x10^3/uL (0.0-0.2) Sodium Level 139mmol/L (136-145) 138mmol/L (136-145) Potassium Level 4.6mmol/L (3.5-5.1) 4.0mmol/L (3.5-5.1) Chloride Level 102mmol/L (98-107) 102mmol/L (98-107) Carbon Dioxide Level 26mmol/L (21-32) 27mmol/L (21-32) Anion Gap 11 (6-14) 9 (6-14) Blood Urea Nitrogen 25mg/dL (8-26) 23mg/dL (8-26) Creatinine 1.0mg/dL (0.7-1.3) 1.0mg/dL (0.7-1.3) Estimated GFR (Cockcroft-Gault) 77.6 77.6 Glucose Level 103mg/dL (70-99) 103mg/dL (70-99) Calcium Level 9.4mg/dL (8.5-10.1) 9.2mg/dL (8.5-10.1) Laboratory Tests Test 12/30/16 03:30 White Blood Count 14.1x10^3/uL (4.0-11.0) Red Blood Count 5.28x10^6/uL (4.30-5.70) Hemoglobin 15.0g/dL (13.0-17.5) Hematocrit 45.3% (39.0-53.0) Mean Corpuscular Volume 86fL (79-100) Mean Corpuscular Hemoglobin 28pg (25-35) Mean Corpuscular Hemoglobin Concent 33g/dL (31-37) Red Cell Distribution Width 13.2% (11.5-14.5) Platelet Count 234x10^3/uL (140-400) Neutrophils (%) (Auto) 73% (31-73) Lymphocytes (%) (Auto) 21% (24-48) Monocytes (%) (Auto) 6% (0-9) Eosinophils (%) (Auto) 0% (0-3) Basophils (%) (Auto) 0% (0-3) Neutrophils # (Auto) 10.3x10^3uL (1.8-7.7) Lymphocytes # (Auto) 2.9x10^3/uL (1.0-4.8) Monocytes # (Auto) 0.9x10^3/uL (0.0-1.1) Eosinophils # (Auto) 0.0x10^3/uL (0.0-0.7) Basophils # (Auto) 0.1x10^3/uL (0.0-0.2) Sodium Level 138mmol/L (136-145) Potassium Level 4.0mmol/L (3.5-5.1) Chloride Level 102mmol/L (98-107) Carbon Dioxide Level 27mmol/L (21-32) Anion Gap 9 (6-14) Blood Urea Nitrogen 23mg/dL (8-26) Creatinine 1.0mg/dL (0.7-1.3) Estimated GFR (Cockcroft-Gault) 77.6 Glucose Level 103mg/dL (70-99) Calcium Level 9.2mg/dL (8.5-10.1) Medications Current Medications Iohexol (Omnipaque 300 Mg/ml) 70 ml 1X ONCE IV Last administered on 12/20/16 03:42; Start 12/20/16 at 03:15; Stop 12/20/16 at 03:16; Status DC Info (Do NOT chart on this entry -- for MONITORING) 1 each PRN DAILY PRN MC SEE COMMENTS; Start 12/20/16 at 03:15; Stop 12/21/16 at 16:47; Status DC Ondansetron HCl (Zofran) 4 mg PRN Q8HRS PRN IV NAUSEA/VOMITING; Start 12/20/16 at 04:30; Stop 12/20/16 at 13:26; Status DC Acetaminophen (Tylenol) 650 mg PRN Q4HRS PRN PO FEVER; Start 12/20/16 at 04:30 ; Stop 12/21/16 at 04:30; Status DC Aspirin (Carlene Aspirin) 325 mg 1X ONCE PO Last administered on 12/20/16 05:17 ; Start 12/20/16 at 05:00; Stop 12/20/16 at 05:01; Status DC Clopidogrel Bisulfate (Plavix) 75 mg DAILYWBKFT PO Last administered on 09:24; Start 12/20/16 at 09:00; Stop 12/20/16 at 13:22; Status DC Gadobutrol (Gadavist) 9 mmol 1X ONCE IV Last administered on 12/20/16 12:32; Start 12/20/16 at 12:30; Stop 12/20/16 at 12:31; Status DC Aspirin (Ecotrin) 325 mg DAILYWBKFT PO Last administered on 12/22/16 09:26; Start 12/20/16 at 14:00; Stop 12/22/16 at 16:13; Status DC Atorvastatin Calcium (Lipitor) 40 mg QHS PO Last administered on 12/25/16 21: 22; Start 12/20/16 at 21:00; Stop 12/26/16 at 14:01; Status DC Acetaminophen/ Hydrocodone Bitart (Lortab 5/325) 1 tab PRN Q4HRS PRN PO MILD PAIN, 2ND CHOICE Last administered on 12/30/16 08:14; Start 12/20/16 at 13:30 Metoprolol Tartrate (Lopressor) 12.5 mg BID PO Last administered on 12/25/16 21:22; Start 12/20/16 at 14:00; Stop 12/26/16 at 05:01; Status DC Prasugrel (Effient) 10 mg DAILYWBKFT PO Last administered on 12/21/16 08:36; Start 12/20/16 at 14:00; Stop 12/21/16 at 11:12; Status DC Varenicline (Chantix) 1 mg BID PO Last administered on 12/20/16 14:39; Start 12/20/16 at 14:00; Stop 12/23/16 at 16:55; Status DC Ondansetron HCl (Zofran) 4 mg PRN Q6HRS PRN IV NAUSEA/VOMITING; Start 12/20/16 at 13:30; Stop 12/25/16 at 04:49; Status DC Dexamethasone Sodium Phosphate (Decadron) 4 mg Q6HRS IV Last administered on 06:31; Start 12/20/16 at 18:00; Stop 12/22/16 at 12:20; Status DC Pantoprazole Sodium (Protonix) 40 mg DAILYAC PO Last administered on 12/25/16 09:14; Start 12/20/16 at 14:00; Stop 12/26/16 at 05:01; Status DC Acetaminophen (Tylenol) 650 mg PRN Q6HRS PRN PO MILD PAIN / TEMP; Start at 19:00; Stop 12/25/16 at 04:49; Status DC Alprazolam (Xanax) 0.25 mg PRN Q8HRS PRN PO ANXIETY / AGITATION; Start at 19:00; Status Cancel Lorazepam (Ativan) 2 mg PRN Q4HRS PRN IV ANXIETY / AGITATION Last administered on 12/23/16 20:54; Start 12/20/16 at 19:00 Alprazolam (Xanax) 0.25 mg TID PRN PRN PO ANXIETY / AGITATION Last administered on 12/25/16 15:21; Start 12/20/16 at 19:15; Stop 12/26/16 at 14:00 ; Status DC Enoxaparin Sodium (Lovenox 80mg Syringe) 80 mg Q12HR SQ ; Start 12/21/16 at 21: 00; Stop 12/21/16 at 21:00; Status DC Info (Anti-Coagulation Monitoring By Pharmacy) 1 each PRN DAILY PRN MC SEE COMMENTS; Start 12/21/16 at 11:30; Stop 12/22/16 at 10:33; Status DC Enoxaparin Sodium (Lovenox 40mg Syringe) 40 mg Q24H SQ ; Start 12/22/16 at 10:00 ; Stop 12/22/16 at 10:00; Status DC Albuterol/ Ipratropium (Duoneb) 3 ml RTQID NEB Last administered on 12/30/16 07 :55; Start 12/21/16 at 16:00 Iohexol (Omnipaque 300 Mg/ml) 75 ml 1X ONCE IV ; Start 12/21/16 at 13:15; Stop 12/21/16 at 13:16; Status DC Iohexol (Omnipaque 240 Mg/ml) 50 ml 1X ONCE PO ; Start 12/21/16 at 13:15; Stop 12/21/16 at 13:16; Status DC Info (Do NOT chart on this entry -- for MONITORING) 1 each PRN DAILY PRN MC SEE COMMENTS; Start 12/21/16 at 13:15; Stop 12/23/16 at 13:14; Status DC Dexamethasone (Decadron) 2 mg BID PO Last administered on 12/30/16 08:11; Start 12/22/16 at 13:00 Lorazepam 0.5 mg 0.5 mg PRN Q8HRS PRN PO ANXIETY / AGITATION Last administered on 12/24/16 08:16; Start 12/22/16 at 13:15; Stop 12/27/16 at 13:19; Status DC Tirofiban/Sodium Chloride (Aggrastat 12.5 Mg/250 ml Premix) 250 ml @ 0 mls/hr CONT PRN IV PER PROTOCOL Last administered on 12/23/16 05:48; Start 12/22/16 at 14:15; Stop 12/23/16 at 13:46; Status DC Losartan Potassium (Cozaar) 25 mg DAILY PO Last administered on 12/30/16 08:13 ; Start 12/22/16 at 16:00 Aspirin (Ecotrin) 81 mg DAILYWBKFT PO Last administered on 12/24/16 08:17; Start 12/23/16 at 08:00; Stop 12/26/16 at 14:01; Status DC Fluoxetine HCl 20 mg 20 mg DAILY PO Last administered on 12/27/16 08:50; Start 12/23/16 at 12:30; Stop 12/27/16 at 13:19; Status DC Tirofiban/Sodium Chloride (Aggrastat 12.5 Mg/250 ml Premix) 250 ml @ 0 mls/hr CONT PRN IV PER PROTOCOL Last administered on 12/25/16 20:53; Start 12/23/16 at 14:00; Stop 12/26/16 at 18:00; Status DC Adenosine (Adenocard) 6 mg STK-MED ONCE IV ; Start 12/23/16 at 18:14; Stop 12/23 at 18:15; Status Cancel Adenosine (Adenocard) 6 mg STK-MED ONCE IV ; Start 12/23/16 at 18:15; Stop 12/23 at 18:16; Status Cancel Levetiracetam (Keppra) 250 mg BID PO Last administered on 12/25/16 09:16; Start 12/24/16 at 14:00; Stop 12/25/16 at 13:42; Status DC Alprazolam (Xanax) 0.25 mg STK-MED ONCE .ROUTE ; Start 12/24/16 at 14:46; Stop 12/24/16 at 14:47; Status DC Alprazolam (Xanax) 0.25 mg STK-MED ONCE .ROUTE Last administered on 12/24/16 21:45; Start 12/24/16 at 21:27; Stop 12/25/16 at 12:29; Status DC Acetaminophen (Tylenol) 650 mg PRN Q6HRS PRN PO MILD PAIN / TEMP Last administered on 12/29/16 23:20; Start 12/25/16 at 04:49 Ondansetron HCl (Zofran) 4 mg PRN Q6HRS PRN IV NAUSEA/VOMITING; Start 12/25/16 at 04:49 Aspirin (Ecotrin) 81 mg STK-MED ONCE PO ; Start 12/25/16 at 08:37; Stop at 08:38; Status DC Lorazepam (Ativan) 0.5 mg BID PO Last administered on 12/27/16 08:49; Start at 13:00; Stop 12/27/16 at 13:19; Status DC Levetiracetam (Keppra) 500 mg BID PO Last administered on 12/27/16 08:49; Start 12/25/16 at 21:00; Stop 12/27/16 at 16:05; Status DC Alprazolam (Xanax) 0.25 mg STK-MED ONCE .ROUTE ; Start 12/25/16 at 15:14; Stop 12/25/16 at 15:15; Status DC Atorvastatin Calcium (Lipitor) 40 mg STK-MED ONCE .ROUTE ; Start 12/25/16 at 21: 07; Stop 12/25/16 at 21:08; Status DC Metoprolol Tartrate (Lopressor) 12.5 mg BID PO Last administered on 12/30/16 08 :14; Start 12/26/16 at 09:00 Pantoprazole Sodium (Protonix) 40 mg DAILYAC PO Last administered on 12/30/16 08:14; Start 12/26/16 at 05:01 Aspirin (Ecotrin) 81 mg STK-MED ONCE PO ; Start 12/26/16 at 10:37; Stop at 10:38; Status DC Fluoxetine HCl (Prozac) 20 mg STK-MED ONCE .ROUTE ; Start 12/26/16 at 10:38; Stop 12/26/16 at 10:39; Status DC Lidocaine/Sodium Bicarbonate (Buffered Lidocaine 1%) 20 ml STK-MED ONCE IJ ; Start 12/26/16 at 11:54; Stop 12/26/16 at 11:55; Status DC Fentanyl Citrate (Fentanyl 2ml Vial) 100 mcg STK-MED ONCE .ROUTE ; Start at 12:02; Stop 12/26/16 at 12:03; Status DC Midazolam HCl (Versed) 2 mg STK-MED ONCE .ROUTE ; Start 12/26/16 at 12:02; Stop 12/26/16 at 12:03; Status DC Lidocaine/Sodium Bicarbonate (Buffered Lidocaine 1%) 20 ml 1X ONCE IJ Last administered on 12/26/16 12:44; Start 12/26/16 at 12:30; Stop 12/26/16 at 12:36 ; Status DC Midazolam HCl (Versed) 2 mg 1X ONCE IV Last administered on 12/26/16 12:45; Start 12/26/16 at 12:30; Stop 12/26/16 at 12:36; Status DC Fentanyl Citrate (Fentanyl 2ml Vial) 100 mcg 1X ONCE IV Last administered on 12:45; Start 12/26/16 at 12:30; Stop 12/26/16 at 12:36; Status DC Fentanyl Citrate (Fentanyl 2ml Vial) 100 mcg 1X ONCE IV Last administered on 13:22; Start 12/26/16 at 13:30; Stop 12/26/16 at 13:31; Status DC Alprazolam (Xanax) 0.25 mg TID PRN PRN PO ANXIETY / AGITATION Last administered on 12/28/16 16:50; Start 12/26/16 at 14:00 Atorvastatin Calcium (Lipitor) 40 mg QHS PO Last administered on 12/28/16 20:53 ; Start 12/26/16 at 21:00; Stop 12/29/16 at 10:04; Status DC Aspirin (Ecotrin) 81 mg DAILYWBKFT PO Last administered on 12/30/16 08:14; Start 12/27/16 at 08:00 Clopidogrel Bisulfate (Plavix) 75 mg DAILYWBKFT PO Last administered on 08:11; Start 12/26/16 at 18:00 Lorazepam (Ativan) 0.5 mg STK-MED ONCE .ROUTE ; Start 12/27/16 at 07:41; Stop 12/27/16 at 07:42; Status DC Levetiracetam (Keppra) 500 mg STK-MED ONCE PO ; Start 12/27/16 at 07:41; Stop 12/27/16 at 07:42; Status DC Fluoxetine HCl (Prozac) 20 mg STK-MED ONCE .ROUTE ; Start 12/27/16 at 07:42; Stop 12/27/16 at 07:43; Status DC Levetiracetam (Keppra) 500 mg BID PO Last administered on 12/30/16 08:12; Start 12/27/16 at 21:00 Lorazepam (Ativan) 0.5 mg PRN Q8HRS PRN PO ANXIETY / AGITATION; Start 12/27/16 at 13:30 Lorazepam (Ativan) 0.5 mg BID PO Last administered on 12/30/16 08:12; Start 12/27/16 at 21:00 Fluoxetine HCl (Prozac) 20 mg DAILY PO Last administered on 12/30/16 08:14; Start 12/28/16 at 09:00 Active Scripts Active Hydrocodone-Apap 5-325 (Hydrocodone Bit/Acetaminophen) 1 Each Tablet 1 Tab PO PRN Q4HRS PRN Effient (Prasugrel Hcl) 10 Mg Tablet 10 Mg PO DAILYWBKFT Metoprolol Tartrate 25 Mg Tablet 12.5 Mg PO BID Atorvastatin Calcium 40 Mg Tablet 40 Mg PO QHS Aspirin Ec (Aspirin) 325 Mg Tablet.dr 325 Mg PO DAILYWBKFT Reported Chantix (Varenicline Tartrate) 0.5 Mg Tablet 1 Mg PO BID 0.5 MG PO DAILY X3 DAY, 0.5 MG PO BID X4 DAY, 1 MG PO BID UNTIL END OF TREATMENT Vitals/I & O Vital Sign - Last 24 Hours 12/29/16 12/29/16 12/29/16 12/29/16 11:18 12:58 13:09 13:55 Temp 98.4 98.4 Pulse 87 Resp 16 B/P 131/89 Pulse Ox 94 O2 Delivery Room Air Room Air Room Air Room Air 12/29/16 12/29/16 12/29/16 12/29/16 15:02 16:34 19:00 19:07 Temp 98.4 98.8 98.4 98.8 Pulse 95 101 Resp 18 18 B/P 126/81 149/89 Pulse Ox 93 93 96 O2 Delivery Room Air Room Air Room Air Room Air 12/29/16 12/29/16 12/29/16 12/30/16 20:00 21:03 23:03 03:19 Temp 97.7 98.0 97.7 98.0 Pulse 101 99 86 Resp 20 16 B/P 149/89 142/95 130/82 Pulse Ox 96 93 O2 Delivery Room Air Room Air Room Air O2 Flow Rate 2.0 12/30/16 12/30/16 12/30/16 12/30/16 07:00 07:56 08:00 08:13 Temp 97.7 97.7 Pulse 92 90 Resp 18 B/P 122/89 122/89 Pulse Ox 93 98 O2 Delivery Room Air Room Air Room Air 12/30/16 12/30/16 12/30/16 08:14 08:14 10:28 Temp 98.3 98.3 Pulse 90 89 Resp 18 B/P 122/89 138/91 Pulse Ox 94 O2 Delivery Room Air Room Air Intake and Output 12/29/16 12/29/16 12/30/16 14:59 22:59 06:59 Intake Total 220 ml 120 ml Output Total 550 ml Balance 220 ml -430 ml FELIPE GAUTHIER MD Dec 30, 2016 11:15
--- NOTE | 2016-12-30 11:26 | PDOC ---
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) Partial seizure, new CAD with Recent NSTEMI with PCI, requiring AC HLD - Cramps since on statin COPD Tobacco dependence, ex Anxiety NOS History of Present Illness History of Present Illness Neurosx recs sx but pt leaning towards [facility] consulted to have discussion about resection of RUL malignancy mass - but pt also leaning towards [facility] for that NO incapacitating headaches, no FNDs Still has the R sided chest tube - clamped, minimal pain PLAN: Await [facility] CXR planned today prior to removal of CT chest Awaiting further concrete plans re [facility] referrals prior to dc to home Scripts for keppra, decadron and xanax inc fidel talavera pt and RN time 30 mins alone in discussion Vitals Vitals Vital Signs Date Time Temp Pulse Resp B/P Pulse Ox O2 Delivery O2 Flow Rate FiO2 12/30/16 10:28 98.3 89 18 138/91 94 Room Air 98.3 12/29/16 20:00 2.0 Physical Exam General: Alert, Oriented X3 Heart: Normal S1, Normal S2 Lungs: Clear (but diminished), Other (O2 supplementation with 2L NC ) Abdomen: Normal bowel sounds, Soft, No tenderness Extremities: No clubbing, No edema Skin: No rashes Labs LABS Laboratory Tests Test 12/30/16 03:30 White Blood Count 14.1x10^3/uL (4.0-11.0) Red Blood Count 5.28x10^6/uL (4.30-5.70) Hemoglobin 15.0g/dL (13.0-17.5) Hematocrit 45.3% (39.0-53.0) Mean Corpuscular Volume 86fL (79-100) Mean Corpuscular Hemoglobin 28pg (25-35) Mean Corpuscular Hemoglobin Concent 33g/dL (31-37) Red Cell Distribution Width 13.2% (11.5-14.5) Platelet Count 234x10^3/uL (140-400) Neutrophils (%) (Auto) 73% (31-73) Lymphocytes (%) (Auto) 21% (24-48) Monocytes (%) (Auto) 6% (0-9) Eosinophils (%) (Auto) 0% (0-3) Basophils (%) (Auto) 0% (0-3) Neutrophils # (Auto) 10.3x10^3uL (1.8-7.7) Lymphocytes # (Auto) 2.9x10^3/uL (1.0-4.8) Monocytes # (Auto) 0.9x10^3/uL (0.0-1.1) Eosinophils # (Auto) 0.0x10^3/uL (0.0-0.7) Basophils # (Auto) 0.1x10^3/uL (0.0-0.2) Sodium Level 138mmol/L (136-145) Potassium Level 4.0mmol/L (3.5-5.1) Chloride Level 102mmol/L (98-107) Carbon Dioxide Level 27mmol/L (21-32) Anion Gap 9 (6-14) Blood Urea Nitrogen 23mg/dL (8-26) Creatinine 1.0mg/dL (0.7-1.3) Estimated GFR (Cockcroft-Gault) 77.6 Glucose Level 103mg/dL (70-99) Calcium Level 9.2mg/dL (8.5-10.1) Review of Systems Review of Systems no headache, no FNDs, no SOA, no pain Assessment and Plan Assessmemt and Plan Problems Medical Problems: (1) Right frontal lobe lesion Status: Acute Problems: Comment Review of Relevant I have reviewed the following items tess (where applicable) has been applied. Labs Laboratory Tests Test 12/29/16 06:30 12/30/16 03:30 White Blood Count 14.3x10^3/uL (4.0-11.0) 14.1x10^3/uL (4.0-11.0) Red Blood Count 5.20x10^6/uL (4.30-5.70) 5.28x10^6/uL (4.30-5.70) Hemoglobin 14.7g/dL (13.0-17.5) 15.0g/dL (13.0-17.5) Hematocrit 45.2% (39.0-53.0) 45.3% (39.0-53.0) Mean Corpuscular Volume 87fL (79-100) 86fL (79-100) Mean Corpuscular Hemoglobin 28pg (25-35) 28pg (25-35) Mean Corpuscular Hemoglobin Concent 33g/dL (31-37) 33g/dL (31-37) Red Cell Distribution Width 13.8% (11.5-14.5) 13.2% (11.5-14.5) Platelet Count 221x10^3/uL (140-400) 234x10^3/uL (140-400) Neutrophils (%) (Auto) 76% (31-73) 73% (31-73) Lymphocytes (%) (Auto) 17% (24-48) 21% (24-48) Monocytes (%) (Auto) 6% (0-9) 6% (0-9) Eosinophils (%) (Auto) 1% (0-3) 0% (0-3) Basophils (%) (Auto) 0% (0-3) 0% (0-3) Neutrophils # (Auto) 10.9x10^3uL (1.8-7.7) 10.3x10^3uL (1.8-7.7) Lymphocytes # (Auto) 2.4x10^3/uL (1.0-4.8) 2.9x10^3/uL (1.0-4.8) Monocytes # (Auto) 0.9x10^3/uL (0.0-1.1) 0.9x10^3/uL (0.0-1.1) Eosinophils # (Auto) 0.1x10^3/uL (0.0-0.7) 0.0x10^3/uL (0.0-0.7) Basophils # (Auto) 0.0x10^3/uL (0.0-0.2) 0.1x10^3/uL (0.0-0.2) Sodium Level 139mmol/L (136-145) 138mmol/L (136-145) Potassium Level 4.6mmol/L (3.5-5.1) 4.0mmol/L (3.5-5.1) Chloride Level 102mmol/L (98-107) 102mmol/L (98-107) Carbon Dioxide Level 26mmol/L (21-32) 27mmol/L (21-32) Anion Gap 11 (6-14) 9 (6-14) Blood Urea Nitrogen 25mg/dL (8-26) 23mg/dL (8-26) Creatinine 1.0mg/dL (0.7-1.3) 1.0mg/dL (0.7-1.3) Estimated GFR (Cockcroft-Gault) 77.6 77.6 Glucose Level 103mg/dL (70-99) 103mg/dL (70-99) Calcium Level 9.4mg/dL (8.5-10.1) 9.2mg/dL (8.5-10.1) Laboratory Tests Test 12/30/16 03:30 White Blood Count 14.1x10^3/uL (4.0-11.0) Red Blood Count 5.28x10^6/uL (4.30-5.70) Hemoglobin 15.0g/dL (13.0-17.5) Hematocrit 45.3% (39.0-53.0) Mean Corpuscular Volume 86fL (79-100) Mean Corpuscular Hemoglobin 28pg (25-35) Mean Corpuscular Hemoglobin Concent 33g/dL (31-37) Red Cell Distribution Width 13.2% (11.5-14.5) Platelet Count 234x10^3/uL (140-400) Neutrophils (%) (Auto) 73% (31-73) Lymphocytes (%) (Auto) 21% (24-48) Monocytes (%) (Auto) 6% (0-9) Eosinophils (%) (Auto) 0% (0-3) Basophils (%) (Auto) 0% (0-3) Neutrophils # (Auto) 10.3x10^3uL (1.8-7.7) Lymphocytes # (Auto) 2.9x10^3/uL (1.0-4.8) Monocytes # (Auto) 0.9x10^3/uL (0.0-1.1) Eosinophils # (Auto) 0.0x10^3/uL (0.0-0.7) Basophils # (Auto) 0.1x10^3/uL (0.0-0.2) Sodium Level 138mmol/L (136-145) Potassium Level 4.0mmol/L (3.5-5.1) Chloride Level 102mmol/L (98-107) Carbon Dioxide Level 27mmol/L (21-32) Anion Gap 9 (6-14) Blood Urea Nitrogen 23mg/dL (8-26) Creatinine 1.0mg/dL (0.7-1.3) Estimated GFR (Cockcroft-Gault) 77.6 Glucose Level 103mg/dL (70-99) Calcium Level 9.2mg/dL (8.5-10.1) Medications Current Medications Iohexol (Omnipaque 300 Mg/ml) 70 ml 1X ONCE IV Last administered on 12/20/16 03:42; Start 12/20/16 at 03:15; Stop 12/20/16 at 03:16; Status DC Info (Do NOT chart on this entry -- for MONITORING) 1 each PRN DAILY PRN MC SEE COMMENTS; Start 12/20/16 at 03:15; Stop 12/21/16 at 16:47; Status DC Ondansetron HCl (Zofran) 4 mg PRN Q8HRS PRN IV NAUSEA/VOMITING; Start 12/20/16 at 04:30; Stop 12/20/16 at 13:26; Status DC Acetaminophen (Tylenol) 650 mg PRN Q4HRS PRN PO FEVER; Start 12/20/16 at 04:30 ; Stop 12/21/16 at 04:30; Status DC Aspirin (Carlene Aspirin) 325 mg 1X ONCE PO Last administered on 12/20/16 05:17 ; Start 12/20/16 at 05:00; Stop 12/20/16 at 05:01; Status DC Clopidogrel Bisulfate (Plavix) 75 mg DAILYWBKFT PO Last administered on 09:24; Start 12/20/16 at 09:00; Stop 12/20/16 at 13:22; Status DC Gadobutrol (Gadavist) 9 mmol 1X ONCE IV Last administered on 12/20/16 12:32; Start 12/20/16 at 12:30; Stop 12/20/16 at 12:31; Status DC Aspirin (Ecotrin) 325 mg DAILYWBKFT PO Last administered on 12/22/16 09:26; Start 12/20/16 at 14:00; Stop 12/22/16 at 16:13; Status DC Atorvastatin Calcium (Lipitor) 40 mg QHS PO Last administered on 12/25/16 21: 22; Start 12/20/16 at 21:00; Stop 12/26/16 at 14:01; Status DC Acetaminophen/ Hydrocodone Bitart (Lortab 5/325) 1 tab PRN Q4HRS PRN PO MILD PAIN, 2ND CHOICE Last administered on 12/30/16 08:14; Start 12/20/16 at 13:30 Metoprolol Tartrate (Lopressor) 12.5 mg BID PO Last administered on 12/25/16 21:22; Start 12/20/16 at 14:00; Stop 12/26/16 at 05:01; Status DC Prasugrel (Effient) 10 mg DAILYWBKFT PO Last administered on 12/21/16 08:36; Start 12/20/16 at 14:00; Stop 12/21/16 at 11:12; Status DC Varenicline (Chantix) 1 mg BID PO Last administered on 12/20/16 14:39; Start 12/20/16 at 14:00; Stop 12/23/16 at 16:55; Status DC Ondansetron HCl (Zofran) 4 mg PRN Q6HRS PRN IV NAUSEA/VOMITING; Start 12/20/16 at 13:30; Stop 12/25/16 at 04:49; Status DC Dexamethasone Sodium Phosphate (Decadron) 4 mg Q6HRS IV Last administered on 06:31; Start 12/20/16 at 18:00; Stop 12/22/16 at 12:20; Status DC Pantoprazole Sodium (Protonix) 40 mg DAILYAC PO Last administered on 12/25/16 09:14; Start 12/20/16 at 14:00; Stop 12/26/16 at 05:01; Status DC Acetaminophen (Tylenol) 650 mg PRN Q6HRS PRN PO MILD PAIN / TEMP; Start at 19:00; Stop 12/25/16 at 04:49; Status DC Alprazolam (Xanax) 0.25 mg PRN Q8HRS PRN PO ANXIETY / AGITATION; Start at 19:00; Status Cancel Lorazepam (Ativan) 2 mg PRN Q4HRS PRN IV ANXIETY / AGITATION Last administered on 12/23/16 20:54; Start 12/20/16 at 19:00 Alprazolam (Xanax) 0.25 mg TID PRN PRN PO ANXIETY / AGITATION Last administered on 12/25/16 15:21; Start 12/20/16 at 19:15; Stop 12/26/16 at 14:00 ; Status DC Enoxaparin Sodium (Lovenox 80mg Syringe) 80 mg Q12HR SQ ; Start 12/21/16 at 21: 00; Stop 12/21/16 at 21:00; Status DC Info (Anti-Coagulation Monitoring By Pharmacy) 1 each PRN DAILY PRN MC SEE COMMENTS; Start 12/21/16 at 11:30; Stop 12/22/16 at 10:33; Status DC Enoxaparin Sodium (Lovenox 40mg Syringe) 40 mg Q24H SQ ; Start 12/22/16 at 10:00 ; Stop 12/22/16 at 10:00; Status DC Albuterol/ Ipratropium (Duoneb) 3 ml RTQID NEB Last administered on 12/30/16 07 :55; Start 12/21/16 at 16:00 Iohexol (Omnipaque 300 Mg/ml) 75 ml 1X ONCE IV ; Start 12/21/16 at 13:15; Stop 12/21/16 at 13:16; Status DC Iohexol (Omnipaque 240 Mg/ml) 50 ml 1X ONCE PO ; Start 12/21/16 at 13:15; Stop 12/21/16 at 13:16; Status DC Info (Do NOT chart on this entry -- for MONITORING) 1 each PRN DAILY PRN MC SEE COMMENTS; Start 12/21/16 at 13:15; Stop 12/23/16 at 13:14; Status DC Dexamethasone (Decadron) 2 mg BID PO Last administered on 12/30/16 08:11; Start 12/22/16 at 13:00 Lorazepam 0.5 mg 0.5 mg PRN Q8HRS PRN PO ANXIETY / AGITATION Last administered on 12/24/16 08:16; Start 12/22/16 at 13:15; Stop 12/27/16 at 13:19; Status DC Tirofiban/Sodium Chloride (Aggrastat 12.5 Mg/250 ml Premix) 250 ml @ 0 mls/hr CONT PRN IV PER PROTOCOL Last administered on 12/23/16 05:48; Start 12/22/16 at 14:15; Stop 12/23/16 at 13:46; Status DC Losartan Potassium (Cozaar) 25 mg DAILY PO Last administered on 12/30/16 08:13 ; Start 12/22/16 at 16:00 Aspirin (Ecotrin) 81 mg DAILYWBKFT PO Last administered on 12/24/16 08:17; Start 12/23/16 at 08:00; Stop 12/26/16 at 14:01; Status DC Fluoxetine HCl 20 mg 20 mg DAILY PO Last administered on 12/27/16 08:50; Start 12/23/16 at 12:30; Stop 12/27/16 at 13:19; Status DC Tirofiban/Sodium Chloride (Aggrastat 12.5 Mg/250 ml Premix) 250 ml @ 0 mls/hr CONT PRN IV PER PROTOCOL Last administered on 12/25/16 20:53; Start 12/23/16 at 14:00; Stop 12/26/16 at 18:00; Status DC Adenosine (Adenocard) 6 mg STK-MED ONCE IV ; Start 12/23/16 at 18:14; Stop 12/23 at 18:15; Status Cancel Adenosine (Adenocard) 6 mg STK-MED ONCE IV ; Start 12/23/16 at 18:15; Stop 12/23 at 18:16; Status Cancel Levetiracetam (Keppra) 250 mg BID PO Last administered on 12/25/16 09:16; Start 12/24/16 at 14:00; Stop 12/25/16 at 13:42; Status DC Alprazolam (Xanax) 0.25 mg STK-MED ONCE .ROUTE ; Start 12/24/16 at 14:46; Stop 12/24/16 at 14:47; Status DC Alprazolam (Xanax) 0.25 mg STK-MED ONCE .ROUTE Last administered on 12/24/16 21:45; Start 12/24/16 at 21:27; Stop 12/25/16 at 12:29; Status DC Acetaminophen (Tylenol) 650 mg PRN Q6HRS PRN PO MILD PAIN / TEMP Last administered on 12/29/16 23:20; Start 12/25/16 at 04:49 Ondansetron HCl (Zofran) 4 mg PRN Q6HRS PRN IV NAUSEA/VOMITING; Start 12/25/16 at 04:49 Aspirin (Ecotrin) 81 mg STK-MED ONCE PO ; Start 12/25/16 at 08:37; Stop at 08:38; Status DC Lorazepam (Ativan) 0.5 mg BID PO Last administered on 12/27/16 08:49; Start at 13:00; Stop 12/27/16 at 13:19; Status DC Levetiracetam (Keppra) 500 mg BID PO Last administered on 12/27/16 08:49; Start 12/25/16 at 21:00; Stop 12/27/16 at 16:05; Status DC Alprazolam (Xanax) 0.25 mg STK-MED ONCE .ROUTE ; Start 12/25/16 at 15:14; Stop 12/25/16 at 15:15; Status DC Atorvastatin Calcium (Lipitor) 40 mg STK-MED ONCE .ROUTE ; Start 12/25/16 at 21: 07; Stop 12/25/16 at 21:08; Status DC Metoprolol Tartrate (Lopressor) 12.5 mg BID PO Last administered on 12/30/16 08 :14; Start 12/26/16 at 09:00 Pantoprazole Sodium (Protonix) 40 mg DAILYAC PO Last administered on 12/30/16 08:14; Start 12/26/16 at 05:01 Aspirin (Ecotrin) 81 mg STK-MED ONCE PO ; Start 12/26/16 at 10:37; Stop at 10:38; Status DC Fluoxetine HCl (Prozac) 20 mg STK-MED ONCE .ROUTE ; Start 12/26/16 at 10:38; Stop 12/26/16 at 10:39; Status DC Lidocaine/Sodium Bicarbonate (Buffered Lidocaine 1%) 20 ml STK-MED ONCE IJ ; Start 12/26/16 at 11:54; Stop 12/26/16 at 11:55; Status DC Fentanyl Citrate (Fentanyl 2ml Vial) 100 mcg STK-MED ONCE .ROUTE ; Start at 12:02; Stop 12/26/16 at 12:03; Status DC Midazolam HCl (Versed) 2 mg STK-MED ONCE .ROUTE ; Start 12/26/16 at 12:02; Stop 12/26/16 at 12:03; Status DC Lidocaine/Sodium Bicarbonate (Buffered Lidocaine 1%) 20 ml 1X ONCE IJ Last administered on 12/26/16 12:44; Start 12/26/16 at 12:30; Stop 12/26/16 at 12:36 ; Status DC Midazolam HCl (Versed) 2 mg 1X ONCE IV Last administered on 12/26/16 12:45; Start 12/26/16 at 12:30; Stop 12/26/16 at 12:36; Status DC Fentanyl Citrate (Fentanyl 2ml Vial) 100 mcg 1X ONCE IV Last administered on 12:45; Start 12/26/16 at 12:30; Stop 12/26/16 at 12:36; Status DC Fentanyl Citrate (Fentanyl 2ml Vial) 100 mcg 1X ONCE IV Last administered on 13:22; Start 12/26/16 at 13:30; Stop 12/26/16 at 13:31; Status DC Alprazolam (Xanax) 0.25 mg TID PRN PRN PO ANXIETY / AGITATION Last administered on 12/28/16 16:50; Start 12/26/16 at 14:00 Atorvastatin Calcium (Lipitor) 40 mg QHS PO Last administered on 12/28/16 20:53 ; Start 12/26/16 at 21:00; Stop 12/29/16 at 10:04; Status DC Aspirin (Ecotrin) 81 mg DAILYWBKFT PO Last administered on 12/30/16 08:14; Start 12/27/16 at 08:00 Clopidogrel Bisulfate (Plavix) 75 mg DAILYWBKFT PO Last administered on 08:11; Start 12/26/16 at 18:00 Lorazepam (Ativan) 0.5 mg STK-MED ONCE .ROUTE ; Start 12/27/16 at 07:41; Stop 12/27/16 at 07:42; Status DC Levetiracetam (Keppra) 500 mg STK-MED ONCE PO ; Start 12/27/16 at 07:41; Stop 12/27/16 at 07:42; Status DC Fluoxetine HCl (Prozac) 20 mg STK-MED ONCE .ROUTE ; Start 12/27/16 at 07:42; Stop 12/27/16 at 07:43; Status DC Levetiracetam (Keppra) 500 mg BID PO Last administered on 12/30/16 08:12; Start 12/27/16 at 21:00 Lorazepam (Ativan) 0.5 mg PRN Q8HRS PRN PO ANXIETY / AGITATION; Start 12/27/16 at 13:30 Lorazepam (Ativan) 0.5 mg BID PO Last administered on 12/30/16 08:12; Start 12/27/16 at 21:00 Fluoxetine HCl (Prozac) 20 mg DAILY PO Last administered on 12/30/16 08:14; Start 12/28/16 at 09:00 Active Scripts Active Hydrocodone-Apap 5-325 (Hydrocodone Bit/Acetaminophen) 1 Each Tablet 1 Tab PO PRN Q4HRS PRN Effient (Prasugrel Hcl) 10 Mg Tablet 10 Mg PO DAILYWBKFT Metoprolol Tartrate 25 Mg Tablet 12.5 Mg PO BID Atorvastatin Calcium 40 Mg Tablet 40 Mg PO QHS Aspirin Ec (Aspirin) 325 Mg Tablet.dr 325 Mg PO DAILYWBKFT Reported Chantix (Varenicline Tartrate) 0.5 Mg Tablet 1 Mg PO BID 0.5 MG PO DAILY X3 DAY, 0.5 MG PO BID X4 DAY, 1 MG PO BID UNTIL END OF TREATMENT Vitals/I & O Vital Sign - Last 24 Hours 12/29/16 12/29/16 12/29/16 12/29/16 12:58 13:09 13:55 15:02 Temp 98.4 98.4 Pulse 95 Resp 18 B/P 126/81 Pulse Ox 93 O2 Delivery Room Air Room Air Room Air Room Air 12/29/16 12/29/16 12/29/16 12/29/16 16:34 19:00 19:07 20:00 Temp 98.8 98.8 Pulse 101 Resp 18 B/P 149/89 Pulse Ox 93 96 O2 Delivery Room Air Room Air Room Air Room Air O2 Flow Rate 2.0 12/29/16 12/29/16 12/30/16 12/30/16 21:03 23:03 03:19 07:00 Temp 97.7 98.0 97.7 97.7 98.0 97.7 Pulse 101 99 86 92 Resp 20 16 18 B/P 149/89 142/95 130/82 122/89 Pulse Ox 96 93 93 O2 Delivery Room Air Room Air Room Air 12/30/16 12/30/16 12/30/16 12/30/16 07:56 08:00 08:13 08:14 Pulse 90 B/P 122/89 Pulse Ox 98 O2 Delivery Room Air Room Air Room Air 12/30/16 12/30/16 08:14 10:28 Temp 98.3 98.3 Pulse 90 89 Resp 18 B/P 122/89 138/91 Pulse Ox 94 O2 Delivery Room Air Intake and Output 12/29/16 12/29/16 12/30/16 15:00 23:00 07:00 Intake Total 220 ml 120 ml Output Total 550 ml Balance 220 ml -430 ml MEHREEN LAST MD Dec 30, 2016 11:26
--- NOTE | 2016-12-30 13:17 | PDOC ---
PULMONARY PROGRESS NOTES Subjective pt in no distress Vitals Vital Signs Date Time Temp Pulse Resp B/P Pulse Ox O2 Delivery O2 Flow Rate FiO2 12/30/16 12:13 Room Air 12/30/16 10:28 98.3 89 18 138/91 94 98.3 12/30/16 09:10 2.0 ROS: No Nausea, No Chest Pain, No Abdominal Pain, No Increase Cough General: Alert, No acute distress Lungs: Clear (but diminished), Other (O2 supplementation with 2L NC ) Cardiovascular: S1 Abdomen: Soft Neuro Exam: Alert Extremities: No Edema Skin: Warm Labs Laboratory Tests Test 12/29/16 06:30 12/30/16 03:30 White Blood Count 14.3x10^3/uL (4.0-11.0) 14.1x10^3/uL (4.0-11.0) Red Blood Count 5.20x10^6/uL (4.30-5.70) 5.28x10^6/uL (4.30-5.70) Hemoglobin 14.7g/dL (13.0-17.5) 15.0g/dL (13.0-17.5) Hematocrit 45.2% (39.0-53.0) 45.3% (39.0-53.0) Mean Corpuscular Volume 87fL (79-100) 86fL (79-100) Mean Corpuscular Hemoglobin 28pg (25-35) 28pg (25-35) Mean Corpuscular Hemoglobin Concent 33g/dL (31-37) 33g/dL (31-37) Red Cell Distribution Width 13.8% (11.5-14.5) 13.2% (11.5-14.5) Platelet Count 221x10^3/uL (140-400) 234x10^3/uL (140-400) Neutrophils (%) (Auto) 76% (31-73) 73% (31-73) Lymphocytes (%) (Auto) 17% (24-48) 21% (24-48) Monocytes (%) (Auto) 6% (0-9) 6% (0-9) Eosinophils (%) (Auto) 1% (0-3) 0% (0-3) Basophils (%) (Auto) 0% (0-3) 0% (0-3) Neutrophils # (Auto) 10.9x10^3uL (1.8-7.7) 10.3x10^3uL (1.8-7.7) Lymphocytes # (Auto) 2.4x10^3/uL (1.0-4.8) 2.9x10^3/uL (1.0-4.8) Monocytes # (Auto) 0.9x10^3/uL (0.0-1.1) 0.9x10^3/uL (0.0-1.1) Eosinophils # (Auto) 0.1x10^3/uL (0.0-0.7) 0.0x10^3/uL (0.0-0.7) Basophils # (Auto) 0.0x10^3/uL (0.0-0.2) 0.1x10^3/uL (0.0-0.2) Sodium Level 139mmol/L (136-145) 138mmol/L (136-145) Potassium Level 4.6mmol/L (3.5-5.1) 4.0mmol/L (3.5-5.1) Chloride Level 102mmol/L (98-107) 102mmol/L (98-107) Carbon Dioxide Level 26mmol/L (21-32) 27mmol/L (21-32) Anion Gap 11 (6-14) 9 (6-14) Blood Urea Nitrogen 25mg/dL (8-26) 23mg/dL (8-26) Creatinine 1.0mg/dL (0.7-1.3) 1.0mg/dL (0.7-1.3) Estimated GFR (Cockcroft-Gault) 77.6 77.6 Glucose Level 103mg/dL (70-99) 103mg/dL (70-99) Calcium Level 9.4mg/dL (8.5-10.1) 9.2mg/dL (8.5-10.1) Laboratory Tests Test 12/30/16 03:30 White Blood Count 14.1x10^3/uL (4.0-11.0) Red Blood Count 5.28x10^6/uL (4.30-5.70) Hemoglobin 15.0g/dL (13.0-17.5) Hematocrit 45.3% (39.0-53.0) Mean Corpuscular Volume 86fL (79-100) Mean Corpuscular Hemoglobin 28pg (25-35) Mean Corpuscular Hemoglobin Concent 33g/dL (31-37) Red Cell Distribution Width 13.2% (11.5-14.5) Platelet Count 234x10^3/uL (140-400) Neutrophils (%) (Auto) 73% (31-73) Lymphocytes (%) (Auto) 21% (24-48) Monocytes (%) (Auto) 6% (0-9) Eosinophils (%) (Auto) 0% (0-3) Basophils (%) (Auto) 0% (0-3) Neutrophils # (Auto) 10.3x10^3uL (1.8-7.7) Lymphocytes # (Auto) 2.9x10^3/uL (1.0-4.8) Monocytes # (Auto) 0.9x10^3/uL (0.0-1.1) Eosinophils # (Auto) 0.0x10^3/uL (0.0-0.7) Basophils # (Auto) 0.1x10^3/uL (0.0-0.2) Sodium Level 138mmol/L (136-145) Potassium Level 4.0mmol/L (3.5-5.1) Chloride Level 102mmol/L (98-107) Carbon Dioxide Level 27mmol/L (21-32) Anion Gap 9 (6-14) Blood Urea Nitrogen 23mg/dL (8-26) Creatinine 1.0mg/dL (0.7-1.3) Estimated GFR (Cockcroft-Gault) 77.6 Glucose Level 103mg/dL (70-99) Calcium Level 9.2mg/dL (8.5-10.1) Medications Active Scripts Medications Dose Route/Sig Days Date Category Dose Instructions Hydrocodone-Apap 5-325 (Hydrocodone Bit/Acetaminophen) 1 Each Tablet 1 Tab PO PRN Q4HRS PRN 12/06/16 Rx Effient (Prasugrel Hcl) 10 Mg Tablet 10 Mg PO DAILYWBKFT 12/06/16 Rx Metoprolol Tartrate 25 Mg Tablet 12.5 Mg PO BID 12/06/16 Rx Atorvastatin Calcium 40 Mg Tablet 40 Mg PO QHS 12/06/16 Rx Aspirin Ec (Aspirin) 325 Mg Tablet. 325 Mg PO DAILYWBKFT 12/06/16 Rx Chantix (Varenicline Tartrate) 0.5 Mg Tablet 1 Mg PO BID 12/05/16 Reported 0.5 MG PO DAILY X3 DAY, 0.5 MG PO BID X4 DAY, 1 MG PO BID UNTIL END OF TREATMENT Comments ct reviewed ptx improved Impression . 1. Lung mass 6.2 cm in RUL with 1.8 cm right parietal brain lesion., NSCLC with solitary brain metastasis 2. severe emphysema surrounding lung mass 3. Ex-smoker, questionable chronic obstructive pulmonary disease. 4. 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 Coronary artery disease, recent NSTMI 2 weeks ago, status post stents, on anti-platelet therapy 6. [employer] mets 7. S/P biopsy ptx no airleak ,s/p clamp tube, small stable right PTX Plan . small stable ptx on cxr,post clamp. will remove chest tube today 1. d/w pt, Dr Ta and [facility]. Needs OP pulmonary eval before considering lobectomy. Needs PET/PFT/MRI abdomen to r/o Mets to liver. 2. MRI liver 3. remove chest tube, repeat CXR in am 4. Titrate FiO2 to keep O2 saturation more than 92%. 5. bronchodilator. 6. Anti-seizure medication per Neurology. 7. Pt has also indicated that he prefers to have an opinion at . He could be discharged in am if PTX is stable. RHONDA RESTREPO MD Dec 30, 2016 13:17
[2016-12-30] MEDS ORDERED: LORAZEPAM 2 MG/ML VIAL. IV PRN (13:44)
--- NOTE | 2016-12-30 14:05 | PDOC2 ---
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 Meneses is a very pleasant 56-year-old male who presented 3 weeks ago with a non-STEMI requiring 2 drug-eluting stents in the left circumflex and obtuse marginal. At that time he was found to have a right upper lobe mass on chest x- ray. He returns 10 days ago with headaches, facial twitching possible seizures. CT of the head showed a right parietal brain mass with extensive surrounding edema. CT of the chest demonstrated a 6 cm mass in the posterior aspect of the right upper lobe which abuts but does not invade the oblique fissure. There is no obvious adenopathy in the mediastinum. He had a CT-guided biopsy of the right upper lobe mass which confirmed moderately differentiated adenocarcinoma. The percutaneous biopsy was complicated by pneumothorax requiring placement of a tube thoracostomy. Of note the patient has extensive emphysematous changes in the lung parenchyma. He is a long-term smoker. CT scan also demonstrated a possible mass in the liver which potentially could be a hemangioma although metastasis cannot be ruled out. In view of potential oligometastatic adenocarcinoma of the right upper lobe, I was consulted to discuss with the patient potential lung resection. Past Medical History Cardiovascular: Hyperlipidemia Pulmonary: No pertinent hx GI: No pertinent hx Heme/Onc: No pertinent hx Hepatobiliary: No pertinent hx Psych: No pertinent hx Rheumatologic: No pertinent hx Infectious disease: No pertinent hx Renal/: No pertinent hx Endocrine: No pertinent hx Past Surgical History Past Surgical History: Hernia Repair Family History Family History: No Significant, Other (father had lung cancer - age 59 was a smoker) Social History Quit (was .5 to 1 ppd for 20 years, but stopped within last mo) ALCOHOL: social Drugs: Marijuana Lives: Alone Current Problem List Problem List Problems Medical Problems: (1) Right frontal lobe lesion Status: Acute Current Medications Current Medications Current Medications Iohexol (Omnipaque 300 Mg/ml) 70 ml 1X ONCE IV Last administered on 12/20/16t 03:42; Start 12/20/16 at 03:15; Stop 12/20/16 at 03:16; Status DC Info (Do NOT chart on this entry -- for MONITORING) 1 each PRN DAILY PRN MC SEE COMMENTS; Start 12/20/16 at 03:15; Stop 12/21/16 at 16:47; Status DC Ondansetron HCl (Zofran) 4 mg PRN Q8HRS PRN IV NAUSEA/VOMITING; Start 12/20/16 at 04:30; Stop 12/20/16 at 13:26; Status DC Acetaminophen (Tylenol) 650 mg PRN Q4HRS PRN PO FEVER; Start 12/20/16 at 04:30 ; Stop 12/21/16 at 04:30; Status DC Aspirin (Carlene Aspirin) 325 mg 1X ONCE PO Last administered on 12/20/16 05:17 ; Start 12/20/16 at 05:00; Stop 12/20/16 at 05:01; Status DC Clopidogrel Bisulfate (Plavix) 75 mg DAILYWBKFT PO Last administered on 09:24; Start 12/20/16 at 09:00; Stop 12/20/16 at 13:22; Status DC Gadobutrol (Gadavist) 9 mmol 1X ONCE IV Last administered on 12/20/16 12:32; Start 12/20/16 at 12:30; Stop 12/20/16 at 12:31; Status DC Aspirin (Ecotrin) 325 mg DAILYWBKFT PO Last administered on 12/22/16 09:26; Start 12/20/16 at 14:00; Stop 12/22/16 at 16:13; Status DC Atorvastatin Calcium (Lipitor) 40 mg QHS PO Last administered on 12/25/16 21: 22; Start 12/20/16 at 21:00; Stop 12/26/16 at 14:01; Status DC Acetaminophen/ Hydrocodone Bitart (Lortab 5/325) 1 tab PRN Q4HRS PRN PO MILD PAIN, 2ND CHOICE Last administered on 12/30/16 08:14; Start 12/20/16 at 13:30 Metoprolol Tartrate (Lopressor) 12.5 mg BID PO Last administered on 12/25/16 21:22; Start 12/20/16 at 14:00; Stop 12/26/16 at 05:01; Status DC Prasugrel (Effient) 10 mg DAILYWBKFT PO Last administered on 12/21/16 08:36; Start 12/20/16 at 14:00; Stop 12/21/16 at 11:12; Status DC Varenicline (Chantix) 1 mg BID PO Last administered on 12/20/16 14:39; Start 12/20/16 at 14:00; Stop 12/23/16 at 16:55; Status DC Ondansetron HCl (Zofran) 4 mg PRN Q6HRS PRN IV NAUSEA/VOMITING; Start 12/20/16 at 13:30; Stop 12/25/16 at 04:49; Status DC Dexamethasone Sodium Phosphate (Decadron) 4 mg Q6HRS IV Last administered on 06:31; Start 12/20/16 at 18:00; Stop 12/22/16 at 12:20; Status DC Pantoprazole Sodium (Protonix) 40 mg DAILYAC PO Last administered on 12/25/16 09:14; Start 12/20/16 at 14:00; Stop 12/26/16 at 05:01; Status DC Acetaminophen (Tylenol) 650 mg PRN Q6HRS PRN PO MILD PAIN / TEMP; Start at 19:00; Stop 12/25/16 at 04:49; Status DC Alprazolam (Xanax) 0.25 mg PRN Q8HRS PRN PO ANXIETY / AGITATION; Start at 19:00; Status Cancel Lorazepam (Ativan) 2 mg PRN Q4HRS PRN IV ANXIETY / AGITATION Last administered on 12/23/16 20:54; Start 12/20/16 at 19:00; Stop 12/30/16 at 13:44; Status DC Alprazolam (Xanax) 0.25 mg TID PRN PRN PO ANXIETY / AGITATION Last administered on 12/25/16 15:21; Start 12/20/16 at 19:15; Stop 12/26/16 at 14:00 ; Status DC Enoxaparin Sodium (Lovenox 80mg Syringe) 80 mg Q12HR SQ ; Start 12/21/16 at 21: 00; Stop 12/21/16 at 21:00; Status DC Info (Anti-Coagulation Monitoring By Pharmacy) 1 each PRN DAILY PRN MC SEE COMMENTS; Start 12/21/16 at 11:30; Stop 12/22/16 at 10:33; Status DC Enoxaparin Sodium (Lovenox 40mg Syringe) 40 mg Q24H SQ ; Start 12/22/16 at 10:00 ; Stop 12/22/16 at 10:00; Status DC Albuterol/ Ipratropium (Duoneb) 3 ml RTQID NEB Last administered on 12/30/16 12 :13; Start 12/21/16 at 16:00 Iohexol (Omnipaque 300 Mg/ml) 75 ml 1X ONCE IV ; Start 12/21/16 at 13:15; Stop 12/21/16 at 13:16; Status DC Iohexol (Omnipaque 240 Mg/ml) 50 ml 1X ONCE PO ; Start 12/21/16 at 13:15; Stop 12/21/16 at 13:16; Status DC Info (Do NOT chart on this entry -- for MONITORING) 1 each PRN DAILY PRN MC SEE COMMENTS; Start 12/21/16 at 13:15; Stop 12/23/16 at 13:14; Status DC Dexamethasone (Decadron) 2 mg BID PO Last administered on 12/30/16 08:11; Start 12/22/16 at 13:00 Lorazepam 0.5 mg 0.5 mg PRN Q8HRS PRN PO ANXIETY / AGITATION Last administered on 12/24/16 08:16; Start 12/22/16 at 13:15; Stop 12/27/16 at 13:19; Status DC Tirofiban/Sodium Chloride (Aggrastat 12.5 Mg/250 ml Premix) 250 ml @ 0 mls/hr CONT PRN IV PER PROTOCOL Last administered on 12/23/16 05:48; Start 12/22/16 at 14:15; Stop 12/23/16 at 13:46; Status DC Losartan Potassium (Cozaar) 25 mg DAILY PO Last administered on 12/30/16 08:13 ; Start 12/22/16 at 16:00 Aspirin (Ecotrin) 81 mg DAILYWBKFT PO Last administered on 12/24/16 08:17; Start 12/23/16 at 08:00; Stop 12/26/16 at 14:01; Status DC Fluoxetine HCl 20 mg 20 mg DAILY PO Last administered on 12/27/16 08:50; Start 12/23/16 at 12:30; Stop 12/27/16 at 13:19; Status DC Tirofiban/Sodium Chloride (Aggrastat 12.5 Mg/250 ml Premix) 250 ml @ 0 mls/hr CONT PRN IV PER PROTOCOL Last administered on 12/25/16 20:53; Start 12/23/16 at 14:00; Stop 12/26/16 at 18:00; Status DC Adenosine (Adenocard) 6 mg STK-MED ONCE IV ; Start 12/23/16 at 18:14; Stop 12/23 at 18:15; Status Cancel Adenosine (Adenocard) 6 mg STK-MED ONCE IV ; Start 12/23/16 at 18:15; Stop 12/23 at 18:16; Status Cancel Levetiracetam (Keppra) 250 mg BID PO Last administered on 12/25/16 09:16; Start 12/24/16 at 14:00; Stop 12/25/16 at 13:42; Status DC Alprazolam (Xanax) 0.25 mg STK-MED ONCE .ROUTE ; Start 12/24/16 at 14:46; Stop 12/24/16 at 14:47; Status DC Alprazolam (Xanax) 0.25 mg STK-MED ONCE .ROUTE Last administered on 12/24/16 21:45; Start 12/24/16 at 21:27; Stop 12/25/16 at 12:29; Status DC Acetaminophen (Tylenol) 650 mg PRN Q6HRS PRN PO MILD PAIN / TEMP Last administered on 12/29/16 23:20; Start 12/25/16 at 04:49 Ondansetron HCl (Zofran) 4 mg PRN Q6HRS PRN IV NAUSEA/VOMITING; Start 12/25/16 at 04:49 Aspirin (Ecotrin) 81 mg STK-MED ONCE PO ; Start 12/25/16 at 08:37; Stop at 08:38; Status DC Lorazepam (Ativan) 0.5 mg BID PO Last administered on 12/27/16 08:49; Start at 13:00; Stop 12/27/16 at 13:19; Status DC Levetiracetam (Keppra) 500 mg BID PO Last administered on 12/27/16 08:49; Start 12/25/16 at 21:00; Stop 12/27/16 at 16:05; Status DC Alprazolam (Xanax) 0.25 mg STK-MED ONCE .ROUTE ; Start 12/25/16 at 15:14; Stop 12/25/16 at 15:15; Status DC Atorvastatin Calcium (Lipitor) 40 mg STK-MED ONCE .ROUTE ; Start 12/25/16 at 21: 07; Stop 12/25/16 at 21:08; Status DC Metoprolol Tartrate (Lopressor) 12.5 mg BID PO Last administered on 12/30/16 08 :14; Start 12/26/16 at 09:00 Pantoprazole Sodium (Protonix) 40 mg DAILYAC PO Last administered on 12/30/16 08:14; Start 12/26/16 at 05:01 Aspirin (Ecotrin) 81 mg STK-MED ONCE PO ; Start 12/26/16 at 10:37; Stop at 10:38; Status DC Fluoxetine HCl (Prozac) 20 mg STK-MED ONCE .ROUTE ; Start 12/26/16 at 10:38; Stop 12/26/16 at 10:39; Status DC Lidocaine/Sodium Bicarbonate (Buffered Lidocaine 1%) 20 ml STK-MED ONCE IJ ; Start 12/26/16 at 11:54; Stop 12/26/16 at 11:55; Status DC Fentanyl Citrate (Fentanyl 2ml Vial) 100 mcg STK-MED ONCE .ROUTE ; Start at 12:02; Stop 12/26/16 at 12:03; Status DC Midazolam HCl (Versed) 2 mg STK-MED ONCE .ROUTE ; Start 12/26/16 at 12:02; Stop 12/26/16 at 12:03; Status DC Lidocaine/Sodium Bicarbonate (Buffered Lidocaine 1%) 20 ml 1X ONCE IJ Last administered on 12/26/16 12:44; Start 12/26/16 at 12:30; Stop 12/26/16 at 12:36 ; Status DC Midazolam HCl (Versed) 2 mg 1X ONCE IV Last administered on 12/26/16 12:45; Start 12/26/16 at 12:30; Stop 12/26/16 at 12:36; Status DC Fentanyl Citrate (Fentanyl 2ml Vial) 100 mcg 1X ONCE IV Last administered on 12:45; Start 12/26/16 at 12:30; Stop 12/26/16 at 12:36; Status DC Fentanyl Citrate (Fentanyl 2ml Vial) 100 mcg 1X ONCE IV Last administered on 13:22; Start 12/26/16 at 13:30; Stop 12/26/16 at 13:31; Status DC Alprazolam (Xanax) 0.25 mg TID PRN PRN PO ANXIETY / AGITATION Last administered on 12/28/16 16:50; Start 12/26/16 at 14:00 Atorvastatin Calcium (Lipitor) 40 mg QHS PO Last administered on 12/28/16 20:53 ; Start 12/26/16 at 21:00; Stop 12/29/16 at 10:04; Status DC Aspirin (Ecotrin) 81 mg DAILYWBKFT PO Last administered on 12/30/16 08:14; Start 12/27/16 at 08:00 Clopidogrel Bisulfate (Plavix) 75 mg DAILYWBKFT PO Last administered on 08:11; Start 12/26/16 at 18:00 Lorazepam (Ativan) 0.5 mg STK-MED ONCE .ROUTE ; Start 12/27/16 at 07:41; Stop 12/27/16 at 07:42; Status DC Levetiracetam (Keppra) 500 mg STK-MED ONCE PO ; Start 12/27/16 at 07:41; Stop 12/27/16 at 07:42; Status DC Fluoxetine HCl (Prozac) 20 mg STK-MED ONCE .ROUTE ; Start 12/27/16 at 07:42; Stop 12/27/16 at 07:43; Status DC Levetiracetam (Keppra) 500 mg BID PO Last administered on 12/30/16 08:12; Start 12/27/16 at 21:00 Lorazepam (Ativan) 0.5 mg PRN Q8HRS PRN PO ANXIETY / AGITATION; Start 12/27/16 at 13:30 Lorazepam (Ativan) 0.5 mg BID PO Last administered on 12/30/16 08:12; Start 12/27/16 at 21:00 Fluoxetine HCl (Prozac) 20 mg DAILY PO Last administered on 12/30/16 08:14; Start 12/28/16 at 09:00 Lorazepam (Ativan) 2 mg PRN Q4HRS PRN IV ANXIETY / AGITATION; Start 12/30/16 at 13:44 Active Scripts Active Hydrocodone-Apap 5-325 (Hydrocodone Bit/Acetaminophen) 1 Each Tablet 1 Tab PO PRN Q4HRS PRN Effient (Prasugrel Hcl) 10 Mg Tablet 10 Mg PO DAILYWBKFT Metoprolol Tartrate 25 Mg Tablet 12.5 Mg PO BID Atorvastatin Calcium 40 Mg Tablet 40 Mg PO QHS Aspirin Ec (Aspirin) 325 Mg Tablet.dr 325 Mg PO DAILYWBK Reported Chantix (Varenicline Tartrate) 0.5 Mg Tablet 1 Mg PO BID 0.5 MG PO DAILY X3 DAY, 0.5 MG PO BID X4 DAY, 1 MG PO BID UNTIL END OF TREATMENT Allergies Allergies: Coded Allergies: No Known Drug Allergies (Unverified , 12/04/16) ROS General: No: Appetite, Chills, Fatigue, Malaise, Night Sweats PSYCHOLOGICAL ROS: No: Anxiety, Behavioral Disorder, Concentration difficultie , Decreased libido, Depression, Disorientation, Hallucinations, Hostility, Irritablity, Memory difficulties, Mood Swings, Obsessive thoughts, Physical abuse, Sexual abuse, Sleep disturbances, Suicidal ideation Eyes: No Blurry vision, No Decreased vision, No Double vision, No Dry eyes, No Excessive tearing, No Eye Pain, No Itchy Eyes, No Loss of vision, No Photophobia , No Scotomata, No Uses contacts, No Uses glasses HEENT: No: Epistaxis, Heacaches, Hearing change, Nasal congestion, Nasal discharge, Oral lesions, Sinus pain, Sneezing, Snoring, Sore Throat, Tinnitus, Vertigo, Visual Changes, Vocal changes ALLERGY AND IMMUNOLOGY: No: Hives, Insect Bite Sensitivity, Itchy/Watery Eyes, Nasal Congestion, Post Nasal Drip, Seasonal Allergies Hematological and Lymphatic: No: Bleeding Problems, Blood Clots, Blood Transfusions, Brusing, Night Sweats, Pallor, Swollen Lymph Nodes ENDOCRINE: No: Breast Changes, Galactorrhea, Hair Pattern Changes, Hot Flashes , Malaise/lethargy, Mood Swings, Palpitations, Polydipsia/polyuria, Skin Changes , Temperature Intolerance, Unexpected Weight Changes Respiratory: No: Cough, Hemoptysis, Orthopnea, Pleuritic Pain, SOB with excertion, Shortness of breath, Sputum Changes, Stridor, Tachypnea, Wheezing Cardiovascular: No Chest Pain, No Edema, No Lt Headedness, No Orthopnea, No Palpitations, No Paroxysmal Noc. Dyspnea Gastrointestinal: No Abdominal Pain, No Constipation, No Diarrhea, No Hematochezia, No Melena, No Nausea, No Vomiting Genitourinary: No Discharge, No Dysuria, No Flank Pain, No Frequency, No Hematuria, No Incontinence, No Pain, No Retention, No Urgency Musculoskeletal: No Gait Disturbance, No Joint Pain, No Joint Stiffness, No Joint Swelling, No Muscle Pain, No Muscular Weakness, No Pain In:, No Swelling In: Neurological: No Behavorial Changes, No Bowel/Bladder ControlChng, No Confusion , No Dizziness, No Gait Disturbance, No Headaches, No Impaired Coord/balance, No Memory Loss, No Numbness/Tingling, No Seizures, No Speech Problems, No Tremors, No Visual Changes, No Weakness Skin: No Acne, No Dry Skin, No Eczema, No Hair Changes, No Lumps, No Mole Changes, No Mottling, No Nail Changes, No Pruritus, No Rash, No Skin Lesion Changes Physical Exam General: Alert, Oriented X3, No acute distress HEENT: Atraumatic, PERRLA Lungs: Clear to auscultation, Normal air movement Heart: Regular rate, Normal S1, Normal S2, No murmurs Abdomen: Normal bowel sounds, No tenderness Extremities: No edema, Normal pulses Skin: No significant lesion Neuro: Normal gait, Normal speech, Strength at 5/5 X4 ext, Normal tone, Sensation intact, Cranial nerves 3-12 NL Psych/Mental Status: Mental status NL MUSCULOSKELETAL: No deformity Vitals VITALS Vital Signs Date Time Temp Pulse Resp B/P Pulse Ox O2 Delivery O2 Flow Rate FiO2 12/30/16 12:13 Room Air 12/30/16 10:28 98.3 89 18 138/91 94 98.3 12/30/16 09:10 2.0 Labs Labs Laboratory Tests Test 12/29/16 06:30 12/30/16 03:30 White Blood Count 14.3x10^3/uL (4.0-11.0) 14.1x10^3/uL (4.0-11.0) Red Blood Count 5.20x10^6/uL (4.30-5.70) 5.28x10^6/uL (4.30-5.70) Hemoglobin 14.7g/dL (13.0-17.5) 15.0g/dL (13.0-17.5) Hematocrit 45.2% (39.0-53.0) 45.3% (39.0-53.0) Mean Corpuscular Volume 87fL (79-100) 86fL (79-100) Mean Corpuscular Hemoglobin 28pg (25-35) 28pg (25-35) Mean Corpuscular Hemoglobin Concent 33g/dL (31-37) 33g/dL (31-37) Red Cell Distribution Width 13.8% (11.5-14.5) 13.2% (11.5-14.5) Platelet Count 221x10^3/uL (140-400) 234x10^3/uL (140-400) Neutrophils (%) (Auto) 76% (31-73) 73% (31-73) Lymphocytes (%) (Auto) 17% (24-48) 21% (24-48) Monocytes (%) (Auto) 6% (0-9) 6% (0-9) Eosinophils (%) (Auto) 1% (0-3) 0% (0-3) Basophils (%) (Auto) 0% (0-3) 0% (0-3) Neutrophils # (Auto) 10.9x10^3uL (1.8-7.7) 10.3x10^3uL (1.8-7.7) Lymphocytes # (Auto) 2.4x10^3/uL (1.0-4.8) 2.9x10^3/uL (1.0-4.8) Monocytes # (Auto) 0.9x10^3/uL (0.0-1.1) 0.9x10^3/uL (0.0-1.1) Eosinophils # (Auto) 0.1x10^3/uL (0.0-0.7) 0.0x10^3/uL (0.0-0.7) Basophils # (Auto) 0.0x10^3/uL (0.0-0.2) 0.1x10^3/uL (0.0-0.2) Sodium Level 139mmol/L (136-145) 138mmol/L (136-145) Potassium Level 4.6mmol/L (3.5-5.1) 4.0mmol/L (3.5-5.1) Chloride Level 102mmol/L (98-107) 102mmol/L (98-107) Carbon Dioxide Level 26mmol/L (21-32) 27mmol/L (21-32) Anion Gap 11 (6-14) 9 (6-14) Blood Urea Nitrogen 25mg/dL (8-26) 23mg/dL (8-26) Creatinine 1.0mg/dL (0.7-1.3) 1.0mg/dL (0.7-1.3) Estimated GFR (Cockcroft-Gault) 77.6 77.6 Glucose Level 103mg/dL (70-99) 103mg/dL (70-99) Calcium Level 9.4mg/dL (8.5-10.1) 9.2mg/dL (8.5-10.1) Laboratory Tests Test 12/30/16 03:30 White Blood Count 14.1x10^3/uL (4.0-11.0) Red Blood Count 5.28x10^6/uL (4.30-5.70) Hemoglobin 15.0g/dL (13.0-17.5) Hematocrit 45.3% (39.0-53.0) Mean Corpuscular Volume 86fL (79-100) Mean Corpuscular Hemoglobin 28pg (25-35) Mean Corpuscular Hemoglobin Concent 33g/dL (31-37) Red Cell Distribution Width 13.2% (11.5-14.5) Platelet Count 234x10^3/uL (140-400) Neutrophils (%) (Auto) 73% (31-73) Lymphocytes (%) (Auto) 21% (24-48) Monocytes (%) (Auto) 6% (0-9) Eosinophils (%) (Auto) 0% (0-3) Basophils (%) (Auto) 0% (0-3) Neutrophils # (Auto) 10.3x10^3uL (1.8-7.7) Lymphocytes # (Auto) 2.9x10^3/uL (1.0-4.8) Monocytes # (Auto) 0.9x10^3/uL (0.0-1.1) Eosinophils # (Auto) 0.0x10^3/uL (0.0-0.7) Basophils # (Auto) 0.1x10^3/uL (0.0-0.2) Sodium Level 138mmol/L (136-145) Potassium Level 4.0mmol/L (3.5-5.1) Chloride Level 102mmol/L (98-107) Carbon Dioxide Level 27mmol/L (21-32) Anion Gap 9 (6-14) Blood Urea Nitrogen 23mg/dL (8-26) Creatinine 1.0mg/dL (0.7-1.3) Estimated GFR (Cockcroft-Gault) 77.6 Glucose Level 103mg/dL (70-99) Calcium Level 9.2mg/dL (8.5-10.1) Images Images CT The initial noncontrast images through the liver appear unremarkable. A small low-density masses seen in the left lobe of the liver compatible with a cyst. Definite evidence of metastatic disease or significant pathology associated with the liver is not seen. The gallbladder appears grossly normal. The spleen appears unremarkable. No pancreatic pathology is seen. The adrenal glands are unremarkable. There is a parapelvic cyst associated with the right kidney and a small cortical cyst associated with the left. Significant central or retroperitoneal adenopathy is not seen. Occasional small periaortic lymph nodes are seen but again definite significant retroperitoneal adenopathy is not seen. There is a 4 cm infrarenal abdominal aortic aneurysm. There is mild dilatation of both common iliac arteries. An acute or significant finding in the pelvis is not seen. Definite evidence of metastatic disease is not seen. There is a small sclerotic focus seen associated with the left iliac bone and involving the right sacrum. These probably reflect bone islands. Bone scan could be performed if there is the suspicion of skeletal metastatic disease. Degenerative changes are noted in the lumbar spine Assessment/Plan Assessment/Plan 56-year-old male recently diagnosed with adenocarcinoma of the right upper lobe. The tumor is in the posterior aspect of the upper lobe and abuts but does not invade the oblique fissure. There is no obvious mediastinal lymphadenopathy on CT. The patient presented 3 weeks ago with a non-STEMI and required 2 drug- eluting stents in the left circumflex and obtuse marginal. He presented again 10 days ago with facial twitching possible seizures and headaches. He was subsequently found to have a tumor in the right parietal lobe consistent with a metastasis. There is also an indeterminant tumor in the liver, which likely is benign (hemangioma), although metastasis cannot be ruled out The patient is a potential candidate for a right upper lobectomy, given that his adenocarcinoma is oligometastatic to the brain. In order to determine resectability, we still need to complete his workup. He will need an MRI to confirm that the liver tumor is not metastatic. If there is metastasis to liver, he would not be a candidate for lung resection. Will also need pulmonary function tests to confirm adequate pulmonary reserve, given his severe emphysematous lung changes. If his PFTs are poor, we may recommend SBRT. I also suggest we obtain a PET-CT to better stage the mediastinum. If oligometastatic disease is confirmed and PFTs are adequate, it would be best to proceed with the brain resection first, which is symptomatic and then with the right upper lobectomy. I discussed in detail the risks, benefits and potential limitations of a right upper lobectomy. I will talk with the patient and the family once his workup is complete. NOE ELIZABTEH MD Dec 30, 2016 14:05
[2016-12-30] MEDS ORDERED: GADOBUTROL 10 MMOL/10 ML VIAL IV ONE (14:30)
[2016-12-30] MEDS: ALPRAZOLAM 0.25 MG TABLET. PO PRN (15:09)
--- NOTE | 2016-12-30 15:23 | RAD ---
Portable chest, 12/30/2016: History: Follow-up pneumothorax Comparison is made to a study from 12/27/2016. The right pleural drain is unchanged in position. The patient's known right upper lobe pulmonary mass is unchanged. There is streaky atelectasis in the right lower chest. Emphysematous changes are present, most severe in the right upper lobe. There appears to be a small residual right pneumothorax, best delineated inferolaterally. The pneumothorax is difficult to fully defined in the presence of the emphysema. The heart size is normal. The left chest remains clear. IMPRESSION: Ongoing small right pneumothorax.
[2016-12-30 15:24] VITALS: BP 135/94
--- NOTE | 2016-12-30 16:40 | RAD ---
MR abdomen without and with intravenous contrast History: Abnormal CT, possible liver lesion, lung cancer. Comparison: CT abdomen pelvis 12/21/2016. Technique: Multiplanar and multisequence MR imaging of the abdomen was performed both prior to and after intravenous gadolinium, 9 mL Gadavist. Included was a precontrast and postcontrast T1 dynamic series. Findings: Spleen, pancreas, and bilateral adrenal glands are unremarkable. Both kidneys demonstrate multiple T2 hyperintense, nonenhancing lesions, compatible with cysts. The largest cyst is a right parapelvic cyst measuring 2.2 cm. There is evidence of abdominal aortic aneurysm which measures at least 3.7 cm diameter. Left hepatic segment 4A demonstrates nonenhancing cyst measuring 7 mm. More inferiorly in hepatic segment 4A, there is an additional nonenhancing cyst which measures 1.3 cm. The inferior right hepatic lobe, segment 5 demonstrates a lesion which measures 1.2 cm. This has increased in T2 signal and decreased precontrast T1 signal. On postcontrast images, lesion demonstrates mild progressive nodular enhancement, and is favored to represent a small hemangioma as it is not well-seen on the delayed phases. Hepatic segment 4A, more peripherally, demonstrates a lesion which demonstrates subtly increased T2 signal and mildly decreased precontrast T1 signal. This is estimated to measure 3.1 cm in maximum dimension measured on 5 minute delayed postcontrast T1 series. The contrast enhancement pattern demonstrates avid enhancement on the earlier phase and lesion retains the contrast material on the later phases. On the earlier phase of enhancement, there is a relative lack of central enhancement but on the 5 minute and 7 minute delayed images, there does appear to be enhancement within the central portion as well, although the later phases demonstrate some heterogeneity of signal intensity within the mass. This mass is nonspecific, although the enhancement pattern and small size raises possibility of focal nodular hyperplasia. The liver is without significant fatty infiltration. There is an atypical appearance to the gallbladder. Best appreciated on the coronal T2 series, the gallbladder fossa demonstrates but appears to be the gallbladder adjacent to the liver. More inferiorly, there is an additional, nonenhancing cystic structure which measures 3.7 cm in maximum dimension thought to be inferior to the cystic duct. This is nonspecific, and could represent exophytic hepatic cyst versus rare entity of duplicated gallbladder versus choledochal cyst. Impression: 1. Right hepatic lobe demonstrates 3.1 cm nonspecific mass. The signal characteristics raise the possibility that this could be focal nodular hyperplasia. Given the size, fibrolamellar carcinoma is thought unlikely. Other etiologies are not excluded such as hepatic metastasis from patient's lung cancer, although enhancement pattern of this lesion does not demonstrate typical rim enhancement pattern of metastasis. 2. Liver demonstrates scattered cysts. 3. Right hepatic segment 5 demonstrates 1.2 cm round lesion which does not appear to be a cyst. The enhancement pattern raises possibility that this could be small hemangioma. 4. Infrarenal abdominal aortic aneurysm. 5. Bilateral renal cysts. 6. Possible duplicated gallbladder versus choledochal cyst versus exophytic hepatic cyst at the gallbladder fossa.
--- NOTE | 2016-12-30 16:45 | PDOC ---
PROGRESS NOTES Subjective Subjective c/c - f/u of Adenocarcinoma of RUL ROS - done Objective Objective Vital Signs Date Time Temp Pulse Resp B/P Pulse Ox O2 Delivery O2 Flow Rate FiO2 12/30/16 16:37 Room Air 12/30/16 15:24 97.6 105 20 135/94 95 97.6 12/30/16 09:10 2.0 Intake and Output 12/30/16 07:00 Intake Total 340 ml Output Total 550 ml Balance -210 ml Intake Oral 340 ml Output Urine Total 550 ml # Voids 5 Physical Exam Abdomen: Soft, No masses Heart: Normal S1, Normal S2 Extremities: No edema General: Alert, Oriented X3 HEENT: Atraumatic Lungs: Clear to auscultation MUSCULOSKELETAL: No joint tenderness Neck: Supple, No JVD Neuro: Normal speech Psych/Mental Status: Mental status NL Skin: No rashes Assessment Assessment Problems Medical Problems: (1) Right frontal lobe lesion Status: Acute A/P: 1. 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 No evidence of metastatic disease in the chest, abdomen or pelvis. s/p CT guided bx lung 12/26/16. -Resection of both the primary and solitary met can be considered. I d/w DR Turpin and DR Burrows. Agree to obtain PFTs and PET. I d/w tumor board today. I will also order MRI abd to better define the liver lesion. 2. CAD s/p stents - Appreciate cardiology mgmt of anti plt agent. Prasurgrel was discontinued by cardiology 12/21/16. 3. Brain met - agree with steroids and will defer anti epileptics to neuro. I also d/w DR Yeboah. 4. Bone scan 12/23/16 reveals no mets. 5. Left groin/thigh pain/swelling - neg venous doppler. 6. Chest tube management per DR Burrows. I d/w DR Burrows. Comment Review of Relevant I have reviewed the following items tess (where applicable) has been applied. Labs Laboratory Tests Test 12/29/16 06:30 12/30/16 03:30 White Blood Count 14.3x10^3/uL (4.0-11.0) 14.1x10^3/uL (4.0-11.0) Red Blood Count 5.20x10^6/uL (4.30-5.70) 5.28x10^6/uL (4.30-5.70) Hemoglobin 14.7g/dL (13.0-17.5) 15.0g/dL (13.0-17.5) Hematocrit 45.2% (39.0-53.0) 45.3% (39.0-53.0) Mean Corpuscular Volume 87fL (79-100) 86fL (79-100) Mean Corpuscular Hemoglobin 28pg (25-35) 28pg (25-35) Mean Corpuscular Hemoglobin Concent 33g/dL (31-37) 33g/dL (31-37) Red Cell Distribution Width 13.8% (11.5-14.5) 13.2% (11.5-14.5) Platelet Count 221x10^3/uL (140-400) 234x10^3/uL (140-400) Neutrophils (%) (Auto) 76% (31-73) 73% (31-73) Lymphocytes (%) (Auto) 17% (24-48) 21% (24-48) Monocytes (%) (Auto) 6% (0-9) 6% (0-9) Eosinophils (%) (Auto) 1% (0-3) 0% (0-3) Basophils (%) (Auto) 0% (0-3) 0% (0-3) Neutrophils # (Auto) 10.9x10^3uL (1.8-7.7) 10.3x10^3uL (1.8-7.7) Lymphocytes # (Auto) 2.4x10^3/uL (1.0-4.8) 2.9x10^3/uL (1.0-4.8) Monocytes # (Auto) 0.9x10^3/uL (0.0-1.1) 0.9x10^3/uL (0.0-1.1) Eosinophils # (Auto) 0.1x10^3/uL (0.0-0.7) 0.0x10^3/uL (0.0-0.7) Basophils # (Auto) 0.0x10^3/uL (0.0-0.2) 0.1x10^3/uL (0.0-0.2) Sodium Level 139mmol/L (136-145) 138mmol/L (136-145) Potassium Level 4.6mmol/L (3.5-5.1) 4.0mmol/L (3.5-5.1) Chloride Level 102mmol/L (98-107) 102mmol/L (98-107) Carbon Dioxide Level 26mmol/L (21-32) 27mmol/L (21-32) Anion Gap 11 (6-14) 9 (6-14) Blood Urea Nitrogen 25mg/dL (8-26) 23mg/dL (8-26) Creatinine 1.0mg/dL (0.7-1.3) 1.0mg/dL (0.7-1.3) Estimated GFR (Cockcroft-Gault) 77.6 77.6 Glucose Level 103mg/dL (70-99) 103mg/dL (70-99) Calcium Level 9.4mg/dL (8.5-10.1) 9.2mg/dL (8.5-10.1) Laboratory Tests Test 12/30/16 03:30 White Blood Count 14.1x10^3/uL (4.0-11.0) Red Blood Count 5.28x10^6/uL (4.30-5.70) Hemoglobin 15.0g/dL (13.0-17.5) Hematocrit 45.3% (39.0-53.0) Mean Corpuscular Volume 86fL (79-100) Mean Corpuscular Hemoglobin 28pg (25-35) Mean Corpuscular Hemoglobin Concent 33g/dL (31-37) Red Cell Distribution Width 13.2% (11.5-14.5) Platelet Count 234x10^3/uL (140-400) Neutrophils (%) (Auto) 73% (31-73) Lymphocytes (%) (Auto) 21% (24-48) Monocytes (%) (Auto) 6% (0-9) Eosinophils (%) (Auto) 0% (0-3) Basophils (%) (Auto) 0% (0-3) Neutrophils # (Auto) 10.3x10^3uL (1.8-7.7) Lymphocytes # (Auto) 2.9x10^3/uL (1.0-4.8) Monocytes # (Auto) 0.9x10^3/uL (0.0-1.1) Eosinophils # (Auto) 0.0x10^3/uL (0.0-0.7) Basophils # (Auto) 0.1x10^3/uL (0.0-0.2) Sodium Level 138mmol/L (136-145) Potassium Level 4.0mmol/L (3.5-5.1) Chloride Level 102mmol/L (98-107) Carbon Dioxide Level 27mmol/L (21-32) Anion Gap 9 (6-14) Blood Urea Nitrogen 23mg/dL (8-26) Creatinine 1.0mg/dL (0.7-1.3) Estimated GFR (Cockcroft-Gault) 77.6 Glucose Level 103mg/dL (70-99) Calcium Level 9.2mg/dL (8.5-10.1) Medications Current Medications Iohexol (Omnipaque 300 Mg/ml) 70 ml 1X ONCE IV Last administered on 12/20/16 03:42; Start 12/20/16 at 03:15; Stop 12/20/16 at 03:16; Status DC Info (Do NOT chart on this entry -- for MONITORING) 1 each PRN DAILY PRN MC SEE COMMENTS; Start 12/20/16 at 03:15; Stop 12/21/16 at 16:47; Status DC Ondansetron HCl (Zofran) 4 mg PRN Q8HRS PRN IV NAUSEA/VOMITING; Start 12/20/16 at 04:30; Stop 12/20/16 at 13:26; Status DC Acetaminophen (Tylenol) 650 mg PRN Q4HRS PRN PO FEVER; Start 12/20/16 at 04:30 ; Stop 12/21/16 at 04:30; Status DC Aspirin (Carlene Aspirin) 325 mg 1X ONCE PO Last administered on 12/20/16 05:17 ; Start 12/20/16 at 05:00; Stop 12/20/16 at 05:01; Status DC Clopidogrel Bisulfate (Plavix) 75 mg DAILYWBKFT PO Last administered on 09:24; Start 12/20/16 at 09:00; Stop 12/20/16 at 13:22; Status DC Gadobutrol (Gadavist) 9 mmol 1X ONCE IV Last administered on 12/20/16 12:32; Start 12/20/16 at 12:30; Stop 12/20/16 at 12:31; Status DC Aspirin (Ecotrin) 325 mg DAILYWBKFT PO Last administered on 12/22/16 09:26; Start 12/20/16 at 14:00; Stop 12/22/16 at 16:13; Status DC Atorvastatin Calcium (Lipitor) 40 mg QHS PO Last administered on 12/25/16 21: 22; Start 12/20/16 at 21:00; Stop 12/26/16 at 14:01; Status DC Acetaminophen/ Hydrocodone Bitart (Lortab 5/325) 1 tab PRN Q4HRS PRN PO MILD PAIN, 2ND CHOICE Last administered on 12/30/16 08:14; Start 12/20/16 at 13:30 Metoprolol Tartrate (Lopressor) 12.5 mg BID PO Last administered on 12/25/16 21:22; Start 12/20/16 at 14:00; Stop 12/26/16 at 05:01; Status DC Prasugrel (Effient) 10 mg DAILYWBKFT PO Last administered on 12/21/16 08:36; Start 12/20/16 at 14:00; Stop 12/21/16 at 11:12; Status DC Varenicline (Chantix) 1 mg BID PO Last administered on 12/20/16 14:39; Start 12/20/16 at 14:00; Stop 12/23/16 at 16:55; Status DC Ondansetron HCl (Zofran) 4 mg PRN Q6HRS PRN IV NAUSEA/VOMITING; Start 12/20/16 at 13:30; Stop 12/25/16 at 04:49; Status DC Dexamethasone Sodium Phosphate (Decadron) 4 mg Q6HRS IV Last administered on 06:31; Start 12/20/16 at 18:00; Stop 12/22/16 at 12:20; Status DC Pantoprazole Sodium (Protonix) 40 mg DAILYAC PO Last administered on 12/25/16 09:14; Start 12/20/16 at 14:00; Stop 12/26/16 at 05:01; Status DC Acetaminophen (Tylenol) 650 mg PRN Q6HRS PRN PO MILD PAIN / TEMP; Start at 19:00; Stop 12/25/16 at 04:49; Status DC Alprazolam (Xanax) 0.25 mg PRN Q8HRS PRN PO ANXIETY / AGITATION; Start at 19:00; Status Cancel Lorazepam (Ativan) 2 mg PRN Q4HRS PRN IV ANXIETY / AGITATION Last administered on 12/23/16 20:54; Start 12/20/16 at 19:00; Stop 12/30/16 at 13:44; Status DC Alprazolam (Xanax) 0.25 mg TID PRN PRN PO ANXIETY / AGITATION Last administered on 12/25/16 15:21; Start 12/20/16 at 19:15; Stop 12/26/16 at 14:00 ; Status DC Enoxaparin Sodium (Lovenox 80mg Syringe) 80 mg Q12HR SQ ; Start 12/21/16 at 21: 00; Stop 12/21/16 at 21:00; Status DC Info (Anti-Coagulation Monitoring By Pharmacy) 1 each PRN DAILY PRN MC SEE COMMENTS; Start 12/21/16 at 11:30; Stop 12/22/16 at 10:33; Status DC Enoxaparin Sodium (Lovenox 40mg Syringe) 40 mg Q24H SQ ; Start 12/22/16 at 10:00 ; Stop 12/22/16 at 10:00; Status DC Albuterol/ Ipratropium (Duoneb) 3 ml RTQID NEB Last administered on 12/30/16 16 :36; Start 12/21/16 at 16:00 Iohexol (Omnipaque 300 Mg/ml) 75 ml 1X ONCE IV ; Start 12/21/16 at 13:15; Stop 12/21/16 at 13:16; Status DC Iohexol (Omnipaque 240 Mg/ml) 50 ml 1X ONCE PO ; Start 12/21/16 at 13:15; Stop 12/21/16 at 13:16; Status DC Info (Do NOT chart on this entry -- for MONITORING) 1 each PRN DAILY PRN MC SEE COMMENTS; Start 12/21/16 at 13:15; Stop 12/23/16 at 13:14; Status DC Dexamethasone (Decadron) 2 mg BID PO Last administered on 12/30/16 08:11; Start 12/22/16 at 13:00 Lorazepam 0.5 mg 0.5 mg PRN Q8HRS PRN PO ANXIETY / AGITATION Last administered on 12/24/16 08:16; Start 12/22/16 at 13:15; Stop 12/27/16 at 13:19; Status DC Tirofiban/Sodium Chloride (Aggrastat 12.5 Mg/250 ml Premix) 250 ml @ 0 mls/hr CONT PRN IV PER PROTOCOL Last administered on 12/23/16 05:48; Start 12/22/16 at 14:15; Stop 12/23/16 at 13:46; Status DC Losartan Potassium (Cozaar) 25 mg DAILY PO Last administered on 12/30/16 08:13 ; Start 12/22/16 at 16:00 Aspirin (Ecotrin) 81 mg DAILYWBKFT PO Last administered on 12/24/16 08:17; Start 12/23/16 at 08:00; Stop 12/26/16 at 14:01; Status DC Fluoxetine HCl 20 mg 20 mg DAILY PO Last administered on 12/27/16 08:50; Start 12/23/16 at 12:30; Stop 12/27/16 at 13:19; Status DC Tirofiban/Sodium Chloride (Aggrastat 12.5 Mg/250 ml Premix) 250 ml @ 0 mls/hr CONT PRN IV PER PROTOCOL Last administered on 12/25/16 20:53; Start 12/23/16 at 14:00; Stop 12/26/16 at 18:00; Status DC Adenosine (Adenocard) 6 mg STK-MED ONCE IV ; Start 12/23/16 at 18:14; Stop 12/23 at 18:15; Status Cancel Adenosine (Adenocard) 6 mg STK-MED ONCE IV ; Start 12/23/16 at 18:15; Stop 12/23 at 18:16; Status Cancel Levetiracetam (Keppra) 250 mg BID PO Last administered on 12/25/16 09:16; Start 12/24/16 at 14:00; Stop 12/25/16 at 13:42; Status DC Alprazolam (Xanax) 0.25 mg STK-MED ONCE .ROUTE ; Start 12/24/16 at 14:46; Stop 12/24/16 at 14:47; Status DC Alprazolam (Xanax) 0.25 mg STK-MED ONCE .ROUTE Last administered on 12/24/16 21:45; Start 12/24/16 at 21:27; Stop 12/25/16 at 12:29; Status DC Acetaminophen (Tylenol) 650 mg PRN Q6HRS PRN PO MILD PAIN / TEMP Last administered on 12/29/16 23:20; Start 12/25/16 at 04:49 Ondansetron HCl (Zofran) 4 mg PRN Q6HRS PRN IV NAUSEA/VOMITING; Start 12/25/16 at 04:49 Aspirin (Ecotrin) 81 mg STK-MED ONCE PO ; Start 12/25/16 at 08:37; Stop at 08:38; Status DC Lorazepam (Ativan) 0.5 mg BID PO Last administered on 12/27/16 08:49; Start at 13:00; Stop 12/27/16 at 13:19; Status DC Levetiracetam (Keppra) 500 mg BID PO Last administered on 12/27/16 08:49; Start 12/25/16 at 21:00; Stop 12/27/16 at 16:05; Status DC Alprazolam (Xanax) 0.25 mg STK-MED ONCE .ROUTE ; Start 12/25/16 at 15:14; Stop 12/25/16 at 15:15; Status DC Atorvastatin Calcium (Lipitor) 40 mg STK-MED ONCE .ROUTE ; Start 12/25/16 at 21: 07; Stop 12/25/16 at 21:08; Status DC Metoprolol Tartrate (Lopressor) 12.5 mg BID PO Last administered on 12/30/16 08 :14; Start 12/26/16 at 09:00 Pantoprazole Sodium (Protonix) 40 mg DAILYAC PO Last administered on 12/30/16 08:14; Start 12/26/16 at 05:01 Aspirin (Ecotrin) 81 mg STK-MED ONCE PO ; Start 12/26/16 at 10:37; Stop at 10:38; Status DC Fluoxetine HCl (Prozac) 20 mg STK-MED ONCE .ROUTE ; Start 12/26/16 at 10:38; Stop 12/26/16 at 10:39; Status DC Lidocaine/Sodium Bicarbonate (Buffered Lidocaine 1%) 20 ml STK-MED ONCE IJ ; Start 12/26/16 at 11:54; Stop 12/26/16 at 11:55; Status DC Fentanyl Citrate (Fentanyl 2ml Vial) 100 mcg STK-MED ONCE .ROUTE ; Start at 12:02; Stop 12/26/16 at 12:03; Status DC Midazolam HCl (Versed) 2 mg STK-MED ONCE .ROUTE ; Start 12/26/16 at 12:02; Stop 12/26/16 at 12:03; Status DC Lidocaine/Sodium Bicarbonate (Buffered Lidocaine 1%) 20 ml 1X ONCE IJ Last administered on 12/26/16 12:44; Start 12/26/16 at 12:30; Stop 12/26/16 at 12:36 ; Status DC Midazolam HCl (Versed) 2 mg 1X ONCE IV Last administered on 12/26/16 12:45; Start 12/26/16 at 12:30; Stop 12/26/16 at 12:36; Status DC Fentanyl Citrate (Fentanyl 2ml Vial) 100 mcg 1X ONCE IV Last administered on 12:45; Start 12/26/16 at 12:30; Stop 12/26/16 at 12:36; Status DC Fentanyl Citrate (Fentanyl 2ml Vial) 100 mcg 1X ONCE IV Last administered on 13:22; Start 12/26/16 at 13:30; Stop 12/26/16 at 13:31; Status DC Alprazolam (Xanax) 0.25 mg TID PRN PRN PO ANXIETY / AGITATION Last administered on 12/30/16 15:09; Start 12/26/16 at 14:00 Atorvastatin Calcium (Lipitor) 40 mg QHS PO Last administered on 12/28/16 20:53 ; Start 12/26/16 at 21:00; Stop 12/29/16 at 10:04; Status DC Aspirin (Ecotrin) 81 mg DAILYWBKFT PO Last administered on 12/30/16 08:14; Start 12/27/16 at 08:00 Clopidogrel Bisulfate (Plavix) 75 mg DAILYWBKFT PO Last administered on 08:11; Start 12/26/16 at 18:00 Lorazepam (Ativan) 0.5 mg STK-MED ONCE .ROUTE ; Start 12/27/16 at 07:41; Stop 12/27/16 at 07:42; Status DC Levetiracetam (Keppra) 500 mg STK-MED ONCE PO ; Start 12/27/16 at 07:41; Stop 12/27/16 at 07:42; Status DC Fluoxetine HCl (Prozac) 20 mg STK-MED ONCE .ROUTE ; Start 12/27/16 at 07:42; Stop 12/27/16 at 07:43; Status DC Levetiracetam (Keppra) 500 mg BID PO Last administered on 12/30/16 08:12; Start 12/27/16 at 21:00 Lorazepam (Ativan) 0.5 mg PRN Q8HRS PRN PO ANXIETY / AGITATION; Start 12/27/16 at 13:30 Lorazepam (Ativan) 0.5 mg BID PO Last administered on 12/30/16 08:12; Start 12/27/16 at 21:00 Fluoxetine HCl (Prozac) 20 mg DAILY PO Last administered on 12/30/16 08:14; Start 12/28/16 at 09:00 Lorazepam (Ativan) 2 mg PRN Q4HRS PRN IV ANXIETY / AGITATION; Start 12/30/16 at 13:44 Gadobutrol (Gadavist) 9 mmol 1X ONCE IV Last administered on 12/30/16 14:53; Start 12/30/16 at 14:30; Stop 12/30/16 at 14:31; Status DC Active Scripts Active Hydrocodone-Apap 5-325 (Hydrocodone Bit/Acetaminophen) 1 Each Tablet 1 Tab PO PRN Q4HRS PRN Effient (Prasugrel Hcl) 10 Mg Tablet 10 Mg PO DAILYWBKFT Metoprolol Tartrate 25 Mg Tablet 12.5 Mg PO BID Atorvastatin Calcium 40 Mg Tablet 40 Mg PO QHS Aspirin Ec (Aspirin) 325 Mg Tablet. 325 Mg PO DAILYWBKFT Reported Chantix (Varenicline Tartrate) 0.5 Mg Tablet 1 Mg PO BID 0.5 MG PO DAILY X3 DAY, 0.5 MG PO BID X4 DAY, 1 MG PO BID UNTIL END OF TREATMENT Vitals/I & O Vital Sign - Last 24 Hours 12/29/16 12/29/16 12/29/16 12/29/16 19:00 19:07 20:00 21:03 Temp 98.8 98.8 Pulse 101 101 Resp 18 B/P 149/89 149/89 Pulse Ox 93 96 O2 Delivery Room Air Room Air Room Air O2 Flow Rate 2.0 12/29/16 12/30/16 12/30/16 12/30/16 23:03 03:19 07:00 07:56 Temp 97.7 98.0 97.7 97.7 98.0 97.7 Pulse 99 86 92 Resp 20 16 18 B/P 142/95 130/82 122/89 Pulse Ox 96 93 93 98 O2 Delivery Room Air Room Air Room Air Room Air 12/30/16 12/30/16 12/30/16 12/30/16 08:00 08:13 08:14 08:14 Pulse 90 90 B/P 122/89 122/89 O2 Delivery Room Air Room Air 12/30/16 12/30/16 12/30/16 12/30/16 09:10 10:28 12:13 15:24 Temp 98.3 97.6 98.3 97.6 Pulse 89 105 Resp 18 20 B/P 138/91 135/94 Pulse Ox 94 94 95 O2 Delivery Room Air Room Air Room Air Nasal Cannula O2 Flow Rate 2.0 12/30/16 16:37 O2 Delivery Room Air Intake and Output 12/29/16 12/29/16 12/30/16 15:00 23:00 07:00 Intake Total 220 ml 120 ml Output Total 550 ml Balance 220 ml -430 ml SUSY COTTO MD Dec 30, 2016 16:45
[2016-12-30 19:12] VITALS: BP 127/90
[2016-12-30 23:25] VITALS: BP 131/83
[2016-12-31 03:14] VITALS: BP 110/79
[2016-12-31 06:38] VITALS: BP 115/81
[2016-12-31] MEDS: IPRATRPIUM/ALBUTEROL 0.5/2.5MG 3 ML NEBU. NEB SCH ×2 (08:11→11:15)
[2016-12-31] MEDS: ASPIRIN ENTERIC COATED 81 MG TABLET.DR. PO SCH (08:43)
[2016-12-31] MEDS: LOSARTAN POTASSIUM 25 MG TABLET. PO SCH (08:43)
[2016-12-31] MEDS: FLUOXETINE HCL 20 MG CAPSULE. PO SCH (08:43)
[2016-12-31] MEDS: PANTOPRAZOLE 40 MG TABLET.DR. PO SCH (08:43)
[2016-12-31] MEDS: DEXAMETHASONE 1 MG TABLET PO SCH (08:44)
[2016-12-31] MEDS: LORAZEPAM 0.5 MG TABLET. PO SCH (08:45)
[2016-12-31] MEDS: CLOPIDOGREL BISULFATE 75 MG TABLET PO SCH (08:45)
[2016-12-31] MEDS: METOPROLOL TART IMMED RELEASE 25 MG TABLET. PO SCH (08:45)
[2016-12-31] MEDS: LEVETIRACETAM 500 MG TABLET. PO SCH (08:45)
[2016-12-31 11:00] VITALS: BP 134/94
--- NOTE | 2016-12-31 12:23 | RAD ---
Portable chest, 12/31/2016: History: Post chest tube removal evaluation Comparison is made to yesterday's study. The right pleural drain has been removed. There is a suggestion of a tiny residual pneumothorax inferolaterally on the right. It appears to be smaller than on yesterday's study. Emphysematous changes are present in the lungs with prominent bullae in the right upper chest. A right upper lobe pulmonary mass is unchanged. No pleural fluid is evident. The left chest remains clear. IMPRESSION: 1. Probable tiny residual right pneumothorax. 2. No new abnormality is detected.
--- NOTE | 2016-12-31 13:08 | PDOC ---
Provider Note Provider Note dc summ dictated (down time) MEHREEN LAST MD Dec 31, 2016 13:08
--- NOTE | 2016-12-31 13:32 | PDOC ---
PROGRESS NOTES Assessment Problems Medical Problems: (1) Adenocarcinoma, lung Status: Acute (2) Right frontal lobe lesion Status: Acute Right parietal 1.8 cm mass, Non-small cell lung cancer. Simple partial seizure x 1, left side facial twitching. He still feels a premonition of some left facial twitching but it does not happen, the symptoms occur right before he is due for his next levetiracetam. Plan Continue Keppra 500 mg bid. Smoking cessation. Taper steroids, craniotomy, further management per neurosurgery Subjective No complaints Objective Vital Signs Date Time Temp Pulse Resp B/P Pulse Ox O2 Delivery O2 Flow Rate FiO2 12/31/16 11:15 96 Room Air 12/31/16 11:00 97.2 69 16 134/94 97.2 12/30/16 19:30 2.0 Intake and Output 12/31/16 07:00 Intake Total 1240 ml Balance 1240 ml Intake Oral 1240 ml # Voids 5 PHYSICAL EXAM Alert. Oriented to time, place and person. PERRL. EOMI. CN: no focal findings. Muscle tone: normal. Muscle strength:5/5 DTR: 2+ Plantar reflex: flexor Gait: not examined in bed. Sensory exam: no abnormal findings. No cerebellar signs elicited. Review of Relevant I have reviewed the following items tess (where applicable) has been applied. Labs Laboratory Tests Test 12/30/16 03:30 White Blood Count 14.1x10^3/uL (4.0-11.0) Red Blood Count 5.28x10^6/uL (4.30-5.70) Hemoglobin 15.0g/dL (13.0-17.5) Hematocrit 45.3% (39.0-53.0) Mean Corpuscular Volume 86fL (79-100) Mean Corpuscular Hemoglobin 28pg (25-35) Mean Corpuscular Hemoglobin Concent 33g/dL (31-37) Red Cell Distribution Width 13.2% (11.5-14.5) Platelet Count 234x10^3/uL (140-400) Neutrophils (%) (Auto) 73% (31-73) Lymphocytes (%) (Auto) 21% (24-48) Monocytes (%) (Auto) 6% (0-9) Eosinophils (%) (Auto) 0% (0-3) Basophils (%) (Auto) 0% (0-3) Neutrophils # (Auto) 10.3x10^3uL (1.8-7.7) Lymphocytes # (Auto) 2.9x10^3/uL (1.0-4.8) Monocytes # (Auto) 0.9x10^3/uL (0.0-1.1) Eosinophils # (Auto) 0.0x10^3/uL (0.0-0.7) Basophils # (Auto) 0.1x10^3/uL (0.0-0.2) Sodium Level 138mmol/L (136-145) Potassium Level 4.0mmol/L (3.5-5.1) Chloride Level 102mmol/L (98-107) Carbon Dioxide Level 27mmol/L (21-32) Anion Gap 9 (6-14) Blood Urea Nitrogen 23mg/dL (8-26) Creatinine 1.0mg/dL (0.7-1.3) Estimated GFR (Cockcroft-Gault) 77.6 Glucose Level 103mg/dL (70-99) Calcium Level 9.2mg/dL (8.5-10.1) Medications Current Medications Iohexol (Omnipaque 300 Mg/ml) 70 ml 1X ONCE IV Last administered on 12/20/16 03:42; Start 12/20/16 at 03:15; Stop 12/20/16 at 03:16; Status DC Info (Do NOT chart on this entry -- for MONITORING) 1 each PRN DAILY PRN MC SEE COMMENTS; Start 12/20/16 at 03:15; Stop 12/21/16 at 16:47; Status DC Ondansetron HCl (Zofran) 4 mg PRN Q8HRS PRN IV NAUSEA/VOMITING; Start 12/20/16 at 04:30; Stop 12/20/16 at 13:26; Status DC Acetaminophen (Tylenol) 650 mg PRN Q4HRS PRN PO FEVER; Start 12/20/16 at 04:30 ; Stop 12/21/16 at 04:30; Status DC Aspirin (Carlene Aspirin) 325 mg 1X ONCE PO Last administered on 12/20/16 05:17 ; Start 12/20/16 at 05:00; Stop 12/20/16 at 05:01; Status DC Clopidogrel Bisulfate (Plavix) 75 mg DAILYWBKFT PO Last administered on 09:24; Start 12/20/16 at 09:00; Stop 12/20/16 at 13:22; Status DC Gadobutrol (Gadavist) 9 mmol 1X ONCE IV Last administered on 12/20/16 12:32; Start 12/20/16 at 12:30; Stop 12/20/16 at 12:31; Status DC Aspirin (Ecotrin) 325 mg DAILYWBKFT PO Last administered on 12/22/16 09:26; Start 12/20/16 at 14:00; Stop 12/22/16 at 16:13; Status DC Atorvastatin Calcium (Lipitor) 40 mg QHS PO Last administered on 12/25/16 21: 22; Start 12/20/16 at 21:00; Stop 12/26/16 at 14:01; Status DC Acetaminophen/ Hydrocodone Bitart (Lortab 5/325) 1 tab PRN Q4HRS PRN PO MILD PAIN, 2ND CHOICE Last administered on 12/30/16 19:17; Start 12/20/16 at 13:30 Metoprolol Tartrate (Lopressor) 12.5 mg BID PO Last administered on 12/25/16 21:22; Start 12/20/16 at 14:00; Stop 12/26/16 at 05:01; Status DC Prasugrel (Effient) 10 mg DAILYWBKFT PO Last administered on 12/21/16 08:36; Start 12/20/16 at 14:00; Stop 12/21/16 at 11:12; Status DC Varenicline (Chantix) 1 mg BID PO Last administered on 12/20/16 14:39; Start 12/20/16 at 14:00; Stop 12/23/16 at 16:55; Status DC Ondansetron HCl (Zofran) 4 mg PRN Q6HRS PRN IV NAUSEA/VOMITING; Start 12/20/16 at 13:30; Stop 12/25/16 at 04:49; Status DC Dexamethasone Sodium Phosphate (Decadron) 4 mg Q6HRS IV Last administered on 06:31; Start 12/20/16 at 18:00; Stop 12/22/16 at 12:20; Status DC Pantoprazole Sodium (Protonix) 40 mg DAILYAC PO Last administered on 12/25/16 09:14; Start 12/20/16 at 14:00; Stop 12/26/16 at 05:01; Status DC Acetaminophen (Tylenol) 650 mg PRN Q6HRS PRN PO MILD PAIN / TEMP; Start at 19:00; Stop 12/25/16 at 04:49; Status DC Alprazolam (Xanax) 0.25 mg PRN Q8HRS PRN PO ANXIETY / AGITATION; Start at 19:00; Status Cancel Lorazepam (Ativan) 2 mg PRN Q4HRS PRN IV ANXIETY / AGITATION Last administered on 12/23/16 20:54; Start 12/20/16 at 19:00; Stop 12/30/16 at 13:44; Status DC Alprazolam (Xanax) 0.25 mg TID PRN PRN PO ANXIETY / AGITATION Last administered on 12/25/16 15:21; Start 12/20/16 at 19:15; Stop 12/26/16 at 14:00 ; Status DC Enoxaparin Sodium (Lovenox 80mg Syringe) 80 mg Q12HR SQ ; Start 12/21/16 at 21: 00; Stop 12/21/16 at 21:00; Status DC Info (Anti-Coagulation Monitoring By Pharmacy) 1 each PRN DAILY PRN MC SEE COMMENTS; Start 12/21/16 at 11:30; Stop 12/22/16 at 10:33; Status DC Enoxaparin Sodium (Lovenox 40mg Syringe) 40 mg Q24H SQ ; Start 12/22/16 at 10:00 ; Stop 12/22/16 at 10:00; Status DC Albuterol/ Ipratropium (Duoneb) 3 ml RTQID NEB Last administered on 12/31/16 11 :15; Start 12/21/16 at 16:00 Iohexol (Omnipaque 300 Mg/ml) 75 ml 1X ONCE IV ; Start 12/21/16 at 13:15; Stop 12/21/16 at 13:16; Status DC Iohexol (Omnipaque 240 Mg/ml) 50 ml 1X ONCE PO ; Start 12/21/16 at 13:15; Stop 12/21/16 at 13:16; Status DC Info (Do NOT chart on this entry -- for MONITORING) 1 each PRN DAILY PRN MC SEE COMMENTS; Start 12/21/16 at 13:15; Stop 12/23/16 at 13:14; Status DC Dexamethasone (Decadron) 2 mg BID PO Last administered on 12/31/16 08:44; Start 12/22/16 at 13:00 Lorazepam 0.5 mg 0.5 mg PRN Q8HRS PRN PO ANXIETY / AGITATION Last administered on 12/24/16 08:16; Start 12/22/16 at 13:15; Stop 12/27/16 at 13:19; Status DC Tirofiban/Sodium Chloride (Aggrastat 12.5 Mg/250 ml Premix) 250 ml @ 0 mls/hr CONT PRN IV PER PROTOCOL Last administered on 12/23/16 05:48; Start 12/22/16 at 14:15; Stop 12/23/16 at 13:46; Status DC Losartan Potassium (Cozaar) 25 mg DAILY PO Last administered on 12/31/16 08:43 ; Start 12/22/16 at 16:00 Aspirin (Ecotrin) 81 mg DAILYWBKFT PO Last administered on 12/24/16 08:17; Start 12/23/16 at 08:00; Stop 12/26/16 at 14:01; Status DC Fluoxetine HCl 20 mg 20 mg DAILY PO Last administered on 12/27/16 08:50; Start 12/23/16 at 12:30; Stop 12/27/16 at 13:19; Status DC Tirofiban/Sodium Chloride (Aggrastat 12.5 Mg/250 ml Premix) 250 ml @ 0 mls/hr CONT PRN IV PER PROTOCOL Last administered on 12/25/16 20:53; Start 12/23/16 at 14:00; Stop 12/26/16 at 18:00; Status DC Adenosine (Adenocard) 6 mg STK-MED ONCE IV ; Start 12/23/16 at 18:14; Stop 12/23 at 18:15; Status Cancel Adenosine (Adenocard) 6 mg STK-MED ONCE IV ; Start 12/23/16 at 18:15; Stop 12/23 at 18:16; Status Cancel Levetiracetam (Keppra) 250 mg BID PO Last administered on 12/25/16 09:16; Start 12/24/16 at 14:00; Stop 12/25/16 at 13:42; Status DC Alprazolam (Xanax) 0.25 mg STK-MED ONCE .ROUTE ; Start 12/24/16 at 14:46; Stop 12/24/16 at 14:47; Status DC Alprazolam (Xanax) 0.25 mg STK-MED ONCE .ROUTE Last administered on 12/24/16 21:45; Start 12/24/16 at 21:27; Stop 12/25/16 at 12:29; Status DC Acetaminophen (Tylenol) 650 mg PRN Q6HRS PRN PO MILD PAIN / TEMP Last administered on 12/29/16 23:20; Start 12/25/16 at 04:49 Ondansetron HCl (Zofran) 4 mg PRN Q6HRS PRN IV NAUSEA/VOMITING; Start 12/25/16 at 04:49 Aspirin (Ecotrin) 81 mg STK-MED ONCE PO ; Start 12/25/16 at 08:37; Stop at 08:38; Status DC Lorazepam (Ativan) 0.5 mg BID PO Last administered on 12/27/16 08:49; Start at 13:00; Stop 12/27/16 at 13:19; Status DC Levetiracetam (Keppra) 500 mg BID PO Last administered on 12/27/16 08:49; Start 12/25/16 at 21:00; Stop 12/27/16 at 16:05; Status DC Alprazolam (Xanax) 0.25 mg STK-MED ONCE .ROUTE ; Start 12/25/16 at 15:14; Stop 12/25/16 at 15:15; Status DC Atorvastatin Calcium (Lipitor) 40 mg STK-MED ONCE .ROUTE ; Start 12/25/16 at 21: 07; Stop 12/25/16 at 21:08; Status DC Metoprolol Tartrate (Lopressor) 12.5 mg BID PO Last administered on 12/31/16 08 :45; Start 12/26/16 at 09:00 Pantoprazole Sodium (Protonix) 40 mg DAILYAC PO Last administered on 12/31/16 08:43; Start 12/26/16 at 05:01 Aspirin (Ecotrin) 81 mg STK-MED ONCE PO ; Start 12/26/16 at 10:37; Stop at 10:38; Status DC Fluoxetine HCl (Prozac) 20 mg STK-MED ONCE .ROUTE ; Start 12/26/16 at 10:38; Stop 12/26/16 at 10:39; Status DC Lidocaine/Sodium Bicarbonate (Buffered Lidocaine 1%) 20 ml STK-MED ONCE IJ ; Start 12/26/16 at 11:54; Stop 12/26/16 at 11:55; Status DC Fentanyl Citrate (Fentanyl 2ml Vial) 100 mcg STK-MED ONCE .ROUTE ; Start at 12:02; Stop 12/26/16 at 12:03; Status DC Midazolam HCl (Versed) 2 mg STK-MED ONCE .ROUTE ; Start 12/26/16 at 12:02; Stop 12/26/16 at 12:03; Status DC Lidocaine/Sodium Bicarbonate (Buffered Lidocaine 1%) 20 ml 1X ONCE IJ Last administered on 12/26/16 12:44; Start 12/26/16 at 12:30; Stop 12/26/16 at 12:36 ; Status DC Midazolam HCl (Versed) 2 mg 1X ONCE IV Last administered on 12/26/16 12:45; Start 12/26/16 at 12:30; Stop 12/26/16 at 12:36; Status DC Fentanyl Citrate (Fentanyl 2ml Vial) 100 mcg 1X ONCE IV Last administered on 12:45; Start 12/26/16 at 12:30; Stop 12/26/16 at 12:36; Status DC Fentanyl Citrate (Fentanyl 2ml Vial) 100 mcg 1X ONCE IV Last administered on 13:22; Start 12/26/16 at 13:30; Stop 12/26/16 at 13:31; Status DC Alprazolam (Xanax) 0.25 mg TID PRN PRN PO ANXIETY / AGITATION Last administered on 12/30/16 15:09; Start 12/26/16 at 14:00 Atorvastatin Calcium (Lipitor) 40 mg QHS PO Last administered on 12/28/16 20:53 ; Start 12/26/16 at 21:00; Stop 12/29/16 at 10:04; Status DC Aspirin (Ecotrin) 81 mg DAILYWBKFT PO Last administered on 12/31/16 08:43; Start 12/27/16 at 08:00 Clopidogrel Bisulfate (Plavix) 75 mg DAILYWBKFT PO Last administered on 08:45; Start 12/26/16 at 18:00 Lorazepam (Ativan) 0.5 mg STK-MED ONCE .ROUTE ; Start 12/27/16 at 07:41; Stop 12/27/16 at 07:42; Status DC Levetiracetam (Keppra) 500 mg STK-MED ONCE PO ; Start 12/27/16 at 07:41; Stop 12/27/16 at 07:42; Status DC Fluoxetine HCl (Prozac) 20 mg STK-MED ONCE .ROUTE ; Start 12/27/16 at 07:42; Stop 12/27/16 at 07:43; Status DC Levetiracetam (Keppra) 500 mg BID PO Last administered on 12/31/16 08:45; Start 12/27/16 at 21:00 Lorazepam (Ativan) 0.5 mg PRN Q8HRS PRN PO ANXIETY / AGITATION; Start 12/27/16 at 13:30 Lorazepam (Ativan) 0.5 mg BID PO Last administered on 12/31/16 08:45; Start 12/27/16 at 21:00 Fluoxetine HCl (Prozac) 20 mg DAILY PO Last administered on 12/31/16 08:43; Start 12/28/16 at 09:00 Lorazepam (Ativan) 2 mg PRN Q4HRS PRN IV ANXIETY / AGITATION; Start 12/30/16 at 13:44 Gadobutrol (Gadavist) 9 mmol 1X ONCE IV Last administered on 12/30/16 14:53; Start 12/30/16 at 14:30; Stop 12/30/16 at 14:31; Status DC Active Scripts Active Dexamethasone 1 Mg Tablet 1 Mg PO BID Keppra (Levetiracetam) 500 Mg Tablet 1 Tab PO BID Hydrocodone-Apap 5-325 (Hydrocodone Bit/Acetaminophen) 1 Each Tablet 1 Tab PO PRN Q4HRS PRN Effient (Prasugrel Hcl) 10 Mg Tablet 10 Mg PO DAILYWBK Metoprolol Tartrate 25 Mg Tablet 12.5 Mg PO BID Aspirin Ec (Aspirin) 325 Mg Tablet.dr 325 Mg PO DAILYWBK Reported Chantix (Varenicline Tartrate) 0.5 Mg Tablet 1 Mg PO BID 0.5 MG PO DAILY X3 DAY, 0.5 MG PO BID X4 DAY, 1 MG PO BID UNTIL END OF TREATMENT Vitals/I & O Vital Sign - Last 24 Hours 12/30/16 12/30/16 12/30/16 12/30/16 15:24 16:37 19:12 19:30 Temp 97.6 97.9 97.6 97.9 Pulse 105 96 Resp 20 18 B/P 135/94 127/90 Pulse Ox 95 94 O2 Delivery Nasal Cannula Room Air Room Air Room Air O2 Flow Rate 2.0 12/30/16 12/30/16 12/30/16 12/31/16 19:39 21:45 23:25 03:14 Temp 97.8 97.9 97.8 97.9 Pulse 96 92 85 Resp 20 18 B/P 127/90 131/83 110/79 Pulse Ox 96 97 98 O2 Delivery Room Air Room Air Room Air 12/31/16 12/31/16 12/31/16 12/31/16 06:38 08:00 08:12 08:43 Temp 97.9 97.9 Pulse 77 77 Resp 20 B/P 115/81 115/81 Pulse Ox 97 97 O2 Delivery Room Air Room Air Room Air 12/31/16 12/31/16 12/31/16 08:45 11:00 11:15 Temp 97.2 97.2 Pulse 77 69 Resp 16 B/P 115/81 134/94 Pulse Ox 96 96 O2 Delivery Room Air Room Air Intake and Output 12/30/16 12/30/16 12/31/16 15:00 23:00 07:00 Intake Total 240 ml 800 ml 200 ml Balance 240 ml 800 ml 200 ml FELIPE GAUTHIER MD Dec 31, 2016 13:32
--- NOTE | 2016-12-31 22:48 | DS ---
DATE OF DISCHARGE: 12/31/2016 DISCHARGE DIAGNOSES: 1. 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 2. Partial seizure, headache secondary to #1. 3. Multiple renal cysts, benign. 4. Multiple liver cysts, benign. 5. Abdominal aortic aneurysm measuring 3.7 cm in diameter, incidental, no abdominal pain. BRIEF HOSPITAL COURSE: The patient is a 56-year-old -[place] male, smoker, came in because of partial seizures and headache. CT scan imaging showed "a brain mass," which was around 1.6 cm in diameter. Neurosurgery was consulted. Initially, he was thinking of biopsying the lesion, but the patient was a smoker and eventual stay was remarkable for discovering significant 6 cm size right upper lobe mass. The patient underwent biopsy, which proved to be adenocarcinoma of the lungs. Bone scan was negative for any mets. Hem/Onc involved and Pulmonary involved. Post biopsy, he developed some pneumothorax, which he had chest tube, indwelling, insertion. Now, the chest tube is out. Biopsy did prove to be adenocarcinoma of the lungs with only 1 mets to the brain, which is amendable to surgery. Neurosurgery reconsulted again and recommended excision of that brain mass. The patient is leaning towards it, but would like [facility] opinion. [facility] also consulted for resection of that lung mass after brain resection given he has more symptoms in terms of the brain. The patient is amenable to doing all these resections. He is very happy with his stay here, but he would like [facility] appointment, which has been set up for tomorrow by Neurosurgery. In the meantime, the patient will be going home with Keppra 500 p.o. b.i.d. and Decadron 1 mg b.i.d. until further notice. The patient seen and examined. Discussed with RN at bedside. Discussed with family at bedside. Significant time, education, counseling, plan of care, 40 minutes cumulative. MEHREEN LAST MD DR: /anastasiya JOB#: [id number] / [id number] ADRIENNE
--- NOTE | 2017-01-01 07:32 | PN ---
DATE: 12/31/2016 SUBJECTIVE: The patient has no shortness of breath. PHYSICAL EXAMINATION: VITAL SIGNS: Stable. NECK: Supple. LUNGS: Clear. CARDIOVASCULAR: Regular rate and rhythm. ABDOMEN: Soft, nontender. EXTREMITIES: No pitting edema. LABORATORY DATA: A chest x-ray post-removal of chest tube was reviewed today and it shows only a tiny residual pneumothorax on the right lateral chest wall. IMPRESSION: 1. Adenocarcinoma of the lung with metastasis to the brain. 2. Underlying bullous lung disease/chronic obstructive lung disease. 3. PTX, stable and only tiny residual seen on todays CXR RECOMMENDATIONS: Discussed with the patient and significant other. He plans to go to for further opinion and he may decide to have surgery over there as well. From a pulmonary standpoint, I did discussed with the patient that he would eventually need a PET scan and a full PFTs in order to assess his resectability. I would prefer having PFTs done next week to make sure there is no recurrence of pneumothorax while performing PFT maneuvers. If the patient do decide to come back to [facility], he would call us and let us know. RHONDA RESTREPO MD DR: CINTHIA/anastasiya JOB#: [id number] / [id number] ADRIENNE
== END 2016-12-31 13:45 | disposition home or self-care (01) | DRG 180 ==
LOC: ER 01:10 → 6 SOUTH 04:25 → 2 NORTH 12-22 16:20 → 2 SOUTH 12-25 19:49
PROVIDERS: ADMIT Internal Medicine; ATTEND Internal Medicine
DX: C34.11 Malignant neoplasm of upper lobe, right bronchus or lung (principal); I21.4 Non-ST elevation (NSTEMI) myocardial infarction; C79.31 Secondary malignant neoplasm of brain; G40.89 Other seizures; J95.811 Postprocedural pneumothorax; E78.5 Hyperlipidemia, unspecified; I25.10 Atherosclerotic heart disease of native coronary artery without angina pectoris; D72.829 Elevated white blood cell count, unspecified; Z80.1 Family history of malignant neoplasm of trachea, bronchus and lung; I25.2 Old myocardial infarction; D18.03 Hemangioma of intra-abdominal structures; F17.200 Nicotine dependence, unspecified, uncomplicated; F41.9 Anxiety disorder, unspecified; G93.89 Other specified disorders of brain; I10 Essential (primary) hypertension; I71.4 Abdominal aortic aneurysm, without rupture; J44.9 Chronic obstructive pulmonary disease, unspecified; N28.1 Cyst of kidney, acquired; Z79.899 Other long term (current) drug therapy; Z82.49 Family history of ischemic heart disease and other diseases of the circulatory system; Z85.118 Personal history of other malignant neoplasm of bronchus and lung; Z90.49 Acquired absence of other specified parts of digestive tract; Z95.5 Presence of coronary angioplasty implant and graft
CPT/HCPCS: 32405; 32557; 36415; 70450; 70470; 70553; 71010; 71250; 71270; 74178; 74183; 77012; 78306; 80048; 80053; 85007; 85027; 85610; 88305; 93306; 93880; 93971; 94250; 94640; 94760; 95816; 96374; A4215; A9503; A9585; C1729; C1892; J1100; J2060; J2250; J3010; J7620; Q9967; 99285-25; J3246

== ENCOUNTER 2018-06-07 10:06 | Day surgery (SDC) | payer BC, OTHER ==
[~2018-06-07] VITALS: Ht 190.5 cm; Wt 108.4 kg
[~2018-06-07 10:06] MED LIST changes: +ALBU2.5V5 NEB; +ASPI-630 PO; +BUDE10.2 IH; +BUPIVACAINE-EPI 0.5%-1:200000 50 ML VIAL. ONE; +CARV3.12 PO; +CLOP75TA PO; +CRESTOR10 MG PO; +DEXA1TAB PO; +FURO-69 PO; -HYDR-2666 PO; +HYDR-2758 PO; +LEVE500T56 PO; +LORA10TA68 PO; +PEMB100V IV; -PRAS10TA4 PO; +PRAS10TA9 PO; +TIZA4TAB PO
[2018-06-07] MEDS ORDERED: PROPOFOL 20 ML IV ONE ×2 (10:07→11:14)
[2018-06-07] MEDS ORDERED: GLYCOPYRROLATE 1 MG/5 ML VIAL. ONE (10:07)
[2018-06-07] MEDS ORDERED: SEVOFLURANE 16 TO 30 MINUTES. IH ONE (10:07)
[2018-06-07] MEDS ORDERED: IV RINGERS,LACTATED 1000ML 1,000 ML IV SCH (10:25)
[2018-06-07] MEDS ORDERED: fentaNYL PF VIAL 100 MCG/2 ML VIAL IV PRN ×2 (10:30)
[2018-06-07] MEDS ORDERED: LIDOCAINE 1% PF 2 ML VIAL. ID PRN (10:30)
[2018-06-07] MEDS ORDERED: MIDAZOLAM HCL/PF 2 MG/2 ML VIAL. IV PRN (10:30)
[2018-06-07 12:04] VITALS: BP 132/80
--- NOTE | 2018-06-07 12:04 | PDOC ---
BRIEF OPERATIVE NOTE Date: Jun 07, 2018 Pre-Op Diagnosis subcutaneous mass left upper back Post-Op Diagnosis same Procedure Performed excision Surgeon Zach Anesthesia Type: MAC Blood Loss 10cc IV Fluid 500cc Specimens Obtained subcutaneous mass 4x2x1 cm Findings fatty tumor adherent to underlying muscle Complications none Operative Note Wk # [id number] MELYSSA GREEN MD Jun 07, 2018 12:04
--- NOTE | 2018-06-07 12:07 | DISCH ---
DISCHARGE INSTRUCTIONS Condition on Discharge Condition on Discharge: Stable Activity After Discharge Activity Instructions for Disc: Activity as tolerated, Avoid exertion Lifting Instructions after Dis: No heavy lifting Driving Instructions after Dis: Do not drive today Diet after Discharge Diet after Discharge: Regular Diet Texture: Regular Wound Incision Care Wound/Incision Care: Ice to area for comfort Other wound/incision instructi: january showthursday Checks after Discharge Checks after discharge: Check blood press - daily Treatment/Equipment after DC Adaptive Equipment Issued: None MELYSSA GREEN MD Jun 07, 2018 12:07
[2018-06-07] MEDS ORDERED: fentaNYL PF VIAL 100 MCG/2 ML VIAL ONE (12:09)
[2018-06-07] MEDS ORDERED: OXYC-323 PO (12:14)
[2018-06-07] MEDS ORDERED: DOCU-150 PO (12:15)
[2018-06-07] MEDS ORDERED: oxyCODONE/APAP 5/325 1 TAB TABLET PO ONE (12:15)
--- NOTE | 2018-06-07 12:27 | OP ---
DATE OF SURGERY: 06/07/2018 PREOPERATIVE DIAGNOSIS: Painful subcutaneous mass, left upper back. POSTOPERATIVE DIAGNOSIS: Painful subcutaneous mass, left upper back. PROCEDURE: Excision of same. SPECIMEN: 4 x 2 x 1 cm subcutaneous mass. DESCRIPTION OF PROCEDURE: The patient brought to the operating suite, placed in right lateral decubitus position and with IV sedation on board, the left upper back was prepped and draped in usual sterile fashion. The skin incision, which had been outlined with the patient's assistance in the preoperative holding area, was infiltrated with 0.5% Marcaine with epinephrine, incised and dissection carried down over the palpable mass. It was unroofed and freed from the underlying muscle. This was done with cautery dissection and the LigaSure. Vascular supply controlled with a 3-0 Vicryl stick tie. When hemostasis was present and a correct sponge count obtained, the wound was closed with interrupted 3-0 Vicryl in the subcutaneous tissue, subcuticular 4-0 Monocryl with Steri-Strips for the skin. Sterile dressing applied. The patient taken to postop area in stable condition having tolerated the procedure well. MELYSSA GREEN MD DR: MARILY/anastasiya JOB#: [id number] / [id number]
--- NOTE | 2018-06-09 09:11 | PATHOLOGY ---
[facility] Accession Number: [id number] . 01 Material submitted: . LEFT UPPER BACK SUBCUTANEOUS MASS . 01 Clinical history: . Left upper back mass. . 02 Diagnosis: Fibroadipose tissue, left upper back subcutaneous mass excision: - Lipoma. (JPM/at;06/08/2018) QTA/06/08/2018 . 02 Comment: There is no evidence of malignancy. . 02 Electronically signed: . Jonh Lamb MD, Pathologist NPI- [id number] . 01 Gross description: . Received in formalin labeled "Trino Meneses, subcutaneous mass 4 x 2 x 1" is an intact encapsulated yellow-louie lobulated soft tissue mass which measures 3.5 x 2.7 x 1.5 cm. The external surface is inked entirely black. The specimen is serially sectioned to reveal a louie-yellow homogeneous cut surface without hemorrhage or necrosis. Library Monitor sections of the specimen are submitted in cassettes A1-A2. ([facility]; 06/07/2018) SYC/SYC . 02 Pathologist provided ICD-10: D17.30 . 02 CPT . 378984 Performed at: 01 [facility] [address] [facility] [address], [place] [id number] MD Serge Sanchez MD Phone: [phone] Performed at: 02 [facility] [address] [place], [place] [id number] MD Jonh Lamb MD Phone: [phone]
== END 2018-06-07 12:40 | disposition home or self-care (01) ==
LOC: SURG 10:06
PROVIDERS: ATTEND Surgery
DX: D17.1 Benign lipomatous neoplasm of skin and subcutaneous tissue of trunk (principal); J44.9 Chronic obstructive pulmonary disease, unspecified; I25.10 Atherosclerotic heart disease of native coronary artery without angina pectoris; I25.2 Old myocardial infarction; Z85.118 Personal history of other malignant neoplasm of bronchus and lung; Z95.5 Presence of coronary angioplasty implant and graft; Z98.890 Other specified postprocedural states; Z87.891 Personal history of nicotine dependence; Z79.899 Other long term (current) drug therapy; Z79.82 Long term (current) use of aspirin
CPT/HCPCS: 21931; J0690; J2704; J3010; 88304; J3490